=== PATIENT | female | born 1940 | race Caucasian/White ===

== ENCOUNTER 2022-05-22 15:05 | Inpatient (IN) | payer MEDICARE, SELFPAY ==
--- NOTE | ~2022-05-22 | CT_ITS ---
EXAMINATION: CT ABDOMEN AND PELVIS WITHOUT CONTRAST CLINICAL INFORMATION: Sudden onset of nausea and vomiting COMPARISON: None available. TECHNIQUE: Multidetector volumetric imaging was performed from the superior aspect of the liver through the pubic symphysis. Sagittal and coronal reformatted images were obtained on the technologist's workstation. This CT examination was performed using dose optimization techniques as appropriate, variously including the following: *Automated exposure control *Adjustment of mA and/or kV according to patient size (this includes techniques or standardized protocols for targeted exams where dose is matched to indication/reason for exam; i.e. extremities or head) *Use of iterative reconstruction technique DLP: 750 mGy-cm FINDINGS: LUNG BASES: The visualized lung bases are unremarkable. LIVER, GALLBLADDER, AND BILIARY TREE: The liver is normal in size, shape, and attenuation. No focal hepatic lesion or biliary ductal dilatation is present. The gallbladder is unremarkable with no evidence of radiopaque gallstones, gallbladder wall thickening, or obvious pericholecystic inflammatory changes. PANCREAS: Unremarkable. SPLEEN: Unremarkable. ADRENAL GLANDS: A 3.0 x 3.0 x 2.8 cm left adrenal myelolipoma lipoma is present with gross macroscopic fat. The right adrenal gland is normal KIDNEYS AND URETERS: The kidneys are normal in size, shape, and attenuation. No hydronephrosis, hydroureter, or calculi seen. No perinephric stranding. BLADDER: Unremarkable. GASTROINTESTINAL TRACT: There is a huge hiatal hernia with the entirety of the stomach within the chest, with the exception of the fundus which appears to be stuck below the diaphragm. The intrathoracic stomach is markedly distended. Patient status post right hemicolectomy. The small and large bowel are otherwise unremarkable aside from colonic diverticula without diverticulitis. ABDOMINAL WALL: No significant hernia is appreciated. A small periumbilical hernia seen containing only fat LYMPH NODES: No retroperitoneal lymphadenopathy VASCULAR: Unremarkable. PELVIC VISCERA: Uterus is not seen. An abnormal adnexal mass or free intraperitoneal fluid is not present OSSEOUS STRUCTURES: Marked degenerative changes are present throughout the visualized spine with relative sparing at L2-L3. There is grade 1 anterolisthesis of L5 upon S1. No bony destructive lesions are seen. CT/CT abdomen pelvis wo IV con IMPRESSION: 1. Huge hiatal hernia with the entirety of the stomach within the chest with the exception of the fundus which appears to be stuck below the diaphragm. 2. Incidental note made of 3 cm left adrenal myelolipoma. 3. Other incidental findings as described above. Fleischner guidelines were followed. This critical result was discussed with Dr. Meadows at 10:30 PM on the evening of the exam and it was ascertained that the content and urgency of the report was understood at the time of direct communication.
[2022-05-22 15:35] VITALS: BP 129/73; PULSE 72; RESP 20; TEMP 37.1
[2022-05-22 16:33] VITALS: BMI 29.2
--- NOTE | 2022-05-22 17:36 | PC.NURSE ---
Pt. arrived on unit at 15:20 via stretcher accompanied by 2 board certified behavioral analyst. Pt. came from [facility] ED where she was brought by her daughter for increased anxiety and helplessness with statements of wishing god would take her and she wouldn't wake up. Pt. alert and oriented X 4. Denies problems with memory. Signed CV. Endorses feelings of helplessness and anxiety because she is overwhelmed by ADLs and simple tasks, and her daughters don't believe she has self care deficits. She feels she is a burden to her daughters due to her neediness. No evidence of psychosis. She states she is ready for a retirement. Pt. oriented to unit, no smoking policy and visitor policy. Pt. ambulates independently with walker and has good balance and steady gait.
--- NOTE | 2022-05-22 18:21 | HO.PM.IMCN ---
History of Present Illness Data of Consult Service Date: 05/22/22 Requesting physician: Asael Walker Primary Care Provider: Dru RUIZ Reason for consult: medical H&P 82 year old female with history of hypothyroidism, htn, hld, vitamin d deficiency, bipolar disorder, and depression/anxiety admitted to Psychiatry with consult placed to hospital service for medical H and P. The patient has no physical complaints at this time but reports depression and passive SI. She denies any alcohol use, cigarette smoking, or illicit drug use. While in the ED at [facility], EKG showed NSR, rate 81 with RBBB, PAC's, and 1st degree AV block. CBC, CMP, UA, TSH/free t4 reviewed and normal. Review of Systems Review of Systems: General: No fevers, malaise, unintentional weight loss HEENT: No blurred vision, diplopia. No sore throat, nasal congestion, rhinorrhea, sinus pain, ear pain Cardiovascular: No chest pain, palpitations, or leg edema Respiratory: No shortness of breath, wheezing, cough GI: No abdominal pain, nausea, vomiting, diarrhea, constipation, melena, hematochezia : No dysuria, hematuria, increased urinary frequency, decreased urinary output MSK: No myalgia, back pain Neuro: No headaches, weakness, paresthesias Skin: No rashes or lesions [facility] Medical History (Updated 05/22/22 @ 18:39 by ESSENCE Ryder) Bipolar disorder Depression with anxiety HLD (hyperlipidemia) HTN (hypertension) Hypothyroidism Systolic ejection murmur Vitamin D deficiency Social History Household Members: None Housing: House Do you presently have visiting nurse or other home services: No (Daughters help) Patient Tobacco Use Status: Never used Tobacco Use of substances other than those prescribed or required for medical reasons: No Currently Displaying Signs/Symptoms of Drug Intoxication Withdrawal: No Any prior treatment program specific to substance use: No Have you been hit, kicked, punched, or otherwise hurt by someone within the past year? If so, by whom?: No Do you feel safe in your current relationship?: No Is there a partner from a previous relationship who is making you feel unsafe now?: No Are you made to feel afraid or neglected: No Spiritual Healthcare Practices: no Quaker Healthcare Practices: no Cultural Healthcare Practices: no Advance Directives: No Advance Directives Information Provided: Yes Do you have thoughts of harming others: None Do you have a plan to hurt others: No Plan Recently lost weight without trying: No Eating poorly because of decreased appetite: No Nutrition Risks: Difficulty chewing Patient : No : No Poor oral hygiene: No Meds Allergies Allergy/AdvReac Type Severity Reaction Status Date / Time meperidine [From Demerol] AdvReac Unknown Unknown Verified 05/22/22 16:45 Active Medications: Current Medications Acetaminophen (Acetaminophen 325 Mg Tablet) 650 mg PO Q6H PRN PRN Reason: Headache/Pain Mild Scale (1-3) Al Hydroxide/Mg Hydroxide (Magnesium Hydrox/Alum Hydrox 30 Ml Oral.Susp) 30 ml PO Q6H PRN PRN Reason: Heartburn/Nausea Hydroxyzine HCl (Hydroxyzine Hcl 25 Mg Tablet) 25 mg PO Q6H PRN PRN Reason: Anxiety Magnesium Hydroxide (Milk Of Magnesia 30 Ml Oral.Susp) 30 ml PO DAILY PRN PRN Reason: Constipation Trazodone HCl (Trazodone Hcl 50 Mg Tablet) 50 mg PO BEDTIME PRN PRN Reason: Insomnia Physical Exam Vital Signs and Narrative: Vital Signs: Last Vital Signs Temp 98.8 F 05/22/22 15:35 Pulse 72 05/22/22 15:35 Resp 20 05/22/22 15:35 BP 129/73 05/22/22 15:35 O2 Del Method 05/22/22 15:35 BMI result Body Mass Index 29.2 Constitutional - Awake and Alert, No apparent distress Eyes - PERRLA, EOMI Cardiovascular - S1S2, RRR, No edema. IV/ systolic ejection murmur Respiratory - Normal lung expansion, Normal respiratory effort, No respiratory distress, CTA bilaterally Gastrointestinal - NT / ND; +BS; No rebound or guarding - No CVA tenderness Extremities - no calf tenderness bilaterally, no swelling Musculoskeletal - Normal inspection, normal ROM Skin - Warm/Dry Neurological - Alert & oriented x3, CN II-XII in tact, 5/5 strength BUE and BLE Assessment and Plan (1) Routine medical exam: Status: Acute Plan 82 year old female with history of hypothyroidism, htn, hld, vitamin d deficiency, bipolar disorder, and depression/anxiety admitted to Psychiatry with consult placed to hospital service for medical H and P. #Mood disorder -plan per psychiatry #HTN -continue home antihypertensives #Hypothyroidism -TSH 2.00, euthyroid -continue levothyroxine 25 mcg daily # hyperlipidemia -continue statin # vitamin B12 deficiency -continue vitamin B12 and folic acid #Systolic ejection murmur -IV/ on exam. Pt reports not new -Reviewed echo 11/23 from [facility] which did not show any valvular disease -She is asymptomatic. Recommend repeat echo outpt #Abnormal EKG at [place] -No TEZ or depression. NO acute ischemia. Trops flat -1st degree AV block- no intervention needed -PAC's- no intervention needed Thank you for allowing me to participate in this consult. Signing off at this time. Please do not hesitate to call for further questions. Time Spent With Patient Time: Total time managing care of this patient today ____ minutes.
[2022-05-22] MEDS: hydrOXYzine HCL 25 MG TABLET PO (20:59)
[2022-05-22 22:00] VITALS: BP 114/59; PULSE 72; RESP 16; TEMP 36.6; O2SAT 95
[2022-05-22] MEDS: Atorvastatin Calcium 10 MG TABLET PO (22:22)
[2022-05-22] MEDS: Mirtazapine 30 MG TABLET PO (22:22)
[2022-05-23 08:18] LABS: Estimated Average Glucose 111 mg/dL; Hemoglobin A1c % 5.5 %
[2022-05-23] MEDS: Folic Acid 1 MG TABLET PO (08:36)
[2022-05-23] MEDS: Cyanocobalamin (Vitamin B-12) 100 MCG TABLET PO (08:36)
[2022-05-23] MEDS: Levothyroxine Sodium 25 MCG TABLET PO (08:37)
[2022-05-23] MEDS: Valsartan 80 MG TABLET PO (08:37)
[2022-05-23] MEDS: Ferrous Sulfate 324 MG TABLET.DR PO ×2 (08:37→20:34)
[2022-05-23] MEDS: ARIPiprazole 2 MG TABLET PO (08:37)
[2022-05-23 08:39] VITALS: BP 111/59; PULSE 68; RESP 18; TEMP 35.9; O2SAT 96
[2022-05-23 08:47] LABS: Alanine Aminotransferase 13 U/L (0-31); Albumin Level 4.1 g/dL (3.5-5.0); Alkaline Phosphatase 68 U/L (39-117); Anion Gap 14 (12-20); Aspartate Amino Transferase 18 U/L (5-31); Bilirubin Total 1.5 mg/dL (0.0-1.0); Blood Urea Nitrogen 24 mg/dL (9-16); Calcium 9.2 mg/dL (8.4-10.2); Carbon Dioxide 26 mmol/L (22-29); Chloride 106 mmol/L (96-108); Cholesterol 149 mg/dL; Creatinine Clr Calc Pharmacy 40.5; Estimated Glomerular Filt Rate 52; Glucose Fasting 113 mg/dL (60-99); HDL Cholesterol 63 mg/dL; LDL Cholesterol Calculated 63 mg/dl; Potassium 4.1 mmol/L (3.3-5.1); Sodium 142 mmol/L (135-145); Total Protein 6.5 g/dL (6.5-8.0); Triglycerides 115 mg/dL
--- NOTE | 2022-05-23 08:57 | HO.PSYADMNOT ---
HPI Date of Service: 05/23/22 Chief Complaint: F31.9 Sources of Information: patient interviewed, chart reviewed and crisis/core team assessment reviewed HPI Subjective Notes: Cannon Warning (given and shows understanding) and Conditional Voluntary Narrative: Mrs. Romero is a 82 year-old woman with hx of Bipolar Disorder. Pt presented to [facility] reporting increased depression, passive SI, inability to care for herself at home. On the unit, interview limited by fact that pt presented with nausea, vomiting, abdominal pain. Hospitalist consult ordered. Pt reports poor sleep. No VH/AH. No overt delusions. She reports depression for past several months not improving with medications. She denies SI/HI. Medical Evaluation Reviewed: Yes [facility] Medical History Bipolar disorder Depression with anxiety HLD (hyperlipidemia) HTN (hypertension) Hypothyroidism Systolic ejection murmur Vitamin D deficiency Diagnostics Vital Signs (24Hr): Vital Signs - 24 hr 05/22/22 15:35 05/22/22 22:00 05/23/22 08:39 Temperature 98.8 F 97.9 F 96.7 F L Pulse Rate 72 72 68 Respiratory Rate 20 16 18 Blood Pressure 129/73 114/59 L 111/59 L Pulse Oximetry 95 96 Oxygen Delivery Method Room Air Room Air Room Air BMI result Body Mass Index 29.2 Labs 05/23/22 07:49 Labs: Laboratory Results - last 48 hr 05/23/22 05/23/22 07:49 07:49 Sodium 142 Potassium 4.1 Chloride 106 Carbon Dioxide 26 Anion Gap 14 BUN 24 H Creatinine 1.02 Estim Creat Clear Calc 40.5 Estimated GFR 52 Fasting Glucose 113 H Estimat Average Glucose 111 Hemoglobin A1c % 5.5 Calcium 9.2 Total Bilirubin 1.5 H AST 18 ALT 13 Alkaline Phosphatase 68 Total Protein 6.5 Albumin 4.1 Triglycerides 115 Cholesterol 149 LDL Cholesterol, Calc 63 HDL Cholesterol 63 Meds/Allergies Meds Home Medications Medication Instructions Recorded Confirmed Type folic acid 1 mg tablet 1 mg PO DAILY 05/22/22 05/24/22 History levothyroxine 25 mcg tablet 25 mcg PO DAILY@0600 05/22/22 05/24/22 History ferrous sulfate 324 mg (65 mg 324 mg PO BID 05/24/22 05/24/22 History iron) tablet,delayed release valsartan 80 mg tablet 80 mg PO DAILY 05/24/22 05/24/22 History Allergies Allergies Allergy/AdvReac Type Severity Reaction Status Date / Time meperidine [From Demerol] AdvReac Unknown Unknown Verified 05/22/22 16:45 Mental Status Exam Mental Status Exam Narrative: Appearance: wearing hospital gown, fair hygiene, in some physical discomfort due to vomiting and abdominal pain. Behavior: cooperative Psychomotor: no agitation or retardation noted Speech: clear, normal rate/rhythm/volume, spontaneous TP: linear TC: no psychosis, feeling unwell physically with nausea and vomiting Mood: not well Affect: congruent SI: denies HI: denies VH/AH: none Delusions: none Alert, oriented x 3. MOCA . ACL 5.0 Assessment & Plan Assessment & Plan (1) Bipolar 1 disorder, depressed: Status: Acute Code(s): F31.9 - Bipolar disorder, unspecified Plan Mrs. Romero is a 82 year-old woman with hx of Bipolar Disorder. She self presented to [facility] reporting increased depression for several months affecting her ability to care for herself, anhedonia, poor sleep/appetite, low energy and fatigued. She denies SI/HI. No signs of psychosis or delusions. Pt currently vomitng not physically well, interview limited due to this and hospitalist consult ordered. PLAN 1. Admit to S1, CV, 15 minutes checks 2. Continue current medications 3. Hospitalist consult re ordered. 4. aftercare planning. Patient educated on: diagnosis Reason for continued inpatient stay Substantial Risk for: harm to self and inability to function Statement Statement: I have reviewed the history and physical and performed a pertinent examination on my patient. No changes have occurred unless specified. If the History and Physical was not performed prior to admission, the Hospitalist's service will be consulted for completing the admission physical. Time Spent With Patient Time: Total time managing care of this patient today ____ minutes.
[2022-05-23 09:15] LABS: Folate 18.8 ng/mL (> or = 4.0); Thyroid Stimulating Hormone 2.29 uIU/mL (0.32-4.0); Vitamin B12 1189 pg/mL (200-900)
[2022-05-23] MEDS: Ondansetron ODT 4 MG TAB.RAPDIS TRANSLINGU (14:06)
[2022-05-23] MEDS: Famotidine 20 MG TABLET PO (15:23)
[2022-05-23 18:00] VITALS: BP 179/82; PULSE 71; RESP 18; TEMP 37.3; O2SAT 95
--- NOTE | 2022-05-23 20:23 | HO.PM.IMCN ---
History of Present Illness Data of Consult Service Date: 05/23/22 Primary Care Provider: Dru RUIZ Reason for consult: Sudden onset nausea and vomiting Patient is an 82 year old female with history of hypothyroidism, htn, hld, vitamin d deficiency, bipolar disorder, and depression/anxiety admitted to Psychiatry with consult placed to hospital service for evaluation of sudden-onset nausea vomiting. Pt's symptom shortly after eating lunch when she became nauseous and began vomiting. Pt has since had an additional 4-5 episodes of vomiting. Pt also complains of a central, substernal epigastric pain which the patient describes as constant and gnawing. Denies any hematemesis. Patient has a history of a hiatal hernia diagnosed roughly 3 years ago, and is worried that might be contributing to her condition and/or pain. Patient has had episodes of nausea and vomiting in the past, but claims nothing like this before. Patient denies fever, chills, abdominal pain. No shortness of breath. No diarrhea. Patient was given a dose of ondansetron sublingual but states that did not help her nausea. Review of Systems Review of Systems: Nausea, vomiting Substernal gnawing epigastric pain Yes all other systems are reviewed and are negative [facility] Medical History Bipolar disorder Depression with anxiety HLD (hyperlipidemia) HTN (hypertension) Hypothyroidism Systolic ejection murmur Vitamin D deficiency Social History Household Members: None Housing: House Do you presently have visiting nurse or other home services: No ([facility] help) Patient Tobacco Use Status: Never used Tobacco Use of substances other than those prescribed or required for medical reasons: No Currently Displaying Signs/Symptoms of Drug Intoxication Withdrawal: No Any prior treatment program specific to substance use: No Have you been hit, kicked, punched, or otherwise hurt by someone within the past year? If so, by whom?: No Do you feel safe in your current relationship?: No Is there a partner from a previous relationship who is making you feel unsafe now?: No Are you made to feel afraid or neglected: No Spiritual Healthcare Practices: no Yazidism Healthcare Practices: no Cultural Healthcare Practices: no Advance Directives: No Advance Directives Information Provided: Yes Do you have thoughts of harming others: None Do you have a plan to hurt others: No Plan Recently lost weight without trying: No Eating poorly because of decreased appetite: No Nutrition Risks: Difficulty chewing Patient : No : No Poor oral hygiene: No Meds Allergies Allergy/AdvReac Type Severity Reaction Status Date / Time meperidine [From Demerol] AdvReac Unknown Unknown Verified 05/22/22 16:45 Active Medications: Current Medications Acetaminophen (Acetaminophen 325 Mg Tablet) 650 mg PO Q6H PRN PRN Reason: Headache/Pain Mild Scale (1-3) Al Hydroxide/Mg Hydroxide (Magnesium Hydrox/Alum Hydrox 30 Ml Oral.Susp) 30 ml PO Q6H PRN PRN Reason: Heartburn/Nausea Aripiprazole (Aripiprazole 2 Mg Tablet) 2 mg PO DAILY [facility] Last Admin: 05/23/22 08:37 Dose: 2 mg Atorvastatin Calcium (Atorvastatin Calcium 10 Mg Tablet) 10 mg PO BEDTIME [facility] Last Admin: 05/22/22 22:22 Dose: 10 mg Cyanocobalamin (Cyanocobalamin (Vitamin B-12) 100 Mcg Tablet) 100 mcg PO DAILY [facility] Last Admin: 05/23/22 08:36 Dose: 100 mcg Famotidine (Famotidine 20 Mg Tablet) 20 mg PO DAILY [facility] Last Admin: 05/23/22 15:23 Dose: 20 mg Ferrous Sulfate (Ferrous Sulfate 324 Mg Tablet.Dr) 324 mg PO BID [facility] Last Admin: 05/23/22 08:37 Dose: 324 mg Folic Acid (Folic Acid 1 Mg Tablet) 1 mg PO DAILY [facility] Last Admin: 05/23/22 08:36 Dose: 1 mg Hydroxyzine HCl (Hydroxyzine Hcl 25 Mg Tablet) 25 mg PO Q6H PRN PRN Reason: Anxiety Last Admin: 05/22/22 20:59 Dose: 25 mg Levothyroxine Sodium (Levothyroxine Sodium 25 Mcg Tablet) 25 mcg PO DAILY@0600 [facility] Last Admin: 05/23/22 08:37 Dose: 25 mcg Magnesium Hydroxide (Milk Of Magnesia 30 Ml Oral.Susp) 30 ml PO DAILY PRN PRN Reason: Constipation Mirtazapine (Mirtazapine 30 Mg Tablet) 30 mg PO BEDTIME [facility] Last Admin: 05/22/22 22:22 Dose: 30 mg Non-Formulary Medication (Desvenlafaxine Succinate [Pristiq]) 100 mg PO DAILY [facility] Omeprazole (Omeprazole 20 Mg Capsule.Dr) 20 mg PO BID@0630,1630 [facility] Ondansetron HCl (Ondansetron Odt 4 Mg Tab.Rapdis) 4 mg TRANSLINGU Q6H PRN PRN Reason: nausea Last Admin: 05/23/22 14:06 Dose: 4 mg Prochlorperazine Maleate (Prochlorperazine Maleate 5 Mg Tablet) 5 mg PO QID PRN PRN Reason: Nausea and Vomiting Trazodone HCl (Trazodone Hcl 50 Mg Tablet) 50 mg PO BEDTIME PRN PRN Reason: Insomnia Valsartan (Valsartan 80 Mg Tablet) 80 mg PO DAILY [facility] Last Admin: 05/23/22 08:37 Dose: 80 mg Home Medications Medication Instructions Recorded Confirmed Last Taken Type aripiprazole 2 mg tablet 2 mg PO DAILY 05/22/22 05/22/22 Unknown History desvenlafaxine succinate 100 mg 100 mg PO DAILY 05/22/22 05/22/22 Unknown History tablet,extended release 24 hr (Pristiq) ferrous sulfate 325 mg PO BID 05/22/22 05/22/22 Unknown History folic acid 1 mg tablet 1 mg PO DAILY 05/22/22 05/22/22 Unknown History irbesartan 150 mg tablet 150 mg PO DAILY 05/22/22 05/22/22 Unknown History levothyroxine 25 mcg tablet 25 mcg PO DAILY 05/22/22 05/22/22 Unknown History Physical Exam Vital Signs and Narrative: Vital Signs: Last Vital Signs Temp 96.7 F L 05/23/22 08:39 Pulse 68 05/23/22 08:39 Resp 18 05/23/22 08:39 BP 111/59 L 05/23/22 08:39 Pulse Ox 96 05/23/22 08:39 O2 Del Method 05/23/22 08:39 BMI result Body Mass Index 29.2 General: AOx3, no acute distress Resp: CTA bilaterally CVS: S1, S2, 3/6 systolic murmur GI: +BS, NT, no distention Skin: No rash Neuro: Cranial nerves II-XII grossly intact bilaterally. Motor grossly intact bilaterally Extremities: No edema Psych: Appropriate affect Results Labs 05/23/22 07:49 Labs: Laboratory Results - last 24 hr 05/23/22 05/23/22 07:49 07:49 Anion Gap 14 Estim Creat Clear Calc 40.5 Estimated GFR 52 Fasting Glucose 113 H Estimat Average Glucose 111 Hemoglobin A1c % 5.5 Calcium 9.2 Total Bilirubin 1.5 H AST 18 ALT 13 Alkaline Phosphatase 68 Total Protein 6.5 Albumin 4.1 Triglycerides 115 Cholesterol 149 LDL Cholesterol, Calc 63 HDL Cholesterol 63 Vitamin B12 1189 H Folate 18.8 TSH 2.29 Assessment and Plan (1) Nausea & vomiting: Status: Acute Plan Patient is an 82 year old female with history of hypothyroidism, htn, hld, vitamin d deficiency, bipolar disorder, and depression/anxiety admitted to Psychiatry with consult placed to hospital service for evaluation of sudden-onset nausea vomiting. Nausea, vomiting, and epigastric pain Unclear etiology Physical exam benign, patient afebrile CT of abdomen and pelvis without contrast to r/o acute abdomen Compazine po PPI po Consider IM/IV anti-emetics and PPI if pt unable to tolerate po medication Encourage fluid intake as tolerated Thank you for allowing us to participate in the care of this patient. We will continue to follow at this time, pending CT results. Please let us know if there are any acute concerns or questions. Time Spent With Patient Time: Total time managing care of this patient today ____ minutes.
[2022-05-23] MEDS: Omeprazole 20 MG CAPSULE.DR PO (20:33)
[2022-05-23] MEDS: Prochlorperazine Maleate 5 MG TABLET PO (20:33)
[2022-05-23] MEDS: Mirtazapine 30 MG TABLET PO (20:34)
[2022-05-23] MEDS: Atorvastatin Calcium 10 MG TABLET PO (20:34)
--- NOTE | 2022-05-23 23:01 | PC.NURSE ---
Patient had stomach upset and pain with nausea and vomiting. [employer] notified. Hospitalist consult ordered. Hospitalist ordered CT scan without contrast of the abdomen revealing a massive hiatal hernia. Patient is being transferred to med surg to get an IV and NGT placed.
[2022-05-23 23:13] VITALS: BP 163/75; PULSE 86; RESP 16; TEMP 36.4; O2SAT 92
[2022-05-24] MEDS: Enoxaparin Sodium 40 MG/0.4 ML SYRINGE SUBCUT (00:01)
[2022-05-24] MEDS: 0.9 % Sodium Chloride Flush 3 ML SYRINGE IVFLUSH (00:04)
[2022-05-24] MEDS: Morphine Sulfate 4 MG/ML CARTRIDGE IVPUSH (00:11)
[2022-05-24] MEDS: ondansetron HCL 4 MG/2 ML VIAL IVPUSH (00:23)
[2022-05-24] MEDS: Lactated Ringers 1,000 ML 80 ML IVCONT (00:35)
[2022-05-24 08:09] LABS: MANUAL DIFF FLAG NO
[2022-05-24 08:15] LABS: Basophils Percent Auto 0.3 % (0-2); Hematocrit 34.1 % (37.0-47.0); Hemoglobin 11.1 g/dl (12.0-16.0); Imm Gran Abs Auto 0.04 X10*3/uL (0.00-0.03); Imm Gran Pct Auto 0.6 % (0.0-0.4); Lymphocytes Absolute Auto 0.7 X10*3/uL (1.2-4.9); Lymphocytes Percent Auto 9.9 % (20-40); Mean Corpuscular HGB Conc 32.6 g/dl (31.0-35.0); Mean Corpuscular Hemoglobin 33.6 pg (27.0-33.0); Mean Corpuscular Volume 103.3 fL (80.0-98.0); Monocytes Absolute Auto 0.5 X10*3/uL (0.1-1.2); Monocytes Percent Auto 6.8 % (2-11); Neutrophils Absolute Auto 5.7 x10*3/uL (2.0-8.3); Neutrophils Percent Auto 82.4 % (45-73); Platelet Count 181 X10*3/uL (160-400); Red Cell Distribution Width 14.6 % (11.0-16.0); White Blood Count 6.9 X10*3/uL (4.8-10.8)
[2022-05-24 08:41] LABS: Anion Gap 16 (12-20); Blood Urea Nitrogen 30 mg/dL (9-16); Calcium 9.2 mg/dL (8.4-10.2); Carbon Dioxide 26 mmol/L (22-29); Chloride 106 mmol/L (96-108); Creatinine Clr Calc Pharmacy 38.6; Estimated Glomerular Filt Rate 49; Glucose Random 148 mg/dL (60-115); Potassium 4.5 mmol/L (3.3-5.1); Sodium 143 mmol/L (135-145)
--- NOTE | 2022-05-24 19:00 | P.DS_ITS ---
DS: Providers Provider Date of Service: 05/23/22 Date of admission: 05/22/22 15:05 Primary care physician: Dru Walker Consults: 05/22/22 18:03 Consult to Hospitalist Routine Consulting Provider: Hospitalist Reason For Exam: Hospital to hospitalist routine. 05/23/22 18:22 Consult to Hospitalist Routine Consulting Provider: Hospitalist Reason For Exam: Nausea/vomiting 05/24/22 00:16 Consult to General Surgery [place]ine [place]ing [place] [facility] [place] [facility] [place] Reason for consultation: hietal hernia Has provider been notified: Yes DS: Diagnosis Discharge Diagnosis (1) Bipolar 1 disorder, depressed: Status: Acute DS: Medications Discharge Medications Home Medications: Home Medications Medication Instructions Recorded Confirmed folic acid 1 mg tablet 1 mg PO DAILY 05/22/22 05/24/22 levothyroxine 25 mcg tablet 25 mcg PO DAILY@0600 05/22/22 05/24/22 ferrous sulfate 324 mg (65 mg 324 mg PO BID 05/24/22 05/24/22 iron) tablet,delayed release valsartan 80 mg tablet 80 mg PO DAILY 05/24/22 05/24/22 Previous Rx's Medication Instructions Recorded acetaminophen 325 mg tablet 650 mg PO Q6H PRN Headache/Pain 05/23/22 Mild Scale (1-3) 7 days #7 tabs aluminum-magnesium hydroxide 200 30 ml PO Q6H PRN Heartburn/Nausea 05/23/22 mg-200 mg/5 mL oral suspension #3,000 mL (MAG-AL) aripiprazole 2 mg tablet 2 mg PO DAILY 7 days #0 tabs 05/23/22 atorvastatin 10 mg tablet 10 mg PO BEDTIME 7 days #7 tabs 05/23/22 cyanocobalamin (vitamin B-12) 100 100 mcg PO DAILY #7 tabs 05/23/22 mcg tablet (Vitamin B-12) desvenlafaxine succinate 100 mg 100 mg PO DAILY 7 days #0 tabs 05/23/22 tablet,extended release 24 hr (Pristiq) famotidine 20 mg tablet 20 mg PO DAILY #7 tabs 05/23/22 hydroxyzine HCl 25 mg tablet 25 mg PO Q6H PRN Anxiety 7 days #7 05/23/22 tabs magnesium hydroxide 400 mg/5 mL 30 ml PO DAILY PRN Constipation 05/23/22 oral suspension (Milk of Magnesia) #355 mL mirtazapine 30 mg tablet 30 mg PO BEDTIME 7 days #7 tabs 05/23/22 omeprazole 20 mg capsule,delayed 20 mg PO BID@0630,1630 #14 caps 05/23/22 release ondansetron 4 mg disintegrating 4 mg translingual Q6H PRN nausea 05/23/22 tablet #7 tabs prochlorperazine maleate 5 mg 5 mg PO QID PRN Nausea And 05/23/22 tablet Vomiting #7 tabs trazodone 50 mg tablet 50 mg PO BEDTIME PRN Insomnia 7 05/23/22 days #7 tabs Mental Status Exam Mental Status Exam Narrative: Appearance: wearing hospital gown, fair hygiene, in some physical discomfort due to vomiting and abdominal pain. Behavior: cooperative Psychomotor: no agitation or retardation noted Speech: clear, normal rate/rhythm/volume, spontaneous TP: linear TC: no psychosis, feeling unwell physically with nausea and vomiting Mood: not well Affect: congruent SI: denies HI: denies VH/AH: none Delusions: none Alert, oriented x 3. MOCA . ACL 5.0 Data Data Completed and Pending Completed studies during hospitalization [Text1]: 05/23/22 05/23/22 05/24/22 07:49 07:49 07:59 WBC 6.9 RBC 3.30 L Hgb 11.1 L Hct 34.1 L MCV 103.3 H MCH 33.6 H MCHC 32.6 RDW 14.6 Plt Count 181 MPV 13.0 H Immature Gran % (Auto) 0.6 H Neut % (Auto) 82.4 H Lymph % (Auto) 9.9 L [place] % (Auto) 6.8 Eos % (Auto) 0.0 Baso % (Auto) 0.3 Lymph # (Auto) 0.7 L [place] # (Auto) 0.5 Eos # (Auto) 0.0 Baso # (Auto) 0.0 Abs Immat Gran (auto) 0.04 H Absolute Neuts (auto) 5.7 Absolute Nucleated RBC 0.000 Nucleated RBC % (auto) 0.0 Sodium 142 Potassium 4.1 Chloride 106 Carbon Dioxide 26 Anion Gap 14 BUN 24 H Creatinine 1.02 Estim Creat Clear Calc 40.5 Estimated GFR 52 Random Glucose Fasting Glucose 113 H Estimat Average Glucose 111 Hemoglobin A1c % 5.5 Calcium 9.2 Total Bilirubin 1.5 H AST 18 ALT 13 Alkaline Phosphatase 68 Total Protein 6.5 Albumin 4.1 Triglycerides 115 Cholesterol 149 LDL Cholesterol, Calc 63 HDL Cholesterol 63 Vitamin B12 1189 H Folate 18.8 TSH 2.29 05/24/22 07:59 WBC RBC Hgb Hct MCV MCH MCHC RDW Plt Count MPV Immature Gran % (Auto) Neut % (Auto) Lymph % (Auto) [place] % (Auto) Eos % (Auto) Baso % (Auto) Lymph # (Auto) [place] # (Auto) Eos # (Auto) Baso # (Auto) Abs Immat Gran (auto) Absolute Neuts (auto) Absolute Nucleated RBC Nucleated RBC % (auto) Sodium 143 Potassium 4.5 Chloride 106 Carbon Dioxide 26 Anion Gap 16 BUN 30 H Creatinine 1.07 Estim Creat Clear Calc 38.6 Estimated GFR 49 Random Glucose 148 H Fasting Glucose Estimat Average Glucose Hemoglobin A1c % Calcium 9.2 Total Bilirubin AST ALT Alkaline Phosphatase Total Protein Albumin Triglycerides Cholesterol LDL Cholesterol, Calc HDL Cholesterol Vitamin B12 Folate TSH Imaging Diagnostic Imaging Impressions Abdomen/Pelvis CT 05/23/22 21:20 IMPRESSION: 1. Huge hiatal hernia with the entirety of the stomach within the chest with the exception of the fundus which appears to be stuck below the diaphragm. 2. Incidental note made of 3 cm left adrenal myelolipoma. 3. Other incidental findings as described above. Fleischner guidelines were followed. This critical result was discussed with Dr. Meadows at 10:30 PM on the evening of the exam and it was ascertained that the content and urgency of the report was understood at the time of direct communication. DS: Summary Hospital Course Hospital Course: Subjective Notes: Cannon Warning (given and shows understanding) and Conditional Voluntary Narrative: Mrs. Romero is a 82 year-old woman with hx of Bipolar Disorder. Pt presented to [facility] reporting increased depression, passive SI, inability to care for herself at home. On the unit, interview limited by fact that pt presented with nausea, vomiting, abdominal pain. Hospitalist consult ordered. Pt reports poor sleep. No VH/AH. No overt delusions. She reports depression for past several months not improving with medications. She denies SI/HI. Medical Evaluation Reviewed: Yes HOSPITAL COURSE On the unit, pt presented with intractable vomiting, abdominal CT showed fluid pocket and hiatal hernia. Pt was transferred to medical floor for further evaluation. Time Spent with Patient Time attestation: Total time managing care of this patient today ____ minutes. Discharge Plan Discharge Anticipated Discharge Date/Time: 05/23/22 22:51 Patient Disposition: Xfer Acute Care Hospital Discharge Diagnosis: MDD Nausea and vomiting Referrals: Asael Walker [Primary Care Provider] - 1 Week Discharge Medications: New acetaminophen 325 mg Tablet 650 mg PO Q6H PRN (Reason: Headache/Pain Mild Scale (1-3)) 7 Days Qty: 7 0RF atorvastatin 10 mg Tablet 10 mg PO BEDTIME 7 Days Qty: 7 0RF hydroxyzine HCl 25 mg Tablet 25 mg PO Q6H PRN (Reason: Anxiety) 7 Days Qty: 7 0RF cyanocobalamin (vitamin B-12) [Vitamin B-12] 100 mcg Tablet 100 mcg PO DAILY Qty: 7 0RF trazodone 50 mg Tablet 50 mg PO BEDTIME PRN (Reason: Insomnia) 7 Days Qty: 7 0RF prochlorperazine maleate 5 mg Tablet 5 mg PO QID PRN (Reason: Nausea And Vomiting) Qty: 7 0RF famotidine 20 mg Tablet 20 mg PO DAILY Qty: 7 0RF magnesium hydroxide [Milk of Magnesia] 400 mg/5 mL Suspension 30 ml PO DAILY PRN (Reason: Constipation) Qty: 355 0RF mirtazapine 30 mg Tablet 30 mg PO BEDTIME 7 Days Qty: 7 0RF omeprazole 20 mg Capsule,Delayed Release(Dr/Ec) 20 mg PO BID@0630,1630 Qty: 14 0RF ondansetron 4 mg Tablet,Disintegrating 4 mg translingual Q6H PRN (Reason: nausea) Qty: 7 0RF MAG-AL 200-200 mg/5 mL Suspension 30 ml PO Q6H PRN (Reason: Heartburn/Nausea) Qty: 3000 0RF Continued levothyroxine 25 mcg Tablet 25 mcg PO DAILY@0600 Rx Instructions: Last filled 04/03/22 #90 folic acid 1 mg Tablet 1 mg PO DAILY Rx Instructions: Last filled 04/03/22 #90 aripiprazole 2 mg Tablet 2 mg PO DAILY 7 Days Qty: 0 0RF Rx Instructions: for excessive thinking last filled 04/26/22 #30 desvenlafaxine succinate [Pristiq] 100 mg Tablet Extended Release 24 Hr 100 mg PO DAILY 7 Days Qty: 0 0RF Rx Instructions: Last filled 05/17/22 #30 Discontinued irbesartan 150 mg Tablet 150 mg PO DAILY Rx Instructions: Last filled 04/03/22 #90 ferrous sulfate 325 mg PO BID Rx Instructions: Last filled 03/10/22 #180 No Action valsartan 80 mg Tablet 80 mg PO DAILY Rx Instructions: P&T interchange from irbesartan 150mg daily ferrous sulfate 324 mg (65 mg iron) Tablet,Delayed Release (Dr/Ec) 324 mg PO BID Discharge Orders: Discharge Order (Routine); Ordered 05/23/22 Ordered By: Asael Walker Activity on Discharge: As tolerated Stand Alone Forms: Patient Portal Discharge page Care Plan Goals: Transferred to medicine Health Concerns: Transferred to medicine Plan of Treatment: Transferred to medicine Assessment: Elderly patient with MDD transferred to medicine for medical treament Discharge Date/Time: 05/24/22 00:50
== END 2022-05-24 00:50 | disposition short-term general hospital (02) | DRG 885 ==
PROVIDERS: Internal Medicine; Social Worker; Admitting Provider Psychiatry & Neurology Psychiatry; PCP Psychiatry & Neurology Psychiatry; Visit Provider Psychiatry & Neurology Psychiatry
DX: F31.30 Bipolar disorder, current episode depressed, mild or moderate severity, unspecified (principal); E03.9 Hypothyroidism, unspecified; I10 Essential (primary) hypertension; E78.5 Hyperlipidemia, unspecified; E53.8 Deficiency of other specified B group vitamins; Z79.890 Hormone replacement therapy; Z79.899 Other long term (current) drug therapy
CPT/HCPCS: 36415; 74176; 80048; 80053; 80061; 82607; 82746; 83036; 84443; 85025; J1650; J2270; J2405

== ENCOUNTER 2022-05-24 00:56 | Inpatient (IN) | payer MEDICARE, SELFPAY ==
[2022-05-24] VITALS (17 sets, daily range): BP systolic 106–198; BP diastolic 49–98; PULSE 54–97; RESP 14–20; TEMP 36.3–37.4; O2SAT 92–100; BMI 29.2
--- NOTE | ~2022-05-24 | XR_ITS ---
EXAMINATION: XR CHEST CLINICAL INFORMATION: NG tube placement COMPARISON: CT of the abdomen and pelvis 05/23/2022. TECHNIQUE: Frontal view of the chest was obtained. FINDINGS: Enteric tube terminates over the lower aspect of the mid hemithorax. This is likely within the large hiatal hernia. This does not extend below the diaphragm. The lungs are well expanded. Minimal bibasilar atelectasis. No pleural effusion or pneumothorax. The cardiomediastinal silhouette is prominent, though this is likely in part due to the known large hernia.. XR/XR chest 1V IMPRESSION: Enteric tube terminates over the lower aspect of the mid hemithorax, likely within the large hiatal hernia. This does not extend below the diaphragm.
--- NOTE | 2022-05-24 01:04 | P.HPHOSP_ITS ---
History of Present Illness Date of Service: 05/24/22 Chief Complaint: abd pain H&P is brought forward from the earlier consultation note done by Mr. Teresa LOWRY. Patient is an 82 year old female with history of hypothyroidism, htn, hld, vitamin d deficiency, bipolar disorder, and depression/anxiety admitted to Psychiatry with consult placed to hospital service for evaluation of sudden- onset nausea vomiting.? Pt's symptom shortly after eating lunch when she became nauseous and began vomiting. Pt has since had an additional 4-5 episodes of vomiting. Pt also complains of a central, substernal epigastric pain which the patient describes as constant and gnawing. Denies any hematemesis.? Patient has a history of a hiatal hernia diagnosed roughly 3 years ago, and is worried that might be contributing to her condition and/or pain.? Patient has had episodes of nausea and vomiting in the past, but claims nothing like this before.? Patient denies fever, chills, abdominal pain.? No shortness of breath.? No diarrhea.? Patient was given a dose of ondansetron sublingual but states that did not help her nausea Patient is being transferred to the floor for intractable nausea and vomiting, and evidence of hiatal l hernia with a large fluid burden in the chest. Patient continues to have nausea vomiting, abdominal pain. Spoke to surgery, patient will be transferred to the floor, NG tube will be placed, ppi, and antiemetics ordered. Surgery will see patient in a.m. Vitals were reviewed appear to be stable with a blood pressure 160/75, no other abnormal finding Review of Systems Review of Systems: Yes all other systems are reviewed and are negative [facility] Medical History Bipolar disorder Depression with anxiety HLD (hyperlipidemia) HTN (hypertension) Hypothyroidism Systolic ejection murmur Vitamin D deficiency Social History Household Members: None Housing: House Do you presently have visiting nurse or other home services: No (Daughters help) Patient Tobacco Use Status: Never used Tobacco Advance Directives: No Advance Directives Information Provided: No Advance Directives on File: No Meds Allergies Allergy/AdvReac Type Severity Reaction Status Date / Time meperidine [From Demerol] AdvReac Unknown Unknown Verified 05/22/22 16:45 Active Medications: Current Medications Heparin Sodium (Porcine) (Heparin Sodium,Porcine 5,000 Unit/Ml Vial) 5,000 unit SUBCUT Q12H [facility] Hydromorphone HCl (Hydromorphone Hcl 1 Mg/Ml Syringe) 0.5 mg IVPUSH Q4H PRN; Protocol PRN Reason: Pain, Severe (Pain Scale 7-10) Ondansetron HCl (Ondansetron Hcl 4 Mg/2 Ml Vial) 4 mg IVPUSH Q8H PRN PRN Reason: Nausea and Vomiting Sodium Chloride (0.9 % Sodium Chloride Flush 3 Ml Syringe) 3 ml IVFLUSH QSHIFT [facility] Home Medications Medication Instructions Recorded Confirmed Last Taken Type folic acid 1 mg tablet 1 mg PO DAILY 05/22/22 05/22/22 Unknown History levothyroxine 25 mcg tablet 25 mcg PO DAILY 05/22/22 05/22/22 Unknown History Physical Exam Const: General: cooperative and no acute distress Orientation/consciousness: patient oriented x3 Eyes: General: appearance normal, both eyes and all related structures Pupils: Equal, round and reactive pupils present Resp: Effort & Inspection: normal respiratory effort Auscultation: clear to auscultation bilaterally Cardio: Rate: regular rate Rhythm: regular rhythm GI: Other: Abdomen is tender in the epigastric region, no rebound or guarding, no significant distension Palpation (GI): Soft to palpation Auscultation: n ormal bowel sounds Skin: General skin exam: no rashes or lesions noted Neuro: General: patient oriented x3 Cranial nerves: Yes Equal, round and reactive pupils present Cognition (Neuro): normal cognition Extrem: General: Yes normal to inspection and Yes no pedal edema Results Imaging Radiologist's Impressions: CT abd/pelvs 05/23: Huge hiatal hernia with the entirety of the stomach within the chest with the exception of the fundus which appears to be stuck below the diaphragm. Assessment and Plan (1) Nausea & vomiting: Status: Acute (2) Abdominal pain: Status: Acute (3) Hiatal hernia: Status: Acute Plan Patient is an 82 year old female with history of hypothyroidism, htn, hld, vit maynard d deficiency, bipolar disorder, and depression/anxiety admitted to Psychiatry with consult placed to hospital service for evaluation of sudden- onset nausea vomiting found to have large hiatal hernia in the chest # abdominal pain, intractable nausea vomiting - secondary to hiatal hernia - NG tube will be placed - surgery consulted - pain control - PPI # hiatal hernia - it appears that the majority of the high rule hernia is located in this chest with a small fundus below the diaphragm - spoke to surgery, at this time given the intractable nausea vomiting, will place NG tube - surgery to speak to thoracic in a.m. - NPO # mood disorder - will hold off on p.o. medications at this time - patient will likely a returned to [facility] once medically cleared DVT prophylaxis: Heparin subQ Time Spent With Patient Time: Total time managing care of this patient today ____ minutes. Quality Stroke Does the patient have a stroke diagnosis?: No VTE Prior VTE?: No VTE Risk Level:: Medical - moderate - high VTE Device Contraindication: Treatment Not Indicated VTE Drug Contraindication: N/A - Med Ordered
[2022-05-24] MEDS: HYDROmorphone HCl 1 MG/ML SYRINGE 0.5 MG IVPUSH (01:47)
[2022-05-24] MEDS: Heparin Sodium,Porcine 5,000 UNIT/ML VIAL 5000 UNIT SUBCUT ×2 (01:51→20:21)
[2022-05-24] MEDS: Lactated Ringers 1,000 ML 80 ML IVCONT ×2 (01:53→14:30)
[2022-05-24] MEDS: ondansetron HCL 4 MG/2 ML VIAL IVPUSH ×3 (02:42→13:08)
[2022-05-24 02:46] LABS: Basophils Percent Auto 0.1 % (0-2); Imm Gran Abs Auto 0.04 X10*3/uL (0.00-0.03); Imm Gran Pct Auto 0.5 % (0.0-0.4); PLT ABN DIST 1; SCAN SMEAR FLAG 1
[2022-05-24 02:48] LABS: Hematocrit 37.7 % (37.0-47.0); Hemoglobin 12.3 g/dl (12.0-16.0); Lymphocytes Absolute Auto 1.3 X10*3/uL (1.2-4.9); Lymphocytes Percent Auto 16.8 % (20-40); Mean Corpuscular HGB Conc 32.6 g/dl (31.0-35.0); Mean Corpuscular Volume 104.1 fL (80.0-98.0); Mean Platelet Volume 13.7 fL (9.4-12.3); Monocytes Absolute Auto 0.3 X10*3/uL (0.1-1.2); Monocytes Percent Auto 4.1 % (2-11); Neutrophils Absolute Auto 5.9 x10*3/uL (2.0-8.3); Neutrophils Percent Auto 78.5 % (45-73); Platelet Count 204 X10*3/uL (160-400); Red Blood Count 3.62 X10*6/uL (4.20-5.50); Red Cell Distribution Width 14.3 % (11.0-16.0); White Blood Count 7.5 X10*3/uL (4.8-10.8)
[2022-05-24 02:52] LABS: MANUAL DIFF FLAG NO
[2022-05-24 02:58] LABS: Anion Gap 19 (12-20); Blood Urea Nitrogen 26 mg/dL (9-16); Calcium 9.7 mg/dL (8.4-10.2); Carbon Dioxide 25 mmol/L (22-29); Chloride 104 mmol/L (96-108); Creatinine Clr Calc Pharmacy 39.7; Estimated Glomerular Filt Rate 51; Glucose Random 184 mg/dL (60-115); Potassium 4.5 mmol/L (3.3-5.1); Sodium 143 mmol/L (135-145)
[2022-05-24] MEDS: Metoclopramide HCl 10 MG/2 ML VIAL IVPUSH (03:50)
--- NOTE | 2022-05-24 07:32 | PHA.MEDREC ---
Pharmacy Consult ? Medication Reconciliation Pharmacy has completed the medication reconciliation. Patient transferred from [facility] where med rec previously completed by nursing.
--- NOTE | 2022-05-24 07:45 | ECG_ITS ---
Test Reason : qt Blood Pressure : / mmHG Vent. Rate : 081 BPM Atrial Rate : 081 BPM P-R Int : 286 ms QRS Dur : 134 ms QT Int : 410 ms P-R-T Axes : 032 001 006 degrees QTc Int : 476 ms Sinus rhythm with 1st degree A-V block Right bundle branch block Abnormal ECG No previous ECGs available Referred By: Ashlyn Fan Electronically Signed By:JONATHAN HURD MD
--- NOTE | 2022-05-24 08:03 | P.CONGS_ITS ---
History of Present Illness Consult details Consult date: 05/24/22 Reason for consult: other (hiatal hernia) Requesting physician: Canelo Hanson Narrative: 82 year old female with significant PMH of hypothyroidism, HTN, HLD, bipolar disorder initially admitted to where she developed sudden onset of nausea and vomiting shortly after eating lunch. Pt has since had an additional 4-5 episodes of vomiting. This is associated with substernal epigastric pain. Patient has a history of a hiatal hernia diagnosed incidently during her work up for colon CA which she underwent right hemicolectomy ([facility]) ~3 years ago for. Patient denies fever, chills, hematemesis, dyspnea. She was sent back to the ED where CT of abdomen and pelvis was performed which showed a large hiatal hernia with almost the enterity of the stomach in her chest with distended intrathoracic stomach.? NGT insertion was attempted and lies within the hiatal hernia but is draining. She was subsequently transferred to the medical/surgical floor for further treatment. Surgery was consulted. She feels improved this morning and denies nausea with antiemetics on board. When they wear off, the nausea returns. NGT is draining dark bile. Review of Systems Constitutional: Constitutional: Denies chills and Denies fever(s) ENT: Denies dizziness Cardiovascular: Cardiovascular: Denies dyspnea Respiratory: Respiratory: Denies dyspnea Gastrointestinal: Gastrointestinal: Reports as per HPI, Reports abdominal pain, Reports vomiting and Denies hematemesis Integumentary/Breasts: Skin/Breast: Denies rash and Denies jaundice Neurologic: Denies confusion and Denies dizziness Psychiatric: Psychiatric: Denies confusion and Reports depression [facility] Past Medical History Medical History (Updated 05/24/22 @ 08:28 by Janine Loja) Bipolar disorder Depression with anxiety HLD (hyperlipidemia) HTN (hypertension) Hypothyroidism Systolic ejection murmur Vitamin D deficiency Surgical History Surgical History (Updated 05/24/22 @ 08:32 by Leann Boss PA-C) History of right hemicolectomy S/P hysterectomy Social History Social History Household Members: None Housing: House Do you presently have visiting nurse or other home services: No Patient Tobacco Use Status: Never used Tobacco Use of substances other than those prescribed or required for medical reasons: No Have you been hit, kicked, punched, or otherwise hurt by someone within the past year? If so, by whom?: No Do you feel safe in your current relationship?: No Current Relationship Is there a partner from a previous relationship who is making you feel unsafe now?: No Are you made to feel afraid or neglected: No Advance Directives: No Advance Directives Information Provided: No Advance Directives on File: No Do you have thoughts of harming others: None Do you have a plan to hurt others: No Plan Recently lost weight without trying: No Eating poorly because of decreased appetite: No Nutrition Risks: No Nutritional Risk Patient : No : No Poor oral hygiene: No Meds Allergies Allergy/AdvReac Type Severity Reaction Status Date / Time meperidine [From Demerol] AdvReac Unknown Unknown Verified 05/22/22 16:45 Active Medications: Current Medications Acetaminophen (Acetaminophen 325 Mg Tablet) 650 mg PO Q6H PRN PRN Reason: Headache/Pain Mild Scale (1-3) Al Hydroxide/Mg Hydroxide (Magnesium Hydrox/Alum Hydrox 30 Ml Oral.Susp) 30 ml PO Q6H PRN PRN Reason: Heartburn/Nausea Aripiprazole (Aripiprazole 2 Mg Tablet) 2 mg PO DAILY [facility] Atorvastatin Calcium (Atorvastatin Calcium 10 Mg Tablet) 10 mg PO BEDTIME [facility] Cyanocobalamin (Cyanocobalamin (Vitamin B-12) 100 Mcg Tablet) 100 mcg PO DAILY [facility] Famotidine (Famotidine 20 Mg Tablet) 20 mg PO DAILY [facility] Ferrous Sulfate (Ferrous Sulfate 324 Mg Tablet.Dr) 324 mg PO BID [facility] Folic Acid (Folic Acid 1 Mg Tablet) 1 mg PO DAILY [facility] Heparin Sodium (Porcine) (Heparin Sodium,Porcine 5,000 Unit/Ml Vial) 5,000 unit SUBCUT BID [facility] Last Admin: 05/24/22 01:51 Dose: 5,000 unit Hydroxyzine HCl (Hydroxyzine Hcl 25 Mg Tablet) 25 mg PO Q6H PRN PRN Reason: Anxiety Lactated Ringer's (Lr) 1,000 mls @ 80 mls/hr IVCONT .[id number] [facility] Last Admin: 05/24/22 01:53 Dose: 80 mls/hr Levothyroxine Sodium (Levothyroxine Sodium 25 Mcg Tablet) 25 mcg PO DAILY@0600 [facility] Magnesium Hydroxide (Milk Of Magnesia 30 Ml Oral.Susp) 30 ml PO DAILY PRN PRN Reason: Constipation Mirtazapine (Mirtazapine 30 Mg Tablet) 30 mg PO BEDTIME [facility] Morphine Sulfate (Morphine Sulfate 4 Mg/Ml Cartridge) 4 mg IVPUSH Q4H PRN; Protocol PRN Reason: Pain, Severe (Pain Scale 7-10) Non-Formulary Medication (Desvenlafaxine Succinate [Pristiq]) 100 mg PO DAILY [facility] Omeprazole (Omeprazole 20 Mg Capsule.Dr) 20 mg PO BID@0630,1630 [facility] Ondansetron HCl (Ondansetron Hcl 4 Mg/2 Ml Vial) 4 mg IVPUSH Q8H PRN PRN Reason: Nausea and Vomiting Prochlorperazine Maleate (Prochlorperazine Maleate 5 Mg Tablet) 5 mg PO QID PRN PRN Reason: Nausea and Vomiting Sodium Chloride (0.9 % Sodium Chloride Flush 3 Ml Syringe) 3 ml IVFLUSH QSHIFT [facility] Last Admin: 05/24/22 07:22 Dose: Not Given Trazodone HCl (Trazodone Hcl 50 Mg Tablet) 50 mg PO BEDTIME PRN PRN Reason: Insomnia Valsartan (Valsartan 80 Mg Tablet) 80 mg PO DAILY [facility] Home Medications Medication Instructions Recorded Confirmed Last Taken Type folic acid 1 mg tablet 1 mg PO DAILY 05/22/22 05/24/22 05/23/22 History levothyroxine 25 mcg tablet 25 mcg PO DAILY@0600 05/22/22 05/24/22 05/23/22 History ferrous sulfate 324 mg (65 mg 324 mg PO BID 05/24/22 05/24/22 05/23/22 History iron) tablet,delayed release valsartan 80 mg tablet 80 mg PO DAILY 05/24/22 05/24/22 05/23/22 History Physical Exam Vital Signs: Vital Signs: Last Vital Signs Temp 98.5 F 05/24/22 02:19 Pulse 97 05/24/22 02:19 Resp 20 05/24/22 03:59 BP 136/85 05/24/22 02:19 Pulse Ox 94 05/24/22 02:19 O2 Del Method Room Air 05/24/22 02:19 BMI result Body Mass Index 29.2 Const: General: comfortable, no acute distress and alert; No confusion Tyler entation/consciousness: patient oriented x3 and No confusion Resp: Effort & Inspection: normal respiratory effort Cardio: Rate: regular rate Rhythm: regular rhythm Heart sounds: Murmur heart sound present systolic GI: Inspection: No distended and Yes scar (well healed midline scar inferior to umbilicus, small port scars) Skin: General skin exam: no rashes or lesions noted Neuro: General: patient oriented x3, moves all extremities and No confusion Extrem: General: Yes no clubbing, cyanosis or edema Results Labs 05/24/22 02:24 05/24/22 02:24 Labs: Abnormal lab results 05/24/22 05/24/22 Range/Units 02:24 02:24 RBC 3.62 L (4.20-5.50) X10*6/uL MCV 104.1 H (80.0-98.0) fL MCH 34.0 H (27.0-33.0) pg MPV 13.7 H (9.4-12.3) fL Immature Gran % (Auto) 0.5 H (0.0-0.4) % Neut % (Auto) 78.5 H (45-73) % Lymph % (Auto) 16.8 L (20-40) % Abs Immat Gran (auto) 0.04 H (0.00-0.03) X10*3/uL BUN 26 H (9-16) mg/dL Random Glucose 184 H (60-115) mg/dL Short CBC 05/24/22 Range/Units 02:24 WBC 7.5 (4.8-10.8) X10*3/uL Hgb 12.3 (12.0-16.0) g/dl Hct 37.7 (37.0-47.0) % Plt Count 204 (160-400) X10*3/uL BMP 05/24/22 02:24 Sodium 143 Potassium 4.5 Chloride 104 Carbon Dioxide 25 BUN 26 H Creatinine 1.04 Calcium 9.7 All other labs normal. Imaging Chest x-ray: report reviewed and image reviewed Abdomen CT scan report/results: report reviewed and image reviewed Assessment and Plan (1) Hiatal hernia: Status: Acute Plan 82 year old female who developed acute onset nausea/vomiting with CT scan showing large hiatal hernia with almost enterity of stomach in chest with distended intrathoracic stomach with possible volvulus. NGT inserted, lies in hiatal hernia. Given the hiatal hernia with obstructive symptoms with possible volvulus, recommended to proceed with exploratory laparotomy, reduction and repair of hiatal hernia and gastropexy with gastrostomy tube placement. She consents to the procedure. She will remain NPO, on IVF, type and screen ordered. Time Spent With Patient Time: Total time managing care of this patient today ____ minutes. Procedures Date of Service Date of Service: 05/24/22
[2022-05-24 09:07] LABS: MANUAL DIFF FLAG NO
[2022-05-24 09:13] LABS: Basophils Percent Auto 0.1 % (0-2); Hematocrit 33.4 % (37.0-47.0); Hemoglobin 10.9 g/dl (12.0-16.0); Imm Gran Abs Auto 0.03 X10*3/uL (0.00-0.03); Imm Gran Pct Auto 0.4 % (0.0-0.4); Lymphocytes Absolute Auto 0.7 X10*3/uL (1.2-4.9); Lymphocytes Percent Auto 9.6 % (20-40); Mean Corpuscular HGB Conc 32.6 g/dl (31.0-35.0); Mean Corpuscular Hemoglobin 33.9 pg (27.0-33.0); Mean Corpuscular Volume 103.7 fL (80.0-98.0); Monocytes Absolute Auto 0.5 X10*3/uL (0.1-1.2); Monocytes Percent Auto 6.5 % (2-11); Neutrophils Absolute Auto 5.9 x10*3/uL (2.0-8.3); Neutrophils Percent Auto 83.4 % (45-73); Platelet Count 186 X10*3/uL (160-400); Red Blood Count 3.22 X10*6/uL (4.20-5.50); Red Cell Distribution Width 14.6 % (11.0-16.0); White Blood Count 7.1 X10*3/uL (4.8-10.8)
[2022-05-24 09:39] LABS: Anion Gap 14 (12-20); Blood Urea Nitrogen 30 mg/dL (9-16); Carbon Dioxide 27 mmol/L (22-29); Chloride 106 mmol/L (96-108); Creatinine Clr Calc Pharmacy 36.5; Estimated Glomerular Filt Rate 46; Glucose Random 139 mg/dL (60-115); Potassium 4.3 mmol/L (3.3-5.1); Sodium 143 mmol/L (135-145)
--- NOTE | 2022-05-24 12:05 | W.PM.OPN ---
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 Findings: [] Intraoperative findings demonstrated a almost complete gastric paraesophageal hernia with volvulus with essentially the entire stomach in the chest. Upon reduction, Stomach was edematous and hemorrhagic but no evidence of transmural necrosis or compromise. Procedure: [] Patient is brought to the operating room, placed on the operating table in a supine position, after an adequate level of general anesthesia was induced, the patient's abdomen and upper chest were prepped and draped in usual sterile fashion. Using an upper midline incision extended to the right of the xiphoid, this carried down through skin, subcutaneous tissue, down to the linea alba which was opened using electro Bovie and extended along the length of the incision. Posterior fascia and peritoneum were opened and the similarly extended along the length incision using electro Bovie. PACkS were retractors were placed to enhance exposure. Findings were as noted above. Essentially, the entire stomach was in the thoracic cavity. This was reduced without incident. The right and left crura were grasped using long Allis clamps and reapproximated anteriorly using interrupted 0 Prolene sutures with care to avoid the esophagus. Both Tomi were very attenuated and thin. Next a gastrostomy tube placement was undertaken the following manner; through a left upper quadrant separate stab wound incision, a 24 [place] 5 cc Rodriguez catheter was inserted into the abdominal cavity. Next 2 pursestring sutures of 2-0 silk were placed on the anterior mid gastric wall. A gastrotomy was made in the center of this using electro Bovie and the feeding tube advanced distally into the stomach. Each pursestring suture was then secured. Stomach was then pexied to the anterior abdominal wall/perineum using interrupted sero- muscular to peritoneal sutures of interrupted 2-0 silk. These are uneventfully secured. Next, omentum was pexied around the G-tube site using interrupted 2-0 silk sutures to the peritoneal wall.. Abdominal cavity was irrigated and secured hemostasis. Abdominal wound was closed in the following fashion; parasternal fascia was reapproximated using interrupted 0 PDS suture. Midline Fascia was reapproximated in mass closure fashion using running looped 0 PDS. Interrupted inverted subdermal 3-0 Vicryl sutures followed by running subcuticular 4-0 Vicryl sutures were placed. Steri-Strips and sterile dressings were applied. Sponge, needle, and instrument counts were reported to be correct. Patient tolerated the procedure well emerged anesthesia stable condition. EBL minimal. Patient is to have a tap block per anesthesia a completion of the procedure.
[2022-05-24] MEDS: hydrALAZINE HCl 20 MG/ML VIAL 10 MG IVPUSH (13:08)
[2022-05-24] MEDS: Morphine Sulfate 4 MG/ML CARTRIDGE IVPUSH (14:30)
[2022-05-24] MEDS: Acetaminophen 1,000 MG/100 ML PIGGYBACK 400 MG IV ×2 (14:30→20:22)
--- NOTE | 2022-05-24 14:39 | HO.ANESPROP2 ---
HPI - Anesthesia Eval Consult details Narrative: 82 F with incarcerated hiatal hernia with incarceration of stomach into the chest cavity PMFSH Active Problems Active Problems: All Active Problems (Updated 05/24/22 @ 08:28 by Janine Loja) Bipolar 1 disorder, depressed (Acute) Hiatal hernia (Acute) Abdominal pain (Acute) Nausea & vomiting (Acute) Routine medical exam (Acute) Past Medical History Medical History Bipolar disorder Depression with anxiety HLD (hyperlipidemia) HTN (hypertension) Hypothyroidism Systolic ejection murmur Vitamin D deficiency Family History Family history of problems with anesthesia: No Surgical History Surgical History History of right hemicolectomy S/P hysterectomy History of Problems with Anesthesia: No Social History Social History Household Members: None Housing: House Do you presently have visiting nurse or other home services: No Patient Tobacco Use Status: Never used Tobacco Second Hand Smoke Exposure: No Use of substances other than those prescribed or required for medical reasons: No Currently Displaying Signs/Symptoms of Drug Intoxication Withdrawal: No Have you been hit, kicked, punched, or otherwise hurt by someone within the past year? If so, by whom?: No Do you feel safe in your current relationship?: No Current Relationship Is there a partner from a previous relationship who is making you feel unsafe now?: No Are you made to feel afraid or neglected: No Are you DNR?: No Advance Directives: No Advance Directives Information Provided: No Advance Directives on File: No Do you have thoughts of harming others: None Do you have a plan to hurt others: No Plan Recently lost weight without trying: No Eating poorly because of decreased appetite: No Nutrition Risks: No Nutritional Risk Patient : No : No Poor oral hygiene: No Meds Allergies Allergy/AdvReac Type Severity Reaction Status Date / Time meperidine [From Demerol] AdvReac Unknown Unknown Verified 05/22/22 16:45 Active Medications: Current Medications Al Hydroxide/Mg Hydroxide (Magnesium Hydrox/Alum Hydrox 30 Ml Oral.Susp) 30 ml PO Q6H PRN PRN Reason: Heartburn/Nausea Aripiprazole (Aripiprazole 2 Mg Tablet) 2 mg PO DAILY [facility] Last Admin: 05/24/22 08:20 Dose: Not Given Atorvastatin Calcium (Atorvastatin Calcium 10 Mg Tablet) 10 mg PO BEDTIME [facility] Cyanocobalamin (Cyanocobalamin (Vitamin B-12) 100 Mcg Tablet) 100 mcg PO DAILY [facility] Last Admin: 05/24/22 08:20 Dose: Not Given Famotidine (Famotidine 20 Mg Tablet) 20 mg PO DAILY [facility] Last Admin: 05/24/22 08:20 Dose: Not Given Ferrous Sulfate (Ferrous Sulfate 324 Mg Tablet.) 324 mg PO BID [facility] Last Admin: 05/24/22 08:20 Dose: Not Given Folic Acid (Folic Acid 1 Mg Tablet) 1 mg PO DAILY [facility] Last Admin: 05/24/22 08:20 Dose: Not Given Heparin Sodium (Porcine) (Heparin Sodium,Porcine 5,000 Unit/Ml Vial) 5,000 unit SUBCUT BID [facility] Last Admin: 05/24/22 10:06 Dose: Not Given Hydromorphone HCl (Hydromorphone Hcl 0.5 Mg/0.5 Ml Syringe) 0.25 mg IVPUSH Q5M PRN; Protocol PRN Reason: Pain, Severe (Pain Scale 7-10) Hydroxyzine HCl (Hydroxyzine Hcl 25 Mg Tablet) 25 mg PO Q6H PRN PRN Reason: Anxiety Lactated Ringer's (Lr) 1,000 mls @ 80 mls/hr IVCONT .[id number] [facility] Last Admin: 05/24/22 14:30 Dose: 80 mls/hr Acetaminophen (Ofirmev) 1,000 mg in 100 mls @ 400 mls/hr IV Q6H [facility] Last Admin: 05/24/22 14:30 Dose: 400 mls/hr Levothyroxine Sodium (Levothyroxine Sodium 25 Mcg Tablet) 25 mcg PO DAILY@0600 [facility] Magnesium Hydroxide (Milk Of Magnesia 30 Ml Oral.Susp) 30 ml PO DAILY PRN PRN Reason: Constipation Mirtazapine (Mirtazapine 30 Mg Tablet) 30 mg PO BEDTIME [facility] Morphine Sulfate (Morphine Sulfate 4 Mg/Ml Cartridge) 4 mg IVPUSH Q4H PRN; Protocol PRN Reason: Pain, Severe (Pain Scale 7-10) Last Admin: 05/24/22 14:30 Dose: 4 mg Non-Formulary Medication (Desvenlafaxine Succinate [Pristiq]) 100 mg PO DAILY [facility] Omeprazole (Omeprazole 20 Mg Capsule.Dr) 20 mg PO BID@0630,1630 [facility] Ondansetron HCl (Ondansetron Hcl 4 Mg/2 Ml Vial) 4 mg IVPUSH Q8H PRN PRN Reason: Nausea and Vomiting Last Admin: 05/24/22 13:08 Dose: 4 mg Oxycodone HCl (Oxycodone Hcl Immed Release 5 Mg Tablet) 5 mg PO Q4H PRN PRN Reason: Pain, Moderate (Pain Scale 4-6 Oxycodone HCl (Oxycodone Hcl Immed Release 5 Mg Tablet) 10 mg PO Q4H PRN PRN Reason: Pain, Severe (Pain Scale 7-10) Prochlorperazine Maleate (Prochlorperazine Maleate 5 Mg Tablet) 5 mg PO QID PRN PRN Reason: Nausea and Vomiting Sodium Chloride (0.9 % Sodium Chloride Flush 3 Ml Syringe) 3 ml IVFLUSH QSHIFT [facility] Last Admin: 05/24/22 07:22 Dose: Not Given Trazodone HCl (Trazodone Hcl 50 Mg Tablet) 50 mg PO BEDTIME PRN PRN Reason: Insomnia Valsartan (Valsartan 80 Mg Tablet) 80 mg PO DAILY [facility] Last Admin: 05/24/22 08:20 Dose: Not Given Home Medications Medication Instructions Recorded Confirmed Last Taken Type folic acid 1 mg tablet 1 mg PO DAILY 05/22/22 05/24/22 05/23/22 History levothyroxine 25 mcg tablet 25 mcg PO DAILY@0600 05/22/22 05/24/22 05/23/22 History ferrous sulfate 324 mg (65 mg 324 mg PO BID 05/24/22 05/24/22 05/23/22 History iron) tablet,delayed release valsartan 80 mg tablet 80 mg PO DAILY 05/24/22 05/24/22 05/23/22 History Exam Exam Date and Time: May 24, 2022 1439 Height,Weight and Vital Signs: Height 5 ft 3 in Weight 164 lb 14.492 oz Last Vital Signs Temp 98.2 F 05/24/22 13:35 Pulse 85 05/24/22 13:50 Resp 16 05/24/22 13:50 BP 119/53 L 05/24/22 13:50 Pulse Ox 96 05/24/22 13:50 O2 Del Method Nasal Cannula 05/24/22 13:50 O2 Flow Rate 3 05/24/22 13:50 Pertinent Lab Results Pertinent Lab Results: Laboratory Tests 05/24/22 05/24/22 05/24/22 02:24 02:24 08:44 WBC 7.5 7.1 RBC 3.62 L 3.22 L Hgb 12.3 10.9 L Hct 37.7 33.4 L MCV 104.1 H 103.7 H MCH 34.0 H 33.9 H MCHC 32.6 32.6 RDW 14.3 14.6 Plt Count 204 186 MPV 13.7 H 13.0 H Immature Gran % (Auto) 0.5 H 0.4 Neut % (Auto) 78.5 H 83.4 H Lymph % (Auto) 16.8 L 9.6 L [place] % (Auto) 4.1 6.5 Eos % (Auto) 0.0 0.0 Baso % (Auto) 0.1 0.1 Lymph # (Auto) 1.3 0.7 L [place] # (Auto) 0.3 0.5 Eos # (Auto) 0.0 0.0 Baso # (Auto) 0.0 0.0 Abs Immat Gran (auto) 0.04 H 0.03 Absolute Neuts (auto) 5.9 5.9 Absolute Nucleated RBC 0.000 0.000 Nucleated RBC % (auto) 0.0 0.0 Sodium 143 Potassium 4.5 Chloride 104 Carbon Dioxide 25 Anion Gap 19 BUN 26 H Creatinine 1.04 Estim Creat Clear Calc 39.7 Estimated GFR 51 Random Glucose 184 H Calcium 9.7 Blood Type Antibody Screen 05/24/22 05/24/22 08:44 08:44 WBC RBC Hgb Hct MCV MCH MCHC RDW Plt Count MPV Immature Gran % (Auto) Neut % (Auto) Lymph % (Auto) [place] % (Auto) Eos % (Auto) Baso % (Auto) Lymph # (Auto) [place] # (Auto) Eos # (Auto) Baso # (Auto) Abs Immat Gran (auto) Absolute Neuts (auto) Absolute Nucleated RBC Nucleated RBC % (auto) Sodium 143 Potassium 4.3 Chloride 106 Carbon Dioxide 27 Anion Gap 14 BUN 30 H Creatinine 1.13 Estim Creat Clear Calc 36.5 Estimated GFR 46 Random Glucose 139 H Calcium 9.0 Blood Type O Positive Antibody Screen NEGATIVE Airway Mallampati Class: II TM Dist: >3cm Neck ROM: Full Loose/Missing/Broken Teeth: Upper and Lower Assessment and Plan Assessment Anesthesia Assessment: Anesthesia Plan Discussed and Chart Reviewed Final Anesthetic Review Family History of Problems with Anesthesia: No History of Problems with Anesthesia: No NPO: Yes ASA Class: III and Emergency Final Preanesthetic Review: No Changes in Pt Med Stat, Meds/Allgs Chart Reviewed, Consent Obtained/Reviewed and Anes Risks/Benef Reviewed Patient Risk: Intermediate Procedure Risk: High Anesthetic Plan Anesthetic Plan: GA and Regional Block Disposition: Standard PACU
[2022-05-24] MEDS: Ketorolac Tromethamine 15 MG/ML VIAL IVPUSH (15:39)
--- NOTE | 2022-05-24 15:50 | MHC.CM.PN ---
IMM 05/24/22 FEMALE S/P HIATAL HERNIA REPAIR. FROM PSYCH FLOOR DX BIPOLAR, ANXIETY DEPRESSION. TRANSFERRED TO MED SURG R/T AB PAIN S/P HIATAL HERNIA REPAIR LIVES HOME ALONE ASSIST FROM 2 DTRS CRISTINA WORKS FROM MOTHERS HOME 60 HOURS A WEAK JUAN ASSISTS ON SAT MED PREFILL ECT ANXIETY LIMITS FUNCTIONAL MOBILITY USES A WALKER (CARRIES IT) AND A WC (AT TIMES R/T ANXIETY) DP RETURN TO PSYCH FLOOR AFTER CARE TEAM CONSULT TO DETERMINE LOC VS STR VIA BLS REQUESTED COPY OF HCP. VAXXED FOR COVID.
[2022-05-24] MEDS: oxyCODONE HCl Immed Release 5 MG TABLET 10 MG PO (16:42)
[2022-05-24] MEDS: Omeprazole 20 MG CAPSULE.DR PO (16:44)
--- NOTE | 2022-05-24 17:32 | HO.PM.IMPN ---
Subjective Subjective Date of Service: 05/24/22 Interval History: seen and examined this morning follow up for N/V admitted overnight from psych floor for the same CT showing large hiatal hernia with majority of stomach within the chest abdominal pain improving after placement of NGT Review of Systems Review of Systems: Yes all other systems are reviewed and are negative Constitutional Constitutional: Denies chills and Denies fever(s) ENT Ears, Nose, Mouth, and Throat: Denies dizziness Cardiovascular Cardiovascular: Denies chest pain, Denies palpitations and Denies dyspnea Respiratory Respiratory: Denies cough and Denies dyspnea Gastrointestinal Gastrointestinal: Denies abdominal pain and Reports nausea Neurologic Neurologic: Denies dizziness Endocrine Endocrine: Denies palpitations Physical Exam Vital Signs: Vital Signs: Last Vital Signs Temp 98.3 F 05/24/22 15:26 Pulse 88 05/24/22 15:26 Resp 18 05/24/22 15:26 BP 126/58 L 05/24/22 15:26 Pulse Ox 92 05/24/22 15:26 O2 Del Method Nasal Cannula 05/24/22 15:26 O2 Flow Rate 2.5 05/24/22 15:26 BMI result Body Mass Index 29.2 Const: General: comfortable, no acute distress, alert and awake Nutritional Appearance: average body habitus Orientation/consciousness: patient oriented x3 HEENT: Other: NGT in place with large amt of dark output Resp: Effort & Inspection: normal respiratory effort and able to speak in complete sentences Auscultation: clear to auscultation bilaterally Cardio: Rate: regular rate Heart sounds: Murmur heart sound present GI: Palpation (GI): Soft to palpation Neuro: General: patient oriented x3 and CN's II-XI intact bilaterally Extrem: General: Yes no pedal edema Objective Data Active Medications Al Hydroxide/Mg Hydroxide (Magnesium Hydrox/Alum Hydrox 30 Ml Oral.Susp) 30 ml PO Q6H PRN PRN Reason: Heartburn/Nausea Aripiprazole (Aripiprazole 2 Mg Tablet) 2 mg PO DAILY [facility] Last Admin: 05/24/22 08:20 Dose: Not Given Documented By: ALEK Non-Admin Reason: NPO Atorvastatin Calcium (Atorvastatin Calcium 10 Mg Tablet) 10 mg PO BEDTIME [facility] Cyanocobalamin (Cyanocobalamin (Vitamin B-12) 100 Mcg Tablet) 100 mcg PO DAILY [facility] Last Admin: 05/24/22 08:20 Dose: Not Given Documented By: ALEK Non-Admin Reason: NPO Famotidine (Famotidine 20 Mg Tablet) 20 mg PO DAILY [facility] Last Admin: 05/24/22 08:20 Dose: Not Given Documented By: ALEK Non-Admin Reason: NPO Ferrous Sulfate (Ferrous Sulfate 324 Mg Tablet.) 324 mg PO BID [facility] Last Admin: 05/24/22 08:20 Dose: Not Given Documented By: ALEK Non-Admin Reason: NPO Folic Acid (Folic Acid 1 Mg Tablet) 1 mg PO DAILY [facility] Last Admin: 05/24/22 08:20 Dose: Not Given Documented By: ALEK Non-Admin Reason: NPO Heparin Sodium (Porcine) (Heparin Sodium,Porcine 5,000 Unit/Ml Vial) 5,000 unit SUBCUT BID [facility] Last Admin: 05/24/22 10:06 Dose: Not Given Documented By: ALEK Non-Admin Reason: Off Unit: Surgery Hydromorphone HCl (Hydromorphone Hcl 0.5 Mg/0.5 Ml Syringe) 0.25 mg IVPUSH Q5M PRN; Protocol PRN Reason: Pain, Severe (Pain Scale 7-10) Hydroxyzine HCl (Hydroxyzine Hcl 25 Mg Tablet) 25 mg PO Q6H PRN PRN Reason: Anxiety Lactated Ringer's (Lr) 1,000 mls @ 80 mls/hr IVCONT .[id number] [facility] Last Admin: 05/24/22 14:30 Dose: 80 mls/hr Documented By: ALEK Acetaminophen (Ofirmev) 1,000 mg in 100 mls @ 400 mls/hr IV Q6H [facility] Last Infusion: 05/24/22 15:01 Dose: 0 mls/hr Documented By: ALEK Levothyroxine Sodium (Levothyroxine Sodium 25 Mcg Tablet) 25 mcg PO DAILY@0600 [facility] Magnesium Hydroxide (Milk Of Magnesia 30 Ml Oral.Susp) 30 ml PO DAILY PRN PRN Reason: Constipation Mirtazapine (Mirtazapine 30 Mg Tablet) 30 mg PO BEDTIME [facility] Morphine Sulfate (Morphine Sulfate 4 Mg/Ml Cartridge) 4 mg IVPUSH Q4H PRN; Protocol PRN Reason: Pain, Severe (Pain Scale 7-10) Last Admin: 05/24/22 14:30 Dose: 4 mg Documented By: ALEK Non-Formulary Medication (Desvenlafaxine Succinate [Pristiq]) 100 mg PO DAILY [facility] Omeprazole (Omeprazole 20 Mg Capsule.Dr) 20 mg PO BID@0630,1630 [facility] Last Admin: 05/24/22 16:44 Dose: 20 mg Documented By: ALEK Ondansetron HCl (Ondansetron Hcl 4 Mg/2 Ml Vial) 4 mg IVPUSH Q8H PRN PRN Reason: Nausea and Vomiting Last Admin: 05/24/22 13:08 Dose: 4 mg Documented By: TAB Oxycodone HCl (Oxycodone Hcl Immed Release 5 Mg Tablet) 5 mg PO Q4H PRN PRN Reason: Pain, Moderate (Pain Scale 4-6 Oxycodone HCl (Oxycodone Hcl Immed Release 5 Mg Tablet) 10 mg PO Q4H PRN PRN Reason: Pain, Severe (Pain Scale 7-10) Last Admin: 05/24/22 16:42 Dose: 10 mg Documented By: ALEK Prochlorperazine Maleate (Prochlorperazine Maleate 5 Mg Tablet) 5 mg PO QID PRN PRN Reason: Nausea and Vomiting Sodium Chloride (0.9 % Sodium Chloride Flush 3 Ml Syringe) 3 ml IVFLUSH QSHIFT [facility] Last Admin: 05/24/22 15:01 Dose: Not Given Documented By: ALEK Non-Admin Reason: IV Running Trazodone HCl (Trazodone Hcl 50 Mg Tablet) 50 mg PO BEDTIME PRN PRN Reason: Insomnia Valsartan (Valsartan 80 Mg Tablet) 80 mg PO DAILY [facility] Last Admin: 05/24/22 08:20 Dose: Not Given Documented By: ALEK Non-Admin Reason: NPO Labs 05/24/22 08:44 05/24/22 08:44 Labs: Laboratory Results - last 24 hr 05/24/22 05/24/22 05/24/22 02:24 02:24 08:44 MCV 104.1 H 103.7 H MCH 34.0 H 33.9 H MCHC 32.6 32.6 RDW 14.3 14.6 Plt Count 204 186 MPV 13.7 H 13.0 H Immature Gran % (Auto) 0.5 H 0.4 Neut % (Auto) 78.5 H 83.4 H Lymph % (Auto) 16.8 L 9.6 L [place] % (Auto) 4.1 6.5 Eos % (Auto) 0.0 0.0 Baso % (Auto) 0.1 0.1 Lymph # (Auto) 1.3 0.7 L [place] # (Auto) 0.3 0.5 Eos # (Auto) 0.0 0.0 Baso # (Auto) 0.0 0.0 Abs Immat Gran (auto) 0.04 H 0.03 Absolute Neuts (auto) 5.9 5.9 Absolute Nucleated RBC 0.000 0.000 Nucleated RBC % (auto) 0.0 0.0 Anion Gap 19 Estim Creat Clear Calc 39.7 Estimated GFR 51 Random Glucose 184 H Calcium 9.7 Blood Type Antibody Screen 05/24/22 05/24/22 08:44 08:44 MCV MCH MCHC RDW Plt Count MPV Immature Gran % (Auto) Neut % (Auto) Lymph % (Auto) [place] % (Auto) Eos % (Auto) Baso % (Auto) Lymph # (Auto) [place] # (Auto) Eos # (Auto) Baso # (Auto) Abs Immat Gran (auto) Absolute Neuts (auto) Absolute Nucleated RBC Nucleated RBC % (auto) Anion Gap 14 Estim Creat Clear Calc 36.5 Estimated GFR 46 Random Glucose 139 H Calcium 9.0 Blood Type O Positive Antibody Screen NEGATIVE Assessment and Plan (1) Nausea & vomiting: Status: Acute Plan Patient is an 82 year old female with history of hypothyroidism, htn, hld, vitamin d deficiency, bipolar disorder, and depression/anxiety admitted to Psychiatry with consult placed to hospital service for evaluation of sudden-onset nausea vomiting found to have large hiatal hernia in the chest abdominal pain, intractable nausea vomiting secondary to gastric volvulus, paraesophageal hernia s/p NGT seen by surgery - plan for surgery today pain control, IS mood disorder initially admitted to psych will consult psych to follow while on medical floor po meds on hold for volvulus will need BHN eval when medically clear to determine need to return to inpatient psych Hypertension Continue valsartan Hypothyroidism Continue Synthroid DVT prophylaxis: Heparin subQ Attending-Dr. Zayas Patient requires ongoing inpatient hospitalization for management of gastric volvulus Time Spent With Patient Time: Total time managing care of this patient today ____ minutes. Quality Stroke Does the patient have a stroke diagnosis?: No VTE Prior VTE?: No VTE Risk Level:: Medical - moderate - high VTE Device Contraindication: Treatment Not Indicated VTE Drug Contraindication: N/A - Med Ordered
[2022-05-24] MEDS: Mirtazapine 30 MG TABLET PO (20:21)
[2022-05-25] VITALS (7 sets, daily range): BP systolic 97–136; BP diastolic 50–64; PULSE 79–88; RESP 17–18; TEMP 36.6–37.7; O2SAT 91–94
[2022-05-25] MEDS: oxyCODONE HCl Immed Release 5 MG TABLET 10 MG PO ×2 (00:40→07:02)
[2022-05-25] MEDS: Lactated Ringers 1,000 ML 80 ML IVCONT ×2 (02:13→15:44)
[2022-05-25] MEDS: Acetaminophen 1,000 MG/100 ML PIGGYBACK 400 MG IV ×3 (02:38→15:43)
[2022-05-25] MEDS: Omeprazole 20 MG CAPSULE.DR PO ×2 (05:56→15:43)
[2022-05-25] MEDS: Levothyroxine Sodium 25 MCG TABLET PO (05:56)
[2022-05-25 06:05] LABS: PLT ABN DIST 1
[2022-05-25 06:07] LABS: Hematocrit 28.7 % (37.0-47.0); Hemoglobin 9.2 g/dl (12.0-16.0); Mean Corpuscular HGB Conc 32.1 g/dl (31.0-35.0); Mean Corpuscular Hemoglobin 33.8 pg (27.0-33.0); Mean Corpuscular Volume 105.5 fL (80.0-98.0); Mean Platelet Volume 13.8 fL (9.4-12.3); Platelet Count 152 X10*3/uL (160-400); Red Blood Count 2.72 X10*6/uL (4.20-5.50); Red Cell Distribution Width 15.2 % (11.0-16.0); White Blood Count 7.4 X10*3/uL (4.8-10.8)
[2022-05-25 06:29] LABS: Anion Gap 14 (12-20); Blood Urea Nitrogen 39 mg/dL (9-16); Calcium 8.3 mg/dL (8.4-10.2); Carbon Dioxide 26 mmol/L (22-29); Chloride 105 mmol/L (96-108); Creatinine Clr Calc Pharmacy 23.7; Estimated Glomerular Filt Rate 28; Glucose Random 114 mg/dL (60-115); Potassium 4.5 mmol/L (3.3-5.1); Sodium 140 mmol/L (135-145)
[2022-05-25] MEDS: Heparin Sodium,Porcine 5,000 UNIT/ML VIAL 5000 UNIT SUBCUT ×2 (07:01→20:33)
[2022-05-25] MEDS: Folic Acid 1 MG TABLET PO (07:02)
[2022-05-25] MEDS: Valsartan 80 MG TABLET PO (07:02)
[2022-05-25] MEDS: ARIPiprazole 2 MG TABLET PO (07:02)
[2022-05-25] MEDS: Famotidine 20 MG TABLET PO (07:02)
--- NOTE | 2022-05-25 08:16 | PM.PNGS ---
Subjective Subjective Date of Service: 05/25/22 Interval history: Reports pain with standing overnight but otherwise feels well. Denies nausea. Denies flatus. Physical Exam Vital Signs: Vital Signs: Last Vital Signs Temp 98.5 F 05/25/22 07:36 Pulse 79 05/25/22 07:36 Resp 18 05/25/22 07:36 BP 126/59 L 05/25/22 07:36 Pulse Ox 92 05/25/22 07:36 O2 Del Method Nasal Cannula 05/25/22 07:36 O2 Flow Rate 2 05/25/22 07:36 BMI result Body Mass Index 29.2 Const: General: comfortable, no acute distress and alert Orientation/consciousness: patient oriented x3 Resp: Effort & Inspection: normal respiratory effort GI: Other: G tube in place, draining scant bilious output Inspection: No distended and Yes incision (clean) Palpation (GI): Soft to palpation, Tenderness to palpation present (GI) (mild incisional), no guarding and not rigid Percussion: Yes normal to percussion Skin: General skin exam: no rashes or lesions noted Neuro: General: patient oriented x3 and moves all extremities Objective Data Active Medications Aripiprazole (Aripiprazole 2 Mg Tablet) 2 mg PO DAILY REPLACED BY [facility] Last Admin: 05/25/22 07:02 Dose: 2 mg Documented By: ASHLEY Famotidine (Famotidine 20 Mg Tablet) 20 mg PO DAILY REPLACED BY [facility] Last Admin: 05/25/22 07:02 Dose: 20 mg Documented By: ASHLEY Folic Acid (Folic Acid 1 Mg Tablet) 1 mg PO DAILY REPLACED BY [facility] Last Admin: 05/25/22 07:02 Dose: 1 mg Documented By: ASHLEY Heparin Sodium (Porcine) (Heparin Sodium,Porcine 5,000 Unit/Ml Vial) 5,000 unit SUBCUT BID REPLACED BY [facility] Last Admin: 05/25/22 07:01 Dose: 5,000 unit Documented By: ASHLEY Hydroxyzine HCl (Hydroxyzine Hcl 25 Mg Tablet) 25 mg PO Q6H PRN PRN Reason: Anxiety Lactated Ringer's (Lr) 1,000 mls @ 80 mls/hr IVCONT .[id number] REPLACED BY [facility] Last Admin: 05/25/22 02:13 Dose: 80 mls/hr Documented By: LYSPatti Acetaminophen (Ofirmev) 1,000 mg in 100 mls @ 400 mls/hr IV Q6H REPLACED BY [facility] Last Infusion: 05/25/22 02:57 Dose: 0 mls/hr Documented By: TACOS Levothyroxine Sodium (Levothyroxine Sodium 25 Mcg Tablet) 25 mcg PO DAILY@0600 REPLACED BY [facility] Last Admin: 05/25/22 05:56 Dose: 25 mcg Documented By: TACOS Mirtazapine (Mirtazapine 30 Mg Tablet) 30 mg PO BEDTIME REPLACED BY [facility] Last Admin: 05/24/22 20:21 Dose: 30 mg Documented By: TACOS Morphine Sulfate (Morphine Sulfate 4 Mg/Ml Cartridge) 4 mg IVPUSH Q4H PRN; Protocol PRN Reason: Pain, Severe (Pain Scale 7-10) Last Admin: 05/24/22 14:30 Dose: 4 mg Documented By: ALEK Non-Formulary Medication (Desvenlafaxine Succinate [Pristiq]) 100 mg PO DAILY REPLACED BY [facility] Omeprazole (Omeprazole 20 Mg Capsule.Dr) 20 mg PO BID@0630,1630 REPLACED BY [facility] Last Admin: 05/25/22 05:56 Dose: 20 mg Documented By: TACOS Ondansetron HCl (Ondansetron Hcl 4 Mg/2 Ml Vial) 4 mg IVPUSH Q8H PRN PRN Reason: Nausea and Vomiting Last Admin: 05/24/22 13:08 Dose: 4 mg Documented By: TAB Oxycodone HCl (Oxycodone Hcl Immed Release 5 Mg Tablet) 5 mg PO Q4H PRN PRN Reason: Pain, Moderate (Pain Scale 4-6 Oxycodone HCl (Oxycodone Hcl Immed Release 5 Mg Tablet) 10 mg PO Q4H PRN PRN Reason: Pain, Severe (Pain Scale 7-10) Last Admin: 05/25/22 07:02 Dose: 10 mg Documented By: ASHLEY Sodium Chloride (0.9 % Sodium Chloride Flush 3 Ml Syringe) 3 ml IVFLUSH QSHIFT REPLACED BY [facility] Last Admin: 05/25/22 07:01 Dose: Not Given Documented By: ASHLEY Non-Admin Reason: IV Running Trazodone HCl (Trazodone Hcl 50 Mg Tablet) 50 mg PO BEDTIME PRN PRN Reason: Insomnia Valsartan (Valsartan 80 Mg Tablet) 80 mg PO DAILY [facility] Last Admin: 05/25/22 07:02 Dose: 80 mg Documented By: ASHLEY Labs 05/25/22 05:28 05/25/22 05:28 Labs: Laboratory Results - last 24 hr 05/24/22 05/24/22 05/24/22 08:44 08:44 08:44 MCV 103.7 H MCH 33.9 H MCHC 32.6 RDW 14.6 Plt Count 186 MPV 13.0 H Immature Gran % (Auto) 0.4 Neut % (Auto) 83.4 H Lymph % (Auto) 9.6 L [place] % (Auto) 6.5 Eos % (Auto) 0.0 Baso % (Auto) 0.1 Lymph # (Auto) 0.7 L [place] # (Auto) 0.5 Eos # (Auto) 0.0 Baso # (Auto) 0.0 Abs Immat Gran (auto) 0.03 Absolute Neuts (auto) 5.9 Absolute Nucleated RBC 0.000 Nucleated RBC % (auto) 0.0 Anion Gap 14 Estim Creat Clear Calc 36.5 Estimated GFR 46 Random Glucose 139 H Calcium 9.0 Blood Type O Positive Antibody Screen NEGATIVE 05/25/22 05/25/22 05:28 05:28 MCV 105.5 H MCH 33.8 H MCHC 32.1 RDW 15.2 Plt Count 152 L MPV 13.8 H Immature Gran % (Auto) Neut % (Auto) Lymph % (Auto) [place] % (Auto) Eos % (Auto) Baso % (Auto) Lymph # (Auto) [place] # (Auto) Eos # (Auto) Baso # (Auto) Abs Immat Gran (auto) Absolute Neuts (auto) Absolute Nucleated RBC 0.000 Nucleated RBC % (auto) 0.0 Anion Gap 14 Estim Creat Clear Calc 23.7 Estimated GFR 28 Random Glucose 114 Calcium 8.3 L D Blood Type Antibody Screen Procedures Date of Service Date of Service: 05/25/22 Progress Note: A&P Assessment and plan (1) Hiatal hernia: Status: Acute (2) S/P exploratory laparotomy: Status: Acute Plan 82 year old female admitted with nausea/vomiting found to have large hiatal hernia with volvulus. She is now POD #1 s/p ex lap, repair of hiatal hernia, gastropexy with G tube. Doing fairly well post op. Pain has been well controlled, denies nausea. VSS. Abd exam benign with appropriate post op tenderness, G tube in place, scant bilious drainage. Cont pain control. Will advance to sips of clear liquids. Encouraged OOB to recliner/ambulation today, IS use. AM labs reviewed- LINDA, slight drift in H/H. Cont IVF. Cont G tube to gravity. Time Spent With Patient Time: Total time managing care of this patient today ____ minutes. Quality Stroke Does the patient have a stroke diagnosis?: No VTE Prior VTE?: No VTE Risk Level:: Medical - moderate - high VTE Device Contraindication: Treatment Not Indicated VTE Drug Contraindication: N/A - Med Ordered
[2022-05-25] MEDS: Morphine Sulfate 4 MG/ML CARTRIDGE IVPUSH (10:42)
--- NOTE | 2022-05-25 14:09 | HO.POSTANES ---
Post Anesthesia Evaluation Post Anesthesia Evaluation Vital Signs: Vital Signs Temp Pulse Resp BP Pulse Ox O2 Del Method O2 Flow Rate 05/25/22 12:00 97.8 F 88 18 97/50 L 93 Room Air 05/25/22 08:00 98.5 F 79 18 126/59 L 92 Nasal Cannula 2 05/25/22 07:36 98.5 F 79 18 126/59 L 92 Nasal Cannula 2 05/25/22 03:44 97.8 F 80 17 104/53 L 92 Nasal Cannula 2 Anesthesia: General Endotracheal-GETA Mental Status: Awake Pain Control: Satisfactory Nausea/Vomiting: None Hydration: Adequate Anesthesia-Related Issues: No Anes. Related Issues
--- NOTE | 2022-05-25 14:35 | HO.PM.IMPN ---
Subjective Subjective Date of Service: 05/25/22 Interval History: seen and examined this morning follow up for abdominal pain/gastric volvulus s/p ex lap with repair of hiatal hernia and gastropexy with gtube doing fairly well this morning, using IS no chest pain, sob, fever Review of Systems Review of Systems: Yes all other systems are reviewed and are negative Constitutional Constitutional: Denies chills and Denies fever(s) Cardiovascular Cardiovascular: Denies chest pain, Denies palpitations and Denies dyspnea Respiratory Respiratory: Denies cough and Denies dyspnea Endocrine Endocrine: Denies palpitations Physical Exam Vital Signs: Vital Signs: Last Vital Signs Temp 97.8 F 05/25/22 12:00 Pulse 88 05/25/22 12:00 Resp 18 05/25/22 12:00 BP 97/50 L 05/25/22 12:00 Pulse Ox 93 05/25/22 12:00 O2 Del Method Room Air 05/25/22 12:00 O2 Flow Rate 2 05/25/22 08:00 BMI result Body Mass Index 29.2 Const: General: comfortable, alert and awake Nutritional Appearance: average body habitus Orientation/consciousness: patient oriented x3 Resp: Effort & Inspection: normal respiratory effort and able to speak in complete sentences Auscultation: clear to auscultation bilaterally Cardio: Rate: regular rate Heart sounds: Murmur heart sound present GI: Other: midline abdominal incision in place, gtube in place Palpation (GI): Soft to palpation Neuro: General: patient oriented x3 and CN's II-XI intact bilaterally Extrem: General: Yes no pedal edema Objective Data Active Medications Aripiprazole (Aripiprazole 2 Mg Tablet) 2 mg PO DAILY [facility] Last Admin: 05/25/22 07:02 Dose: 2 mg Documented By: ASHLEY Famotidine (Famotidine 20 Mg Tablet) 20 mg PO DAILY [facility] Last Admin: 05/25/22 07:02 Dose: 20 mg Documented By: ASHLEY Folic Acid (Folic Acid 1 Mg Tablet) 1 mg PO DAILY [facility] Last Admin: 05/25/22 07:02 Dose: 1 mg Documented By: ASHLEY Heparin Sodium (Porcine) (Heparin Sodium,Porcine 5,000 Unit/Ml Vial) 5,000 unit SUBCUT BID [facility] Last Admin: 05/25/22 07:01 Dose: 5,000 unit Documented By: ASHLEY Hydroxyzine HCl (Hydroxyzine Hcl 25 Mg Tablet) 25 mg PO Q6H PRN PRN Reason: Anxiety Lactated Ringer's (Lr) 1,000 mls @ 100 mls/hr IVCONT .Q10H [facility] Last Admin: 05/25/22 02:13 Dose: 80 mls/hr Documented By: TACOS Acetaminophen (Ofirmev) 1,000 mg in 100 mls @ 400 mls/hr IV Q6H [facility] Last Infusion: 05/25/22 09:29 Dose: 0 mls/hr Documented By: ALEK Levothyroxine Sodium (Levothyroxine Sodium 25 Mcg Tablet) 25 mcg PO DAILY@0600 [facility] Last Admin: 05/25/22 05:56 Dose: 25 mcg Documented By: TACOS Mirtazapine (Mirtazapine 30 Mg Tablet) 30 mg PO BEDTIME [facility] Last Admin: 05/24/22 20:21 Dose: 30 mg Documented By: TACOS Morphine Sulfate (Morphine Sulfate 4 Mg/Ml Cartridge) 4 mg IVPUSH Q4H PRN; Protocol PRN Reason: Pain, Severe (Pain Scale 7-10) Last Admin: 05/25/22 10:42 Dose: 4 mg Documented By: ALEK Non-Formulary Medication (Desvenlafaxine Succinate [Pristiq]) 100 mg PO DAILY [facility] Omeprazole (Omeprazole 20 Mg Capsule.Dr) 20 mg PO BID@0630,1630 [facility] Last Admin: 05/25/22 05:56 Dose: 20 mg Documented By: TACOS Ondansetron HCl (Ondansetron Hcl 4 Mg/2 Ml Vial) 4 mg IVPUSH Q8H PRN PRN Reason: Nausea and Vomiting Last Admin: 05/24/22 13:08 Dose: 4 mg Documented By: TAB Oxycodone HCl (Oxycodone Hcl Immed Release 5 Mg Tablet) 5 mg PO Q4H PRN PRN Reason: Pain, Moderate (Pain Scale 4-6 Oxycodone HCl (Oxycodone Hcl Immed Release 5 Mg Tablet) 10 mg PO Q4H PRN PRN Reason: Pain, Severe (Pain Scale 7-10) Last Admin: 05/25/22 07:02 Dose: 10 mg Documented By: ASHLEY Sodium Chloride (0.9 % Sodium Chloride Flush 3 Ml Syringe) 3 ml IVFLUSH QSHIFT [facility] Last Admin: 05/25/22 07:01 Dose: Not Given Documented By: ASHLEY Non-Admin Reason: IV Running Trazodone HCl (Trazodone Hcl 50 Mg Tablet) 50 mg PO BEDTIME PRN PRN Reason: Insomnia Valsartan (Valsartan 80 Mg Tablet) 80 mg PO DAILY [facility] Last Admin: 05/25/22 07:02 Dose: 80 mg Documented By: ASHLEY Labs 05/25/22 05:28 05/25/22 05:28 Labs: Laboratory Results - last 24 hr 05/25/22 05/25/22 05:28 05:28 MCV 105.5 H MCH 33.8 H MCHC 32.1 RDW 15.2 Plt Count 152 L MPV 13.8 H Absolute Nucleated RBC 0.000 Nucleated RBC % (auto) 0.0 Anion Gap 14 Estim Creat Clear Calc 23.7 Estimated GFR 28 Random Glucose 114 Calcium 8.3 L D Assessment and Plan (1) S/P exploratory laparotomy: Status: Acute (2) LINDA (acute kidney injury): Status: Acute Plan Patient is an 82 year old female with history of hypothyroidism, htn, hld, vitamin d deficiency, bipolar disorder, and depression/anxiety admitted to Psychiatry with consult placed to hospital service for evaluation of sudden-onset nausea vomiting found to have large hiatal hernia in the chest abdominal pain, intractable nausea vomiting secondary to gastric volvulus, paraesophageal hernia POD #1 s/p ex lap with repair of hernia and gastropexy with gtube placement surgery following pain control, IS mood disorder initially admitted to psych will consult psych to follow while on medical floor po meds on hold for volvulus will need BHN eval when medically clear to determine need to return to inpatient psych LINDA on CKD3 SCr up to 1.74, baseline around 1 continue IVF hold valsartan follow BMP Macrocytic anemia B12, folate wnl H/H drifting down likely some component of blood loss r/t surgery follow CBC Hypertension valsartan on hold for LINDA bp soft follow closely Hypothyroidism Continue Synthroid DVT prophylaxis: Heparin subQ Attending-Dr. Zayas Patient requires ongoing inpatient hospitalization for management of gastric volvulus, LINDA, anemia Time Spent With Patient Time: Total time managing care of this patient today ____ minutes. Quality Stroke Does the patient have a stroke diagnosis?: No VTE Prior VTE?: No VTE Risk Level:: Medical - moderate - high VTE Device Contraindication: Treatment Not Indicated VTE Drug Contraindication: N/A - Med Ordered
[2022-05-25] MEDS: Mirtazapine 30 MG TABLET PO (20:33)
[2022-05-25] MEDS: 0.9 % Sodium Chloride Flush 3 ML SYRINGE IVFLUSH (20:34)
[2022-05-26] VITALS (9 sets, daily range): BP systolic 106–150; BP diastolic 46–69; PULSE 64–91; RESP 15–18; TEMP 36.4–37.4; O2SAT 92–94; BMI 30.9
[2022-05-26] MEDS: Lactated Ringers 1,000 ML 80 ML IVCONT (01:08)
[2022-05-26] MEDS: Acetaminophen 1,000 MG/100 ML PIGGYBACK 400 MG IV ×3 (02:38→14:28)
[2022-05-26] MEDS: Omeprazole 20 MG CAPSULE.DR PO ×2 (05:27→15:53)
[2022-05-26] MEDS: Levothyroxine Sodium 25 MCG TABLET PO (05:27)
[2022-05-26 06:13] LABS: Hematocrit 27.8 % (37.0-47.0); Hemoglobin 8.9 g/dl (12.0-16.0); Mean Corpuscular Hemoglobin 34.8 pg (27.0-33.0); Mean Corpuscular Volume 108.6 fL (80.0-98.0); Mean Platelet Volume 13.6 fL (9.4-12.3); Platelet Count 127 X10*3/uL (160-400); Red Blood Count 2.56 X10*6/uL (4.20-5.50); Red Cell Distribution Width 15.1 % (11.0-16.0); White Blood Count 6.8 X10*3/uL (4.8-10.8)
[2022-05-26 06:21] LABS: Anion Gap 12 (12-20); Blood Urea Nitrogen 28 mg/dL (9-16); Calcium 8.1 mg/dL (8.4-10.2); Carbon Dioxide 26 mmol/L (22-29); Chloride 104 mmol/L (96-108); Creatinine Clr Calc Pharmacy 43.9; Estimated Glomerular Filt Rate 57; Glucose Random 61 mg/dL (60-115); Potassium 4.1 mmol/L (3.3-5.1); Sodium 138 mmol/L (135-145)
[2022-05-26] MEDS: ARIPiprazole 2 MG TABLET PO (07:46)
[2022-05-26] MEDS: Famotidine 20 MG TABLET PO (07:46)
[2022-05-26] MEDS: Heparin Sodium,Porcine 5,000 UNIT/ML VIAL 5000 UNIT SUBCUT ×2 (07:46→20:30)
[2022-05-26] MEDS: Folic Acid 1 MG TABLET PO (07:46)
[2022-05-26] MEDS: Lactated Ringers 1,000 ML 100 ML IVCONT ×2 (10:21→20:33)
--- NOTE | 2022-05-26 11:21 | PM.PNGS ---
Subjective Subjective Date of Service: 05/26/22 Patient reports: no new complaints, feels better and pain is less Physical Exam Vital Signs: Vital Signs: Last Vital Signs Temp 97.7 F 05/26/22 08:00 Pulse 74 05/26/22 08:00 Resp 18 05/26/22 08:00 BP 129/60 05/26/22 08:00 Pulse Ox 93 05/26/22 08:00 O2 Del Method Room Air 05/26/22 08:00 O2 Flow Rate 2 05/25/22 08:00 BMI result Body Mass Index 30.9 GI: Other: Abdomen is soft. Wound clean dry intact. Minimal NG tube output. Objective Data Active Medications Aripiprazole (Aripiprazole 2 Mg Tablet) 2 mg PO DAILY [facility] Last Admin: 05/26/22 07:46 Dose: 2 mg Documented By: LEVON Famotidine (Famotidine 20 Mg Tablet) 20 mg PO DAILY [facility] Last Admin: 05/26/22 07:46 Dose: 20 mg Documented By: LEVON Folic Acid (Folic Acid 1 Mg Tablet) 1 mg PO DAILY [facility] Last Admin: 05/26/22 07:46 Dose: 1 mg Documented By: LEVON Heparin Sodium (Porcine) (Heparin Sodium,Porcine 5,000 Unit/Ml Vial) 5,000 unit SUBCUT BID [facility] Last Admin: 05/26/22 07:46 Dose: 5,000 unit Documented By: LEVON Hydroxyzine HCl (Hydroxyzine Hcl 25 Mg Tablet) 25 mg PO Q6H PRN PRN Reason: Anxiety Lactated Ringer's (Lr) 1,000 mls @ 100 mls/hr IVCONT .Q10H [facility] Last Admin: 05/26/22 10:21 Dose: 100 mls/hr Documented By: LEVON Acetaminophen (Ofirmev) 1,000 mg in 100 mls @ 400 mls/hr IV Q6H [facility] Last Infusion: 05/26/22 08:04 Dose: 0 mls/hr Documented By: LEVON Levothyroxine Sodium (Levothyroxine Sodium 25 Mcg Tablet) 25 mcg PO DAILY@0600 [facility] Last Admin: 05/26/22 05:27 Dose: 25 mcg Documented By: OZORALB Mirtazapine (Mirtazapine 30 Mg Tablet) 30 mg PO BEDTIME [facility] Last Admin: 05/25/22 20:33 Dose: 30 mg Documented By: GILBERTO Morphine Sulfate (Morphine Sulfate 4 Mg/Ml Cartridge) 4 mg IVPUSH Q4H PRN; Protocol PRN Reason: Pain, Severe (Pain Scale 7-10) Last Admin: 05/25/22 10:42 Dose: 4 mg Documented By: ALEK Non-Formulary Medication (Desvenlafaxine Succinate [Pristiq]) 100 mg PO DAILY [facility] Omeprazole (Omeprazole 20 Mg Capsule.Dr) 20 mg PO BID@0630,1630 [facility] Last Admin: 05/26/22 05:27 Dose: 20 mg Documented By: GILBERTO Ondansetron HCl (Ondansetron Hcl 4 Mg/2 Ml Vial) 4 mg IVPUSH Q8H PRN PRN Reason: Nausea and Vomiting Last Admin: 05/24/22 13:08 Dose: 4 mg Documented By: TAB Oxycodone HCl (Oxycodone Hcl Immed Release 5 Mg Tablet) 5 mg PO Q4H PRN PRN Reason: Pain, Moderate (Pain Scale 4-6 Oxycodone HCl (Oxycodone Hcl Immed Release 5 Mg Tablet) 10 mg PO Q4H PRN PRN Reason: Pain, Severe (Pain Scale 7-10) Last Admin: 05/25/22 07:02 Dose: 10 mg Documented By: ASHLEY Sodium Chloride (0.9 % Sodium Chloride Flush 3 Ml Syringe) 3 ml IVFLUSH QSHIFT [facility] Last Admin: 05/26/22 07:36 Dose: Not Given Documented By: LEVON Non-Admin Reason: IV Running Trazodone HCl (Trazodone Hcl 50 Mg Tablet) 50 mg PO BEDTIME PRN PRN Reason: Insomnia Valsartan (Valsartan 80 Mg Tablet) 80 mg PO DAILY [facility] Last Admin: 05/25/22 07:02 Dose: 80 mg Documented By: ASHLEY Labs 05/26/22 05:46 05/26/22 05:46 Labs: Laboratory Results - last 24 hr 05/26/22 05/26/22 05:46 05:46 MCV 108.6 H MCH 34.8 H MCHC 32.0 RDW 15.1 Plt Count 127 L MPV 13.6 H Absolute Nucleated RBC 0.000 Nucleated RBC % (auto) 0.0 Anion Gap 12 Estim Creat Clear Calc 43.9 Estimated GFR 57 Random Glucose 61 Calcium 8.1 L Procedures Date of Service Date of Service: 05/26/22 Progress Note: A&P Assessment and plan (1) S/P exploratory laparotomy: Status: Acute Plan Encourage incentive spirometry, out of bed with assistance, clamp G-tube and liquids as tolerated. Time Spent With Patient Time: Total time managing care of this patient today ____ minutes. Quality Stroke Does the patient have a stroke diagnosis?: No VTE Prior VTE?: No VTE Risk Level:: Medical - moderate - high VTE Device Contraindication: Treatment Not Indicated VTE Drug Contraindication: N/A - Med Ordered
--- NOTE | 2022-05-26 14:23 | P.PNIM_ITS ---
Subjective Subjective Date of Service: 05/26/22 Interval History: seen and examined this morning follow up for N/V found to have gastric volvulus, now s/p ex lap with repair some abdominal pain with movement mostly becoming frustrated and depressed with current situation Review of Systems Review of Systems: Yes all other systems are reviewed and are negative Constitutional Constitutional: Denies chills and Denies fever(s) Cardiovascular Cardiovascular: Denies chest pain, Denies palpitations and Denies dyspnea Respiratory Respiratory: Denies cough and Denies dyspnea Gastrointestinal Gastrointestinal: Reports abdominal pain Endocrine Endocrine: Denies palpitations Physical Exam Vital Signs: Vital Signs: Last Vital Signs Temp 97.5 F 05/26/22 11:54 Pulse 64 05/26/22 11:54 Resp 16 05/26/22 11:54 BP 135/61 05/26/22 11:54 Pulse Ox 94 05/26/22 11:54 O2 Del Method Room Air 05/26/22 11:54 O2 Flow Rate 2 05/25/22 08:00 BMI result Body Mass Index 30.9 Const: General: comfortable, no acute distress, alert and awake Nutritional Appearance: average body habitus Orientation/consciousness: patient oriented x3 Resp: Effort & Inspection: normal respiratory effort and able to speak in complete sentences Auscultation: clear to auscultation bilaterally Cardio: Rate: regular rate Heart sounds: Murmur heart sound present GI: Other: midline abdominal incision in place, gtube in place Palpation (GI): Soft to palpation Neuro: General: patient oriented x3 and CN's II-XI intact bilaterally Extrem: General: Yes no pedal edema Objective Data Active Medications Aripiprazole (Aripiprazole 2 Mg Tablet) 2 mg PO DAILY [facility] Last Admin: 05/26/22 07:46 Dose: 2 mg Documented By: LEVON Famotidine (Famotidine 20 Mg Tablet) 20 mg PO DAILY [facility] Last Admin: 05/26/22 07:46 Dose: 20 mg Documented By: LEVON Folic Acid (Folic Acid 1 Mg Tablet) 1 mg PO DAILY [facility] Last Admin: 05/26/22 07:46 Dose: 1 mg Documented By: LEVON Heparin Sodium (Porcine) (Heparin Sodium,Porcine 5,000 Unit/Ml Vial) 5,000 unit SUBCUT BID [facility] Last Admin: 05/26/22 07:46 Dose: 5,000 unit Documented By: LEVON Hydroxyzine HCl (Hydroxyzine Hcl 25 Mg Tablet) 25 mg PO Q6H PRN PRN Reason: Anxiety Lactated Ringer's (Lr) 1,000 mls @ 100 mls/hr IVCONT .Q10H [facility] Last Admin: 05/26/22 10:21 Dose: 100 mls/hr Documented By: LEVON Acetaminophen (Ofirmev) 1,000 mg in 100 mls @ 400 mls/hr IV Q6H [facility] Last Infusion: 05/26/22 08:04 Dose: 0 mls/hr Documented By: LEVON Levothyroxine Sodium (Levothyroxine Sodium 25 Mcg Tablet) 25 mcg PO DAILY@0600 [facility] Last Admin: 05/26/22 05:27 Dose: 25 mcg Documented By: GILBERTO Mirtazapine (Mirtazapine 30 Mg Tablet) 30 mg PO BEDTIME [facility] Last Admin: 05/25/22 20:33 Dose: 30 mg Documented By: GILBERTO Morphine Sulfate (Morphine Sulfate 4 Mg/Ml Cartridge) 4 mg IVPUSH Q4H PRN; Protocol PRN Reason: Pain, Severe (Pain Scale 7-10) Last Admin: 05/25/22 10:42 Dose: 4 mg Documented By: ALEK Non-Formulary Medication (Desvenlafaxine Succinate [Pristiq]) 100 mg PO DAILY [facility] Omeprazole (Omeprazole 20 Mg Capsule.Dr) 20 mg PO BID@0630,1630 [facility] Last Admin: 05/26/22 05:27 Dose: 20 mg Documented By: GILBERTO Ondansetron HCl (Ondansetron Hcl 4 Mg/2 Ml Vial) 4 mg IVPUSH Q8H PRN PRN Reason: Nausea and Vomiting Last Admin: 05/24/22 13:08 Dose: 4 mg Documented By: TAB Oxycodone HCl (Oxycodone Hcl Immed Release 5 Mg Tablet) 5 mg PO Q4H PRN PRN Reason: Pain, Moderate (Pain Scale 4-6 Oxycodone HCl (Oxycodone Hcl Immed Release 5 Mg Tablet) 10 mg PO Q4H PRN PRN Reason: Pain, Severe (Pain Scale 7-10) Last Admin: 05/25/22 07:02 Dose: 10 mg Documented By: ASHLEY Sodium Chloride (0.9 % Sodium Chloride Flush 3 Ml Syringe) 3 ml IVFLUSH QSHIFT [facility] Last Admin: 05/26/22 07:36 Dose: Not Given Documented By: LEVON Non-Admin Reason: IV Running Trazodone HCl (Trazodone Hcl 50 Mg Tablet) 50 mg PO BEDTIME PRN PRN Reason: Insomnia Valsartan (Valsartan 80 Mg Tablet) 80 mg PO DAILY [facility] Last Admin: 05/25/22 07:02 Dose: 80 mg Documented By: ASHLEY Labs 05/26/22 05:46 05/26/22 05:46 Labs: Laboratory Results - last 24 hr 05/26/22 05/26/22 05:46 05:46 MCV 108.6 H MCH 34.8 H MCHC 32.0 RDW 15.1 Plt Count 127 L MPV 13.6 H Absolute Nucleated RBC 0.000 Nucleated RBC % (auto) 0.0 Anion Gap 12 Estim Creat Clear Calc 43.9 Estimated GFR 57 Random Glucose 61 Calcium 8.1 L Assessment and Plan (1) S/P exploratory laparotomy: Status: Acute Plan Patient is an 82 year old female with history of hypothyroidism, htn, hld, vit maynard d deficiency, bipolar disorder, and depression/anxiety admitted to Psychiatry with consult placed to hospital service for evaluation of sudden- onset nausea vomiting found to have large hiatal hernia in the chest abdominal pain, intractable nausea vomiting secondary to gastric volvulus, paraesophageal hernia POD #2 s/p ex lap with repair of hernia and gastropexy with gtube placement surgery following pain control, IS depression initially admitted to psych for depression and then transferred to medical floor psych consult to follow while on medical floor will need BHN eval when medically clear to determine need to return to inpatient psych LINDA on CKD3 SCr up to 1.74, returned to baseline with IVF continue IVF until tolerating diet hold valsartan follow BMP Macrocytic anemia B12, folate wnl H/H drifting down likely some component of blood loss r/t surgery follow CBC Thrombocytopenia plt trending down follow CBC Hypertension valsartan on hold for LINDA bp soft, follow closely Hypothyroidism Continue Synthroid DVT prophylaxis: Heparin subQ Attending-Dr. Villa Patient requires ongoing inpatient hospitalization for management of gastric volvulus, LINDA, anemia Time Spent With Patient Time: Total time managing care of this patient today ____ minutes. Quality Stroke Does the patient have a stroke diagnosis?: No VTE Prior VTE?: No VTE Risk Level:: Medical - moderate - high VTE Device Contraindication: Treatment Not Indicated VTE Drug Contraindication: N/A - Med Ordered
[2022-05-26] MEDS: Morphine Sulfate 4 MG/ML CARTRIDGE IVPUSH (14:42)
--- NOTE | 2022-05-26 14:52 | PC.NURSE ---
Pt s/p ex lap with g-tube present, per surgery this nurse is to clamp g-tube and pt to start on a clear liquid diet, Pts g-tube clamped with no issues and pt tolerating clear liquid diet, will continue to monitor.
[2022-05-26] MEDS: Mirtazapine 30 MG TABLET PO (20:30)
[2022-05-26] MEDS: 0.9 % Sodium Chloride Flush 3 ML SYRINGE IVFLUSH (20:30)
[2022-05-27] VITALS (7 sets, daily range): BP systolic 115–151; BP diastolic 58–66; PULSE 70–88; RESP 16–24; TEMP 36.3–36.9; O2SAT 92–98; BMI 32.0
[2022-05-27] MEDS: traZODone HCL 50 MG TABLET PO (00:27)
[2022-05-27] MEDS: Levothyroxine Sodium 25 MCG TABLET PO (05:30)
[2022-05-27] MEDS: Omeprazole 20 MG CAPSULE.DR PO ×2 (05:30→16:51)
[2022-05-27] MEDS: Lactated Ringers 1,000 ML 100 ML IVCONT ×2 (06:03→15:00)
[2022-05-27 06:26] LABS: Hematocrit 27.2 % (37.0-47.0); Hemoglobin 8.8 g/dl (12.0-16.0); Mean Corpuscular HGB Conc 32.4 g/dl (31.0-35.0); Mean Corpuscular Hemoglobin 34.2 pg (27.0-33.0); Mean Corpuscular Volume 105.8 fL (80.0-98.0); Mean Platelet Volume 13.1 fL (9.4-12.3); Platelet Count 145 X10*3/uL (160-400); Red Blood Count 2.57 X10*6/uL (4.20-5.50); Red Cell Distribution Width 14.8 % (11.0-16.0); White Blood Count 3.8 X10*3/uL (4.8-10.8)
[2022-05-27] MEDS: Famotidine 20 MG TABLET PO (08:26)
[2022-05-27] MEDS: Folic Acid 1 MG TABLET PO (08:26)
[2022-05-27] MEDS: ARIPiprazole 2 MG TABLET PO (08:26)
[2022-05-27] MEDS: Heparin Sodium,Porcine 5,000 UNIT/ML VIAL 5000 UNIT SUBCUT ×2 (08:26→20:50)
[2022-05-27] MEDS: Morphine Sulfate 4 MG/ML CARTRIDGE IVPUSH ×2 (08:33→15:00)
--- NOTE | 2022-05-27 08:45 | HO.PM.IMPN ---
Subjective Subjective Date of Service: 05/27/22 Interval History: seen and examined this morning follow up for N/V found to have gastric volvulus, now s/p ex lap with repair has minimal pain Physical Exam Vital Signs: Vital Signs: Last Vital Signs Temp 98.4 F 05/27/22 08:00 Pulse 82 05/27/22 08:00 Resp 18 05/27/22 08:00 BP 139/65 05/27/22 08:00 Pulse Ox 92 05/27/22 08:00 O2 Del Method Room Air 05/27/22 08:00 O2 Flow Rate 2 05/25/22 08:00 BMI result Body Mass Index 32.0 Const: General: cooperative, comfortable, no acute distress, alert and awake Nutritional Appearance: average body habitus Orientation/consciousness: patient oriented x3 HEENT: Other: NGT in place with large amt of dark output Eyes: General: appearance normal, both eyes and all related structures Pupils: Equal, round and reactive pupils present Resp: Effort & Inspection: normal respiratory effort and able to speak in complete sentences Auscultation: clear to auscultation bilaterally Cardio: Rate: regular rate Rhythm: regular rhythm Heart sounds: Murmur heart sound present GI: Other: midline abdominal incision in place, gtube in place Palpation (GI): Soft to palpation Auscultation: normal bowel sounds Skin: General skin exam: no rashes or lesions noted Neuro: General: patient oriented x3 and CN's II-XI intact bilaterally Cranial nerves: Yes Equal, round and reactive pupils present Cognition (Neuro): normal cognition Extrem: General: Yes normal to inspection and Yes no pedal edema Objective Data Active Medications Aripiprazole (Aripiprazole 2 Mg Tablet) 2 mg PO DAILY [facility] Last Admin: 05/27/22 08:26 Dose: 2 mg Documented By: LEVON Famotidine (Famotidine 20 Mg Tablet) 20 mg PO DAILY [facility] Last Admin: 05/27/22 08:26 Dose: 20 mg Documented By: LEVON Folic Acid (Folic Acid 1 Mg Tablet) 1 mg PO DAILY [facility] Last Admin: 05/27/22 08:26 Dose: 1 mg Documented By: LEVON Heparin Sodium (Porcine) (Heparin Sodium,Porcine 5,000 Unit/Ml Vial) 5,000 unit SUBCUT BID [facility] Last Admin: 05/27/22 08:26 Dose: 5,000 unit Documented By: LEVON Hydroxyzine HCl (Hydroxyzine Hcl 25 Mg Tablet) 25 mg PO Q6H PRN PRN Reason: Anxiety Lactated Ringer's (Lr) 1,000 mls @ 100 mls/hr IVCONT .Q10H [facility] Last Admin: 05/27/22 06:03 Dose: 100 mls/hr Documented By: GILBERTO Levothyroxine Sodium (Levothyroxine Sodium 25 Mcg Tablet) 25 mcg PO DAILY@0600 [facility] Last Admin: 05/27/22 05:30 Dose: 25 mcg Documented By: GILBERTO Mirtazapine (Mirtazapine 30 Mg Tablet) 30 mg PO BEDTIME [facility] Last Admin: 05/26/22 20:30 Dose: 30 mg Documented By: GILBERTO Morphine Sulfate (Morphine Sulfate 4 Mg/Ml Cartridge) 4 mg IVPUSH Q4H PRN; Protocol PRN Reason: Pain, Severe (Pain Scale 7-10) Last Admin: 05/27/22 08:33 Dose: 4 mg Documented By: LEVON Non-Formulary Medication (Desvenlafaxine Succinate [Pristiq]) 100 mg PO DAILY [facility] Omeprazole (Omeprazole 20 Mg Capsule.Dr) 20 mg PO BID@0630,1630 [facility] Last Admin: 05/27/22 05:30 Dose: 20 mg Documented By: GILBERTO Ondansetron HCl (Ondansetron Hcl 4 Mg/2 Ml Vial) 4 mg IVPUSH Q8H PRN PRN Reason: Nausea and Vomiting Last Admin: 05/24/22 13:08 Dose: 4 mg Documented By: TAB Oxycodone HCl (Oxycodone Hcl Immed Release 5 Mg Tablet) 5 mg PO Q4H PRN PRN Reason: Pain, Moderate (Pain Scale 4-6 Oxycodone HCl (Oxycodone Hcl Immed Release 5 Mg Tablet) 10 mg PO Q4H PRN PRN Reason: Pain, Severe (Pain Scale 7-10) Last Admin: 05/25/22 07:02 Dose: 10 mg Documented By: ASHLEY Sodium Chloride (0.9 % Sodium Chloride Flush 3 Ml Syringe) 3 ml IVFLUSH QSHIFT [facility] Last Admin: 03/26/23 07:14 Dose: Not Given Documented By: LEVON Non-Admin Reason: IV Running Trazodone HCl (Trazodone Hcl 50 Mg Tablet) 50 mg PO BEDTIME PRN PRN Reason: Insomnia Last Admin: 05/27/22 00:27 Dose: 50 mg Documented By: GILBERTO Valsartan (Valsartan 80 Mg Tablet) 80 mg PO DAILY [facility] Last Admin: 05/25/22 07:02 Dose: 80 mg Documented By: ASHLEY Labs 05/27/22 06:02 05/26/22 05:46 Labs: Laboratory Results - last 24 hr 05/27/22 06:02 MCV 105.8 H MCH 34.2 H MCHC 32.4 RDW 14.8 Plt Count 145 L MPV 13.1 H Absolute Nucleated RBC 0.000 Nucleated RBC % (auto) 0.0 Assessment and Plan (1) S/P exploratory laparotomy: Status: Acute Plan Patient is an 82 year old female with history of hypothyroidism, htn, hld, vitamin d deficiency, bipolar disorder, and depression/anxiety admitted to Psychiatry with consult placed to hospital service for evaluation of sudden-onset nausea vomiting found to have large hiatal hernia in the chest abdominal pain, intractable nausea vomiting secondary to gastric volvulus, paraesophageal hernia POD #3 s/p ex lap with repair of hernia and gastropexy with gtube placement surgery following pain control, IS depression initially admitted to psych for depression and then transferred to medical floor psych consult to follow while on medical floor will need BHN eval when medically clear to determine need to return to inpatient psych LINDA on CKD3 SCr up to 1.74, returned to baseline with IVF continue IVF until tolerating diet hold valsartan follow BMP Macrocytic anemia B12, folate wnl H/H drifting down likely some component of blood loss r/t surgery follow CBC Thrombocytopenia plt trended but going up again follow CBC Hypertension valsartan on hold for LINDA ok to resume Hypothyroidism Continue Synthroid DVT prophylaxis: Heparin subQ Patient requires ongoing inpatient hospitalization for management of gastric volvulus, LINDA, anemia Time Spent With Patient Time: Total time managing care of this patient today ____ minutes. Quality Stroke Does the patient have a stroke diagnosis?: No VTE Prior VTE?: No VTE Risk Level:: Medical - moderate - high VTE Device Contraindication: Treatment Not Indicated VTE Drug Contraindication: N/A - Med Ordered
[2022-05-27] MEDS: oxyCODONE HCl Immed Release 5 MG TABLET 10 MG PO (11:38)
--- NOTE | 2022-05-27 16:07 | PM.PNGS ---
Subjective Subjective Date of Service: 05/27/22 Patient reports: no new complaints, pain is less and tolerating liquids well Physical Exam Vital Signs: Vital Signs: Last Vital Signs Temp 97.6 F 05/27/22 15:16 Pulse 79 05/27/22 15:16 Resp 18 05/27/22 15:16 BP 115/59 L 05/27/22 15:16 Pulse Ox 92 05/27/22 15:16 O2 Del Method Room Air 05/27/22 15:16 O2 Flow Rate 2 05/25/22 08:00 BMI result Body Mass Index 32.0 GI: Other: G-tube clamped. Abdomen soft. Wound clean dry and intact. Objective Data Active Medications Aripiprazole (Aripiprazole 2 Mg Tablet) 2 mg PO DAILY [facility] Last Admin: 05/27/22 08:26 Dose: 2 mg Documented By: LEVON Famotidine (Famotidine 20 Mg Tablet) 20 mg PO DAILY [facility] Last Admin: 05/27/22 08:26 Dose: 20 mg Documented By: LEVON Folic Acid (Folic Acid 1 Mg Tablet) 1 mg PO DAILY [facility] Last Admin: 05/27/22 08:26 Dose: 1 mg Documented By: LEVON Heparin Sodium (Porcine) (Heparin Sodium,Porcine 5,000 Unit/Ml Vial) 5,000 unit SUBCUT BID [facility] Last Admin: 05/27/22 08:26 Dose: 5,000 unit Documented By: LEVON Hydroxyzine HCl (Hydroxyzine Hcl 25 Mg Tablet) 25 mg PO Q6H PRN PRN Reason: Anxiety Levothyroxine Sodium (Levothyroxine Sodium 25 Mcg Tablet) 25 mcg PO DAILY@0600 [facility] Last Admin: 05/27/22 05:30 Dose: 25 mcg Documented By: GILBERTO Mirtazapine (Mirtazapine 30 Mg Tablet) 30 mg PO BEDTIME [facility] Last Admin: 05/26/22 20:30 Dose: 30 mg Documented By: GILBERTO Morphine Sulfate (Morphine Sulfate 4 Mg/Ml Cartridge) 4 mg IVPUSH Q4H PRN; Protocol PRN Reason: Pain, Severe (Pain Scale 7-10) Last Admin: 05/27/22 15:00 Dose: 4 mg Documented By: LEVON Non-Formulary Medication (Desvenlafaxine Succinate [Pristiq]) 100 mg PO DAILY [facility] Omeprazole (Omeprazole 20 Mg Capsule.Dr) 20 mg PO BID@0630,1630 [facility] Last Admin: 05/27/22 05:30 Dose: 20 mg Documented By: GILBERTO Ondansetron HCl (Ondansetron Hcl 4 Mg/2 Ml Vial) 4 mg IVPUSH Q8H PRN PRN Reason: Nausea and Vomiting Last Admin: 05/24/22 13:08 Dose: 4 mg Documented By: TAB Oxycodone HCl (Oxycodone Hcl Immed Release 5 Mg Tablet) 5 mg PO Q4H PRN PRN Reason: Pain, Moderate (Pain Scale 4-6 Oxycodone HCl (Oxycodone Hcl Immed Release 5 Mg Tablet) 10 mg PO Q4H PRN PRN Reason: Pain, Severe (Pain Scale 7-10) Last Admin: 05/27/22 11:38 Dose: 10 mg Documented By: ASHLEY Sodium Chloride (0.9 % Sodium Chloride Flush 3 Ml Syringe) 3 ml IVFLUSH QSHIFT [facility] Last Admin: 05/27/22 07:14 Dose: Not Given Documented By: LEVON Non-Admin Reason: IV Running Trazodone HCl (Trazodone Hcl 50 Mg Tablet) 50 mg PO BEDTIME PRN PRN Reason: Insomnia Last Admin: 05/27/22 00:27 Dose: 50 mg Documented By: GILBERTO Valsartan (Valsartan 80 Mg Tablet) 80 mg PO DAILY [facility] Last Admin: 05/25/22 07:02 Dose: 80 mg Documented By: ASHLEY Labs 05/27/22 06:02 05/26/22 05:46 Labs: Laboratory Results - last 24 hr 05/27/22 06:02 MCV 105.8 H MCH 34.2 H MCHC 32.4 RDW 14.8 Plt Count 145 L MPV 13.1 H Absolute Nucleated RBC 0.000 Nucleated RBC % (auto) 0.0 Procedures Date of Service Date of Service: 05/27/22 Progress Note: A&P Assessment and plan (1) S/P exploratory laparotomy: Status: Acute Plan Advanced diet to full liquids as tolerated. Out of bed. Incentive spirometry. Physical therapy. DC planning. Time Spent With Patient Time: Total time managing care of this patient today ____ minutes. Quality Stroke Does the patient have a stroke diagnosis?: No VTE Prior VTE?: No VTE Risk Level:: Medical - moderate - high VTE Device Contraindication: Treatment Not Indicated VTE Drug Contraindication: N/A - Med Ordered
[2022-05-27] MEDS: Mirtazapine 30 MG TABLET PO (20:50)
[2022-05-28 03:38] VITALS: BP 156/67; PULSE 70; RESP 16; TEMP 36.2; O2SAT 93
[2022-05-28 06:00] VITALS: BMI 32.1
[2022-05-28] MEDS: Levothyroxine Sodium 25 MCG TABLET PO (06:08)
[2022-05-28] MEDS: Omeprazole 20 MG CAPSULE.DR PO ×2 (06:08→17:25)
[2022-05-28 07:41] VITALS: BP 134/62; PULSE 75; RESP 18; TEMP 36.7; O2SAT 94
[2022-05-28] MEDS: ARIPiprazole 2 MG TABLET PO (08:30)
[2022-05-28] MEDS: Famotidine 20 MG TABLET PO (08:30)
[2022-05-28] MEDS: Folic Acid 1 MG TABLET PO (08:30)
[2022-05-28] MEDS: 0.9 % Sodium Chloride Flush 3 ML SYRINGE IVFLUSH ×3 (08:30→20:20)
[2022-05-28] MEDS: Heparin Sodium,Porcine 5,000 UNIT/ML VIAL 5000 UNIT SUBCUT ×2 (08:30→20:17)
--- NOTE | 2022-05-28 09:29 | P.PNIM_ITS ---
Subjective Subjective Date of Service: 05/28/22 Interval History: f/u on post volbulus repair tolerating present diet, no new issues Physical Exam Vital Signs: Vital Signs: Last Vital Signs Temp 98.1 F 05/28/22 07:41 Pulse 75 05/28/22 07:41 Resp 18 05/28/22 07:41 BP 134/62 05/28/22 07:41 Pulse Ox 94 05/28/22 07:41 O2 Del Method Room Air 05/28/22 07:41 O2 Flow Rate 2 05/25/22 08:00 BMI result Body Mass Index 32.1 Const: Other: General: AO X 3, no acute distress Resp: CTA bilateral CVS: S1,S2,RRR GI: +BS, NT, no distention Skin: No rash Neuro: motor grossly intact Psych: appropriate affect Objective Data Active Medications Aripiprazole (Aripiprazole 2 Mg Tablet) 2 mg PO DAILY [facility] Last Admin: 05/28/22 08:30 Dose: 2 mg Documented By: ESVIN Famotidine (Famotidine 20 Mg Tablet) 20 mg PO DAILY [facility] Last Admin: 05/28/22 08:30 Dose: 20 mg Documented By: ESVIN Folic Acid (Folic Acid 1 Mg Tablet) 1 mg PO DAILY [facility] Last Admin: 05/28/22 08:30 Dose: 1 mg Documented By: ESVIN Heparin Sodium (Porcine) (Heparin Sodium,Porcine 5,000 Unit/Ml Vial) 5,000 unit SUBCUT BID [facility] Last Admin: 05/28/22 08:30 Dose: 5,000 unit Documented By: ESVIN Hydroxyzine HCl (Hydroxyzine Hcl 25 Mg Tablet) 25 mg PO Q6H PRN PRN Reason: Anxiety Levothyroxine Sodium (Levothyroxine Sodium 25 Mcg Tablet) 25 mcg PO DAILY@0600 [facility] Last Admin: 05/28/22 06:08 Dose: 25 mcg Documented By: PHUC Mirtazapine (Mirtazapine 30 Mg Tablet) 30 mg PO BEDTIME [facility] Last Admin: 05/27/22 20:50 Dose: 30 mg Documented By: PHUC Morphine Sulfate (Morphine Sulfate 4 Mg/Ml Cartridge) 4 mg IVPUSH Q4H PRN; Protocol PRN Reason: Pain, Severe (Pain Scale 7-10) Last Admin: 05/27/22 15:00 Dose: 4 mg Documented By: LEVON Non-Formulary Medication (Desvenlafaxine Succinate [Pristiq]) 100 mg PO DAILY [facility] Omeprazole (Omeprazole 20 Mg Capsule.Dr) 20 mg PO BID@0630,1630 [facility] Last Admin: 05/28/22 06:08 Dose: 20 mg Documented By: PHUC Ondansetron HCl (Ondansetron Hcl 4 Mg/2 Ml Vial) 4 mg IVPUSH Q8H PRN PRN Reason: Nausea and Vomiting Last Admin: 05/24/22 13:08 Dose: 4 mg Documented By: TAB Oxycodone HCl (Oxycodone Hcl Immed Release 5 Mg Tablet) 5 mg PO Q4H PRN PRN Reason: Pain, Moderate (Pain Scale 4-6 Oxycodone HCl (Oxycodone Hcl Immed Release 5 Mg Tablet) 10 mg PO Q4H PRN PRN Reason: Pain, Severe (Pain Scale 7-10) Last Admin: 05/27/22 11:38 Dose: 10 mg Documented By: ASHLEY Sodium Chloride (0.9 % Sodium Chloride Flush 3 Ml Syringe) 3 ml IVFLUSH QSHIFT [facility] Last Admin: 05/28/22 08:30 Dose: 3 ml Documented By: ESVIN Trazodone HCl (Trazodone Hcl 50 Mg Tablet) 50 mg PO BEDTIME PRN PRN Reason: Insomnia Last Admin: 05/27/22 00:27 Dose: 50 mg Documented By: OZORALVeronica Valsartan (Valsartan 80 Mg Tablet) 80 mg PO DAILY [facility] Last Admin: 05/25/22 07:02 Dose: 80 mg Documented By: ASHLEY Labs 05/27/22 06:02 05/26/22 05:46 Assessment and Plan (1) S/P exploratory laparotomy: Status: Acute Plan Patient is an 82 year old female with history of hypothyroidism, htn, hld, vitamin d deficiency, bipolar disorder, and depression/anxiety admitted to Psychiatry with consult placed to hospital service for evaluation of sudden- onset nausea vomiting found to have large hiatal hernia in the chest abdominal pain, intractable nausea vomiting secondary to gastric volvulus, pa raesophageal hernia s/p ex lap with repair of hernia and gastropexy w surgery following pain control, IS, diet advance by surgery depression initially admitted to psych for depression and then transferred to medical floor psych consult to follow while on medical floor will need BHN eval when medically clear to determine need to return to inpatient psych LINDA on CKD3 SCr up to 1.74, returned to baseline with IVF continue IVF until tolerating diet hold valsartan follow BMP Macrocytic anemia B12, folate wnl H/H drifting down likely some component of blood loss r/t surgery follow CBC Thrombocytopenia plt trended but going up again follow CBC Hypertension valsartan on hold for LINDA ok to resume Hypothyroidism Continue Synthroid DVT prophylaxis: Heparin subQ Patient requires ongoing inpatient hospitalization for management of gastric volvulus, LINDA, anemia PT eval for placement Time Spent With Patient Time: Total time managing care of this patient today ____ minutes. Quality Stroke Does the patient have a stroke diagnosis?: No VTE Prior VTE?: No VTE Risk Level:: Medical - moderate - high VTE Device Contraindication: Treatment Not Indicated VTE Drug Contraindication: N/A - Med Ordered
--- NOTE | 2022-05-28 09:57 | PM.PNGS ---
Subjective Subjective Date of Service: 05/28/22 Interval history: Continues with depressive symptoms and low desire. Denies pain or nausea. Tolerated full liquids. Passing flatus but no BM since admission. Physical Exam Vital Signs: Vital Signs: Last Vital Signs Temp 98.1 F 05/28/22 07:41 Pulse 75 05/28/22 07:41 Resp 18 05/28/22 07:41 BP 134/62 05/28/22 07:41 Pulse Ox 94 05/28/22 07:41 O2 Del Method Room Air 05/28/22 07:41 O2 Flow Rate 2 05/25/22 08:00 BMI result Body Mass Index 32.1 Const: General: comfortable, no acute distress and alert Orientation/consciousness: patient oriented x3 Resp: Effort & Inspection: normal respiratory effort GI: Other: G tube in place, now capped Inspection: No distended and Yes incision (clean, surrounding ecchymosis) Skin: General skin exam: no rashes or lesions noted Neuro: General: patient oriented x3 and moves all extremities Objective Data Active Medications Aripiprazole (Aripiprazole 2 Mg Tablet) 2 mg PO DAILY [facility] Last Admin: 05/28/22 08:30 Dose: 2 mg Documented By: ESVIN Famotidine (Famotidine 20 Mg Tablet) 20 mg PO DAILY [facility] Last Admin: 05/28/22 08:30 Dose: 20 mg Documented By: ESVIN Folic Acid (Folic Acid 1 Mg Tablet) 1 mg PO DAILY [facility] Last Admin: 05/28/22 08:30 Dose: 1 mg Documented By: ESVIN Heparin Sodium (Porcine) (Heparin Sodium,Porcine 5,000 Unit/Ml Vial) 5,000 unit SUBCUT BID [facility] Last Admin: 05/28/22 08:30 Dose: 5,000 unit Documented By: ESVIN Hydroxyzine HCl (Hydroxyzine Hcl 25 Mg Tablet) 25 mg PO Q6H PRN PRN Reason: Anxiety Levothyroxine Sodium (Levothyroxine Sodium 25 Mcg Tablet) 25 mcg PO DAILY@0600 [facility] Last Admin: 05/28/22 06:08 Dose: 25 mcg Documented By: PHUC Mirtazapine (Mirtazapine 30 Mg Tablet) 30 mg PO BEDTIME [facility] Last Admin: 05/27/22 20:50 Dose: 30 mg Documented By: PHUC Morphine Sulfate (Morphine Sulfate 4 Mg/Ml Cartridge) 4 mg IVPUSH Q4H PRN; Protocol PRN Reason: Pain, Severe (Pain Scale 7-10) Last Admin: 05/27/22 15:00 Dose: 4 mg Documented By: LEVON Non-Formulary Medication (Desvenlafaxine Succinate [Pristiq]) 100 mg PO DAILY [facility] Omeprazole (Omeprazole 20 Mg Capsule.Dr) 20 mg PO BID@0630,1630 [facility] Last Admin: 05/28/22 06:08 Dose: 20 mg Documented By: PHUC Ondansetron HCl (Ondansetron Hcl 4 Mg/2 Ml Vial) 4 mg IVPUSH Q8H PRN PRN Reason: Nausea and Vomiting Last Admin: 05/24/22 13:08 Dose: 4 mg Documented By: TAB Oxycodone HCl (Oxycodone Hcl Immed Release 5 Mg Tablet) 5 mg PO Q4H PRN PRN Reason: Pain, Moderate (Pain Scale 4-6 Oxycodone HCl (Oxycodone Hcl Immed Release 5 Mg Tablet) 10 mg PO Q4H PRN PRN Reason: Pain, Severe (Pain Scale 7-10) Last Admin: 05/27/22 11:38 Dose: 10 mg Documented By: ASHLEY Sodium Chloride (0.9 % Sodium Chloride Flush 3 Ml Syringe) 3 ml IVFLUSH QSHIFT [facility] Last Admin: 05/28/22 08:30 Dose: 3 ml Documented By: ESVIN Trazodone HCl (Trazodone Hcl 50 Mg Tablet) 50 mg PO BEDTIME PRN PRN Reason: Insomnia Last Admin: 05/27/22 00:27 Dose: 50 mg Documented By: GILBERTO Valsartan (Valsartan 80 Mg Tablet) 80 mg PO DAILY [facility] Last Admin: 05/25/22 07:02 Dose: 80 mg Documented By: ASHLEY Labs 05/27/22 06:02 05/26/22 05:46 Procedures Date of Service Date of Service: 05/28/22 Progress Note: A&P Assessment and plan (1) S/P exploratory laparotomy: Status: Acute (2) Hiatal hernia: Status: Acute Plan 82 year old female admitted with nausea/vomiting found to have large hiatal hernia with volvulus. She is now POD #2 s/p ex lap, repair of hiatal hernia, gastropexy with G tube. Continues to do well post op. VSS. Abd exam remains benign, incision clean, G tube in place. G tube capped. Advance to solid diet. She does not have much of an appetite which appears more to do with her depression. If she is tolerating solid diet, she is surgically stable for ?transfer to psych floor. Continue ambulation. Will add colace, miralax for bowel regimen. Time Spent With Patient Time: Total time managing care of this patient today ____ minutes. Quality Stroke Does the patient have a stroke diagnosis?: No VTE Prior VTE?: No VTE Risk Level:: Medical - moderate - high VTE Device Contraindication: Treatment Not Indicated VTE Drug Contraindication: N/A - Med Ordered
--- NOTE | 2022-05-28 11:03 | P.CDIM_ITS ---
PROVIDER RESPONSE TEXT: To clarify, the appropriate diagnosis supported by the clinical indicators: Acute blood loss anemia QUERY TEXT: PHYSICIAN'S DOCUMENTATION REQUEST Date of Query: 05/28/2022 09:44 AM EDT Patient Name: Yessenia Romero Admit Date: 05/24/2022 Dear Eddie Pressley, A review of the medical record indicates additional documentation may be needed. Please review below and update the documentation accordingly. Clinical Indicators: H&H 05/24/22: 10.9/33.4 H&H 05/27/22: 8.8/27.2 per MD progress note 05/27/22: Macrocytic anemia B12, folate wnl H/H drifting down likely some component of blood loss r/t surgery follow CBC Based on the above, could you clarify which of the following is the most likely type of anemia you ar e evaluating, treating, and/or monitoring? Acute blood loss anemia Acute blood loss anemia with baseline chronic anemia (specify type) Anemia of chronic disease indicate if neoplastic disease, CKD, or other Chronic iron deficiency anemia due to blood loss Other Unable to dtermine Other (explain) Clinically unable to determine (explain) Thank you, Marlene Causey RN Use of terms such as suspected, likely, concern for, or probable (associated with a specific diagnosi s that is being evaluated, monitored, or treated as if it exists) are acceptable and can be coded in the inpatient se tting, when documented at the time of discharge. Please use your independent medical judgment in providing your response. THIS QUERY IS PART OF THE PERMANENT MEDICAL RECORD
[2022-05-28] MEDS: Docusate Sodium 100 MG CAPSULE PO ×2 (11:04→20:17)
[2022-05-28] MEDS: polyethylene glycoL 3350 17 GM POWD.PACK PO (11:04)
[2022-05-28 12:00] VITALS: BP 141/63; PULSE 70; RESP 16; TEMP 36.8; O2SAT 94
[2022-05-28 15:19] VITALS: BP 121/65; PULSE 88; RESP 20; TEMP 37; O2SAT 93
[2022-05-28] MEDS: hydrOXYzine HCL 25 MG TABLET PO ×2 (17:25→23:22)
[2022-05-28 19:56] VITALS: BP 118/78; PULSE 66; RESP 18; TEMP 36.3; O2SAT 95
[2022-05-28] MEDS: Mirtazapine 30 MG TABLET PO (20:17)
[2022-05-28] MEDS: traZODone HCL 50 MG TABLET PO (23:22)
[2022-05-28 23:31] VITALS: BP 154/67; PULSE 71; RESP 16; TEMP 36.6; O2SAT 93
[2022-05-29 03:47] VITALS: BP 151/64; PULSE 77; RESP 16; TEMP 36.3; O2SAT 93
[2022-05-29] MEDS: oxyCODONE HCl Immed Release 5 MG TABLET PO ×2 (03:52→08:29)
[2022-05-29 04:00] VITALS: RESP 18
[2022-05-29] MEDS: Omeprazole 20 MG CAPSULE.DR PO ×2 (05:30→17:18)
[2022-05-29] MEDS: Levothyroxine Sodium 25 MCG TABLET PO (05:30)
[2022-05-29 06:00] VITALS: BMI 31.1
[2022-05-29 08:00] VITALS: BP 150/65; PULSE 83; RESP 24; TEMP 36.7; O2SAT 91
--- NOTE | 2022-05-29 08:24 | P.PNGS_ITS ---
Subjective Subjective Date of Service: 05/29/22 Interval history: Feels ok this morning. Tolerating solid diet but denies significant appetite. Denies nausea and distention but does report some sensation of difficulty of the solid food moving down. Passing flatus and had BM yesterday. Physical Exam Vital Signs: Vital Signs: Last Vital Signs Temp 97.4 F 05/29/22 03:47 Pulse 77 05/29/22 03:47 Resp 18 05/29/22 04:00 BP 151/64 H 05/29/22 03:47 Pulse Ox 93 05/29/22 03:47 O2 Del Method Room Air 05/29/22 03:47 O2 Flow Rate 2 05/25/22 08:00 BMI result Body Mass Index 31.1 Const: General: comfortable, no acute distress and alert Orientation/consciousness: patient oriented x3 Resp: Effort & Inspection: normal respiratory effort GI: Other: G tube in place, capped Inspection: No distended and Yes incision (clean, mild ecchymosis ) Palpation (GI): Soft to palpation Skin: General skin exam: no rashes or lesions noted Neuro: General: patient oriented x3 Objective Data Active Medications Aripiprazole (Aripiprazole 2 Mg Tablet) 2 mg PO DAILY [facility] Last Admin: 05/28/22 08:30 Dose: 2 mg Documented By: ESVIN Docusate Sodium (Docusate Sodium 100 Mg Capsule) 100 mg PO BID [facility] Last Admin: 05/28/22 20:17 Dose: 100 mg Documented By: PHUC Famotidine (Famotidine 20 Mg Tablet) 20 mg PO DAILY [facility] Last Admin: 05/28/22 08:30 Dose: 20 mg Documented By: ESVIN Folic Acid (Folic Acid 1 Mg Tablet) 1 mg PO DAILY [facility] Last Admin: 05/28/22 08:30 Dose: 1 mg Documented By: ESVIN Heparin Sodium (Porcine) (Heparin Sodium,Porcine 5,000 Unit/Ml Vial) 5,000 unit SUBCUT BID [facility] Last Admin: 05/28/22 20:17 Dose: 5,000 unit Documented By: PHUC Hydroxyzine HCl (Hydroxyzine Hcl 25 Mg Tablet) 25 mg PO Q6H PRN PRN Reason: Anxiety Last Admin: 05/28/22 23:22 Dose: 25 mg Documented By: PHUC Levothyroxine Sodium (Levothyroxine Sodium 25 Mcg Tablet) 25 mcg PO DAILY@0600 [facility] Last Admin: 05/29/22 05:30 Dose: 25 mcg Documented By: PHUC Mirtazapine (Mirtazapine 30 Mg Tablet) 30 mg PO BEDTIME [facility] Last Admin: 05/28/22 20:17 Dose: 30 mg Documented By: PHUC Non-Formulary Medication (Desvenlafaxine Succinate [Pristiq]) 100 mg PO DAILY [facility] Omeprazole (Omeprazole 20 Mg Capsule.Dr) 20 mg PO BID@0630,1630 [facility] Last Admin: 05/29/22 05:30 Dose: 20 mg Documented By: PHUC Ondansetron HCl (Ondansetron Hcl 4 Mg/2 Ml Vial) 4 mg IVPUSH Q8H PRN PRN Reason: Nausea and Vomiting Last Admin: 05/24/22 13:08 Dose: 4 mg Documented By: TAB Oxycodone HCl (Oxycodone Hcl Immed Release 5 Mg Tablet) 5 mg PO Q4H PRN PRN Reason: Pain, Moderate (Pain Scale 4-6 Last Admin: 05/29/22 03:52 Dose: 5 mg Documented By: PHUC Oxycodone HCl (Oxycodone Hcl Immed Release 5 Mg Tablet) 10 mg PO Q4H PRN PRN Reason: Pain, Severe (Pain Scale 7-10) Last Admin: 05/27/22 11:38 Dose: 10 mg Documented By: ASHLEY Polyethylene Glycol (Polyethylene Glycol 3350 17 Gm Powd.Pack) 17 gm PO DAILY [facility] Last Admin: 05/28/22 11:04 Dose: 17 gm Documented By: ESVIN Sodium Chloride (0.9 % Sodium Chloride Flush 3 Ml Syringe) 3 ml IVFLUSH QSHIFT [facility] Last Admin: 05/28/22 20:20 Dose: 3 ml Documented By: PHUC Trazodone HCl (Trazodone Hcl 50 Mg Tablet) 50 mg PO BEDTIME PRN PRN Reason: Insomnia Last Admin: 05/28/22 23:22 Dose: 50 mg Documented By: PHUC Valsartan (Valsartan 80 Mg Tablet) 80 mg PO DAILY [facility] Last Admin: 05/25/22 07:02 Dose: 80 mg Documented By: ASHLEY Labs 05/27/22 06:02 05/26/22 05:46 Procedures Date of Service Date of Service: 05/29/22 Progress Note: A&P Assessment and plan (1) S/P exploratory laparotomy: Status: Acute (2) Hiatal hernia: Status: Acute Plan 82 year old female admitted with nausea/vomiting found to have large hiatal hernia with volvulus. She is now POD #5 s/p ex lap, repair of hiatal hernia, gastropexy with G tube. Overall doing well from surgical standpoint and tolerating solid diet. VSS. Abd exam remains benign, incision clean, G tube in place and capped. Can add dietary supplements. Continue ambulation, bowel regimen. PT recommend STR upon discharge. Surgically cleared for dispo/eval by BHN. Can f/u for wound check, eventual G tube removal down the line. Time Spent With Patient Time: Total time managing care of this patient today ____ minutes. Quality Stroke Does the patient have a stroke diagnosis?: No VTE Prior VTE?: No VTE Risk Level:: Medical - moderate - high VTE Device Contraindication: Treatment Not Indicated VTE Drug Contraindication: N/A - Med Ordered
[2022-05-29] MEDS: Docusate Sodium 100 MG CAPSULE PO ×2 (08:28→20:08)
[2022-05-29] MEDS: Famotidine 20 MG TABLET PO (08:28)
[2022-05-29] MEDS: ARIPiprazole 2 MG TABLET PO (08:28)
[2022-05-29] MEDS: Folic Acid 1 MG TABLET PO (08:28)
[2022-05-29] MEDS: polyethylene glycoL 3350 17 GM POWD.PACK PO (08:28)
[2022-05-29] MEDS: Heparin Sodium,Porcine 5,000 UNIT/ML VIAL 5000 UNIT SUBCUT ×2 (08:31→20:08)
[2022-05-29] MEDS: 0.9 % Sodium Chloride Flush 3 ML SYRINGE IVFLUSH ×3 (08:41→20:17)
--- NOTE | 2022-05-29 09:02 | HO.PM.IMPN ---
Subjective Subjective Date of Service: 05/29/22 Interval History: f/u on post volbulus repair tolerating present diet, no new issues, minimal pain and anxiety seems better Physical Exam Vital Signs: Vital Signs: Last Vital Signs Temp 98.0 F 05/29/22 08:00 Pulse 83 05/29/22 08:00 Resp 24 H 05/29/22 08:00 BP 150/65 H 05/29/22 08:00 Pulse Ox 91 L 05/29/22 08:00 O2 Del Method Room Air 05/29/22 08:00 O2 Flow Rate 2 05/25/22 08:00 BMI result Body Mass Index 31.1 Const: Other: General: AO X 3, no acute distress Resp: CTA bilateral CVS: S1,S2,RRR GI: +BS, NT, no distention, g tube in place Skin: No rash Neuro: motor grossly intact Psych: appropriate affect Objective Data Active Medications Aripiprazole (Aripiprazole 2 Mg Tablet) 2 mg PO DAILY [facility] Last Admin: 05/29/22 08:28 Dose: 2 mg Documented By: OTTONIEL Docusate Sodium (Docusate Sodium 100 Mg Capsule) 100 mg PO BID [facility] Last Admin: 05/29/22 08:28 Dose: 100 mg Documented By: OTTONIEL Famotidine (Famotidine 20 Mg Tablet) 20 mg PO DAILY [facility] Last Admin: 05/29/22 08:28 Dose: 20 mg Documented By: OTTONIEL Folic Acid (Folic Acid 1 Mg Tablet) 1 mg PO DAILY [facility] Last Admin: 05/29/22 08:28 Dose: 1 mg Documented By: OTTONIEL Heparin Sodium (Porcine) (Heparin Sodium,Porcine 5,000 Unit/Ml Vial) 5,000 unit SUBCUT BID [facility] Last Admin: 05/29/22 08:31 Dose: 5,000 unit Documented By: OTTONIEL Hydroxyzine HCl (Hydroxyzine Hcl 25 Mg Tablet) 25 mg PO Q6H PRN PRN Reason: Anxiety Last Admin: 05/28/22 23:22 Dose: 25 mg Documented By: PHUC Levothyroxine Sodium (Levothyroxine Sodium 25 Mcg Tablet) 25 mcg PO DAILY@0600 [facility] Last Admin: 05/29/22 05:30 Dose: 25 mcg Documented By: PHUC Mirtazapine (Mirtazapine 30 Mg Tablet) 30 mg PO BEDTIME [facility] Last Admin: 05/28/22 20:17 Dose: 30 mg Documented By: PHUC Non-Formulary Medication (Desvenlafaxine Succinate [Pristiq]) 100 mg PO DAILY [facility] Omeprazole (Omeprazole 20 Mg Capsule.Dr) 20 mg PO BID@0630,1630 [facility] Last Admin: 05/29/22 05:30 Dose: 20 mg Documented By: PHUC Ondansetron HCl (Ondansetron Hcl 4 Mg/2 Ml Vial) 4 mg IVPUSH Q8H PRN PRN Reason: Nausea and Vomiting Last Admin: 05/24/22 13:08 Dose: 4 mg Documented By: TAB Oxycodone HCl (Oxycodone Hcl Immed Release 5 Mg Tablet) 5 mg PO Q4H PRN PRN Reason: Pain, Moderate (Pain Scale 4-6 Last Admin: 05/29/22 08:29 Dose: 5 mg Documented By: OTTONIEL Oxycodone HCl (Oxycodone Hcl Immed Release 5 Mg Tablet) 10 mg PO Q4H PRN PRN Reason: Pain, Severe (Pain Scale 7-10) Last Admin: 05/27/22 11:38 Dose: 10 mg Documented By: ASHLEY Polyethylene Glycol (Polyethylene Glycol 3350 17 Gm Powd.Pack) 17 gm PO DAILY [facility] Last Admin: 05/29/22 08:28 Dose: 17 gm Documented By: OTTONIEL Sodium Chloride (0.9 % Sodium Chloride Flush 3 Ml Syringe) [address] [facility] Last Admin: 05/29/22 08:41 Dose: 3 ml Documented By: OTTONIEL Trazodone HCl (Trazodone Hcl 50 Mg Tablet) 50 mg PO BEDTIME PRN PRN Reason: Insomnia Last Admin: 05/28/22 23:22 Dose: 50 mg Documented By: PHUC Valsartan (Valsartan 80 Mg Tablet) 80 mg PO DAILY [facility] Last Admin: 05/25/22 07:02 Dose: 80 mg Documented By: ASHLEY Labs 05/27/22 06:02 05/26/22 05:46 Assessment and Plan (1) S/P exploratory laparotomy: Status: Acute Plan Patient is an 82 year old female with history of hypothyroidism, htn, hld, vitamin d deficiency, bipolar disorder, and depression/anxiety admitted to Psychiatry with consult placed to hospital service for evaluation of sudden-onset nausea vomiting found to have large hiatal hernia in the chest gastric volvulus, paraesophageal hernia s/p ex lap with repair of hernia and gastropexy and g tube placement on 05/24 diet advanced regular pain control, IS surgically ready for dc Depression--was initially admitted to psych and transfer due to above BHN eval for readmission to psych LINDA on CKD3 SCr up to 1.74, returned to baseline with IVF Valsartan on hold but will restart Macrocytic anemia B12, folate wnl H/H drifting down likely some component of blood loss r/t surgery follow CBC Thrombocytopenia plt trended but going up again follow CBC Hypertension valsartan on hold for LINDA ok to resume if bmp ok Hypothyroidism Continue Synthroid DVT prophylaxis: Heparin subQ Patient requires ongoing inpatient hospitalization for management of gastric volvulus, LINDA, anemia PT eval for placement Time Spent With Patient Time: Total time managing care of this patient today ____ minutes. Quality Stroke Does the patient have a stroke diagnosis?: No VTE Prior VTE?: No VTE Risk Level:: Medical - moderate - high VTE Device Contraindication: Treatment Not Indicated VTE Drug Contraindication: N/A - Med Ordered
[2022-05-29 09:39] LABS: Hematocrit 24.8 % (37.0-47.0); Mean Corpuscular HGB Conc 32.3 g/dl (31.0-35.0); Mean Corpuscular Hemoglobin 34.5 pg (27.0-33.0); Mean Corpuscular Volume 106.9 fL (80.0-98.0); Mean Platelet Volume 11.8 fL (9.4-12.3); Platelet Count 172 X10*3/uL (160-400); Red Blood Count 2.32 X10*6/uL (4.20-5.50); Red Cell Distribution Width 14.9 % (11.0-16.0); White Blood Count 3.8 X10*3/uL (4.8-10.8)
[2022-05-29 09:54] LABS: Anion Gap 10 (12-20); Blood Urea Nitrogen 10 mg/dL (9-16); Calcium 8.2 mg/dL (8.4-10.2); Carbon Dioxide 29 mmol/L (22-29); Chloride 107 mmol/L (96-108); Estimated Glomerular Filt Rate > 60; Glucose Random 138 mg/dL (60-115); Potassium 3.8 mmol/L (3.3-5.1); Sodium 142 mmol/L (135-145)
[2022-05-29 16:06] VITALS: BP 122/58; PULSE 66; RESP 18; TEMP 36.8; O2SAT 94
[2022-05-29] MEDS: hydrOXYzine HCL 25 MG TABLET PO ×2 (17:18→22:14)
[2022-05-29 19:40] VITALS: BP 138/62; PULSE 80; RESP 20; TEMP 36.6; O2SAT 94
[2022-05-29] MEDS: Mirtazapine 30 MG TABLET PO (20:08)
--- NOTE | 2022-05-29 20:41 | MHC.CARE ---
Pt was evaluated by the CARE Team and pt is an inpatient jet bedsearch at this time. Pt will transition back to S1 when there is an bed availability.
[2022-05-29] MEDS: traZODone HCL 50 MG TABLET PO (22:13)
[2022-05-30 03:35] VITALS: BP 145/58; PULSE 77; RESP 18; TEMP 36.2; O2SAT 93
[2022-05-30] MEDS: LORazepam 2 MG/ML VIAL 0.5 MG IVPUSH ×2 (04:21→21:17)
[2022-05-30] MEDS: Levothyroxine Sodium 25 MCG TABLET PO (04:28)
[2022-05-30 08:00] VITALS: BP 155/67; PULSE 78; RESP 20; TEMP 36.6; O2SAT 92
[2022-05-30] MEDS: Famotidine 20 MG TABLET PO (09:44)
[2022-05-30] MEDS: Folic Acid 1 MG TABLET PO (09:44)
[2022-05-30] MEDS: polyethylene glycoL 3350 17 GM POWD.PACK PO (09:44)
[2022-05-30] MEDS: Docusate Sodium 100 MG CAPSULE PO (09:44)
[2022-05-30] MEDS: Heparin Sodium,Porcine 5,000 UNIT/ML VIAL 5000 UNIT SUBCUT ×2 (09:44→20:36)
[2022-05-30] MEDS: Omeprazole 20 MG CAPSULE.DR PO (09:44)
[2022-05-30] MEDS: ARIPiprazole 2 MG TABLET PO (09:44)
--- NOTE | 2022-05-30 10:35 | P.PNIM_ITS ---
Subjective Subjective Date of Service: 05/30/22 Interval History: f/u on post volbulus repair tolerating present diet, no new issues, minimal pain and anxiety seems better Physical Exam Vital Signs: Vital Signs: Last Vital Signs Temp 97.9 F 05/30/22 08:00 Pulse 78 05/30/22 08:00 Resp 20 05/30/22 08:00 BP 155/67 H 05/30/22 08:00 Pulse Ox 92 05/30/22 08:00 O2 Del Method Room Air 05/30/22 08:00 O2 Flow Rate 2 05/25/22 08:00 BMI result Body Mass Index 31.1 Const: Other: General: AO X 3, no acute distress Resp: CTA bilateral CVS: S1,S2,RRR GI: +BS, NT, no distention, g tube in place Skin: No rash Neuro: motor grossly intact Psych: appropriate affect Objective Data Active Medications Aripiprazole (Aripiprazole 2 Mg Tablet) 2 mg PO DAILY [facility] Last Admin: 05/30/22 09:44 Dose: 2 mg Documented By: LINK-PAMFA Docusate Sodium (Docusate Sodium 100 Mg Capsule) 100 mg PO BID [facility] Last Admin: 05/30/22 09:44 Dose: 100 mg Documented By: LINK-MILEY Famotidine (Famotidine 20 Mg Tablet) 20 mg PO DAILY [facility] Last Admin: 05/30/22 09:44 Dose: 20 mg Documented By: LINK-PAMFA Folic Acid (Folic Acid 1 Mg Tablet) 1 mg PO DAILY [facility] Last Admin: 05/30/22 09:44 Dose: 1 mg Documented By: LINK-MILEY Heparin Sodium (Porcine) (Heparin Sodium,Porcine 5,000 Unit/Ml Vial) 5,000 unit SUBCUT BID [facility] Last Admin: 05/30/22 09:44 Dose: 5,000 unit Documented By: LINK-MILEY Hydroxyzine HCl (Hydroxyzine Hcl 25 Mg Tablet) 25 mg PO Q6H PRN PRN Reason: Anxiety Last Admin: 05/29/22 22:14 Dose: 25 mg Documented By: TASHA Levothyroxine Sodium (Levothyroxine Sodium 25 Mcg Tablet) 25 mcg PO DAILY@0600 [facility] Last Admin: 05/30/22 04:28 Dose: 25 mcg Documented By: TASHA Mirtazapine (Mirtazapine 30 Mg Tablet) 30 mg PO BEDTIME [facility] Last Admin: 05/29/22 20:08 Dose: 30 mg Documented By: TASHA Non-Formulary Medication (Desvenlafaxine Succinate [Pristiq]) 100 mg PO DAILY [facility] Omeprazole (Omeprazole 20 Mg Capsule.Dr) 20 mg PO BID@0630,1630 [facility] Last Admin: 05/30/22 09:44 Dose: 20 mg Documented By: LINK-SOFEDMUNDO Ondansetron HCl (Ondansetron Hcl 4 Mg/2 Ml Vial) 4 mg IVPUSH Q8H PRN PRN Reason: Nausea and Vomiting Last Admin: 05/24/22 13:08 Dose: 4 mg Documented By: TAB Polyethylene Glycol (Polyethylene Glycol 3350 17 Gm Powd.Pack) 17 gm PO DAILY [facility] Last Admin: 05/30/22 09:44 Dose: 17 gm Documented By: LINK-SOFEDMUNDO Sodium Chloride (0.9 % Sodium Chloride Flush 3 Ml Syringe) 3 ml IVFLUSH QSHIFT [facility] Last Admin: 05/30/22 09:44 Dose: Not Given Documented By: LINK-SOFFA Non-Admin Reason: See Note Trazodone HCl (Trazodone Hcl 50 Mg Tablet) 50 mg PO BEDTIME PRN PRN Reason: Insomnia Last Admin: 05/29/22 22:13 Dose: 50 mg Documented By: TASHA Valsartan (Valsartan 80 Mg Tablet) 80 mg PO DAILY [facility] Last Admin: 05/25/22 07:02 Dose: 80 mg Documented By: ASHLEY Labs 05/29/22 09:15 05/29/22 09:15 Assessment and Plan (1) S/P exploratory laparotomy: Status: Acute Plan Patient is an 82 year old female with history of hypothyroidism, htn, hld, vitamin d deficiency, bipolar disorder, and depression/anxiety admitted to Psychiatry with consult placed to hospital service for evaluation of sudden-onset nausea vomiting found to have large hiatal hernia in the chest gastric volvulus, paraesophageal hernia s/p ex lap with repair of hernia and gastropexy and g tube placement on 05/24 diet advanced and tolerating regular pain control, IS surgically ready for dc, follow up on outpatient basis for Gtube removal presently capped Depression--was initially admitted to psych and transfer due to above CARE team recommending discharge back to [facility] LINDA on CKD3 SCr up to 1.74, returned to baseline with IVF presently 0.76 Macrocytic anemia B12, folate wnl H/H drifting down likely some component of blood loss r/t surgery follow CBC Thrombocytopenia plt trended but going up again follow CBC Hypertension valsartan on hold for LINDA ok to resume if bmp ok Hypothyroidism Continue Synthroid DVT prophylaxis: Heparin subQ Patient requires ongoing inpatient hospitalization for management of gastric volvulus, LINDA, anemia PT eval for placement, and awaiting [facility] bed Time Spent With Patient Time: Total time managing care of this patient today ____ minutes. Quality Stroke Does the patient have a stroke diagnosis?: No VTE Prior VTE?: No VTE Risk Level:: Medical - moderate - high VTE Device Contraindication: Treatment Not Indicated VTE Drug Contraindication: N/A - Med Ordered
--- NOTE | 2022-05-30 10:41 | P.DS_ITS ---
DS: Providers Provider Date of Service: 05/31/22 Date of admission: 05/24/22 00:56 Primary care physician: Dru Walker Consults: 05/24/22 00:56 Consult to General Surgery Routine Consulting Provider: [facility] Reason for consultation: Hiatel hernia Has provider been notified: Yes 05/24/22 07:24 Consult to Psychiatry Routine Consulting Provider: Psych Covering Reason for consultation: transfer from psych floor, ongoing management Has provider been notified: No 05/29/22 13:34 Consult to Care Team Routine Comment: Reason for consultation: Reassess to return back to inpatient Psych vs other DS: Diagnosis Discharge Diagnosis (1) S/P exploratory laparotomy: Status: Acute DS: Summary Hospital Course Hospital Course: Chief Complaint: abd pain H&P is brought forward from the earlier consultation note done by Mr. Teresa LOWRY. Patient is an 82 year old female with history of hypothyroidism, htn, hld, vitamin d deficiency, bipolar disorder, and depression/anxiety admitted to Psychiatry with consult placed to hospital service for evaluation of sudden- onset nausea vomiting.? Pt's symptom shortly after eating lunch when she became nauseous and began vomiting. Pt has since had an additional 4-5 episodes of vomiting. Pt also complains of a central, substernal epigastric pain which the patient describes as constant and gnawing. Denies any hematemesis.? Patient has a history of a hiatal hernia diagnosed roughly 3 years ago, and is worried that might be contributing to her condition and/or pain.? Patient has had episodes of nausea and vomiting in the past, but claims nothing like this before.? Patient denies fever, chills, abdominal pain.? No shortness of breath.? No diarrhea.? Patient was given a dose of ondansetron sublingual but states that did not help her nausea Patient is being transferred to the floor for intractable nausea and vomiting, and evidence of hiatal l hernia with a large fluid burden in the chest.? Patient continues to have nausea vomiting, abdominal pain.? Spoke to surgery, patient will be transferred to the floor, NG tube will be placed, ppi, and antiemetics ordered. Surgery will see patient in a.m. Vitals were reviewed appear to be stable with a blood pressure 160/75, no other abnormal finding Hospital course: Patient was in [facility] for inpatient treatment of depression, passive SI, inability to care for herself at home when she developped sudden onset of abdominal pain,nausea and vomitting shortly after a meal, she was worried that her hiatal hernia diagnosed 3 years ealier could be the problem and indeed a CT showed Huge hiatal hernia with the entirety of the stomach within the chest with the exception of the fundus which appears to be stuck below the diaphragm. NGT was inserted was admitted from Psych to inpatient Med and surgical consultation requested. She would undergo exploratory laparotomy, repair of hiatal hernia, gastropexy with G tube placement. She has done well post operatively and her diet has been advanced to regular diet which is tolerating. Her GTube is to remain in place capped for seveal weeks before removal in follow up by surgery. KI on CKD3 SCr up to 1.74, returned to baseline with IVF? presently 0.76 Macrocytic anemia B12, folate wnl H/H drifted down after surgery but has stabilized with sings of active bleed Monitor Thrombocytopenia--trended down but now normal 183 HTN--resume Valsartan Hypothyroidism Continue Synthroid Depression with SI, to inpatient Psych Diet: here is speech and swallow assessment: Patient very anxious, asking for purees to start, recommend diet of Puree(NDD1) with thin liquids, pills whole in puree. Will likely be able to advance as she feels more confident, but will need soft diet due to limited dentition. Time Spent with Patient Time attestation: Total time managing care of this patient today ____ minutes. Discharge coordination time: Greater than 30 minutes Quality: Safe Use of Opioids Does Pt have an Active Cancer Diagnosis on the Problem List?: No Quality: Stroke Does the patient have a stroke diagnosis?: No Physical Exam Vital Signs: Vital Signs: Selected Entries 05/31/22 08:00 Temperature 97.4 F Pulse Rate 68 Respiratory Rate 18 Blood Pressure 145/67 H Pulse Oximetry 93 Oxygen Delivery Me thod Room Air Const: Other: General: AO X 3, no acute distress Resp: CTA bilateral CVS: S1,S2,RRR GI: +BS, NT, no distention Skin: No rash Neuro: motor grossly intact Psych: appropriate affect Discharge Plan Discharge Anticipated Discharge Date/Time: 05/31/22 11:43 Patient Disposition: Xfer Psychiatric Hosp Discharge Diagnosis: Paraesophageal hernia, Depression with SI Referrals: Physician,Unknown J [Physician] - 1 Week Discharge Medications: Continued levothyroxine 25 mcg Tablet 25 mcg PO DAILY@0600 Rx Instructions: Last filled 04/03/22 #90 folic acid 1 mg Tablet 1 mg PO DAILY Rx Instructions: Last filled 04/03/22 #90 acetaminophen 325 mg Tablet 650 mg PO Q6H PRN (Reason: Headache/Pain Mild Scale (1-3)) 7 Days Qty: 7 0RF atorvastatin 10 mg Tablet 10 mg PO BEDTIME 7 Days Qty: 7 0RF hydroxyzine HCl 25 mg Tablet 25 mg PO Q6H PRN (Reason: Anxiety) 7 Days Qty: 7 0RF cyanocobalamin (vitamin B-12) [Vitamin B-12] 100 mcg Tablet 100 mcg PO DAILY Qty: 7 0RF trazodone 50 mg Tablet 50 mg PO BEDTIME PRN (Reason: Insomnia) 7 Days Qty: 7 0RF prochlorperazine maleate 5 mg Tablet 5 mg PO QID PRN (Reason: Nausea And Vomiting) Qty: 7 0RF famotidine 20 mg Tablet 20 mg PO DAILY Qty: 7 0RF magnesium hydroxide [Milk of Magnesia] 400 mg/5 mL Suspension 30 ml PO DAILY PRN (Reason: Constipation) Qty: 355 0RF mirtazapine 30 mg Tablet 30 mg PO BEDTIME 7 Days Qty: 7 0RF omeprazole 20 mg Capsule,Delayed Release(Dr/Ec) 20 mg PO BID@0630,1630 Qty: 14 0RF ondansetron 4 mg Tablet,Disintegrating 4 mg translingual Q6H PRN (Reason: nausea) Qty: 7 0RF MAG-AL 200-200 mg/5 mL Suspension 30 ml PO Q6H PRN (Reason: Heartburn/Nausea) Qty: 3000 0RF aripiprazole 2 mg Tablet 2 mg PO DAILY 7 Days Qty: 0 0RF Rx Instructions: for excessive thinking last filled 04/26/22 #30 desvenlafaxine succinate [Pristiq] 100 mg Tablet Extended Release 24 Hr 100 mg PO DAILY 7 Days Qty: 0 0RF Rx Instructions: Last filled 05/17/22 #30 valsartan 80 mg Tablet 80 mg PO DAILY Rx Instructions: P&T interchange from irbesartan 150mg daily ferrous sulfate 324 mg (65 mg iron) Tablet,Delayed Release (Dr/Ec) 324 mg PO BID Discharge Orders: Discharge Order (Routine); Ordered 05/31/22 Ordered By: Eddie Mlapaherman Diet: puree with thin liq Activity on Discharge: As tolerated Stand Alone Forms: Patient Portal Discharge page Activity Restrictions/Additional Instructions: Ok to shower. You have steri strips (small white cloth strips) covering your incision- these will fall off. Keep G tube capped. Follow up in office with Dr. Block in 1 week. ([phone]) No heavy lifting (>10lbs) or strenuous activity! Call Your Doctor If: -Your temperature exceeds 101.5? F -You experience excessive pain or swelling -You have an unexpected reaction to medication -You have excessive bleeding -You experience continued vomiting/nausea -Your incision begins to separate -Your incision shows signs of infection such as increased redness, swelling, excessive pain, drainage (light blood or clear fluid is normal) or heat Care Plan Goals: full recovery from surgery Health Concerns: Depression, anxiety Paraesophageal hernia Plan of Treatment: Gtube to remain capped, Follow up with Dr. Block Assessment: as above
--- NOTE | 2022-05-30 15:59 | MHC.CM.PN ---
per rounds pt is being followed by [facility] FOR DC PLANNING
[2022-05-30 16:00] VITALS: BP 101/51; PULSE 89; RESP 20; TEMP 37.2; O2SAT 94
[2022-05-30 16:41] LABS: Hematocrit 24.6 % (37.0-47.0); Hemoglobin 7.8 g/dl (12.0-16.0); Mean Corpuscular HGB Conc 31.7 g/dl (31.0-35.0); Mean Corpuscular Hemoglobin 33.8 pg (27.0-33.0); Mean Corpuscular Volume 106.5 fL (80.0-98.0); Mean Platelet Volume 11.6 fL (9.4-12.3); Platelet Count 183 X10*3/uL (160-400); Red Blood Count 2.31 X10*6/uL (4.20-5.50); Red Cell Distribution Width 15.3 % (11.0-16.0); White Blood Count 4.7 X10*3/uL (4.8-10.8)
--- NOTE | 2022-05-30 17:26 | PC.NURSE ---
Addendum entered by Ronaldo Lowery RN 05/30/22 18:19: per Md verbal order pt placed NPO until speech therapy evaluated d/t constant coughing and having episode of emesis from excessive coughing ? aspiration, after receiving PO meds Original Note: pt having audible wheezing, c/o persistent dry cough and chest discomfort from coughing. MD informed multiple times regarding pt symptoms and complaints. ?'ed PRN neb tx, guaifensine, and tylenol. report given to [facility] psych unit. pt informed of plan. pt refused to get OOB today despite encouragement
[2022-05-30] MEDS: hydrOXYzine HCL 25 MG TABLET PO (17:32)
[2022-05-30] MEDS: guaiFENesin 100 MG/5 ML LIQUID PO (17:32)
[2022-05-30 17:46] VITALS: PULSE 94; RESP 20; O2SAT 94
[2022-05-30 19:55] VITALS: BP 135/65; PULSE 79; RESP 20; TEMP 36.5; O2SAT 92
[2022-05-30] MEDS: 0.9 % Sodium Chloride Flush 3 ML SYRINGE IVFLUSH (20:37)
[2022-05-31] MEDS: Omeprazole 20 MG CAPSULE.DR PO (05:53)
[2022-05-31] MEDS: Levothyroxine Sodium 25 MCG TABLET PO (05:53)
[2022-05-31 06:00] VITALS: BMI 44.0
[2022-05-31 08:00] VITALS: BP 145/67; PULSE 68; RESP 18; TEMP 36.3; O2SAT 93
[2022-05-31] MEDS: 0.9 % Sodium Chloride Flush 3 ML SYRINGE IVFLUSH (10:25)
[2022-05-31] MEDS: Famotidine 20 MG TABLET PO (10:26)
[2022-05-31] MEDS: polyethylene glycoL 3350 17 GM POWD.PACK PO (10:26)
[2022-05-31] MEDS: Docusate Sodium 100 MG CAPSULE PO (10:26)
[2022-05-31] MEDS: Folic Acid 1 MG TABLET PO (10:26)
[2022-05-31] MEDS: hydrOXYzine HCL 25 MG TABLET PO (10:26)
[2022-05-31] MEDS: ARIPiprazole 2 MG TABLET PO (10:26)
[2022-05-31] MEDS: Heparin Sodium,Porcine 5,000 UNIT/ML VIAL 5000 UNIT SUBCUT (10:26)
--- NOTE | 2022-05-31 12:20 | MHC.CM.PN ---
Patient is discharged to psych floor. She has refused to transfer voluntarily. The MD signed the section 12. Patient will transfer to psych floor @ [facility] [place] today.
== END 2022-05-31 13:40 | DRG 327 ==
PROVIDERS: Physician Assistant Medical; Surgery; Admitting Provider Internal Medicine; PCP Psychiatry & Neurology Psychiatry; Visit Provider Internal Medicine
PROC: 0BQT0ZZ Repair Diaphragm, Open Approach (ICD-10-PCS; CPT 49000; principal; 2022-05-24 10:20)
DX: K44.0 Diaphragmatic hernia with obstruction, without gangrene (principal); D62 Acute posthemorrhagic anemia; N17.9 Acute kidney failure, unspecified; I12.9 Hypertensive chronic kidney disease with stage 1 through stage 4 chronic kidney disease, or unspecified chronic kidney disease; F32.A Depression, unspecified; N18.30 Chronic kidney disease, stage 3 unspecified; D69.6 Thrombocytopenia, unspecified; K31.89 Other diseases of stomach and duodenum; D63.1 Anemia in chronic kidney disease; E03.9 Hypothyroidism, unspecified; Z85.038 Personal history of other malignant neoplasm of large intestine; Z88.8 Allergy status to other drugs, medicaments and biological substances; Z79.890 Hormone replacement therapy; Z79.899 Other long term (current) drug therapy
CPT/HCPCS: 36415; 71045; 80048; 85025; 85027; 86850; 86900; 86901; 93005; 97116; 97162; 97530; C1758; J0131; J0330; J0690; J1170; J1643; J1885; J2060; J2270; J2370; J2405; J2550; J2765; J2795

== ENCOUNTER 2022-05-31 13:44 | Inpatient (IN) | payer MEDICARE, SELFPAY ==
--- NOTE | ~2022-05-31 | XR_ITS ---
EXAMINATION: XR CHEST CLINICAL INFORMATION: Desaturation. Evaluate for aspiration. COMPARISON: 06/01/2022 TECHNIQUE: Frontal view of the chest was obtained. FINDINGS: Current radiographic findings are similar to those observed on 06/01/2022. There is persistent opacity of the left lung base with lack of definition of the diaphragm and obscured lateral costophrenic sulcus. The patient reportedly underwent surgical reduction of gastric hernia/volvulus. There is linear opacity of minimal atelectasis in the right infrahilar region. Cardiac silhouette is in the normal size range for an anteroposterior chest radiograph. There is atherosclerotic calcification of the aorta. Pulmonary vascular pattern is normal. No acute skeletal abnormality. XR/XR chest 1V IMPRESSION: The persistent opacity at the left lung base is nonspecific but probably represents a combination of small pleural effusion and basilar atelectasis. This radiographic examination would not be able to exclude any left lower lobe pneumonia. However, there are no new pulmonary infiltrates compared to 06/01/2022.
--- NOTE | ~2022-05-31 | CT_ITS ---
EXAMINATION: CT ANGIOGRAM OF THE CHEST WITH AND WITHOUT CONTRAST (CT PULMONARY ANGIOGRAM FOR PE) CLINICAL INFORMATION: Reason for Exam hypoxia, hypotension, elevated DDimer COMPARISON: No prior CT. Radiograph from today TECHNIQUE: Prior to contrast administration, noncontrast localization images were obtained. Subsequently, multidetector volumetric imaging was performed from the thoracic inlet to below the diaphragms following the administration of 65 mL Omnipaque 350 intravenous contrast. No contrast reaction reported Sagittal, coronal, and MIP oblique sagittal reformatted images were obtained on the CT workstation, uploaded to PACS, and reviewed. This CT examination was performed using dose optimization techniques as appropriate, variously including the following: *Automated exposure control *Adjustment of mA and/or kV according to patient size (this includes techniques or standardized protocols for targeted exams where dose is matched to indication/reason for exam; i.e. extremities or head) *Use of iterative reconstruction technique Total exam dose-length product 274 mGy-cm FINDINGS: QUALITY OF STUDY/CONTRAST BOLUS: Satisfactory. PULMONARY ARTERIES: No pulmonary emboli. THORACIC AORTA: No aneurysm. LUNG: The central airways are patent. Moderate left pleural effusion. Dependent opacity along the left major fissure. Segmental left lower lobe atelectasis. Tiny right pleural effusion with basilar atelectasis. No pneumothorax. MEDIASTINUM: Prominent heart size. No pericardial effusion. No hilar or mediastinal lymphadenopathy. No evidence of septal bowing or right heart strain. CORONARY ARTERY CALCIFICATION: None visualized on this study. CHEST WALL/AXILLA: No axillary or internal mammary lymphadenopathy. OSSEOUS STRUCTURES: No acute or suspicious osseous abnormality. Degenerative change throughout the spine. Compression deformity of the T12 vertebral body. UPPER ABDOMEN: Gastrostomy tube noted. This is only partially visualized. Cortical thinning of the kidneys. Simple cyst at the upper pole of the left kidney for which no specific follow-up is recommended. No reflux of contrast into the hepatic veins to suggest elevated right heart pressures. CT/CT angio chest PE protocol IMPRESSION: 1. No pulmonary embolism. 2. Moderate left and tiny right pleural effusions. Segmental left lower lobe atelectasis. Additional dependent opacity along the left major fissure favors atelectasis, though aspiration not excluded. VTE: negative
--- NOTE | ~2022-05-31 | XR_ITS ---
EXAMINATION: XR CHEST CLINICAL INFORMATION: Status post reduction of gastric volvulus. COMPARISON: Chest radiograph dated 05/24/2022. TECHNIQUE: Frontal view of the chest was obtained. FINDINGS: Support devices: Interval removal of enteric tube. There is a small left pleural effusion with mild superjacent hazy opacities. The left upper lung field and right lung are clear. The heart and mediastinal structures are unremarkable. XR/XR chest 1V IMPRESSION: Small left pleural effusion with superjacent hazy opacities suggesting atelectasis and/or infiltrates.
--- NOTE | ~2022-05-31 | XR_ITS ---
EXAMINATION: XR ABDOMEN KUB CLINICAL INDICATION: Post surgery. COMPARISON: None available. TECHNIQUE: AP view of the abdomen. FINDINGS: There is a G-tube seen in the left upper quadrant with a small air bubble in the fundus. The bowel gas pattern is nonspecific. There are degenerative disc changes with spondylosis lumbar spine. No visible acute fracture or dislocation seen. XR/XR KUB IMPRESSION: G-tube in the left upper quadrant with a small air bubble in the fundus. The bowel gas pattern is nonspecific.
[2022-05-31 14:05] VITALS: BP 139/63; PULSE 80; RESP 18; TEMP 37.4; O2SAT 95
[2022-05-31] MEDS: hydrOXYzine HCL 25 MG TABLET PO (15:21)
[2022-05-31] MEDS: Acetaminophen 325 MG TABLET 650 MG PO (15:24)
--- NOTE | 2022-05-31 15:52 | HO.PSYADMNOT ---
HPI Date of Service: 05/31/22 Chief Complaint: mood disorder Sources of Information: patient interviewed, chart reviewed and crisis/core team assessment reviewed HPI Subjective Notes: Section 12B Narrative: The patient is an 82-year-old female, referred from Medicine after she was transferred from this facility to Medicine for nausea and vomiting. She had a surgical procedure due to hair he had a Karl knee and she was transferred back for continuation of care. The patient was initially admitted into this facility for exacerbation of depression with depressed mood, anhedonia, lack of energy feelings of hopelessness and suicidal ideation. The patient has been medically treated and she is stable as per the medical team. On interview, the patient reports feeling very tired, with passive suicidal ideation, and atonia and lack of energy. She is able to contract for safety in the facility. She adamantly denies active paranoia or psychotic symptoms. Medical Evaluation Reviewed: Yes [facility] Medical History Bipolar disorder Depression with anxiety HLD (hyperlipidemia) HTN (hypertension) Hypothyroidism Systolic ejection murmur Vitamin D deficiency Surgical History History of right hemicolectomy S/P hysterectomy Diagnostics Vital Signs (24Hr): Vital Signs - 24 hr 05/31/22 14:05 Temperature 99.3 F Pulse Rate 80 Respiratory Rate 18 Blood Pressure 139/63 Pulse Oximetry 95 Oxygen Delivery Method Room Air Labs 06/01/22 08:01 Meds/Allergies Meds Home Medications Medication Instructions Recorded Confirmed Type folic acid 1 mg tablet 1 mg PO DAILY 05/22/22 05/24/22 History levothyroxine 25 mcg tablet 25 mcg PO DAILY@0600 05/22/22 05/24/22 History ferrous sulfate 324 mg (65 mg 324 mg PO BID 05/24/22 05/24/22 History iron) tablet,delayed release valsartan 80 mg tablet 80 mg PO DAILY 05/24/22 05/24/22 History Allergies Allergies Allergy/AdvReac Type Severity Reaction Status Date / Time meperidine [From Demerol] AdvReac Unknown Unknown Verified 05/22/22 16:45 Assessment & Plan Assessment & Plan (1) Bipolar 1 disorder, depressed: Status: Acute Code(s): F31.9 - Bipolar disorder, unspecified (2) Nausea & vomiting: Status: Acute Code(s): R11.2 - Nausea with vomiting, unspecified Plan Elderly female with a prior history of bipolar disorder admitted for exacerbation of depression with suicidal ideation who was later transferred to Medicine for yet a learning in with nausea and vomiting. She was admitted over [facility] treated surgically with no complications. She was transferred back for continuation of treatment. Plan 1. Gather collateral information. 2. Continue with same treatment. 3. Continue with medical treatment as per suggestion of hospitalist. 4. Reassessment with results. Patient educated on: diagnosis and therapeutic strategies Guardian/Caregiver educated on: therapeutic strategies Informed Consent: further education needed Reason for continued inpatient stay Substantial Risk for: inability to function, rapid decompensation and med/psych decompensation Statement Statement: I have reviewed the history and physical and performed a pertinent examination on my patient. No changes have occurred unless specified. If the History and Physical was not performed prior to admission, the Hospitalist's service will be consulted for completing the admission physical. Time Spent With Patient Time: Total time managing care of this patient today ____ minutes.
[2022-05-31 18:00] VITALS: BP 155/62; PULSE 79; RESP 18; TEMP 37.3; O2SAT 93
[2022-05-31 18:03] VITALS: BMI 29.2
--- NOTE | 2022-05-31 19:31 | PC.ADMIT ---
Pt. brought to unit from S1 via WC accompanied by this public relations writer and another RN. Pt. is s/p hernia repair and has an approx. 14 cm vertical incision lower sternal/upper abdominal area. Pt. also has a PEG tube sutured. LUQ that is capped and not in use. She has become incontinent of B&B and less mobile during stay on medical floor. Pt. had been too overwhelmed to sign CV and is on a 12B. Pt. originally came from [facility] ED where she was brought by her daughter for increased anxiety and helplessness with statements of wishing god would take her and she wouldn't wake up. Pt. alert and oriented X 4. Denies problems with memory. Endorses feelings of helplessness and anxiety because she is overwhelmed by ADLs and simple tasks, and her daughters don't believe she has self care deficits. She feels she is a burden to her daughters due to her neediness. She states that she needs to go to a penitentiary. No evidence of psychosis. Pt. oriented to unit, no smoking policy and visitor policy. Pt. ambulating to destinations with walker and strong encouragement. Pt. Medicated with APAP for pain and hydroxyzine for anxiety with little effect.
[2022-05-31] MEDS: Atorvastatin Calcium 10 MG TABLET PO (20:58)
[2022-05-31] MEDS: Omeprazole 20 MG CAPSULE.DR PO (20:58)
[2022-05-31] MEDS: Mirtazapine 30 MG TABLET PO (20:58)
[2022-05-31] MEDS: Docusate Sodium 100 MG CAPSULE PO (20:58)
[2022-05-31] MEDS: Ferrous Sulfate 324 MG TABLET.DR PO (20:59)
--- NOTE | 2022-06-01 06:34 | PC.RT ---
Pt refused tx; RN aware
[2022-06-01 08:00] VITALS: BP 154/74; PULSE 85; RESP 18; TEMP 36.8; O2SAT 94
[2022-06-01] MEDS: Levothyroxine Sodium 25 MCG TABLET PO (08:17)
[2022-06-01] MEDS: Omeprazole 20 MG CAPSULE.DR PO ×2 (08:17→16:36)
[2022-06-01 08:28] LABS: Alanine Aminotransferase 16 U/L (0-31); Albumin Level 2.9 g/dL (3.5-5.0); Alkaline Phosphatase 152 U/L (39-117); Anion Gap 12 (12-20); Aspartate Amino Transferase 26 U/L (5-31); Blood Urea Nitrogen 6 mg/dL (9-16); Calcium 8.1 mg/dL (8.4-10.2); Carbon Dioxide 26 mmol/L (22-29); Chloride 108 mmol/L (96-108); Cholesterol 136 mg/dL; Estimated Glomerular Filt Rate > 60; Glucose Fasting 95 mg/dL (60-99); HDL Cholesterol 36 mg/dL; LDL Cholesterol Calculated 81 mg/dl; Potassium 3.8 mmol/L (3.3-5.1); Sodium 142 mmol/L (135-145); Total Protein 4.8 g/dL (6.5-8.0); Triglycerides 95 mg/dL
[2022-06-01] MEDS: Folic Acid 1 MG TABLET PO (08:52)
[2022-06-01] MEDS: Ferrous Sulfate 324 MG TABLET.DR PO ×2 (08:52→20:43)
[2022-06-01] MEDS: Cyanocobalamin (Vitamin B-12) 100 MCG TABLET PO (08:53)
[2022-06-01] MEDS: Docusate Sodium 100 MG CAPSULE PO ×2 (08:53→20:42)
[2022-06-01] MEDS: ARIPiprazole 2 MG TABLET PO (08:53)
[2022-06-01] MEDS: Valsartan 80 MG TABLET PO (08:53)
[2022-06-01] MEDS: polyethylene glycoL 3350 17 GM POWD.PACK PO (08:56)
[2022-06-01] MEDS: Albuterol/Iprat 2.5/0.5MG 3 ML AMPUL.NEB INHALE ×3 (09:30→19:42)
[2022-06-01 09:31] VITALS: PULSE 85; RESP 18; O2SAT 95
--- NOTE | 2022-06-01 09:45 | MHC.CLN ---
NUTRITION DIET=REGULAR, PUREE CONSISTENCY. REVIEW OF INTAKE PRIOR TO [facility] ADM SHOWS INTAKE MOST MEALS 50-100% X 5 DAYS. NO ADDITIONAL NUTRITION INTERVENTIONS AT THIS TIME.
[2022-06-01 13:20] VITALS: BP 136/70; PULSE 89; RESP 20; TEMP 37.3; O2SAT 94
[2022-06-01] MEDS: Ondansetron ODT 4 MG TAB.RAPDIS TRANSLINGU (13:45)
--- NOTE | 2022-06-01 14:13 | PM.CNGS ---
History of Present Illness Consult details Consult date: 06/01/22 Narrative: 82-year-old female with bipolar disorder, depression, with an episode of vomiting in the [facility] this afternoon. She had undergone laparotomy, option of a gastric volvulus, repair of a paraesophageal hernia, with pexy of the stomach to the abdominal wall with a G-tube done by Dr. Block last 05/24/2022. She apparently had been doing well postop. She had been tolerating diet. She does have poor appetite. She was transferred to geropsych unit yesterday. She had been tolerating her diet here at your psych unit. However, after lunch today, she was reported to have an episode of vomiting of bilious material. I was therefore consulted. She denies abdominal pain. She has had bowel movements. Review of Systems Constitutional: Constitutional: Denies chills and Denies fever(s) Cardiovascular: Cardiovascular: Denies chest pain Respiratory: Respiratory: Denies cough Gastrointestinal: Gastrointestinal: Denies abdominal pain Genitourinary: Genitourinary: Denies hematuria and Denies difficulty voiding Psychiatric: Psychiatric: Reports depression PMFSH Past Medical History Medical History Bipolar disorder Depression with anxiety HLD (hyperlipidemia) HTN (hypertension) Hypothyroidism Systolic ejection murmur Vitamin D deficiency Surgical History Surgical History History of right hemicolectomy S/P hysterectomy Social History Social History Household Members: None Housing: House Do you presently have visiting nurse or other home services: No (Daughters help) Patient Tobacco Use Status: Never used Tobacco Second Hand Smoke Exposure: No Advance Directives: No Advance Directives Information Provided: No service: No Current occupational status: retired and disabled Sexual orientation: Straight/Heterosexual Meds Allergies Allergy/AdvReac Type Severity Reaction Status Date / Time meperidine [From Demerol] AdvReac Unknown Unknown Verified 05/22/22 16:45 Active Medications: Current Medications Acetaminophen (Acetaminophen 325 Mg Tablet) 650 mg PO Q6H PRN PRN Reason: Headache/Pain Mild Scale (1-3) Last Admin: 05/31/22 15:24 Dose: 650 mg Al Hydroxide/Mg Hydroxide (Magnesium Hydrox/Alum Hydrox 30 Ml Oral.Susp) 30 ml PO Q6H PRN PRN Reason: Heartburn/Nausea Albuterol/Ipratropium (Albuterol/Iprat 2.5/0.5mg 3 Ml Ampul.Neb) 3 ml INHALE RQ4H WHILE AWAKE [facility] Last Admin: 06/01/22 13:00 Dose: 3 ml Aripiprazole (Aripiprazole 2 Mg Tablet) 2 mg PO DAILY [facility] Last Admin: 06/01/22 08:53 Dose: 2 mg Atorvastatin Calcium (Atorvastatin Calcium 10 Mg Tablet) 10 mg PO BEDTIME [facility] Last Admin: 05/31/22 20:58 Dose: 10 mg Cyanocobalamin (Cyanocobalamin (Vitamin B-12) 100 Mcg Tablet) 100 mcg PO DAILY [facility] Last Admin: 06/01/22 08:53 Dose: 100 mcg Docusate Sodium (Docusate Sodium 100 Mg Capsule) 100 mg PO BID [facility] Last Admin: 06/01/22 08:53 Dose: 100 mg Ferrous Sulfate (Ferrous Sulfate 324 Mg Tablet.) 324 mg PO BID [facility] Last Admin: 06/01/22 08:52 Dose: 324 mg Folic Acid (Folic Acid 1 Mg Tablet) 1 mg PO DAILY [facility] Last Admin: 06/01/22 08:52 Dose: 1 mg Guaifenesin (Guaifenesin 100 Mg/5 Ml Liquid) 5 ml PO Q6H PRN PRN Reason: Cough Hydroxyzine HCl (Hydroxyzine Hcl 25 Mg Tablet) 25 mg PO Q6H PRN PRN Reason: Anxiety Last Admin: 05/31/22 15:21 Dose: 25 mg Levothyroxine Sodium (Levothyroxine Sodium 25 Mcg Tablet) 25 mcg PO DAILY@0600 [facility] Last Admin: 06/01/22 08:17 Dose: 25 mcg Lorazepam (Lorazepam 1 Mg Tablet) 1 mg PO ONCE ONE Stop: 06/01/22 14:07 Magnesium Hydroxide (Milk Of Magnesia 30 Ml Oral.Susp) 30 ml PO DAILY PRN PRN Reason: Constipation Mirtazapine (Mirtazapine 30 Mg Tablet) 30 mg PO BEDTIME [facility] Last Admin: 05/31/22 20:58 Dose: 30 mg Non-Formulary Medication (Desvenlafaxine Succinate [Pristiq]) 100 mg PO DAILY [facility] Omeprazole (Omeprazole 20 Mg Capsule.Dr) 20 mg PO BID@0630,1630 [facility] Last Admin: 06/01/22 08:17 Dose: 20 mg Ondansetron HCl (Ondansetron Odt 4 Mg Tab.Rapdis) 4 mg TRANSLINGU Q6H PRN PRN Reason: nausea Last Admin: 06/01/22 13:45 Dose: 4 mg Polyethylene Glycol (Polyethylene Glycol 3350 17 Gm Powd.Pack) 17 gm PO DAILY [facility] Last Admin: 06/01/22 08:56 Dose: 17 gm Prochlorperazine Maleate (Prochlorperazine Maleate 5 Mg Tablet) 5 mg PO QID PRN PRN Reason: Nausea And Vomiting Trazodone HCl (Trazodone Hcl 50 Mg Tablet) 50 mg PO BEDTIME MRX1 PRN PRN Reason: Insomnia Valsartan (Valsartan 80 Mg Tablet) 80 mg PO DAILY [facility]; Protocol Last Admin: 06/01/22 08:53 Dose: 80 mg Home Medications Medication Instructions Recorded Confirmed Last Taken Type folic acid 1 mg tablet 1 mg PO DAILY 05/22/22 05/24/22 05/23/22 History levothyroxine 25 mcg tablet 25 mcg PO DAILY@0600 05/22/22 05/24/22 05/23/22 History ferrous sulfate 324 mg (65 mg 324 mg PO BID 05/24/22 05/24/22 05/23/22 History iron) tablet,delayed release valsartan 80 mg tablet 80 mg PO DAILY 05/24/22 05/24/22 05/23/22 History Physical Exam Vital Signs: Vital Signs: Last Vital Signs Temp 98.3 F 06/01/22 08:00 Pulse 85 06/01/22 09:31 Resp 18 06/01/22 09:31 BP 154/74 H 06/01/22 08:00 Pulse Ox 94 06/01/22 08:00 O2 Del Method Room Air 06/01/22 08:00 BMI result Body Mass Index 29.2 Const: Other: Depressed affect General: comfortable and no acute distress Resp: Effort & Inspection: normal respiratory effort Cardio: Rate: regular rate GI: Other: Soft, G-tube in place on the left upper quadrant, midline incision healing well, channing intact, no guarding rebound, no significant tenderness Results Labs 06/01/22 08:01 Labs: Abnormal lab results 06/01/22 Range/Units 08:01 BUN 6 L (9-16) mg/dL Calcium 8.1 L (8.4-10.2) mg/dL Alkaline Phosphatase 152 H (39-117) U/L Total Protein 4.8 L (6.5-8.0) g/dL Albumin 2.9 L (3.5-5.0) g/dL BMP 06/01/22 08:01 Sodium 142 Potassium 3.8 Chloride 108 Carbon Dioxide 26 BUN 6 L Creatinine 0.70 Calcium 8.1 L Liver Function 06/01/22 Range/Units 08:01 Total Bilirubin 1.0 (0.0-1.0) mg/dL AST 26 (5-31) U/L ALT 16 (0-31) U/L Alkaline Phosphatase 152 H (39-117) U/L Albumin 2.9 L (3.5-5.0) g/dL All other labs normal. Assessment and Plan (1) Nausea & vomiting: Status: Acute She had undergone reduction of gastric volvulus, repair of paraesophageal hernia, G-tube placement last 05/24/2022. She had been doing well had been transferred to the geropsych unit. She had been tolerating diet but had 1 episode of vomiting after lunch today. Her abdominal exam is benign. She looks well and comfortable. I released her cap from the G-tube and there was not much output. I am going to check a chest x-ray as well as a KUB. She may have clear liquids for now and I will follow along. She otherwise appears to have a nonsurgical abdomen. Time Spent With Patient Time: Total time managing care of this patient today ____ minutes. Procedures Date of Service Date of Service: 06/01/22
--- NOTE | 2022-06-01 14:48 | HO.PSYCHPN ---
Subjective Subjective Date of Service: 06/01/22 Reason For Visit: mood disorder Subjective Notes: Section 12B Interim History: The nursing staff reported the patient had loose stools and she had been very anxious. At times she has been even paralyzed by fear. She needed encouragement for her ADL less and she wants to go to a care home facility. Today in the afternoon the patient was vomiting and needed Zofran sublingual. I called the hospitalist and surgical consult for follow-up. Mental Status Exam Mental Status Exam Patient Appearance: Appropriate Patient Orientation: Person and Situation Level of Consciousness: Awake and Appropriate Patient Behavior: Guarded and Passive Mood Description: Withdrawn Affect Description: Constricted Patient Cognition Impaired: Yes Ability to Follow Directions: Good Speech Pattern: Appropriate Hallucinations: None Delusions: Not Present Thought Process: Distracted and Linear Thought Content: positive for Baggs and positive for Circumstantial Judgement: Fair Diagnostics Vital Signs (24Hr): Vital Signs - 24 hr 05/31/22 18:00 06/01/22 08:00 06/01/22 09:31 Temperature 99.1 F 98.3 F Pulse Rate 79 85 85 Respiratory Rate 18 18 18 Blood Pressure 155/62 H 154/74 H Pulse Oximetry 93 94 Oxygen Delivery Method Room Air Room Air BMI result Body Mass Index 29.2 Labs 06/01/22 08:01 Labs: Laboratory Results - last 48 hr 06/01/22 08:01 Sodium 142 Potassium 3.8 Chloride 108 Carbon Dioxide 26 Anion Gap 12 BUN 6 L Creatinine 0.70 Estim Creat Clear Calc 59.0 Estimated GFR > 60 Fasting Glucose 95 Calcium 8.1 L Total Bilirubin 1.0 AST 26 ALT 16 Alkaline Phosphatase 152 H Total Protein 4.8 L Albumin 2.9 L Triglycerides 95 Cholesterol 136 LDL Cholesterol, Calc 81 HDL Cholesterol 36 Medications Medications Current Medications Acetaminophen (Acetaminophen 325 Mg Tablet) 650 mg PO Q6H PRN PRN Reason: Headache/Pain Mild Scale (1-3) Last Admin: 05/31/22 15:24 Dose: 650 mg Al Hydroxide/Mg Hydroxide (Magnesium Hydrox/Alum Hydrox 30 Ml Oral.Susp) 30 ml PO Q6H PRN PRN Reason: Heartburn/Nausea Albuterol/Ipratropium (Albuterol/Iprat 2.5/0.5mg 3 Ml Ampul.Neb) 3 ml INHALE RQ4H WHILE AWAKE [facility] Last Admin: 06/01/22 13:00 Dose: 3 ml Aripiprazole (Aripiprazole 2 Mg Tablet) 2 mg PO DAILY [facility] Last Admin: 06/01/22 08:53 Dose: 2 mg Atorvastatin Calcium (Atorvastatin Calcium 10 Mg Tablet) 10 mg PO BEDTIME [facility] Last Admin: 05/31/22 20:58 Dose: 10 mg Cyanocobalamin (Cyanocobalamin (Vitamin B-12) 100 Mcg Tablet) 100 mcg PO DAILY [facility] Last Admin: 06/01/22 08:53 Dose: 100 mcg Docusate Sodium (Docusate Sodium 100 Mg Capsule) 100 mg PO BID [facility] Last Admin: 06/01/22 08:53 Dose: 100 mg Ferrous Sulfate (Ferrous Sulfate 324 Mg Tablet.Dr) 324 mg PO BID [facility] Last Admin: 06/01/22 08:52 Dose: 324 mg Folic Acid (Folic Acid 1 Mg Tablet) 1 mg PO DAILY [facility] Last Admin: 06/01/22 08:52 Dose: 1 mg Guaifenesin (Guaifenesin 100 Mg/5 Ml Liquid) 5 ml PO Q6H PRN PRN Reason: Cough Hydroxyzine HCl (Hydroxyzine Hcl 25 Mg Tablet) 25 mg PO Q6H PRN PRN Reason: Anxiety Last Admin: 05/31/22 15:21 Dose: 25 mg Levothyroxine Sodium (Levothyroxine Sodium 25 Mcg Tablet) 25 mcg PO DAILY@0600 [facility] Last Admin: 06/01/22 08:17 Dose: 25 mcg Magnesium Hydroxide (Milk Of Magnesia 30 Ml Oral.Susp) 30 ml PO DAILY PRN PRN Reason: Constipation Mirtazapine (Mirtazapine 30 Mg Tablet) 30 mg PO BEDTIME [facility] Last Admin: 05/31/22 20:58 Dose: 30 mg Non-Formulary Medication (Desvenlafaxine Succinate [Pristiq]) 100 mg PO DAILY [facility] Omeprazole (Omeprazole 20 Mg Capsule.Dr) 20 mg PO BID@0630,1630 [facility] Last Admin: 06/01/22 08:17 Dose: 20 mg Ondansetron HCl (Ondansetron Odt 4 Mg Tab.Rapdis) 4 mg TRANSLINGU Q6H PRN PRN Reason: nausea Last Admin: 06/01/22 13:45 Dose: 4 mg Polyethylene Glycol (Polyethylene Glycol 3350 17 Gm Powd.Pack) 17 gm PO DAILY [facility] Last Admin: 06/01/22 08:56 Dose: 17 gm Prochlorperazine Maleate (Prochlorperazine Maleate 5 Mg Tablet) 5 mg PO QID PRN PRN Reason: Nausea And Vomiting Trazodone HCl (Trazodone Hcl 50 Mg Tablet) 50 mg PO BEDTIME MRX1 PRN PRN Reason: Insomnia Valsartan (Valsartan 80 Mg Tablet) 80 mg PO DAILY [facility]; Protocol Last Admin: 06/01/22 08:53 Dose: 80 mg Allergies Allergies Allergy/AdvReac Type Severity Reaction Status Date / Time meperidine [From Demerol] AdvReac Unknown Unknown Verified 05/22/22 16:45 Assessment & Plan Assessment & Plan (1) Nausea & vomiting: Status: Acute Code(s): R11.2 - Nausea with vomiting, unspecified Assessment and Plan: She had undergone reduction of gastric volvulus, repair of paraesophageal hernia, G-tube placement last 05/24/2022. She had been doing well had been transferred to the geropsych unit. She had been tolerating diet but had 1 episode of vomiting after lunch today. Her abdominal exam is benign. She looks well and comfortable. I released her cap from the G-tube and there was not much output. I am going to check a chest x-ray as well as a KUB. She may have clear liquids for now and I will follow along. She otherwise appears to have a nonsurgical abdomen. Plan Elderly female with a past history of bipolar who was transferred back from [facility] after a surgical procedure due to gastric violence. At this moment, very depressed and anxious. Plan 1. Continue medical treatment. 2. Continue with antidepressants and continue Aricept 2 mg at this moment. 3. Start Ativan 1 mg p.o. t.i.d. p.r.n. anxiety. Reason for contiued inpatient stay Substantial Risk for: inability to function, rapid decompensation and med/psych decompensation Time Spent With Patient Time: Total time managing care of this patient today __20__ minutes.
--- NOTE | 2022-06-01 15:54 | PC.NURSE ---
Addendum entered and electronically signed by Kelsi Aldana RN 06/01/22 16:08: Dr Gaytan notified of 2nd vomiting episode. Original Note: Visible in milieu this am with staff encouragement after initially refusing to get up for breakfast this am. Ate eggs, 1/2 yogurt and juice for breakfast. Ate mashed potato and pureed meat and juice for lunch. Showered after breakfast, dressing changed to g-tube site. In bed to rest after shower to rest. Attended am group with encouragement. Ambulating well with walker, gait steady. Pt reports anxiety re: all activities. Received UDN Duoneb as ordered, no wheezing noted, pt reports feeling as though she is breathing without difficulty. VS this am 98.3-85-18 154/74 O2 sat 94% rm air. Pt received UDN rx at 1300. Observed vomiting at 1318, initially allen fluid changing to yellow-approximately 200 ml. VS 99.1-89 136/70 O2 sat 94% rm air.Dr Walker notified at 1323; hospitalist/surgical consult ordered. Dr Gaytan up to evaluate 1400. Orders placed for chest xray, KUB xray. Zofran 4mg SL given at 1345. Pt vomited again at [address] fluid[address] Walker notified. Radiology initially sent away due to active vomiting. Radiology up at 1430, xray order completed. Dr Gaytan up at 1530 and stated xrays are good. Clear liquid diet ordered, advance as tolerated. Pt resting at present time in bed with eyes closed.
--- NOTE | 2022-06-01 16:00 | PM.EVENT ---
Event Note Date of Service: 06/01/22 Event Note: CXR, and KUB reviewed with radiologist - no obvious recurrence of paraesophageal hernia; stomach in abdomen no signs of obstruction abd soft would keep on clear liquids only for now exam otherwise benign dw nursing staff will continue to follow Time Spent With Patient Time: Total time managing care of this patient today ____ minutes.
--- NOTE | 2022-06-01 16:26 | PC.NURSE ---
1420-Dr Gaytan up to evaluate g-tube. Emptied tubing, stating staff could empty tubing if pt is vomiting. Pt denies nausea at present time. Prilosec to be given as ordered.
--- NOTE | 2022-06-01 16:32 | PC.NURSE ---
1620-Dr Gaytan up to evaluate g-tube, Emptied approximately 10ml yellow fluid from g-tube. Dr Gaytan states staff can empty g-tube if pt is vomiting. Pt tolerated well.
[2022-06-01] MEDS: LORazepam 1 MG TABLET PO (16:40)
[2022-06-01 19:42] VITALS: PULSE 90; RESP 18; O2SAT 96
[2022-06-01 20:05] VITALS: BP 119/56; PULSE 77; RESP 18; TEMP 36.6; O2SAT 95
[2022-06-01] MEDS: Mirtazapine 30 MG TABLET PO (20:42)
[2022-06-01] MEDS: Atorvastatin Calcium 10 MG TABLET PO (20:42)
[2022-06-02] MEDS: Levothyroxine Sodium 25 MCG TABLET PO (05:40)
[2022-06-02] MEDS: Omeprazole 20 MG CAPSULE.DR PO ×2 (05:40→16:00)
[2022-06-02] MEDS: Albuterol/Iprat 2.5/0.5MG 3 ML AMPUL.NEB INHALE ×2 (09:07→21:14)
[2022-06-02 09:16] VITALS: PULSE 77; RESP 18; O2SAT 95
[2022-06-02] MEDS: Docusate Sodium 100 MG CAPSULE PO (09:24)
[2022-06-02] MEDS: ARIPiprazole 2 MG TABLET PO (09:24)
[2022-06-02] MEDS: Cyanocobalamin (Vitamin B-12) 100 MCG TABLET PO (09:24)
[2022-06-02] MEDS: Ferrous Sulfate 324 MG TABLET.DR PO ×2 (09:25→20:31)
[2022-06-02] MEDS: Folic Acid 1 MG TABLET PO (09:25)
[2022-06-02] MEDS: Valsartan 80 MG TABLET PO (09:25)
[2022-06-02 09:28] VITALS: BP 141/66; PULSE 69; RESP 16; TEMP 36.7; O2SAT 94
--- NOTE | 2022-06-02 10:02 | PM.PNGS ---
Subjective Subjective Date of Service: 06/02/22 Interval history: no further episodes of vomitting denies nausea wants regular food has BMs Physical Exam Vital Signs: Vital Signs: Last Vital Signs Temp 98.1 F 06/02/22 09:28 Pulse 69 06/02/22 09:28 Resp 16 06/02/22 09:28 BP 141/66 H 06/02/22 09:28 Pulse Ox 94 06/02/22 09:28 O2 Del Method Room Air 06/02/22 09:28 BMI result Body Mass Index 29.2 Const: General: comfortable and no acute distress Resp: Effort & Inspection: normal respiratory effort Cardio: Rate: regular rate GI: Other: Gtube in place Palpation (GI): Soft to palpation, not firm, nontender and no guarding Objective Data Active Medications Acetaminophen (Acetaminophen 325 Mg Tablet) 650 mg PO Q6H PRN PRN Reason: Headache/Pain Mild Scale (1-3) Last Admin: 05/31/22 15:24 Dose: 650 mg Documented By: ANA Al Hydroxide/Mg Hydroxide (Magnesium Hydrox/Alum Hydrox 30 Ml Oral.Susp) 30 ml PO Q6H PRN PRN Reason: Heartburn/Nausea Albuterol/Ipratropium (Albuterol/Iprat 2.5/0.5mg 3 Ml Ampul.Neb) 3 ml INHALE RQ4H WHILE AWAKE [facility] Last Admin: 06/02/22 09:07 Dose: 3 ml Documented By: ESTEBAN Aripiprazole (Aripiprazole 2 Mg Tablet) 2 mg PO DAILY [facility] Last Admin: 06/02/22 09:24 Dose: 2 mg Documented By: BASSAM Atorvastatin Calcium (Atorvastatin Calcium 10 Mg Tablet) 10 mg PO BEDTIME [facility] Last Admin: 06/01/22 20:42 Dose: 10 mg Documented By: MORRINKyree Cyanocobalamin (Cyanocobalamin (Vitamin B-12) 100 Mcg Tablet) 100 mcg PO DAILY [facility] Last Admin: 06/02/22 09:24 Dose: 100 mcg Documented By: BASSAM Docusate Sodium (Docusate Sodium 100 Mg Capsule) 100 mg PO BID [facility] Last Admin: 06/02/22 09:24 Dose: 100 mg Documented By: BASSAM Ferrous Sulfate (Ferrous Sulfate 324 Mg Tablet.) 324 mg PO BID [facility] Last Admin: 06/02/22 09:25 Dose: 324 mg Documented By: BASSAM Folic Acid (Folic Acid 1 Mg Tablet) 1 mg PO DAILY [facility] Last Admin: 06/02/22 09:25 Dose: 1 mg Documented By: BASSAM Guaifenesin (Guaifenesin 100 Mg/5 Ml Liquid) 5 ml PO Q6H PRN PRN Reason: Cough Hydroxyzine HCl (Hydroxyzine Hcl 25 Mg Tablet) 25 mg PO Q6H PRN PRN Reason: Anxiety Last Admin: 05/31/22 15:21 Dose: 25 mg Documented By: ANA Levothyroxine Sodium (Levothyroxine Sodium 25 Mcg Tablet) 25 mcg PO DAILY@0600 [facility] Last Admin: 06/02/22 05:40 Dose: 25 mcg Documented By: BRIELLE Lorazepam (Lorazepam 1 Mg Tablet) 1 mg PO Q8H PRN PRN Reason: Anxiety Magnesium Hydroxide (Milk Of Magnesia 30 Ml Oral.Susp) 30 ml PO DAILY PRN PRN Reason: Constipation Mirtazapine (Mirtazapine 30 Mg Tablet) 30 mg PO BEDTIME [facility] Last Admin: 06/01/22 20:42 Dose: 30 mg Documented By: MORRINL Non-Formulary Medication (Desvenlafaxine Succinate [Pristiq]) 100 mg PO DAILY [facility] Omeprazole (Omeprazole 20 Mg Capsule.Dr) 20 mg PO BID@0630,1630 [facility] Last Admin: 06/02/22 05:40 Dose: 20 mg Documented By: BRIELLE Ondansetron HCl (Ondansetron Odt 4 Mg Tab.Rapdis) 4 mg TRANSLINGU Q6H PRN PRN Reason: nausea Last Admin: 06/01/22 13:45 Dose: 4 mg Documented By: JESSA Polyethylene Glycol (Polyethylene Glycol 3350 17 Gm Powd.Pack) 17 gm PO DAILY [facility] Last Admin: 06/02/22 09:25 Dose: Not Given Documented By: BASSAM Non-Admin Reason: Patient Refused Prochlorperazine Maleate (Prochlorperazine Maleate 5 Mg Tablet) 5 mg PO QID PRN PRN Reason: Nausea And Vomiting Trazodone HCl (Trazodone Hcl 50 Mg Tablet) 50 mg PO BEDTIME MRX1 PRN PRN Reason: Insomnia Valsartan (Valsartan 80 Mg Tablet) 80 mg PO DAILY [facility]; Protocol Last Admin: 06/02/22 09:25 Dose: 80 mg Documented By: BASSAM Campoverde 06/01/22 08:01 Procedures Date of Service Date of Service: 06/02/22 Progress Note: A&P Assessment and plan (1) Nausea & vomiting: Status: Acute Assessment and Plan: no further episodes of vomitting ok to resume regular diet looks comfortable abdomen benign Time Spent With Patient Time: Total time managing care of this patient today ____ minutes. Quality Stroke Does the patient have a stroke diagnosis?: No VTE Prior VTE?: No VTE Risk Level:: Medical - moderate - high VTE Device Contraindication: Treatment Not Indicated VTE Drug Contraindication: Treatment Not Indicated
--- NOTE | 2022-06-02 13:01 | P.PNPSI_ITS ---
Subjective Subjective Date of Service: 06/02/22 Reason For Visit: mood disorder Subjective Notes: Conditional Voluntary Interim History: Pt reports less pain today. No episodes of vomiting or diarrhea. Pt reports she feels tired, that she wishes she could go to nursing facility as she does not think she can live on her own. She reports passive SI but denies any plan or intent to harm herself. She explains that she is struggling adjusting to multiple medical conditions. No signs of psychosis. Medication Compliance: Yes Review of Systems Review of Systems Yes all other systems are reviewed and are negative Constitutional: Denies chills and Denies fever(s) Cardiovascular: Denies chest pain Respiratory: Denies cough Gastrointestinal: Denies abdominal pain Psychiatric: Reports depression Mental Status Exam Mental Status Exam Patient Appearance: Appropriate Patient Orientation: Person and Situation Level of Consciousness: Awake and Appropriate Patient Behavior: Guarded and Passive Mood Description: Withdrawn Affect Description: Constricted Patient Cognition Impaired: Yes Ability to Follow Directions: Good Speech Pattern: Appropriate Diagnostics Vital Signs (24Hr): Vital Signs - 24 hr 06/01/22 13:20 06/01/22 19:42 06/01/22 20:05 Temperature 99.1 F 98 F Pulse Rate 89 90 77 Respiratory Rate 20 18 18 Blood Pressure 136/70 119/56 L Pulse Oximetry 94 95 Oxygen Delivery Method Room Air Room Air 06/02/22 09:16 06/02/22 09:28 Temperature 98.1 F Pulse Rate 77 69 Respiratory Rate 18 16 Blood Pressure 141/66 H Pulse Oximetry 94 Oxygen Delivery Method Room Air BMI result Body Mass Index 29.2 Labs 06/01/22 08:01 Labs: Laboratory Results - last 48 hr 06/01/22 08:01 Sodium 142 Potassium 3.8 Chloride 108 Carbon Dioxide 26 Anion Gap 12 BUN 6 L Creatinine 0.70 Estim Creat Clear Calc 59.0 Estimated GFR > 60 Fasting Glucose 95 Calcium 8.1 L Total Bilirubin 1.0 AST 26 ALT 16 Alkaline Phosphatase 152 H Total Protein 4.8 L Albumin 2.9 L Triglycerides 95 Cholesterol 136 LDL Cholesterol, Calc 81 HDL Cholesterol 36 Imaging Radiology Impressions: ITS Impressions Chest X-Ray 06/01/22 14:47 IMPRESSION: Small left pleural effusion with superjacent hazy opacities suggesting atelectasis and/or infiltrates. Medications Medications Current Medications Acetaminophen (Acetaminophen 325 Mg Tablet) 650 mg PO Q6H PRN PRN Reason: Headache/Pain Mild Scale (1-3) Last Admin: 05/31/22 15:24 Dose: 650 mg Al Hydroxide/Mg Hydroxide (Magnesium Hydrox/Alum Hydrox 30 Ml Oral.Susp) 30 ml PO Q6H PRN PRN Reason: Heartburn/Nausea Albuterol/Ipratropium (Albuterol/Iprat 2.5/0.5mg 3 Ml Ampul.Neb) 3 ml INHALE RQ4H WHILE AWAKE [facility] Last Admin: 06/02/22 09:07 Dose: 3 ml Aripiprazole (Aripiprazole 2 Mg Tablet) 2 mg PO DAILY [facility] Last Admin: 06/02/22 09:24 Dose: 2 mg Atorvastatin Calcium (Atorvastatin Calcium 10 Mg Tablet) 10 mg PO BEDTIME [facility] Last Admin: 06/01/22 20:42 Dose: 10 mg Cyanocobalamin (Cyanocobalamin (Vitamin B-12) 100 Mcg Tablet) 100 mcg PO DAILY [facility] Last Admin: 06/02/22 09:24 Dose: 100 mcg Docusate Sodium (Docusate Sodium 100 Mg Capsule) 100 mg PO BID [facility] Last Admin: 06/02/22 09:24 Dose: 100 mg Ferrous Sulfate (Ferrous Sulfate 324 Mg Tablet.Dr) 324 mg PO BID [facility] Last Admin: 06/02/22 09:25 Dose: 324 mg Folic Acid (Folic Acid 1 Mg Tablet) 1 mg PO DAILY [facility] Last Admin: 06/02/22 09:25 Dose: 1 mg Guaifenesin (Guaifenesin 100 Mg/5 Ml Liquid) 5 ml PO Q6H PRN PRN Reason: Cough Hydroxyzine HCl (Hydroxyzine Hcl 25 Mg Tablet) 25 mg PO Q6H PRN PRN Reason: Anxiety Last Admin: 05/31/22 15:21 Dose: 25 mg Levothyroxine Sodium (Levothyroxine Sodium 25 Mcg Tablet) 25 mcg PO DAILY@0600 [facility] Last Admin: 06/02/22 05:40 Dose: 25 mcg Lorazepam (Lorazepam 1 Mg Tablet) 1 mg PO Q8H PRN PRN Reason: Anxiety Magnesium Hydroxide (Milk Of Magnesia 30 Ml Oral.Susp) 30 ml PO DAILY PRN PRN Reason: Constipation Mirtazapine (Mirtazapine 30 Mg Tablet) 30 mg PO BEDTIME [facility] Last Admin: 06/01/22 20:42 Dose: 30 mg Non-Formulary Medication (Desvenlafaxine Succinate [Pristiq]) 100 mg PO DAILY [facility] Omeprazole (Omeprazole 20 Mg Capsule.Dr) 20 mg PO BID@0630,1630 [facility] Last Admin: 06/02/22 05:40 Dose: 20 mg Ondansetron HCl (Ondansetron Odt 4 Mg Tab.Rapdis) 4 mg TRANSLINGU Q6H PRN PRN Reason: nausea Last Admin: 06/01/22 13:45 Dose: 4 mg Polyethylene Glycol (Polyethylene Glycol 3350 17 Gm Powd.Pack) 17 gm PO DAILY [facility] Last Admin: 06/02/22 09:25 Dose: Not Given Prochlorperazine Maleate (Prochlorperazine Maleate 5 Mg Tablet) 5 mg PO QID PRN PRN Reason: Nausea And Vomiting Trazodone HCl (Trazodone Hcl 50 Mg Tablet) 50 mg PO BEDTIME MRX1 PRN PRN Reason: Insomnia Valsartan (Valsartan 80 Mg Tablet) 80 mg PO DAILY [facility]; Protocol Last Admin: 06/02/22 09:25 Dose: 80 mg Allergies Allergies Allergy/AdvReac Type Severity Reaction Status Date / Time meperidine [From Demerol] AdvReac Unknown Unknown Verified 05/22/22 16:45 Assessment & Plan Assessment & Plan (1) Bipolar 1 disorder, depressed: Status: Acute Code(s): F31.9 - Bipolar disorder, unspecified Plan 06/02 continue tx. Reason for contiued inpatient stay Substantial Risk for: inability to function Time Spent With Patient Time: Total time managing care of this patient today ____ minutes.
[2022-06-02] MEDS: hydrOXYzine HCL 25 MG TABLET PO (17:00)
[2022-06-02 18:00] VITALS: BP 113/52; PULSE 69; RESP 18; TEMP 36.9; O2SAT 92
[2022-06-02 20:30] VITALS: BP 129/71; PULSE 78; RESP 18; TEMP 36.6; O2SAT 90
[2022-06-02] MEDS: Mirtazapine 30 MG TABLET PO (20:30)
[2022-06-02] MEDS: Atorvastatin Calcium 10 MG TABLET PO (20:31)
[2022-06-02] MEDS: LORazepam 1 MG TABLET PO (20:31)
[2022-06-02 21:04] VITALS: PULSE 85; RESP 18; O2SAT 98
[2022-06-02] MEDS: Ondansetron ODT 4 MG TAB.RAPDIS TRANSLINGU (21:14)
[2022-06-02] MEDS: traZODone HCL 50 MG TABLET PO (21:24)
[2022-06-03 06:00] VITALS: BP 130/78; PULSE 80; RESP 18; TEMP 36.7; O2SAT 98
[2022-06-03] MEDS: Levothyroxine Sodium 25 MCG TABLET PO (06:04)
[2022-06-03] MEDS: hydrOXYzine HCL 25 MG TABLET PO ×2 (06:04→15:43)
[2022-06-03] MEDS: Omeprazole 20 MG CAPSULE.DR PO ×2 (06:04→15:43)
[2022-06-03] MEDS: Cyanocobalamin (Vitamin B-12) 100 MCG TABLET PO (09:17)
[2022-06-03] MEDS: ARIPiprazole 2 MG TABLET PO (09:17)
[2022-06-03] MEDS: Valsartan 80 MG TABLET PO (09:17)
[2022-06-03] MEDS: Ferrous Sulfate 324 MG TABLET.DR PO ×2 (09:17→21:10)
[2022-06-03] MEDS: Folic Acid 1 MG TABLET PO (09:17)
--- NOTE | 2022-06-03 09:28 | P.PNGS_ITS ---
Subjective Subjective Date of Service: 06/03/22 Interval history: no further vomiting seems to have tolerated regular diet states she is okay Physical Exam Vital Signs: Vital Signs: Last Vital Signs Temp 97.9 F 06/02/22 20:30 Pulse 85 06/02/22 21:04 Resp 18 06/02/22 21:04 BP 129/71 06/02/22 20:30 Pulse Ox 98 06/02/22 21:04 O2 Del Method Room Air 06/02/22 21:04 BMI result Body Mass Index 29.2 Const: Other: walking with assistance and with walker General: comfortable and no acute distress Resp: Effort & Inspection: normal respiratory effort Cardio: Rate: regular rate GI: Other: G-tube in place Palpation (GI): Soft to palpation, not firm and no guarding Objective Data Active Medications Acetaminophen (Acetaminophen 325 Mg Tablet) 650 mg PO Q6H PRN PRN Reason: Headache/Pain Mild Scale (1-3) Last Admin: 05/31/22 15:24 Dose: 650 mg Documented By: ANA Al Hydroxide/Mg Hydroxide (Magnesium Hydrox/Alum Hydrox 30 Ml Oral.Susp) 30 ml PO Q6H PRN PRN Reason: Heartburn/Nausea Albuterol/Ipratropium (Albuterol/Iprat 2.5/0.5mg 3 Ml Ampul.Neb) 3 ml INHALE RQ4H WHILE AWAKE [facility] Last Admin: 06/02/22 21:14 Dose: 3 ml Documented By: ANSHU Aripiprazole (Aripiprazole 2 Mg Tablet) 2 mg PO DAILY [facility] Last Admin: 06/03/22 09:17 Dose: 2 mg Documented By: ALY Atorvastatin Calcium (Atorvastatin Calcium 10 Mg Tablet) 10 mg PO BEDTIME [facility] Last Admin: 06/02/22 20:31 Dose: 10 mg Documented By: ANSHU Cyanocobalamin (Cyanocobalamin (Vitamin B-12) 100 Mcg Tablet) 100 mcg PO DAILY [facility] Last Admin: 06/03/22 09:17 Dose: 100 mcg Documented By: ALY Docusate Sodium (Docusate Sodium 100 Mg Capsule) 100 mg PO BID [facility] Last Admin: 06/03/22 09:19 Dose: Not Given Documented By: ALY Non-Admin Reason: pt with loose stools Ferrous Sulfate (Ferrous Sulfate 324 Mg Tablet.) 324 mg PO BID [facility] Last Admin: 06/03/22 09:17 Dose: 324 mg Documented By: ALY Folic Acid (Folic Acid 1 Mg Tablet) 1 mg PO DAILY [facility] Last Admin: 06/03/22 09:17 Dose: 1 mg Documented By: ALY Guaifenesin (Guaifenesin 100 Mg/5 Ml Liquid) 5 ml PO Q6H PRN PRN Reason: Cough Hydroxyzine HCl (Hydroxyzine Hcl 25 Mg Tablet) 25 mg PO Q6H PRN PRN Reason: Anxiety Last Admin: 06/03/22 06:04 Dose: 25 mg Documented By: ANSHU Levothyroxine Sodium (Levothyroxine Sodium 25 Mcg Tablet) 25 mcg PO DAILY@0600 [facility] Last Admin: 06/03/22 06:04 Dose: 25 mcg Documented By: ANSHU Lorazepam (Lorazepam 1 Mg Tablet) 1 mg PO Q8H PRN PRN Reason: Anxiety Last Admin: 06/02/22 20:31 Dose: 1 mg Documented By: ANSHU Magnesium Hydroxide (Milk Of Magnesia 30 Ml Oral.Susp) 30 ml PO DAILY PRN PRN Reason: Constipation Mirtazapine (Mirtazapine 30 Mg Tablet) 30 mg PO BEDTIME [facility] Last Admin: 06/02/22 20:30 Dose: 30 mg Documented By: ANSHU Non-Formulary Medication (Desvenlafaxine Succinate [Pristiq]) 100 mg PO DAILY [facility] Omeprazole (Omeprazole 20 Mg Capsule.) 20 mg PO BID@0630,1630 [facility] Last Admin: 06/03/22 06:04 Dose: 20 mg Documented By: ANSHU Ondansetron HCl (Ondansetron Odt 4 Mg Tab.Rapdis) 4 mg TRANSLINGU Q6H PRN PRN Reason: nausea Last Admin: 06/02/22 21:14 Dose: 4 mg Documented By: ANSHU Polyethylene Glycol (Polyethylene Glycol 3350 17 Gm Powd.Pack) 17 gm PO DAILY [facility] Last Admin: 06/03/22 09:19 Dose: Not Given Documented By: ALY Non-Admin Reason: Patient Refused Prochlorperazine Maleate (Prochlorperazine Maleate 5 Mg Tablet) 5 mg PO QID PRN PRN Reason: Nausea And Vomiting Trazodone HCl (Trazodone Hcl 50 Mg Tablet) 50 mg PO BEDTIME MRX1 PRN PRN Reason: Insomnia Last Admin: 06/02/22 21:24 Dose: 50 mg Documented By: NASHU Valsartan (Valsartan 80 Mg Tablet) 80 mg PO DAILY [facility]; Protocol Last Admin: 06/03/22 09:17 Dose: 80 mg Documented By: ALY Labs 06/01/22 08:01 Procedures Date of Service Date of Service: 06/03/22 Progress Note: A&P Assessment and plan (1) Nausea & vomiting: Status: Acute Assessment and Plan: no further vomiting tolerating diet appears to be back to baseline care as per the Psych Service Time Spent With Patient Time: Total time managing care of this patient today ____ minutes. Quality Stroke Does the patient have a stroke diagnosis?: No VTE Prior VTE?: No VTE Risk Level:: Medical - moderate - high VTE Device Contraindication: Treatment Not Indicated VTE Drug Contraindication: Treatment Not Indicated
[2022-06-03] MEDS: Acetaminophen 325 MG TABLET 650 MG PO (15:43)
--- NOTE | 2022-06-03 16:47 | HO.PM.IMCN ---
History of Present Illness Data of Consult Service Date: 06/03/22 Requesting physician: Janine Loja Primary Care Provider: Unknown Physician HPI Reason for consult: abdominal pain 82-year-old female with history of bipolar disorder, depression with anxiety, hyperlipidemia, hypertension, hypothyroidism, history of colon cancer s/p right hemicolectomy, and vitamin-D deficiency admitted to Psychiatry with consult placed to hospitalist Medicine for evaluation of severe abdominal pain. The patient was recently admitted to medical service with discharge on 05/30 due to intractable nausea and vomiting found to have a very large hiatal hernia. During admission, she underwent exploratory laparotomy with reduction and repair of hiatal hernia and gastropexy with gastrostomy tube placed on 05/24. Since then has not had recurrence of nausea/vomiting and is tolerating regular diet. However, she tells me that while she is comfortable at rest, any movement results in 10/10 pain around the gastrostomy site. She is unable to tell me when this pain started. Has intermittent diarrhea. No fevers, chills, nausea, vomiting. Review of Systems Review of Systems: Yes all other systems are reviewed and are negative [facility] Medical History (Updated 06/03/22 @ 16:53 by ESSENCE Ryder) Bipolar disorder Depression with anxiety HLD (hyperlipidemia) HTN (hypertension) Hypothyroidism Systolic ejection murmur Vitamin D deficiency Surgical History History of right hemicolectomy S/P hysterectomy Social History Household Members: None Housing: House Do you presently have visiting nurse or other home services: No (Daughters help) Patient Tobacco Use Status: Never used Tobacco Second Hand Smoke Exposure: No Advance Directives: No Advance Directives Information Provided: No service: No Current occupational status: retired and disabled Sexual orientation: Straight/Heterosexual Meds Allergies Allergy/AdvReac Type Severity Reaction Status Date / Time meperidine [From Demerol] AdvReac Unknown Unknown Verified 05/22/22 16:45 Active Medications: Current Medications Acetaminophen (Acetaminophen 325 Mg Tablet) 650 mg PO Q6H PRN PRN Reason: Headache/Pain Mild Scale (1-3) Last Admin: 06/03/22 15:43 Dose: 650 mg Al Hydroxide/Mg Hydroxide (Magnesium Hydrox/Alum Hydrox 30 Ml Oral.Susp) 30 ml PO Q6H PRN PRN Reason: Heartburn/Nausea Albuterol/Ipratropium (Albuterol/Iprat 2.5/0.5mg 3 Ml Ampul.Neb) 3 ml INHALE RQ4H WHILE AWAKE [facility] Last Admin: 06/03/22 13:52 Dose: Not Given Aripiprazole (Aripiprazole 2 Mg Tablet) 2 mg PO DAILY [facility] Last Admin: 06/03/22 09:17 Dose: 2 mg Atorvastatin Calcium (Atorvastatin Calcium 10 Mg Tablet) 10 mg PO BEDTIME [facility] Last Admin: 06/02/22 20:31 Dose: 10 mg Cyanocobalamin (Cyanocobalamin (Vitamin B-12) 100 Mcg Tablet) 100 mcg PO DAILY [facility] Last Admin: 06/03/22 09:17 Dose: 100 mcg Docusate Sodium (Docusate Sodium 100 Mg Capsule) 100 mg PO BID [facility] Last Admin: 06/03/22 09:19 Dose: Not Given Ferrous Sulfate (Ferrous Sulfate 324 Mg Tablet.) 324 mg PO BID [facility] Last Admin: 06/03/22 09:17 Dose: 324 mg Folic Acid (Folic Acid 1 Mg Tablet) 1 mg PO DAILY [facility] Last Admin: 06/03/22 09:17 Dose: 1 mg Guaifenesin (Guaifenesin 100 Mg/5 Ml Liquid) 5 ml PO Q6H PRN PRN Reason: Cough Hydroxyzine HCl (Hydroxyzine Hcl 25 Mg Tablet) 25 mg PO Q6H PRN PRN Reason: Anxiety Last Admin: 06/03/22 15:43 Dose: 25 mg Levothyroxine Sodium (Levothyroxine Sodium 25 Mcg Tablet) 25 mcg PO DAILY@0600 [facility] Last Admin: 06/03/22 06:04 Dose: 25 mcg Lorazepam (Lorazepam 1 Mg Tablet) 1 mg PO Q8H PRN PRN Reason: Anxiety Last Admin: 06/02/22 20:31 Dose: 1 mg Magnesium Hydroxide (Milk Of Magnesia 30 Ml Oral.Susp) 30 ml PO DAILY PRN PRN Reason: Constipation Mirtazapine (Mirtazapine 30 Mg Tablet) 30 mg PO BEDTIME [facility] Last Admin: 06/02/22 20:30 Dose: 30 mg Non-Formulary Medication (Desvenlafaxine Succinate [Pristiq]) 100 mg PO DAILY [facility] Omeprazole (Omeprazole 20 Mg Capsule.Dr) 20 mg PO BID@0630,1630 [facility] Last Admin: 06/03/22 15:43 Dose: 20 mg Ondansetron HCl (Ondansetron Odt 4 Mg Tab.Rapdis) 4 mg TRANSLINGU Q6H PRN PRN Reason: nausea Last Admin: 06/02/22 21:14 Dose: 4 mg Polyethylene Glycol (Polyethylene Glycol 3350 17 Gm Powd.Pack) 17 gm PO DAILY [facility] Last Admin: 06/03/22 09:19 Dose: Not Given Prochlorperazine Maleate (Prochlorperazine Maleate 5 Mg Tablet) 5 mg PO QID PRN PRN Reason: Nausea And Vomiting Trazodone HCl (Trazodone Hcl 50 Mg Tablet) 50 mg PO BEDTIME MRX1 PRN PRN Reason: Insomnia Last Admin: 06/02/22 21:24 Dose: 50 mg Valsartan (Valsartan 80 Mg Tablet) 80 mg PO DAILY [facility]; Protocol Last Admin: 06/03/22 09:17 Dose: 80 mg Home Medications Medication Instructions Recorded Confirmed Last Taken Type folic acid 1 mg tablet 1 mg PO DAILY 05/22/22 05/24/22 05/23/22 History levothyroxine 25 mcg tablet 25 mcg PO DAILY@0600 05/22/22 05/24/22 05/23/22 History ferrous sulfate 324 mg (65 mg 324 mg PO BID 05/24/22 05/24/22 05/23/22 History iron) tablet,delayed release valsartan 80 mg tablet 80 mg PO DAILY 05/24/22 05/24/22 05/23/22 History Physical Exam Vital Signs and Narrative: Vital Signs: Last Vital Signs Temp 98.0 F 06/03/22 06:00 Pulse 80 06/03/22 06:00 Resp 18 06/03/22 06:00 BP 130/78 06/03/22 06:00 Pulse Ox 98 06/03/22 06:00 O2 Del Method Room Air 06/02/22 21:04 BMI result Body Mass Index 29.2 Constitutional - Awake and Alert, No apparent distress Eyes - PERRLA, EOMI Cardiovascular - S1S2, RRR, No edema Respiratory - Normal lung expansion, Normal respiratory effort, No respiratory distress, CTA bilaterally Gastrointestinal - NT / ND; +BS; No rebound or guarding. Midline surgical incision without dehiscence or drainage. Gastrostomy tube in place without any notable fluctuance, erythema, warmth. Extremities - no calf tenderness bilaterally, no swelling Skin - Warm/Dry Neurological - Alert & oriented x3, CN II-XII in tact, 5/5 strength BUE and BLE Psychological - Appropriate affect Results Labs 06/01/22 08:01 Assessment and Plan (1) Pain around percutaneous endoscopic gastrostomy (PEG) tube site: Status: Acute Plan 82-year-old female with history of bipolar disorder, depression with anxiety, hyperlipidemia, hypertension, hypothyroidism, history of colon cancer s/p right hemicolectomy, and vitamin-D deficiency admitted to Psychiatry with consult placed to hospitalist Medicine for evaluation of severe abdominal pain. #Abd pain s/p ex lap, repair of hiatal hernia, gastropexy with G tube (05/24) -Pain only with movement. Abd exam benign. No evidence of infection. No further n/v -Will adjust pain meds. Add tramadol for moderate pain, oxycodone for severe pain -Limit pain exacerbating activities -General surgery to follow Thank you for allowing me to participate in this consult. Signing off at this time. Please do not hesitate to call for further questions. Time Spent With Patient Time: Total time managing care of this patient today ____ minutes.
[2022-06-03] MEDS: LORazepam 1 MG TABLET PO (17:31)
[2022-06-03] MEDS: Ondansetron ODT 4 MG TAB.RAPDIS TRANSLINGU (17:32)
[2022-06-03 18:00] VITALS: BP 117/55; PULSE 66; RESP 18; TEMP 37.1; O2SAT 93
--- NOTE | 2022-06-03 20:08 | P.PNPSI_ITS ---
Subjective Subjective Date of Service: 06/03/22 Reason For Visit: mood disorder Subjective Notes: Conditional Voluntary Interim History: Pt mostly in bed. She is trying to eat a bit more. She reports poor appetite. No episodes of vomiting or diarrhea. GI surgeon has been following pt, Dr. Gaytan. Pt reports she feels tired, that she wishes she could go to nursing facility as she does not think she can live on her own. She reports passive SI but denies any plan or intent to harm herself. She explains that she is struggling adjusting to multiple medical conditions. No signs of psychosis. Review of Systems Review of Systems Yes all other systems are reviewed and are negative Constitutional: Denies chills and Denies fever(s) Cardiovascular: Denies chest pain Respiratory: Denies cough Gastrointestinal: Denies abdominal pain Psychiatric: Reports depression Mental Status Exam Mental Status Exam Patient Appearance: Appropriate Patient Orientation: Person and Situation Level of Consciousness: Awake and Appropriate Patient Behavior: Guarded and Passive Mood Description: Withdrawn Affect Description: Constricted Patient Cognition Impaired: Yes Ability to Follow Directions: Good Speech Pattern: Appropriate Diagnostics Vital Signs (24Hr): Vital Signs - 24 hr 06/02/22 20:30 06/02/22 21:04 06/03/22 06:00 Temperature 97.9 F 98.0 F Pulse Rate 78 85 80 Respiratory Rate 18 18 18 Blood Pressure 129/71 130/78 Pulse Oximetry 90 L 98 98 Oxygen Delivery Method Room Air Room Air BMI result Body Mass Index 29.2 Labs 06/01/22 08:01 Imaging Radiology Impressions: ITS Impressions Chest X-Ray 06/01/22 14:47 IMPRESSION: Small left pleural effusion with superjacent hazy opacities suggesting atelectasis and/or infiltrates. Medications Medications Current Medications Acetaminophen (Acetaminophen 325 Mg Tablet) 650 mg PO Q6H PRN PRN Reason: Headache/Pain Mild Scale (1-3) Last Admin: 06/03/22 15:43 Dose: 650 mg Al Hydroxide/Mg Hydroxide (Magnesium Hydrox/Alum Hydrox 30 Ml Oral.Susp) 30 ml PO Q6H PRN PRN Reason: Heartburn/Nausea Albuterol/Ipratropium (Albuterol/Iprat 2.5/0.5mg 3 Ml Ampul.Neb) 3 ml INHALE RQ4H WHILE AWAKE [facility] Last Admin: 06/03/22 13:52 Dose: Not Given Aripiprazole (Aripiprazole 2 Mg Tablet) 2 mg PO DAILY [facility] Last Admin: 06/03/22 09:17 Dose: 2 mg Atorvastatin Calcium (Atorvastatin Calcium 10 Mg Tablet) 10 mg PO BEDTIME [facility] Last Admin: 06/02/22 20:31 Dose: 10 mg Cyanocobalamin (Cyanocobalamin (Vitamin B-12) 100 Mcg Tablet) 100 mcg PO DAILY [facility] Last Admin: 06/03/22 09:17 Dose: 100 mcg Docusate Sodium (Docusate Sodium 100 Mg Capsule) 100 mg PO BID [facility] Last Admin: 06/03/22 09:19 Dose: Not Given Ferrous Sulfate (Ferrous Sulfate 324 Mg Tablet.) 324 mg PO BID [facility] Last Admin: 06/03/22 09:17 Dose: 324 mg Folic Acid (Folic Acid 1 Mg Tablet) 1 mg PO DAILY [facility] Last Admin: 06/03/22 09:17 Dose: 1 mg Guaifenesin (Guaifenesin 100 Mg/5 Ml Liquid) 5 ml PO Q6H PRN PRN Reason: Cough Hydroxyzine HCl (Hydroxyzine Hcl 25 Mg Tablet) 25 mg PO Q6H PRN PRN Reason: Anxiety Last Admin: 06/03/22 15:43 Dose: 25 mg Levothyroxine Sodium (Levothyroxine Sodium 25 Mcg Tablet) 25 mcg PO DAILY@0600 [facility] Last Admin: 06/03/22 06:04 Dose: 25 mcg Lorazepam (Lorazepam 1 Mg Tablet) 1 mg PO Q8H PRN PRN Reason: Anxiety Last Admin: 06/03/22 17:31 Dose: 1 mg Magnesium Hydroxide (Milk Of Magnesia 30 Ml Oral.Susp) 30 ml PO DAILY PRN PRN Reason: Constipation Mirtazapine (Mirtazapine 30 Mg Tablet) 30 mg PO BEDTIME [facility] Last Admin: 06/02/22 20:30 Dose: 30 mg Non-Formulary Medication (Desvenlafaxine Succinate [Pristiq]) 100 mg PO DAILY [facility] Omeprazole (Omeprazole 20 Mg Capsule.) 20 mg PO BID@0630,1630 [facility] Last Admin: 06/03/22 15:43 Dose: 20 mg Ondansetron HCl (Ondansetron Odt 4 Mg Tab.Rapdis) 4 mg TRANSLINGU Q6H PRN PRN Reason: nausea Last Admin: 06/03/22 17:32 Dose: 4 mg Oxycodone HCl (Oxycodone Hcl Immed Release 5 Mg Tablet) 5 mg PO Q4H PRN PRN Reason: Pain, Severe (Pain Scale 7-10) Polyethylene Glycol (Polyethylene Glycol 3350 17 Gm Powd.Pack) 17 gm PO DAILY [facility] Last Admin: 06/03/22 09:19 Dose: Not Given Prochlorperazine Maleate (Prochlorperazine Maleate 5 Mg Tablet) 5 mg PO QID PRN PRN Reason: Nausea And Vomiting Tramadol HCl (Tramadol Hcl 50 Mg Tablet) 50 mg PO Q6H PRN PRN Reason: Pain, Moderate (Pain Scale 4-6 Trazodone HCl (Trazodone Hcl 50 Mg Tablet) 50 mg PO BEDTIME MRX1 PRN PRN Reason: Insomnia Last Admin: 06/02/22 21:24 Dose: 50 mg Valsartan (Valsartan 80 Mg Tablet) 80 mg PO DAILY [facility]; Protocol Last Admin: 06/03/22 09:17 Dose: 80 mg Allergies Allergies Allergy/AdvReac Type Severity Reaction Status Date / Time meperidine [From Demerol] AdvReac Unknown Unknown Verified 05/22/22 16:45 Assessment & Plan Assessment & Plan (1) Bipolar 1 disorder, depressed: Status: Acute Code(s): F31.9 - Bipolar disorder, unspecified Plan 06/03 continue tx. Pt did report pain around PEG- hospitalist and Dr. Gaytan contacted, hospitalist saw pt. Dr. gaytan states PEG is in place- no need for him to see pt at this time. Reason for contiued inpatient stay Substantial Risk for: inability to function Time Spent With Patient Time: Total time managing care of this patient today ____ minutes.
[2022-06-03] MEDS: traZODone HCL 50 MG TABLET PO (21:10)
[2022-06-03] MEDS: Atorvastatin Calcium 10 MG TABLET PO (21:10)
[2022-06-03] MEDS: Mirtazapine 30 MG TABLET PO (21:11)
--- NOTE | 2022-06-04 00:28 | PC.NURSE ---
PT [id number] pain in left upper abdominal quadrant about PEG tube insertion site. Incision and site with no staining on dressing and incision looks intact. She ate breakfast and denies nausea. She said the pain is preventing her from activity, and is in bed hugging herself. Given folded blanked and taught to splint with it, as well as gave tylenol which is ordered for 1-3 out of 10 pain. [employer] notified, and hospitalist and Dr. Gaytan notified, and hospitalist to bedside to asses. New orders for pRN tramadol and oxycodone that patiuent then soon able to walk to dining area with walker and denying pain after tylenol. Patient complained of recent diarrhea but having soft brown stool. Abdomen soft, tender at PEG insertion site.
[2022-06-04] MEDS: Acetaminophen 325 MG TABLET 650 MG PO ×2 (03:45→10:05)
[2022-06-04] MEDS: Omeprazole 20 MG CAPSULE.DR PO ×2 (05:38→16:52)
[2022-06-04] MEDS: Levothyroxine Sodium 25 MCG TABLET PO (05:38)
[2022-06-04 08:30] VITALS: BP 108/58; PULSE 77; RESP 18; TEMP 36.7; O2SAT 94
[2022-06-04] MEDS: Valsartan 80 MG TABLET PO (08:36)
[2022-06-04] MEDS: ARIPiprazole 2 MG TABLET PO (08:36)
[2022-06-04] MEDS: Ferrous Sulfate 324 MG TABLET.DR PO ×2 (08:37→20:03)
[2022-06-04] MEDS: Cyanocobalamin (Vitamin B-12) 100 MCG TABLET PO (08:38)
[2022-06-04] MEDS: polyethylene glycoL 3350 17 GM POWD.PACK PO (08:38)
[2022-06-04] MEDS: Folic Acid 1 MG TABLET PO (08:38)
[2022-06-04] MEDS: Albuterol/Iprat 2.5/0.5MG 3 ML AMPUL.NEB INHALE ×4 (08:54→19:50)
[2022-06-04 08:56] VITALS: PULSE 82; RESP 16; O2SAT 95
[2022-06-04] MEDS: hydrOXYzine HCL 25 MG TABLET PO (10:07)
[2022-06-04] MEDS: Loperamide HCl 2 MG CAPSULE 4 MG PO (11:32)
[2022-06-04] MEDS: traMADoL HCL 50 MG TABLET PO (12:35)
[2022-06-04 12:41] VITALS: PULSE 82; RESP 18; O2SAT 93
--- NOTE | 2022-06-04 15:42 | P.PNPSI_ITS ---
Subjective Subjective Date of Service: 06/04/22 Reason For Visit: mood disorder Subjective Notes: Conditional Voluntary Interim History: The nursing staff reported the patient had been on her bed and yesterday she complained of pain 12/11. She has been followed by surgery closely. The staff has reported the patient self rated her depression 10/11. The daughter visited her and wanted to be placing halfway facility. The manager social work reported that she talked with her daughter and will have a family meeting this week. The occupational therapist reported that patient went to a group only once on Saturday. She has court on the [place] and she is 5.0 on the [employer] test. On interview the patient reported some gastric discomfort and she feels tired, very anxious. Historically, she reported that she did well with Klonopin. We will start this medication for anxiety and increase Abilify. Mental Status Exam Mental Status Exam Patient Appearance: Appropriate Patient Orientation: Person and Situation Level of Consciousness: Awake and Appropriate Patient Behavior: Guarded and Passive Mood Description: Withdrawn Affect Description: Constricted Patient Cognition Impaired: Yes Ability to Follow Directions: Fair Speech Pattern: Clear Hallucinations: None Delusions: Not Present Thought Process: Distracted and Evasive Thought Content: positive for [place] and positive for Circumstantial Judgement: Fair Diagnostics Vital Signs (24Hr): Vital Signs - 24 hr 06/03/22 18:00 06/04/22 08:56 06/04/22 08:30 Temperature 98.7 F 98.1 F Pulse Rate 66 82 77 Respiratory Rate 18 16 18 Blood Pressure 117/55 L 108/58 L Pulse Oximetry 93 94 Oxygen Delivery Method Room Air Room Air 06/04/22 12:41 Temperature Pulse Rate 82 Respiratory Rate 18 Blood Pressure Pulse Oximetry Oxygen Delivery Method BMI result Body Mass Index 29.2 Labs 06/01/22 08:01 Imaging Radiology Impressions: ITS Impressions Chest X-Ray 06/01/22 14:47 IMPRESSION: Small left pleural effusion with superjacent hazy opacities suggesting atelectasis and/or infiltrates. KUB X-Ray 06/01/22 14:47 IMPRESSION: G-tube in the left upper quadrant with a small air bubble in the fundus. The bowel gas pattern is nonspecific. Medications Medications Current Medications Acetaminophen (Acetaminophen 325 Mg Tablet) 650 mg PO Q6H PRN PRN Reason: Headache/Pain Mild Scale (1-3) Last Admin: 06/04/22 10:05 Dose: 650 mg Al Hydroxide/Mg Hydroxide (Magnesium Hydrox/Alum Hydrox 30 Ml Oral.Susp) 30 ml PO Q6H PRN PRN Reason: Heartburn/Nausea Albuterol/Ipratropium (Albuterol/Iprat 2.5/0.5mg 3 Ml Ampul.Neb) 3 ml INHALE RQ4H WHILE AWAKE [facility] Last Admin: 06/04/22 12:40 Dose: 3 ml Aripiprazole (Aripiprazole 2 Mg Tablet) 2 mg PO DAILY [facility] Last Admin: 06/04/22 08:36 Dose: 2 mg Atorvastatin Calcium (Atorvastatin Calcium 10 Mg Tablet) 10 mg PO BEDTIME [facility] Last Admin: 06/03/22 21:10 Dose: 10 mg Cyanocobalamin (Cyanocobalamin (Vitamin B-12) 100 Mcg Tablet) 100 mcg PO DAILY [facility] Last Admin: 06/04/22 08:38 Dose: 100 mcg Docusate Sodium (Docusate Sodium 100 Mg Capsule) 100 mg PO BID [facility] Last Admin: 06/04/22 08:41 Dose: Not Given Ferrous Sulfate (Ferrous Sulfate 324 Mg Tablet.Dr) 324 mg PO BID [facility] Last Admin: 06/04/22 08:37 Dose: 324 mg Folic Acid (Folic Acid 1 Mg Tablet) 1 mg PO DAILY [facility] Last Admin: 06/04/22 08:38 Dose: 1 mg Guaifenesin (Guaifenesin 100 Mg/5 Ml Liquid) 5 ml PO Q6H PRN PRN Reason: Cough Hydroxyzine HCl (Hydroxyzine Hcl 25 Mg Tablet) 25 mg PO Q6H PRN PRN Reason: Anxiety Last Admin: 06/04/22 10:07 Dose: 25 mg Levothyroxine Sodium (Levothyroxine Sodium 25 Mcg Tablet) 25 mcg PO DAILY@0600 [facility] Last Admin: 06/04/22 05:38 Dose: 25 mcg Loperamide HCl (Loperamide Hcl 2 Mg Capsule) 2 mg PO Q6H PRN PRN Reason: Diarrhea Lorazepam (Lorazepam 1 Mg Tablet) 1 mg PO Q8H PRN PRN Reason: Anxiety Last Admin: 06/03/22 17:31 Dose: 1 mg Magnesium Hydroxide (Milk Of Magnesia 30 Ml Oral.Susp) 30 ml PO DAILY PRN PRN Reason: Constipation Mirtazapine (Mirtazapine 30 Mg Tablet) 30 mg PO BEDTIME [facility] Last Admin: 06/03/22 21:11 Dose: 30 mg Non-Formulary Medication (Desvenlafaxine Succinate [Pristiq]) 100 mg PO DAILY [facility] Omeprazole (Omeprazole 20 Mg Capsule.) 20 mg PO BID@0630,1630 [facility] Last Admin: 06/04/22 05:38 Dose: 20 mg Ondansetron HCl (Ondansetron Odt 4 Mg Tab.Rapdis) 4 mg TRANSLINGU Q6H PRN PRN Reason: nausea Last Admin: 06/03/22 17:32 Dose: 4 mg Oxycodone HCl (Oxycodone Hcl Immed Release 5 Mg Tablet) 5 mg PO Q4H PRN PRN Reason: Pain, Severe (Pain Scale 7-10) Polyethylene Glycol (Polyethylene Glycol 3350 17 Gm Powd.Pack) 17 gm PO DAILY [facility] Last Admin: 06/04/22 08:38 Dose: 17 gm Prochlorperazine Maleate (Prochlorperazine Maleate 5 Mg Tablet) 5 mg PO QID PRN PRN Reason: Nausea And Vomiting Tramadol HCl (Tramadol Hcl 50 Mg Tablet) 50 mg PO Q6H PRN PRN Reason: Pain, Moderate (Pain Scale 4-6 Last Admin: 06/04/22 12:35 Dose: 50 mg Trazodone HCl (Trazodone Hcl 50 Mg Tablet) 50 mg PO BEDTIME MRX1 PRN PRN Reason: Insomnia Last Admin: 06/03/22 21:10 Dose: 50 mg Valsartan (Valsartan 80 Mg Tablet) 80 mg PO DAILY [facility]; Protocol Last Admin: 06/04/22 08:36 Dose: 80 mg Allergies Allergies Allergy/AdvReac Type Severity Reaction Status Date / Time meperidine [From Demerol] AdvReac Unknown Unknown Verified 05/22/22 16:45 Assessment & Plan Assessment & Plan (1) Bipolar 1 disorder, depressed: Status: Acute Code(s): F31.9 - Bipolar disorder, unspecified Plan / continue tx. Pt did report pain around PEG- hospitalist and Dr. Gaytan contacted, hospitalist saw pt. Dr. gaytan states PEG is in place- no need for him to see pt at this time. Plan 1. Continue with medical and surgical suggestions. 2. Increase Abilify up to 5 mg p.o. in the morning on June 05. 3. Start Klonopin 0.25 p.o. t.i.d. to target anxiety. 4. We will increased antidepressants later Reason for contiued inpatient stay Substantial Risk for: inability to function, rapid decompensation and med/psych decompensation Time Spent With Patient Time: Total time managing care of this patient today _20___ minutes.
[2022-06-04 16:45] VITALS: PULSE 76; RESP 16; O2SAT 94
[2022-06-04 18:00] VITALS: BP 115/55; PULSE 57; RESP 18; TEMP 36.6; O2SAT 92
[2022-06-04 19:51] VITALS: PULSE 57; RESP 20; O2SAT 95
[2022-06-04] MEDS: Mirtazapine 30 MG TABLET PO (20:03)
[2022-06-04] MEDS: Atorvastatin Calcium 10 MG TABLET PO (20:03)
[2022-06-05] MEDS: Levothyroxine Sodium 25 MCG TABLET PO (05:34)
[2022-06-05] MEDS: Omeprazole 20 MG CAPSULE.DR PO ×2 (05:34→16:12)
[2022-06-05 06:00] VITALS: BP 113/57; PULSE 86; RESP 24; TEMP 37.1; O2SAT 97
[2022-06-05] MEDS: ARIPiprazole 5 MG TABLET PO (08:16)
[2022-06-05] MEDS: Valsartan 80 MG TABLET PO (08:16)
[2022-06-05] MEDS: Folic Acid 1 MG TABLET PO (08:17)
[2022-06-05] MEDS: Ferrous Sulfate 324 MG TABLET.DR PO ×2 (08:17→21:07)
[2022-06-05] MEDS: Cyanocobalamin (Vitamin B-12) 100 MCG TABLET PO (08:17)
[2022-06-05] MEDS: Ondansetron ODT 4 MG TAB.RAPDIS TRANSLINGU (08:25)
[2022-06-05 08:34] VITALS: PULSE 57; RESP 18; O2SAT 92
[2022-06-05] MEDS: Albuterol/Iprat 2.5/0.5MG 3 ML AMPUL.NEB INHALE ×4 (08:34→21:09)
[2022-06-05 12:07] VITALS: PULSE 88; RESP 18; O2SAT 96
[2022-06-05] MEDS: clonazePAM 0.5 MG TABLET 0.25 MG PO ×2 (14:25→21:06)
[2022-06-05 16:23] VITALS: PULSE 82; RESP 18; O2SAT 94
--- NOTE | 2022-06-05 17:12 | P.PNPSI_ITS ---
Subjective Subjective Date of Service: 06/05/22 Reason For Visit: mood disorder Subjective Notes: Conditional Voluntary Interim History: The nursing staff reported that she had been doing much better, with mild nausea that was relieved with Zofran. She had loose stools and we have been starting on Imodium. She reports some pain with her movement. Yesterday we started Klonopin and she reported mild improve his anxiety. The clinical social work aide reported today that she is trying to schedule a family meeting. On interview the patient denies new symptoms still mildly anxious. Mental Status Exam Mental Status Exam Patient Appearance: Well Grooomed and Appropriate Patient Orientation: Person and Situation Level of Consciousness: Awake and Appropriate Patient Behavior: Guarded and Passive Mood Description: Withdrawn Affect Description: Constricted Patient Cognition Impaired: Yes Ability to Follow Directions: Good Speech Pattern: Clear Hallucinations: None Delusions: Not Present Thought Process: Linear and Evasive Thought Content: positive for [place] and positive for Circumstantial Judgement: Fair Diagnostics Vital Signs (24Hr): Vital Signs - 24 hr 06/04/22 19:51 06/04/22 18:00 06/05/22 08:34 Temperature 97.9 F Pulse Rate 57 57 57 Respiratory Rate 20 18 18 Blood Pressure 115/55 L Pulse Oximetry 92 Oxygen Delivery Method Room Air 06/05/22 06:00 06/05/22 12:07 06/05/22 16:23 Temperature 98.8 F Pulse Rate 86 88 82 Respiratory Rate 24 H 18 18 Blood Pressure 113/57 L Pulse Oximetry 97 Oxygen Delivery Method Room Air BMI result Body Mass Index 29.2 Labs 06/01/22 08:01 Imaging Radiology Impressions: ITS Impressions Chest X-Ray 06/01/22 14:47 IMPRESSION: Small left pleural effusion with superjacent hazy opacities suggesting atelectasis and/or infiltrates. KUB X-Ray 06/01/22 14:47 IMPRESSION: G-tube in the left upper quadrant with a small air bubble in the fundus. The bowel gas pattern is nonspecific. Medications Medications Current Medications Acetaminophen (Acetaminophen 325 Mg Tablet) 650 mg PO Q6H PRN PRN Reason: Headache/Pain Mild Scale (1-3) Last Admin: 06/04/22 10:05 Dose: 650 mg Al Hydroxide/Mg Hydroxide (Magnesium Hydrox/Alum Hydrox 30 Ml Oral.Susp) 30 ml PO Q6H PRN PRN Reason: Heartburn/Nausea Albuterol/Ipratropium (Albuterol/Iprat 2.5/0.5mg 3 Ml Ampul.Neb) 3 ml INHALE RQ4H WHILE AWAKE [facility] Last Admin: 06/05/22 16:22 Dose: 3 ml Aripiprazole (Aripiprazole 5 Mg Tablet) 5 mg PO DAILY [facility] Last Admin: 06/05/22 08:16 Dose: 5 mg Atorvastatin Calcium (Atorvastatin Calcium 10 Mg Tablet) 10 mg PO BEDTIME [facility] Last Admin: 06/04/22 20:03 Dose: 10 mg Clonazepam (Clonazepam 0.5 Mg Tablet) 0.25 mg PO TID [facility] Last Admin: 06/05/22 14:25 Dose: 0.25 mg Cyanocobalamin (Cyanocobalamin (Vitamin B-12) 100 Mcg Tablet) 100 mcg PO DAILY [facility] Last Admin: 06/05/22 08:17 Dose: 100 mcg Docusate Sodium (Docusate Sodium 100 Mg Capsule) 100 mg PO BID PRN PRN Reason: Constipation Ferrous Sulfate (Ferrous Sulfate 324 Mg Tablet.Dr) 324 mg PO BID [facility] Last Admin: 06/05/22 08:17 Dose: 324 mg Folic Acid (Folic Acid 1 Mg Tablet) 1 mg PO DAILY [facility] Last Admin: 06/05/22 08:17 Dose: 1 mg Guaifenesin (Guaifenesin 100 Mg/5 Ml Liquid) 5 ml PO Q6H PRN PRN Reason: Cough Hydroxyzine HCl (Hydroxyzine Hcl 25 Mg Tablet) 25 mg PO Q6H PRN PRN Reason: Anxiety Last Admin: 06/04/22 10:07 Dose: 25 mg Levothyroxine Sodium (Levothyroxine Sodium 25 Mcg Tablet) 25 mcg PO DAILY@0600 [facility] Last Admin: 06/05/22 05:34 Dose: 25 mcg Loperamide HCl (Loperamide Hcl 2 Mg Capsule) 2 mg PO Q6H PRN PRN Reason: Diarrhea Lorazepam (Lorazepam 1 Mg Tablet) 1 mg PO Q8H PRN PRN Reason: Anxiety Last Admin: 06/03/22 17:31 Dose: 1 mg Magnesium Hydroxide (Milk Of Magnesia 30 Ml Oral.Susp) 30 ml PO DAILY PRN PRN Reason: Constipation Mirtazapine (Mirtazapine 30 Mg Tablet) 30 mg PO BEDTIME [facility] Last Admin: 06/04/22 20:03 Dose: 30 mg Non-Formulary Medication (Desvenlafaxine Succinate [Pristiq]) 100 mg PO DAILY [facility] Omeprazole (Omeprazole 20 Mg Capsule.) 20 mg PO BID@0630,1630 [facility] Last Admin: 06/05/22 16:12 Dose: 20 mg Ondansetron HCl (Ondansetron Odt 4 Mg Tab.Rapdis) 4 mg TRANSLINGU Q6H PRN PRN Reason: nausea Last Admin: 06/05/22 08:25 Dose: 4 mg Oxycodone HCl (Oxycodone Hcl Immed Release 5 Mg Tablet) 5 mg PO Q4H PRN PRN Reason: Pain, Severe (Pain Scale 7-10) Polyethylene Glycol (Polyethylene Glycol 3350 17 Gm Powd.Pack) 17 gm PO DAILY [facility] Prochlorperazine Maleate (Prochlorperazine Maleate 5 Mg Tablet) 5 mg PO QID PRN PRN Reason: Nausea And Vomiting Tramadol HCl (Tramadol Hcl 50 Mg Tablet) 50 mg PO Q6H PRN PRN Reason: Pain, Moderate (Pain Scale 4-6 Last Admin: 06/04/22 12:35 Dose: 50 mg Trazodone HCl (Trazodone Hcl 50 Mg Tablet) 50 mg PO BEDTIME MRX1 PRN PRN Reason: Insomnia Last Admin: 06/03/22 21:10 Dose: 50 mg Valsartan (Valsartan 80 Mg Tablet) 80 mg PO DAILY [facility]; Protocol Last Admin: 06/05/22 08:16 Dose: 80 mg Allergies Allergies Allergy/AdvReac Type Severity Reaction Status Date / Time meperidine [From Demerol] AdvReac Unknown Unknown Verified 05/22/22 16:45 Assessment & Plan Assessment & Plan (1) Bipolar 1 disorder, depressed: Status: Acute Code(s): F31.9 - Bipolar disorder, unspecified Plan / continue tx. Pt did report pain around PEG- hospitalist and Dr. Gaytan contacted, hospitalist saw pt. Dr. gaytan states PEG is in place- no need for him to see pt at this time. Plan 1. Continue with medical and surgical suggestions. 2. Increase Abilify up to 5 mg p.o. in the morning on June 05. 3. Start Klonopin 0.25 p.o. t.i.d. to target anxiety. 4. We will increased antidepressants later Reason for contiued inpatient stay Substantial Risk for: inability to function, rapid decompensation and med/psych decompensation Time Spent With Patient Time: Total time managing care of this patient today _20___ minutes.
[2022-06-05 18:00] VITALS: BP 117/53; PULSE 64; RESP 16; TEMP 36.5; O2SAT 98
[2022-06-05] MEDS: traMADoL HCL 50 MG TABLET PO (18:19)
[2022-06-05] MEDS: Acetaminophen 325 MG TABLET 650 MG PO (21:06)
[2022-06-05] MEDS: traZODone HCL 50 MG TABLET PO (21:07)
[2022-06-05 21:10] VITALS: PULSE 82; RESP 18; O2SAT 94
[2022-06-05] MEDS: Atorvastatin Calcium 10 MG TABLET PO (22:13)
[2022-06-05] MEDS: Mirtazapine 30 MG TABLET PO (22:14)
[2022-06-06 06:00] VITALS: BP 108/53; PULSE 73; RESP 15; TEMP 36.6; O2SAT 92
[2022-06-06] MEDS: Omeprazole 20 MG CAPSULE.DR PO ×2 (06:18→16:44)
[2022-06-06] MEDS: Levothyroxine Sodium 25 MCG TABLET PO (06:18)
[2022-06-06] MEDS: Folic Acid 1 MG TABLET PO (09:11)
[2022-06-06] MEDS: Ferrous Sulfate 324 MG TABLET.DR PO ×2 (09:11→20:34)
[2022-06-06] MEDS: ARIPiprazole 5 MG TABLET PO (09:11)
[2022-06-06] MEDS: polyethylene glycoL 3350 17 GM POWD.PACK PO (09:11)
[2022-06-06] MEDS: clonazePAM 0.5 MG TABLET 0.25 MG PO ×3 (09:11→20:34)
[2022-06-06] MEDS: Cyanocobalamin (Vitamin B-12) 100 MCG TABLET PO (09:11)
[2022-06-06] MEDS: Valsartan 80 MG TABLET PO (09:11)
[2022-06-06] MEDS: Albuterol/Iprat 2.5/0.5MG 3 ML AMPUL.NEB INHALE ×2 (10:57→16:36)
[2022-06-06 10:59] VITALS: PULSE 89; RESP 16; O2SAT 91
--- NOTE | 2022-06-06 13:08 | P.PNPSI_ITS ---
Subjective Subjective Date of Service: 06/06/22 Reason For Visit: mood disorder Subjective Notes: Conditional Voluntary Interim History: The nursing staff reported that her appetite has improved she is eating her meals but she had loose stools. She spends most of the time in her room but she was visible in the unit yesterday. She is anxious at times and apparently there is no drainage from the tube. The psychiatric social worker has scheduled a meeting with her 2 sisters at 02:00 o'clock in the afternoon today. We discussed with the patient treatment options and she agreed to increase Remeron up to 45 mg p.o. q.h.s. to target depression. She was on desvenlafaxine but since it has an adrenergic effect could worsen her anxiety so we have decided to increase REmeron Mental Status Exam Mental Status Exam Patient Appearance: Well Grooomed Patient Orientation: Person and Situation Level of Consciousness: Awake and Appropriate Patient Behavior: Guarded and Passive Mood Description: Withdrawn Affect Description: Constricted Patient Cognition Impaired: Yes Ability to Follow Directions: Good Speech Pattern: Clear Hallucinations: None Delusions: Not Present Thought Process: Distracted and Linear Thought Content: positive for [place] and positive for [place] Judgement: Fair Diagnostics Vital Signs (24Hr): Vital Signs - 24 hr 06/05/22 16:23 06/05/22 21:10 06/05/22 18:00 Temperature 97.7 F Pulse Rate 82 82 64 Respiratory Rate 18 18 16 Blood Pressure 117/53 L Pulse Oximetry 98 Oxygen Delivery Method Room Air 06/06/22 06:00 06/06/22 10:59 Temperature 97.8 F Pulse Rate 73 89 Respiratory Rate 15 16 Blood Pressure 108/53 L Pulse Oximetry 92 Oxygen Delivery Method Room Air BMI result Body Mass Index 29.2 Labs 06/01/22 08:01 Imaging Radiology Impressions: ITS Impressions Chest X-Ray 06/01/22 14:47 IMPRESSION: Small left pleural effusion with superjacent hazy opacities suggesting atelectasis and/or infiltrates. KUB X-Ray 06/01/22 14:47 IMPRESSION: G-tube in the left upper quadrant with a small air bubble in the fundus. The bowel gas pattern is nonspecific. Medications Medications Current Medications Acetaminophen (Acetaminophen 325 Mg Tablet) 650 mg PO Q6H PRN PRN Reason: Headache/Pain Mild Scale (1-3) Last Admin: 06/05/22 21:06 Dose: 650 mg Al Hydroxide/Mg Hydroxide (Magnesium Hydrox/Alum Hydrox 30 Ml Oral.Susp) 30 ml PO Q6H PRN PRN Reason: Heartburn/Nausea Albuterol/Ipratropium (Albuterol/Iprat 2.5/0.5mg 3 Ml Ampul.Neb) 3 ml INHALE RQ4H WHILE AWAKE [facility] Last Admin: 06/06/22 11:01 Dose: Not Given Aripiprazole (Aripiprazole 5 Mg Tablet) 5 mg PO DAILY [facility] Last Admin: 06/06/22 09:11 Dose: 5 mg Atorvastatin Calcium (Atorvastatin Calcium 10 Mg Tablet) 10 mg PO BEDTIME [facility] Last Admin: 06/05/22 22:13 Dose: 10 mg Clonazepam (Clonazepam 0.5 Mg Tablet) 0.25 mg PO TID [facility] Last Admin: 06/06/22 09:11 Dose: 0.25 mg Cyanocobalamin (Cyanocobalamin (Vitamin B-12) 100 Mcg Tablet) 100 mcg PO DAILY [facility] Last Admin: 06/06/22 09:11 Dose: 100 mcg Docusate Sodium (Docusate Sodium 100 Mg Capsule) 100 mg PO BID PRN PRN Reason: Constipation Ferrous Sulfate (Ferrous Sulfate 324 Mg Tablet.Dr) 324 mg PO BID [facility] Last Admin: 06/06/22 09:11 Dose: 324 mg Folic Acid (Folic Acid 1 Mg Tablet) 1 mg PO DAILY [facility] Last Admin: 06/06/22 09:11 Dose: 1 mg Guaifenesin (Guaifenesin 100 Mg/5 Ml Liquid) 5 ml PO Q6H PRN PRN Reason: Cough Hydroxyzine HCl (Hydroxyzine Hcl 25 Mg Tablet) 25 mg PO Q6H PRN PRN Reason: Anxiety Last Admin: 06/04/22 10:07 Dose: 25 mg Levothyroxine Sodium (Levothyroxine Sodium 25 Mcg Tablet) 25 mcg PO DAILY@0600 [facility] Last Admin: 06/06/22 06:18 Dose: 25 mcg Loperamide HCl (Loperamide Hcl 2 Mg Capsule) 2 mg PO Q6H PRN PRN Reason: Diarrhea Lorazepam (Lorazepam 1 Mg Tablet) 1 mg PO Q8H PRN PRN Reason: Anxiety Last Admin: 06/03/22 17:31 Dose: 1 mg Magnesium Hydroxide (Milk Of Magnesia 30 Ml Oral.Susp) 30 ml PO DAILY PRN PRN Reason: Constipation Mirtazapine (Mirtazapine 15 Mg Tablet) 45 mg PO BEDTIME [facility] Non-Formulary Medication (Desvenlafaxine Succinate [Pristiq]) 100 mg PO DAILY [facility] Omeprazole (Omeprazole 20 Mg Capsule.) 20 mg PO BID@0630,1630 [facility] Last Admin: 06/06/22 06:18 Dose: 20 mg Ondansetron HCl (Ondansetron Odt 4 Mg Tab.Rapdis) 4 mg TRANSLINGU Q6H PRN PRN Reason: nausea Last Admin: 06/05/22 08:25 Dose: 4 mg Oxycodone HCl (Oxycodone Hcl Immed Release 5 Mg Tablet) 5 mg PO Q4H PRN PRN Reason: Pain, Severe (Pain Scale 7-10) Polyethylene Glycol (Polyethylene Glycol 3350 17 Gm Powd.Pack) 17 gm PO DAILY [facility] Last Admin: 06/06/22 09:11 Dose: 17 gm Prochlorperazine Maleate (Prochlorperazine Maleate 5 Mg Tablet) 5 mg PO QID PRN PRN Reason: Nausea And Vomiting Tramadol HCl (Tramadol Hcl 50 Mg Tablet) 50 mg PO Q6H PRN PRN Reason: Pain, Moderate (Pain Scale 4-6 Last Admin: 06/05/22 18:19 Dose: 50 mg Trazodone HCl (Trazodone Hcl 50 Mg Tablet) 50 mg PO BEDTIME MRX1 PRN PRN Reason: Insomnia Last Admin: 06/05/22 21:07 Dose: 50 mg Valsartan (Valsartan 80 Mg Tablet) 80 mg PO DAILY [facility]; Protocol Last Admin: 06/06/22 09:11 Dose: 80 mg Allergies Allergies Allergy/AdvReac Type Severity Reaction Status Date / Time meperidine [From Demerol] AdvReac Unknown Unknown Verified 05/22/22 16:45 Assessment & Plan Assessment & Plan (1) Bipolar 1 disorder, depressed: Status: Acute Code(s): F31.9 - Bipolar disorder, unspecified Plan / continue tx. Pt did report pain around PEG- hospitalist and Dr. Gaytan contacted, hospitalist saw pt. Dr. gaytan states PEG is in place- no need for him to see pt at this time. Plan 1. Continue with medical and surgical suggestions. 2. Increase Abilify up to 5 mg p.o. in the morning on June 05. 3. Start Klonopin 0.25 p.o. t.i.d. to target anxiety. 4. Increase Remeron up to 45 mg today on June 06. Reason for contiued inpatient stay Substantial Risk for: inability to function, rapid decompensation and med/psych decompensation Time Spent With Patient Time: Total time managing care of this patient today __20__ minutes.
[2022-06-06] MEDS: traMADoL HCL 50 MG TABLET PO (13:39)
[2022-06-06 16:36] VITALS: PULSE 81; RESP 18; O2SAT 94
[2022-06-06 18:00] VITALS: BP 119/56; PULSE 63; RESP 18; TEMP 36.6; O2SAT 93
[2022-06-06] MEDS: oxyCODONE HCl Immed Release 5 MG TABLET PO (20:33)
[2022-06-06] MEDS: Mirtazapine 15 MG TABLET 45 MG PO (20:33)
[2022-06-06] MEDS: Atorvastatin Calcium 10 MG TABLET PO (20:33)
[2022-06-07] MEDS: Levothyroxine Sodium 25 MCG TABLET PO (05:56)
[2022-06-07] MEDS: Omeprazole 20 MG CAPSULE.DR PO ×2 (05:56→16:45)
[2022-06-07 06:00] VITALS: BP 121/80; PULSE 59; RESP 18; TEMP 36.9; O2SAT 90
[2022-06-07 07:00] VITALS: BMI 30.1
[2022-06-07] MEDS: Cyanocobalamin (Vitamin B-12) 100 MCG TABLET PO (08:50)
[2022-06-07] MEDS: Ferrous Sulfate 324 MG TABLET.DR PO ×2 (08:50→20:22)
[2022-06-07] MEDS: Valsartan 80 MG TABLET PO (08:50)
[2022-06-07] MEDS: clonazePAM 0.5 MG TABLET 0.25 MG PO (08:51)
[2022-06-07] MEDS: Folic Acid 1 MG TABLET PO (08:51)
[2022-06-07] MEDS: ARIPiprazole 5 MG TABLET PO (08:51)
[2022-06-07] MEDS: polyethylene glycoL 3350 17 GM POWD.PACK PO (08:51)
--- NOTE | 2022-06-07 10:29 | P.PNPSI_ITS ---
Subjective Subjective Date of Service: 06/07/22 Reason For Visit: mood disorder Subjective Notes: Conditional Voluntary Interim History: The nursing staff reported the patient had been compliant with his treatment but she remains depressed, anxious and isolative at times. The occupational therapist reported that she is extremely anxious in groups and she is scared of loud patients. The public health social worker had a family meeting yesterday and we will start thinking on disposition when she is more stable psychiatrically and medically. On interview the patient reports that she is anxious, she agreed increase Klonopin up 0.5 p.o. t.i.d. to target anxiety. Mental Status Exam Mental Status Exam Patient Appearance: Appropriate Patient Orientation: Person and Situation Level of Consciousness: Awake and Appropriate Patient Behavior: Guarded and Passive Mood Description: Depressed Affect Description: Constricted Patient Cognition Impaired: Yes Ability to Follow Directions: Good Speech Pattern: Clear Hallucinations: None Delusions: Not Present Thought Process: Linear Thought Content: positive for [place], positive for [place] and positive for [place] of Content Judgement: Fair Diagnostics Vital Signs (24Hr): Vital Signs - 24 hr 06/06/22 10:59 06/06/22 16:36 06/06/22 18:00 Temperature 97.9 F Pulse Rate 89 81 63 Respiratory Rate 16 18 18 Blood Pressure 119/56 L Pulse Oximetry 93 Oxygen Delivery Method Room Air 06/07/22 06:00 Temperature 98.5 F Pulse Rate 59 Respiratory Rate 18 Blood Pressure 121/80 Pulse Oximetry 90 L Oxygen Delivery Method Room Air BMI result Body Mass Index 29.2 Labs 06/01/22 08:01 Imaging Radiology Impressions: ITS Impressions Chest X-Ray 06/01/22 14:47 IMPRESSION: Small left pleural effusion with superjacent hazy opacities suggesting atelectasis and/or infiltrates. KUB X-Ray 06/01/22 14:47 IMPRESSION: G-tube in the left upper quadrant with a small air bubble in the fundus. The bowel gas pattern is nonspecific. Medications Medications Current Medications Acetaminophen (Acetaminophen 325 Mg Tablet) 650 mg PO Q6H PRN PRN Reason: Headache/Pain Mild Scale (1-3) Last Admin: 06/05/22 21:06 Dose: 650 mg Al Hydroxide/Mg Hydroxide (Magnesium Hydrox/Alum Hydrox 30 Ml Oral.Susp) 30 ml PO Q6H PRN PRN Reason: Heartburn/Nausea Albuterol/Ipratropium (Albuterol/Iprat 2.5/0.5mg 3 Ml Ampul.Neb) 3 ml INHALE RQ4H WHILE AWAKE [facility] Last Admin: 06/06/22 20:23 Dose: Not Given Aripiprazole (Aripiprazole 5 Mg Tablet) 5 mg PO DAILY [facility] Last Admin: 06/07/22 08:51 Dose: 5 mg Atorvastatin Calcium (Atorvastatin Calcium 10 Mg Tablet) 10 mg PO BEDTIME [facility] Last Admin: 06/06/22 20:33 Dose: 10 mg Clonazepam (Clonazepam 0.5 Mg Tablet) 0.5 mg PO TID [facility] Cyanocobalamin (Cyanocobalamin (Vitamin B-12) 100 Mcg Tablet) 100 mcg PO DAILY [facility] Last Admin: 06/07/22 08:50 Dose: 100 mcg Docusate Sodium (Docusate Sodium 100 Mg Capsule) 100 mg PO BID PRN PRN Reason: Constipation Ferrous Sulfate (Ferrous Sulfate 324 Mg Tablet.) 324 mg PO BID [facility] Last Admin: 06/07/22 08:50 Dose: 324 mg Folic Acid (Folic Acid 1 Mg Tablet) 1 mg PO DAILY [facility] Last Admin: 06/07/22 08:51 Dose: 1 mg Guaifenesin (Guaifenesin 100 Mg/5 Ml Liquid) 5 ml PO Q6H PRN PRN Reason: Cough Hydroxyzine HCl (Hydroxyzine Hcl 25 Mg Tablet) 25 mg PO Q6H PRN PRN Reason: Anxiety Last Admin: 06/04/22 10:07 Dose: 25 mg Levothyroxine Sodium (Levothyroxine Sodium 25 Mcg Tablet) 25 mcg PO DAILY@0600 [facility] Last Admin: 06/07/22 05:56 Dose: 25 mcg Loperamide HCl (Loperamide Hcl 2 Mg Capsule) 2 mg PO Q6H PRN PRN Reason: Diarrhea Magnesium Hydroxide (Milk Of Magnesia 30 Ml Oral.Susp) 30 ml PO DAILY PRN PRN Reason: Constipation Mirtazapine (Mirtazapine 15 Mg Tablet) 45 mg PO BEDTIME [facility] Last Admin: 06/06/22 20:33 Dose: 45 mg Non-Formulary Medication (Desvenlafaxine Succinate [Pristiq]) 100 mg PO DAILY [facility] Omeprazole (Omeprazole 20 Mg Capsule.) 20 mg PO BID@0630,1630 [facility] Last Admin: 06/07/22 05:56 Dose: 20 mg Ondansetron HCl (Ondansetron Odt 4 Mg Tab.Rapdis) 4 mg TRANSLINGU Q6H PRN PRN Reason: nausea Last Admin: 06/05/22 08:25 Dose: 4 mg Oxycodone HCl (Oxycodone Hcl Immed Release 5 Mg Tablet) 5 mg PO Q4H PRN PRN Reason: Pain, Severe (Pain Scale 7-10) Last Admin: 06/06/22 20:33 Dose: 5 mg Polyethylene Glycol (Polyethylene Glycol 3350 17 Gm Powd.Pack) 17 gm PO DAILY [facility] Last Admin: 06/07/22 08:51 Dose: 17 gm Prochlorperazine Maleate (Prochlorperazine Maleate 5 Mg Tablet) 5 mg PO QID PRN PRN Reason: Nausea And Vomiting Tramadol HCl (Tramadol Hcl 50 Mg Tablet) 50 mg PO Q6H PRN PRN Reason: Pain, Moderate (Pain Scale 4-6 Last Admin: 06/06/22 13:39 Dose: 50 mg Trazodone HCl (Trazodone Hcl 50 Mg Tablet) 50 mg PO BEDTIME MRX1 PRN PRN Reason: Insomnia Last Admin: 06/05/22 21:07 Dose: 50 mg Valsartan (Valsartan 80 Mg Tablet) 80 mg PO DAILY [facility]; Protocol Last Admin: 06/07/22 08:50 Dose: 80 mg Allergies Allergies Allergy/AdvReac Type Severity Reaction Status Date / Time meperidine [From Demerol] AdvReac Unknown Unknown Verified 05/22/22 16:45 Assessment & Plan Assessment & Plan (1) Bipolar 1 disorder, depressed: Status: Acute Code(s): F31.9 - Bipolar disorder, unspecified Plan / continue tx. Pt did report pain around PEG- hospitalist and Dr. Gaytan contacted, hospitalist saw pt. Dr. gaytan states PEG is in place- no need for him to see pt at this time. Plan 1. Continue with medical and surgical suggestions. 2. Increase Abilify up to 5 mg p.o. in the morning on June 05. 3. Start Klonopin 0.25 p.o. t.i.d. to target anxiety. Klonopin was increased up 0.5 p.o. t.i.d. on June 07 4. Increase Remeron up to 45 mg today on June 06. Reason for contiued inpatient stay Substantial Risk for: inability to function, rapid decompensation and med/psych decompensation Time Spent With Patient Time: Total time managing care of this patient today _20___ minutes.
[2022-06-07] MEDS: Ondansetron ODT 4 MG TAB.RAPDIS TRANSLINGU (11:36)
[2022-06-07] MEDS: traMADoL HCL 50 MG TABLET PO (11:44)
[2022-06-07 12:31] VITALS: PULSE 61; RESP 16; O2SAT 95
[2022-06-07] MEDS: clonazePAM 0.5 MG TABLET PO ×2 (14:36→20:22)
[2022-06-07 18:00] VITALS: BP 117/58; PULSE 72; RESP 17; TEMP 36.5; O2SAT 94
[2022-06-07 19:37] VITALS: PULSE 59; RESP 16; O2SAT 93
[2022-06-07] MEDS: Albuterol/Iprat 2.5/0.5MG 3 ML AMPUL.NEB INHALE (19:37)
[2022-06-07] MEDS: Atorvastatin Calcium 10 MG TABLET PO (20:22)
[2022-06-07] MEDS: Mirtazapine 15 MG TABLET 45 MG PO (20:22)
[2022-06-08 06:00] VITALS: BP 123/60; PULSE 63; RESP 15; TEMP 36.7; O2SAT 93
--- NOTE | 2022-06-08 14:13 | P.PNPSI_ITS ---
Subjective Subjective Date of Service: 06/08/22 Reason For Visit: mood disorder Subjective Notes: Conditional Voluntary Interim History: The nursing staff reported the patient a 75% of her meals she had no sotelo pain but it improved with p.r.n. medications. She denies suicidal ideation or hallucinations but she looks very tired and dysphoric. The manager social responsibility reported that her daughters are working on assisted living facility for aftercare. On interview the patient denies new symptoms she reports that she is feeling very tired and she wants to on snf facility but the possibility of a bed it is very unlikely at this moment since there are no openings. We discussed options and she agreed to keep on the same medications and keep Klonopin on 0.5 p.o. t.i.d., no over-sedation or side effects. Mental Status Exam Mental Status Exam Patient Appearance: Well Grooomed and Appropriate Patient Orientation: Person and Situation Level of Consciousness: Awake and Appropriate Patient Behavior: Guarded and Passive Mood Description: Withdrawn and Constricted Affect Description: Calm Patient Cognition Impaired: Yes Ability to Follow Directions: Good Speech Pattern: Clear Hallucinations: None Delusions: Not Present Thought Process: Distracted and Slowed Thinking Thought Content: positive for [place] and positive for Circumstantial Judgement: Fair Diagnostics Vital Signs (24Hr): Vital Signs - 24 hr 06/07/22 19:37 06/07/22 18:00 Temperature 97.7 F Pulse Rate 59 72 Respiratory Rate 16 17 Blood Pressure 117/58 L Pulse Oximetry 94 Oxygen Delivery Method Room Air BMI result Body Mass Index 30.1 Labs 06/01/22 08:01 Imaging Radiology Impressions: ITS Impressions Chest X-Ray 06/01/22 14:47 IMPRESSION: Small left pleural effusion with superjacent hazy opacities suggesting atelectasis and/or infiltrates. KUB X-Ray 06/01/22 14:47 IMPRESSION: G-tube in the left upper quadrant with a small air bubble in the fundus. The bowel gas pattern is nonspecific. Medications Medications Current Medications Acetaminophen (Acetaminophen 325 Mg Tablet) 650 mg PO Q6H PRN PRN Reason: Headache/Pain Mild Scale (1-3) Last Admin: 06/05/22 21:06 Dose: 650 mg Al Hydroxide/Mg Hydroxide (Magnesium Hydrox/Alum Hydrox 30 Ml Oral.Susp) 30 ml PO Q6H PRN PRN Reason: Heartburn/Nausea Albuterol/Ipratropium (Albuterol/Iprat 2.5/0.5mg 3 Ml Ampul.Neb) 3 ml INHALE RQ4H WHILE AWAKE [facility] Last Admin: 06/07/22 19:37 Dose: 3 ml Aripiprazole (Aripiprazole 5 Mg Tablet) 5 mg PO DAILY [facility] Last Admin: 06/08/22 12:33 Dose: Not Given Atorvastatin Calcium (Atorvastatin Calcium 10 Mg Tablet) 10 mg PO BEDTIME [facility] Last Admin: 06/07/22 20:22 Dose: 10 mg Clonazepam (Clonazepam 0.5 Mg Tablet) 0.5 mg PO TID [facility] Last Admin: 06/08/22 12:33 Dose: Not Given Cyanocobalamin (Cyanocobalamin (Vitamin B-12) 100 Mcg Tablet) 100 mcg PO DAILY [facility] Last Admin: 06/08/22 12:33 Dose: Not Given Docusate Sodium (Docusate Sodium 100 Mg Capsule) 100 mg PO BID PRN PRN Reason: Constipation Ferrous Sulfate (Ferrous Sulfate 324 Mg Tablet.) 324 mg PO BID [facility] Last Admin: 06/08/22 12:33 Dose: Not Given Folic Acid (Folic Acid 1 Mg Tablet) 1 mg PO DAILY [facility] Last Admin: 06/08/22 12:33 Dose: Not Given Guaifenesin (Guaifenesin 100 Mg/5 Ml Liquid) 5 ml PO Q6H PRN PRN Reason: Cough Hydroxyzine HCl (Hydroxyzine Hcl 25 Mg Tablet) 25 mg PO Q6H PRN PRN Reason: Anxiety Last Admin: 06/04/22 10:07 Dose: 25 mg Levothyroxine Sodium (Levothyroxine Sodium 25 Mcg Tablet) 25 mcg PO DAILY@0600 [facility] Last Admin: 06/08/22 11:48 Dose: Not Given Loperamide HCl (Loperamide Hcl 2 Mg Capsule) 2 mg PO Q6H PRN PRN Reason: Diarrhea Magnesium Hydroxide (Milk Of Magnesia 30 Ml Oral.Susp) 30 ml PO DAILY PRN PRN Reason: Constipation Mirtazapine (Mirtazapine 15 Mg Tablet) 45 mg PO BEDTIME [facility] Last Admin: 06/07/22 20:22 Dose: 45 mg Non-Formulary Medication (Desvenlafaxine Succinate [Pristiq]) 100 mg PO DAILY [facility] Omeprazole (Omeprazole 20 Mg Capsule.) 20 mg PO BID@0630,1630 [facility] Last Admin: 06/08/22 11:48 Dose: Not Given Ondansetron HCl (Ondansetron Odt 4 Mg Tab.Rapdis) 4 mg TRANSLINGU Q6H PRN PRN Reason: nausea Last Admin: 06/07/22 11:36 Dose: 4 mg Oxycodone HCl (Oxycodone Hcl Immed Release 5 Mg Tablet) 5 mg PO Q4H PRN PRN Reason: Pain, Severe (Pain Scale 7-10) Last Admin: 06/06/22 20:33 Dose: 5 mg Polyethylene Glycol (Polyethylene Glycol 3350 17 Gm Powd.Pack) 17 gm PO DAILY [facility] Last Admin: 06/08/22 12:34 Dose: Not Given Prochlorperazine Maleate (Prochlorperazine Maleate 5 Mg Tablet) 5 mg PO QID PRN PRN Reason: Nausea And Vomiting Tramadol HCl (Tramadol Hcl 50 Mg Tablet) 50 mg PO Q6H PRN PRN Reason: Pain, Moderate (Pain Scale 4-6 Last Admin: 06/07/22 11:44 Dose: 50 mg Trazodone HCl (Trazodone Hcl 50 Mg Tablet) 50 mg PO BEDTIME MRX1 PRN PRN Reason: Insomnia Last Admin: 06/05/22 21:07 Dose: 50 mg Valsartan (Valsartan 80 Mg Tablet) 80 mg PO DAILY [facility]; Protocol Last Admin: 06/08/22 12:34 Dose: Not Given Allergies Allergies Allergy/AdvReac Type Severity Reaction Status Date / Time meperidine [From Demerol] AdvReac Unknown Unknown Verified 05/22/22 16:45 Assessment & Plan Assessment & Plan (1) Bipolar 1 disorder, depressed: Status: Acute Code(s): F31.9 - Bipolar disorder, unspecified Plan / continue tx. Pt did report pain around PEG- hospitalist and Dr. Gaytan contacted, hospitalist saw pt. Dr. gaytan states PEG is in place- no need for him to see pt at this time. Plan 1. Continue with medical and surgical suggestions. 2. Increase Abilify up to 5 mg p.o. in the morning on June 05. 3. Start Klonopin 0.25 p.o. t.i.d. to target anxiety. Klonopin was increased up 0.5 p.o. t.i.d. on June 07. Increase Remeron up to 45 mg today on June 06. Reason for contiued inpatient stay Substantial Risk for: inability to function, rapid decompensation and med/psych decompensation Time Spent With Patient Time: Total time managing care of this patient today __20__ minutes.
[2022-06-08] MEDS: Omeprazole 20 MG CAPSULE.DR PO (15:59)
[2022-06-08] MEDS: clonazePAM 0.5 MG TABLET PO ×2 (15:59→20:25)
[2022-06-08 18:00] VITALS: BP 114/54; PULSE 67; RESP 16; TEMP 36.3; O2SAT 93
[2022-06-08 20:15] VITALS: PULSE 63; RESP 15; O2SAT 94
[2022-06-08] MEDS: Albuterol/Iprat 2.5/0.5MG 3 ML AMPUL.NEB INHALE (20:15)
[2022-06-08] MEDS: Mirtazapine 15 MG TABLET 45 MG PO (20:25)
[2022-06-08] MEDS: Atorvastatin Calcium 10 MG TABLET PO (20:25)
[2022-06-08] MEDS: Ferrous Sulfate 324 MG TABLET.DR PO (20:25)
[2022-06-09] MEDS: Levothyroxine Sodium 25 MCG TABLET PO (05:49)
[2022-06-09] MEDS: Omeprazole 20 MG CAPSULE.DR PO ×2 (05:49→15:36)
[2022-06-09] MEDS: Ferrous Sulfate 324 MG TABLET.DR PO ×2 (08:12→20:13)
[2022-06-09] MEDS: ARIPiprazole 5 MG TABLET PO (08:12)
[2022-06-09] MEDS: Valsartan 80 MG TABLET PO (08:12)
[2022-06-09] MEDS: Cyanocobalamin (Vitamin B-12) 100 MCG TABLET PO (08:13)
[2022-06-09] MEDS: clonazePAM 0.5 MG TABLET PO ×3 (08:13→20:13)
[2022-06-09] MEDS: Folic Acid 1 MG TABLET PO (08:13)
[2022-06-09 08:15] VITALS: BP 137/65; PULSE 75; RESP 18; TEMP 37.1; O2SAT 97
[2022-06-09] MEDS: Albuterol/Iprat 2.5/0.5MG 3 ML AMPUL.NEB INHALE ×3 (09:25→19:55)
[2022-06-09 09:26] VITALS: PULSE 65; RESP 16; O2SAT 95
[2022-06-09] MEDS: Ondansetron ODT 4 MG TAB.RAPDIS TRANSLINGU (11:59)
[2022-06-09] MEDS: hydrOXYzine HCL 25 MG TABLET PO (11:59)
[2022-06-09] MEDS: traMADoL HCL 50 MG TABLET PO (12:41)
--- NOTE | 2022-06-09 15:34 | P.PNPSI_ITS ---
Subjective Subjective Date of Service: 06/09/22 Reason For Visit: mood disorder Interim History: Met with patient; reviewed chart; discussed with team Patient remains very anxious. On approach she says she is doing okay but on further inquiry endorses extreme anxiety; she says it comes and goes and explains that she has tried different things but nothing seems to make much difference. Patient says her incision is healing well. She is open to medication management Mental Status Exam Mental Status Exam Patient Appearance: Well Grooomed and Appropriate Patient Orientation: Person and Situation Level of Consciousness: Awake and Appropriate Patient Behavior: Appropriate and Anxious Mood Description: Constricted and Anxious Affect Description: Anxious Patient Cognition Impaired: Yes Ability to Follow Directions: Good Speech Pattern: Clear Hallucinations: None Delusions: Not Present Thought Process: Goal Oriented and Slowed Thinking Thought Content: positive for [place] and positive for [place] Oriented Judgement: Fair Diagnostics Vital Signs (24Hr): Vital Signs - 24 hr 06/08/22 18:00 06/08/22 20:15 06/09/22 08:15 Temperature 97.4 F 98.7 F Pulse Rate 67 63 75 Respiratory Rate 16 15 18 Blood Pressure 114/54 L 137/65 Pulse Oximetry 93 97 Oxygen Delivery Method Room Air 06/09/22 09:26 Temperature Pulse Rate 65 Respiratory Rate 16 Blood Pressure Pulse Oximetry Oxygen Delivery Method BMI result Body Mass Index 30.1 Labs 06/01/22 08:01 Imaging Radiology Impressions: ITS Impressions Chest X-Ray 06/01/22 14:47 IMPRESSION: Small left pleural effusion with superjacent hazy opacities suggesting atelectasis and/or infiltrates. KUB X-Ray 06/01/22 14:47 IMPRESSION: G-tube in the left upper quadrant with a small air bubble in the fundus. The bowel gas pattern is nonspecific. Medications Medications Current Medications Acetaminophen (Acetaminophen 325 Mg Tablet) 650 mg PO Q6H PRN PRN Reason: Headache/Pain Mild Scale (1-3) Last Admin: 06/05/22 21:06 Dose: 650 mg Al Hydroxide/Mg Hydroxide (Magnesium Hydrox/Alum Hydrox 30 Ml Oral.Susp) 30 ml PO Q6H PRN PRN Reason: Heartburn/Nausea Albuterol/Ipratropium (Albuterol/Iprat 2.5/0.5mg 3 Ml Ampul.Neb) 3 ml INHALE RQ4H WHILE AWAKE [facility] Last Admin: 06/09/22 13:10 Dose: 3 ml Aripiprazole (Aripiprazole 5 Mg Tablet) 5 mg PO DAILY [facility] Last Admin: 06/09/22 08:12 Dose: 5 mg Atorvastatin Calcium (Atorvastatin Calcium 10 Mg Tablet) 10 mg PO BEDTIME [facility] Last Admin: 06/08/22 20:25 Dose: 10 mg Clonazepam (Clonazepam 0.5 Mg Tablet) 0.5 mg PO TID [facility] Last Admin: 06/09/22 14:37 Dose: 0.5 mg Cyanocobalamin (Cyanocobalamin (Vitamin B-12) 100 Mcg Tablet) 100 mcg PO DAILY [facility] Last Admin: 06/09/22 08:13 Dose: 100 mcg Docusate Sodium (Docusate Sodium 100 Mg Capsule) 100 mg PO BID PRN PRN Reason: Constipation Ferrous Sulfate (Ferrous Sulfate 324 Mg Tablet.) 324 mg PO BID [facility] Last Admin: 06/09/22 08:12 Dose: 324 mg Folic Acid (Folic Acid 1 Mg Tablet) 1 mg PO DAILY [facility] Last Admin: 06/09/22 08:13 Dose: 1 mg Guaifenesin (Guaifenesin 100 Mg/5 Ml Liquid) 5 ml PO Q6H PRN PRN Reason: Cough Hydroxyzine HCl (Hydroxyzine Hcl 25 Mg Tablet) 25 mg PO Q6H PRN PRN Reason: Anxiety Last Admin: 06/09/22 11:59 Dose: 25 mg Levothyroxine Sodium (Levothyroxine Sodium 25 Mcg Tablet) 25 mcg PO DAILY@0600 [facility] Last Admin: 06/09/22 05:49 Dose: 25 mcg Loperamide HCl (Loperamide Hcl 2 Mg Capsule) 2 mg PO Q6H PRN PRN Reason: Diarrhea Magnesium Hydroxide (Milk Of Magnesia 30 Ml Oral.Susp) 30 ml PO DAILY PRN PRN Reason: Constipation Mirtazapine (Mirtazapine 15 Mg Tablet) 45 mg PO BEDTIME [facility] Last Admin: 06/08/22 20:25 Dose: 45 mg Non-Formulary Medication (Desvenlafaxine Succinate [Pristiq]) 100 mg PO DAILY [facility] Omeprazole (Omeprazole 20 Mg Capsule.) 20 mg PO BID@0630,1630 [facility] Last Admin: 06/09/22 05:49 Dose: 20 mg Ondansetron HCl (Ondansetron Odt 4 Mg Tab.Rapdis) 4 mg TRANSLINGU Q6H PRN PRN Reason: nausea Last Admin: 06/09/22 11:59 Dose: 4 mg Oxycodone HCl (Oxycodone Hcl Immed Release 5 Mg Tablet) 5 mg PO Q4H PRN PRN Reason: Pain, Severe (Pain Scale 7-10) Last Admin: 06/06/22 20:33 Dose: 5 mg Polyethylene Glycol (Polyethylene Glycol 3350 17 Gm Powd.Pack) 17 gm PO DAILY [facility] Last Admin: 06/09/22 10:49 Dose: Not Given Prochlorperazine Maleate (Prochlorperazine Maleate 5 Mg Tablet) 5 mg PO QID PRN PRN Reason: Nausea And Vomiting Tramadol HCl (Tramadol Hcl 50 Mg Tablet) 50 mg PO Q6H PRN PRN Reason: Pain, Moderate (Pain Scale 4-6 Last Admin: 06/09/22 12:41 Dose: 50 mg Trazodone HCl (Trazodone Hcl 50 Mg Tablet) 50 mg PO BEDTIME MRX1 PRN PRN Reason: Insomnia Last Admin: 06/05/22 21:07 Dose: 50 mg Valsartan (Valsartan 80 Mg Tablet) 80 mg PO DAILY [facility]; Protocol Last Admin: 06/09/22 08:12 Dose: 80 mg Allergies Allergies Allergy/AdvReac Type Severity Reaction Status Date / Time meperidine [From Demerol] AdvReac Unknown Unknown Verified 05/22/22 16:45 Assessment & Plan Assessment & Plan (1) Bipolar 1 disorder, depressed: Status: Acute Code(s): F31.9 - Bipolar disorder, unspecified Plan 06/03 continue tx. Pt did report pain around PEG- hospitalist and Dr. Gaytan contacted, hospitalist saw pt. Dr. gaytan states PEG is in place- no need for him to see pt at this time. 06/09 remains very anxious; open to medication management, will review chart f urther Plan 1. Continue with medical and surgical suggestions. 2. Increase Abilify up to 5 mg p.o. in the morning on June 05. 3. Start Klonopin 0.25 p.o. t.i.d. to target anxiety. Klonopin was increased up 0.5 p.o. t.i.d. on June 07 4. Increase Remeron up to 45 mg today on June 06. Patient educated on: diagnosis and medication risk/benefits Informed Consent: understands and further education needed Reason for contiued inpatient stay Substantial Risk for: rapid decompensation Time Spent With Patient Time: Total time managing care of this patient today ____ minutes.
[2022-06-09 18:00] VITALS: BP 99/54; PULSE 52; RESP 17; TEMP 37.1; O2SAT 93
[2022-06-09 19:56] VITALS: PULSE 62; O2SAT 92
[2022-06-09] MEDS: Mirtazapine 15 MG TABLET 45 MG PO (20:13)
[2022-06-09] MEDS: Atorvastatin Calcium 10 MG TABLET PO (20:13)
[2022-06-10] MEDS: Levothyroxine Sodium 25 MCG TABLET PO (06:06)
[2022-06-10] MEDS: Omeprazole 20 MG CAPSULE.DR PO ×2 (06:06→15:42)
[2022-06-10 07:10] VITALS: BP 127/60; PULSE 77; RESP 18; TEMP 36.6; O2SAT 95
[2022-06-10] MEDS: Ondansetron ODT 4 MG TAB.RAPDIS TRANSLINGU ×2 (07:55→16:41)
[2022-06-10] MEDS: Valsartan 80 MG TABLET PO (07:55)
[2022-06-10] MEDS: Cyanocobalamin (Vitamin B-12) 100 MCG TABLET PO (07:56)
[2022-06-10] MEDS: clonazePAM 0.5 MG TABLET PO ×3 (07:57→20:37)
[2022-06-10] MEDS: ARIPiprazole 5 MG TABLET PO (07:57)
[2022-06-10] MEDS: Ferrous Sulfate 324 MG TABLET.DR PO ×2 (07:57→20:40)
[2022-06-10] MEDS: Folic Acid 1 MG TABLET PO (07:57)
--- NOTE | 2022-06-10 10:31 | P.PNPSI_ITS ---
Subjective Subjective Date of Service: 06/10/22 Reason For Visit: mood disorder Interim History: Met with patient; discussed in team; pt remains anxious; she said she was a little nauseus today as well. Instructional Support Assistant discussed med change to zyprexa and pt amenable Mental Status Exam Mental Status Exam Patient Appearance: Well Grooomed and Appropriate Patient Orientation: Person and Situation Level of Consciousness: Awake and Appropriate Patient Behavior: Appropriate and Anxious Mood Description: Constricted and Anxious Affect Description: Anxious Patient Cognition Impaired: Yes Ability to Follow Directions: Good Speech Pattern: Clear Hallucinations: None Delusions: Not Present Thought Process: Goal Oriented and Slowed Thinking Thought Content: positive for [place] and positive for Goal Oriented Judgement: Fair Diagnostics Vital Signs (24Hr): Vital Signs - 24 hr 06/09/22 19:56 06/09/22 18:00 06/10/22 07:10 Temperature 98.8 F 97.8 F Pulse Rate 62 52 77 Respiratory Rate 17 18 Blood Pressure 99/54 L 127/60 Pulse Oximetry 93 95 Oxygen Delivery Method Room Air Room Air BMI result Body Mass Index 30.1 Labs 06/01/22 08:01 Imaging Radiology Impressions: ITS Impressions Chest X-Ray 06/01/22 14:47 IMPRESSION: Small left pleural effusion with superjacent hazy opacities suggesting atelectasis and/or infiltrates. KUB X-Ray 06/01/22 14:47 IMPRESSION: G-tube in the left upper quadrant with a small air bubble in the fundus. The bowel gas pattern is nonspecific. Medications Medications Current Medications Acetaminophen (Acetaminophen 325 Mg Tablet) 650 mg PO Q6H PRN PRN Reason: Headache/Pain Mild Scale (1-3) Last Admin: 06/05/22 21:06 Dose: 650 mg Al Hydroxide/Mg Hydroxide (Magnesium Hydrox/Alum Hydrox 30 Ml Oral.Susp) 30 ml PO Q6H PRN PRN Reason: Heartburn/Nausea Albuterol/Ipratropium (Albuterol/Iprat 2.5/0.5mg 3 Ml Ampul.Neb) 3 ml INHALE RQ4H WHILE AWAKE [facility] Last Admin: 06/10/22 08:01 Dose: Not Given Atorvastatin Calcium (Atorvastatin Calcium 10 Mg Tablet) 10 mg PO BEDTIME [facility] Last Admin: 06/09/22 20:13 Dose: 10 mg Clonazepam (Clonazepam 0.5 Mg Tablet) 0.5 mg PO TID [facility] Last Admin: 06/10/22 07:57 Dose: 0.5 mg Cyanocobalamin (Cyanocobalamin (Vitamin B-12) 100 Mcg Tablet) 100 mcg PO DAILY [facility] Last Admin: 06/10/22 07:56 Dose: 100 mcg Docusate Sodium (Docusate Sodium 100 Mg Capsule) 100 mg PO BID PRN PRN Reason: Constipation Ferrous Sulfate (Ferrous Sulfate 324 Mg Tablet.) 324 mg PO BID [facility] Last Admin: 06/10/22 07:57 Dose: 324 mg Folic Acid (Folic Acid 1 Mg Tablet) 1 mg PO DAILY [facility] Last Admin: 06/10/22 07:57 Dose: 1 mg Guaifenesin (Guaifenesin 100 Mg/5 Ml Liquid) 5 ml PO Q6H PRN PRN Reason: Cough Hydroxyzine HCl (Hydroxyzine Hcl 25 Mg Tablet) 25 mg PO Q6H PRN PRN Reason: Anxiety Last Admin: 06/09/22 11:59 Dose: 25 mg Levothyroxine Sodium (Levothyroxine Sodium 25 Mcg Tablet) 25 mcg PO DAILY@0600 [facility] Last Admin: 06/10/22 06:06 Dose: 25 mcg Loperamide HCl (Loperamide Hcl 2 Mg Capsule) 2 mg PO Q6H PRN PRN Reason: Diarrhea Magnesium Hydroxide (Milk Of Magnesia 30 Ml Oral.Susp) 30 ml PO DAILY PRN PRN Reason: Constipation Mirtazapine (Mirtazapine 15 Mg Tablet) 45 mg PO BEDTIME [facility] Last Admin: 06/09/22 20:13 Dose: 45 mg Non-Formulary Medication (Desvenlafaxine Succinate [Pristiq]) 100 mg PO DAILY [facility] Olanzapine (Olanzapine 2.5 Mg Tablet) 2.5 mg PO BID [facility] Omeprazole (Omeprazole 20 Mg Capsule.) 20 mg PO BID@0630,1630 [facility] Last Admin: 06/10/22 06:06 Dose: 20 mg Ondansetron HCl (Ondansetron Odt 4 Mg Tab.Rapdis) 4 mg TRANSLINGU Q6H PRN PRN Reason: nausea Last Admin: 06/10/22 07:55 Dose: 4 mg Oxycodone HCl (Oxycodone Hcl Immed Release 5 Mg Tablet) 5 mg PO Q4H PRN PRN Reason: Pain, Severe (Pain Scale 7-10) Last Admin: 06/06/22 20:33 Dose: 5 mg Polyethylene Glycol (Polyethylene Glycol 3350 17 Gm Powd.Pack) 17 gm PO DAILY [facility] Last Admin: 06/10/22 08:30 Dose: Not Given Prochlorperazine Maleate (Prochlorperazine Maleate 5 Mg Tablet) 5 mg PO QID PRN PRN Reason: Nausea And Vomiting Tramadol HCl (Tramadol Hcl 50 Mg Tablet) 50 mg PO Q6H PRN PRN Reason: Pain, Moderate (Pain Scale 4-6 Last Admin: 06/09/22 12:41 Dose: 50 mg Trazodone HCl (Trazodone Hcl 50 Mg Tablet) 50 mg PO BEDTIME MRX1 PRN PRN Reason: Insomnia Last Admin: 06/05/22 21:07 Dose: 50 mg Valsartan (Valsartan 80 Mg Tablet) 80 mg PO DAILY [facility]; Protocol Last Admin: 06/10/22 07:55 Dose: 80 mg Allergies Allergies Allergy/AdvReac Type Severity Reaction Status Date / Time meperidine [From Demerol] AdvReac Unknown Unknown Verified 05/22/22 16:45 Assessment & Plan Assessment & Plan (1) Bipolar 1 disorder, depressed: Status: Acute Code(s): F31.9 - Bipolar disorder, unspecified Plan 06/03 continue tx. Pt did report pain around PEG- hospitalist and Dr. Gaytan contacted, hospitalist saw pt. Dr. gaytan states PEG is in place- no need for him to see pt at this time. 06/09 remains very anxious; open to medication management, will review chart further 06/10 Abilify recently increased; however will discontinue Abilify dose for a few days and see if Zyprexa 2.5 mg b.i.d. can help instead; reviewed chart and property underwriter could not find history of medication trials listed Plan 1. Continue with medical and surgical suggestions. 2. Temporarily dc Abilify and Try Zyprexa 2.5mg BID 3. Start Klonopin 0.25 p.o. t.i.d. to target anxiety. Klonopin was increased up 0.5 p.o. t.i.d. on June 07 4. Increase Remeron up to 45 mg today on June 06. Patient educated on: diagnosis and medication risk/benefits Informed Consent: understands Reason for contiued inpatient stay Substantial Risk for: inability to function Time Spent With Patient Time: Total time managing care of this patient today ____ minutes.
[2022-06-10] MEDS: OLANZapine 2.5 MG TABLET PO ×2 (11:14→20:38)
[2022-06-10 18:00] VITALS: BP 124/61; PULSE 72; RESP 16; TEMP 36.3; O2SAT 97
[2022-06-10] MEDS: Mirtazapine 15 MG TABLET 45 MG PO (20:37)
[2022-06-10] MEDS: traMADoL HCL 50 MG TABLET PO (20:38)
[2022-06-10] MEDS: Atorvastatin Calcium 10 MG TABLET PO (20:39)
[2022-06-11] MEDS: Levothyroxine Sodium 25 MCG TABLET PO (05:55)
[2022-06-11] MEDS: Omeprazole 20 MG CAPSULE.DR PO ×2 (05:55→15:32)
[2022-06-11] MEDS: Ferrous Sulfate 324 MG TABLET.DR PO ×2 (10:58→20:16)
[2022-06-11] MEDS: OLANZapine 2.5 MG TABLET PO ×2 (10:59→20:16)
[2022-06-11] MEDS: Valsartan 80 MG TABLET PO (10:59)
[2022-06-11] MEDS: clonazePAM 0.5 MG TABLET PO ×3 (10:59→20:16)
[2022-06-11] MEDS: Cyanocobalamin (Vitamin B-12) 100 MCG TABLET PO (10:59)
[2022-06-11] MEDS: polyethylene glycoL 3350 17 GM POWD.PACK PO (10:59)
[2022-06-11] MEDS: Folic Acid 1 MG TABLET PO (10:59)
[2022-06-11 12:58] VITALS: PULSE 78; RESP 17; O2SAT 98
[2022-06-11] MEDS: Albuterol/Iprat 2.5/0.5MG 3 ML AMPUL.NEB INHALE (12:58)
[2022-06-11] MEDS: Acetaminophen 325 MG TABLET 650 MG PO (13:11)
--- NOTE | 2022-06-11 13:25 | P.PNPSI_ITS ---
Subjective Subjective Date of Service: 06/11/22 Reason For Visit: mood disorder Subjective Notes: Conditional Voluntary Interim History: The nursing staff reported the patient has been pleasant and cooperative, she had been fully compliant with treatment. The staff has noticed that his surgical wound looked slightly erythematous. On interview the patient denies new symptoms she reports feeling tired and anxious, I encouraged to engage on more activities in the unit. Mental Status Exam Mental Status Exam Patient Appearance: Appropriate Patient Orientation: Person and Situation Level of Consciousness: Awake and Appropriate Patient Behavior: Guarded and Passive Mood Description: Withdrawn Affect Description: Constricted Patient Cognition Impaired: Yes Ability to Follow Directions: Good Speech Pattern: Clear Hallucinations: None Delusions: Not Present Thought Process: Distracted and Linear Thought Content: positive for [place], positive for Circum[place] and positive for Poverty of Content Judgement: Fair Diagnostics Vital Signs (24Hr): Vital Signs - 24 hr 06/10/22 18:00 06/11/22 12:58 Temperature 97.3 F Pulse Rate 72 78 Respiratory Rate 16 17 Blood Pressure 124/61 Pulse Oximetry 97 Oxygen Delivery Method Room Air BMI result Body Mass Index 30.1 Labs 06/01/22 08:01 Imaging Radiology Impressions: ITS Impressions Chest X-Ray 06/01/22 14:47 IMPRESSION: Small left pleural effusion with superjacent hazy opacities suggesting atelectasis and/or infiltrates. KUB X-Ray 06/01/22 14:47 IMPRESSION: G-tube in the left upper quadrant with a small air bubble in the fundus. The bowel gas pattern is nonspecific. Medications Medications Current Medications Acetaminophen (Acetaminophen 325 Mg Tablet) 650 mg PO Q6H PRN PRN Reason: Headache/Pain Mild Scale (1-3) Last Admin: 06/11/22 13:11 Dose: 650 mg Al Hydroxide/Mg Hydroxide (Magnesium Hydrox/Alum Hydrox 30 Ml Oral.Susp) 30 ml PO Q6H PRN PRN Reason: Heartburn/Nausea Albuterol/Ipratropium (Albuterol/Iprat 2.5/0.5mg 3 Ml Ampul.Neb) 3 ml INHALE RQ4H WHILE AWAKE [facility] Last Admin: 06/11/22 12:58 Dose: 3 ml Atorvastatin Calcium (Atorvastatin Calcium 10 Mg Tablet) 10 mg PO BEDTIME [facility] Last Admin: 06/10/22 20:39 Dose: 10 mg Clonazepam (Clonazepam 0.5 Mg Tablet) 0.5 mg PO TID [facility] Last Admin: 06/11/22 10:59 Dose: 0.5 mg Cyanocobalamin (Cyanocobalamin (Vitamin B-12) 100 Mcg Tablet) 100 mcg PO DAILY [facility] Last Admin: 06/11/22 10:59 Dose: 100 mcg Docusate Sodium (Docusate Sodium 100 Mg Capsule) 100 mg PO BID PRN PRN Reason: Constipation Ferrous Sulfate (Ferrous Sulfate 324 Mg Tablet.) 324 mg PO BID [facility] Last Admin: 06/11/22 10:58 Dose: 324 mg Folic Acid (Folic Acid 1 Mg Tablet) 1 mg PO DAILY [facility] Last Admin: 06/11/22 10:59 Dose: 1 mg Guaifenesin (Guaifenesin 100 Mg/5 Ml Liquid) 5 ml PO Q6H PRN PRN Reason: Cough Hydroxyzine HCl (Hydroxyzine Hcl 25 Mg Tablet) 25 mg PO Q6H PRN PRN Reason: Anxiety Last Admin: 06/09/22 11:59 Dose: 25 mg Levothyroxine Sodium (Levothyroxine Sodium 25 Mcg Tablet) 25 mcg PO DAILY@0600 [facility] Last Admin: 06/11/22 05:55 Dose: 25 mcg Loperamide HCl (Loperamide Hcl 2 Mg Capsule) 2 mg PO Q6H PRN PRN Reason: Diarrhea Magnesium Hydroxide (Milk Of Magnesia 30 Ml Oral.Susp) 30 ml PO DAILY PRN PRN Reason: Constipation Mirtazapine (Mirtazapine 15 Mg Tablet) 45 mg PO BEDTIME [facility] Last Admin: 06/10/22 20:37 Dose: 45 mg Non-Formulary Medication (Desvenlafaxine Succinate [Pristiq]) 100 mg PO DAILY [facility] Olanzapine (Olanzapine 2.5 Mg Tablet) 2.5 mg PO BID [facility] Last Admin: 06/11/22 10:59 Dose: 2.5 mg Omeprazole (Omeprazole 20 Mg Capsule.) 20 mg PO BID@0630,1630 [facility] Last Admin: 06/11/22 05:55 Dose: 20 mg Ondansetron HCl (Ondansetron Odt 4 Mg Tab.Rapdis) 4 mg TRANSLINGU Q6H PRN PRN Reason: nausea Last Admin: 06/10/22 16:41 Dose: 4 mg Oxycodone HCl (Oxycodone Hcl Immed Release 5 Mg Tablet) 5 mg PO Q4H PRN PRN Reason: Pain, Severe (Pain Scale 7-10) Last Admin: 06/06/22 20:33 Dose: 5 mg Polyethylene Glycol (Polyethylene Glycol 3350 17 Gm Powd.Pack) 17 gm PO DAILY [facility] Last Admin: 06/11/22 10:59 Dose: 17 gm Prochlorperazine Maleate (Prochlorperazine Maleate 5 Mg Tablet) 5 mg PO QID PRN PRN Reason: Nausea And Vomiting Tramadol HCl (Tramadol Hcl 50 Mg Tablet) 50 mg PO Q6H PRN PRN Reason: Pain, Moderate (Pain Scale 4-6 Last Admin: 06/10/22 20:38 Dose: 50 mg Trazodone HCl (Trazodone Hcl 50 Mg Tablet) 50 mg PO BEDTIME MRX1 PRN PRN Reason: Insomnia Last Admin: 06/05/22 21:07 Dose: 50 mg Valsartan (Valsartan 80 Mg Tablet) 80 mg PO DAILY [facility]; Protocol Last Admin: 06/11/22 10:59 Dose: 80 mg Allergies Allergies Allergy/AdvReac Type Severity Reaction Status Date / Time meperidine [From Demerol] AdvReac Unknown Unknown Verified 05/22/22 16:45 Assessment & Plan Assessment & Plan (1) Bipolar 1 disorder, depressed: Status: Acute Code(s): F31.9 - Bipolar disorder, unspecified Plan 06/03 continue tx. Pt did report pain around PEG- hospitalist and Dr. Gaytan contacted, hospitalist saw pt. Dr. gaytan states PEG is in place- no need for him to see pt at this time. 06/09 remains very anxious; open to medication management, will review chart further 06/10 Abilify recently increased; however will discontinue Abilify dose for a few days and see if Zyprexa 2.5 mg b.i.d. can help instead; reviewed chart and scientific writer could not find history of medication trials listed Plan 1. Continue with medical and surgical suggestions. 2. Restart Abilify 5 mg p.o. daily 3. Start Klonopin 0.25 p.o. t.i.d. to target anxiety. Klonopin was increased up 0.5 p.o. t.i.d. on Zenia 6 4. Increase Remeron up to 45 mg today on June 06. Reason for contiued inpatient stay Substantial Risk for: inability to function, rapid decompensation and med/psych decompensation Time Spent With Patient Time: Total time managing care of this patient today __20__ minutes.
[2022-06-11] MEDS: traMADoL HCL 50 MG TABLET PO (15:32)
[2022-06-11] MEDS: Mirtazapine 15 MG TABLET 45 MG PO (20:16)
[2022-06-11] MEDS: Atorvastatin Calcium 10 MG TABLET PO (20:16)
[2022-06-12] MEDS: Omeprazole 20 MG CAPSULE.DR PO ×2 (06:00→15:58)
[2022-06-12] MEDS: traMADoL HCL 50 MG TABLET PO (06:00)
[2022-06-12] MEDS: Levothyroxine Sodium 25 MCG TABLET PO (06:00)
[2022-06-12 09:19] VITALS: BP 147/67; PULSE 68; RESP 18; TEMP 37.3; O2SAT 95
[2022-06-12] MEDS: Ferrous Sulfate 324 MG TABLET.DR PO ×2 (09:21→21:18)
[2022-06-12] MEDS: clonazePAM 0.5 MG TABLET PO ×3 (09:21→21:18)
[2022-06-12] MEDS: Valsartan 80 MG TABLET PO (09:21)
[2022-06-12] MEDS: Cyanocobalamin (Vitamin B-12) 100 MCG TABLET PO (09:22)
[2022-06-12] MEDS: Folic Acid 1 MG TABLET PO (09:22)
[2022-06-12] MEDS: OLANZapine 2.5 MG TABLET PO ×2 (09:22→21:18)
[2022-06-12] MEDS: oxyCODONE HCl Immed Release 5 MG TABLET PO (11:38)
[2022-06-12] MEDS: hydrOXYzine HCL 25 MG TABLET PO (16:03)
--- NOTE | 2022-06-12 17:02 | P.PNPSI_ITS ---
Subjective Subjective Date of Service: 06/12/22 Reason For Visit: mood disorder Subjective Notes: Conditional Voluntary Interim History: The nursing staff reported the patient has been and since and depressed. She spent most of the time in her room and she was out only for meals. She had been fully compliant with treatment. The health and social care teacher reported that they talk with the family and the patient most likely the best placement would be on assisted living facility. On interview the patient reports that she had been depressed but no active suicidal ideation. Mental Status Exam Mental Status Exam Patient Appearance: Well Grooomed and Appropriate Patient Orientation: Person and Situation Level of Consciousness: Awake and Appropriate Patient Behavior: Guarded and Passive Mood Description: Withdrawn and Constricted Affect Description: Constricted Patient Cognition Impaired: Yes Ability to Follow Directions: Good Speech Pattern: Clear Hallucinations: None Delusions: Not Present Thought Process: Linear Thought Content: positive for Goal Oriented Judgement: Fair Diagnostics Vital Signs (24Hr): Vital Signs - 24 hr 06/12/22 09:19 Temperature 99.2 F Pulse Rate 68 Respiratory Rate 18 Blood Pressure 147/67 H Pulse Oximetry 95 Oxygen Delivery Method Room Air BMI result Body Mass Index 30.1 Labs 06/01/22 08:01 Imaging Radiology Impressions: ITS Impressions Chest X-Ray 06/01/22 14:47 IMPRESSION: Small left pleural effusion with superjacent hazy opacities suggesting atelectasis and/or infiltrates. KUB X-Ray 06/01/22 14:47 IMPRESSION: G-tube in the left upper quadrant with a small air bubble in the fundus. The bowel gas pattern is nonspecific. Medications Medications Current Medications Acetaminophen (Acetaminophen 325 Mg Tablet) 650 mg PO Q6H PRN PRN Reason: Headache/Pain Mild Scale (1-3) Last Admin: 06/11/22 13:11 Dose: 650 mg Al Hydroxide/Mg Hydroxide (Magnesium Hydrox/Alum Hydrox 30 Ml Oral.Susp) 30 ml PO Q6H PRN PRN Reason: Heartburn/Nausea Albuterol/Ipratropium (Albuterol/Iprat 2.5/0.5mg 3 Ml Ampul.Neb) 3 ml INHALE RQ4H WHILE AWAKE [facility] Last Admin: 06/12/22 15:42 Dose: Not Given Atorvastatin Calcium (Atorvastatin Calcium 10 Mg Tablet) 10 mg PO BEDTIME [facility] Last Admin: 06/11/22 20:16 Dose: 10 mg Clonazepam (Clonazepam 0.5 Mg Tablet) 0.5 mg PO TID [facility] Last Admin: 06/12/22 14:07 Dose: 0.5 mg Cyanocobalamin (Cyanocobalamin (Vitamin B-12) 100 Mcg Tablet) 100 mcg PO DAILY [facility] Last Admin: 06/12/22 09:22 Dose: 100 mcg Docusate Sodium (Docusate Sodium 100 Mg Capsule) 100 mg PO BID PRN PRN Reason: Constipation Ferrous Sulfate (Ferrous Sulfate 324 Mg Tablet.) 324 mg PO BID [facility] Last Admin: 06/12/22 09:21 Dose: 324 mg Folic Acid (Folic Acid 1 Mg Tablet) 1 mg PO DAILY [facility] Last Admin: 06/12/22 09:22 Dose: 1 mg Guaifenesin (Guaifenesin 100 Mg/5 Ml Liquid) 5 ml PO Q6H PRN PRN Reason: Cough Hydroxyzine HCl (Hydroxyzine Hcl 25 Mg Tablet) 25 mg PO Q6H PRN PRN Reason: Anxiety Last Admin: 06/12/22 16:03 Dose: 25 mg Levothyroxine Sodium (Levothyroxine Sodium 25 Mcg Tablet) 25 mcg PO DAILY@0600 [facility] Last Admin: 06/12/22 06:00 Dose: 25 mcg Loperamide HCl (Loperamide Hcl 2 Mg Capsule) 2 mg PO Q6H PRN PRN Reason: Diarrhea Magnesium Hydroxide (Milk Of Magnesia 30 Ml Oral.Susp) 30 ml PO DAILY PRN PRN Reason: Constipation Mirtazapine (Mirtazapine 15 Mg Tablet) 45 mg PO BEDTIME [facility] Last Admin: 06/11/22 20:16 Dose: 45 mg Non-Formulary Medication (Desvenlafaxine Succinate [Pristiq]) 100 mg PO DAILY [facility] Olanzapine (Olanzapine 2.5 Mg Tablet) 2.5 mg PO BID [facility] Last Admin: 06/12/22 09:22 Dose: 2.5 mg Omeprazole (Omeprazole 20 Mg Capsule.Dr) 20 mg PO BID@0630,1630 [facility] Last Admin: 06/12/22 15:58 Dose: 20 mg Ondansetron HCl (Ondansetron Odt 4 Mg Tab.Rapdis) 4 mg TRANSLINGU Q6H PRN PRN Reason: nausea Last Admin: 06/10/22 16:41 Dose: 4 mg Oxycodone HCl (Oxycodone Hcl Immed Release 5 Mg Tablet) 5 mg PO Q4H PRN PRN Reason: Pain, Severe (Pain Scale 7-10) Last Admin: 06/12/22 11:38 Dose: 5 mg Polyethylene Glycol (Polyethylene Glycol 3350 17 Gm Powd.Pack) 17 gm PO DAILY [facility] Last Admin: 06/12/22 09:22 Dose: Not Given Prochlorperazine Maleate (Prochlorperazine Maleate 5 Mg Tablet) 5 mg PO QID PRN PRN Reason: Nausea And Vomiting Tramadol HCl (Tramadol Hcl 50 Mg Tablet) 50 mg PO Q6H PRN PRN Reason: Pain, Moderate (Pain Scale 4-6 Last Admin: 06/12/22 06:00 Dose: 50 mg Trazodone HCl (Trazodone Hcl 50 Mg Tablet) 50 mg PO BEDTIME MRX1 PRN PRN Reason: Insomnia Last Admin: 06/05/22 21:07 Dose: 50 mg Valsartan (Valsartan 80 Mg Tablet) 80 mg PO DAILY [facility]; Protocol Last Admin: 06/12/22 09:21 Dose: 80 mg Allergies Allergies Allergy/AdvReac Type Severity Reaction Status Date / Time meperidine [From Demerol] AdvReac Unknown Unknown Verified 05/22/22 16:45 Assessment & Plan Assessment & Plan (1) Nausea & vomiting: Status: Acute Code(s): R11.2 - Nausea with vomiting, unspecified Assessment and Plan: She had undergone reduction of gastric volvulus, repair of paraesophageal hernia, G-tube placement last 05/24/2022. She had been doing well had been transferred to the geropsych unit. She had been tolerating diet but had 1 episode of vomiting after lunch today. Her abdominal exam is benign. She looks well and comfortable. I released her cap from the G-tube and there was not much output. I am going to check a chest x-ray as well as a KUB. She may have clear liquids for now and I will follow along. She otherwise appears to have a nonsurgical abdomen. (2) Bipolar 1 disorder, depressed: Status: Acute Code(s): F31.9 - Bipolar disorder, unspecified Plan The patient is an elderly female with a long history of bipolar disorder who was admitted for exacerbation of depression with suicidal ideation. Later on she was transferred to surgery due to nausea and vomiting and she had the surgical procedure to resolve her yet alert any a. Plan 1. Continue with same medications. 2. Surgery consult for management of the surgical wound. 3. Reassessment with results Reason for contiued inpatient stay Substantial Risk for: inability to function, rapid decompensation and med/psych decompensation Time Spent With Patient Time: Total time managing care of this patient today __20__ minutes.
[2022-06-12 18:00] VITALS: BP 118/58; PULSE 67; RESP 15; TEMP 37.2; O2SAT 93
[2022-06-12] MEDS: Albuterol/Iprat 2.5/0.5MG 3 ML AMPUL.NEB INHALE (20:32)
[2022-06-12 20:33] VITALS: PULSE 68; RESP 18; O2SAT 95
[2022-06-12] MEDS: Atorvastatin Calcium 10 MG TABLET PO (21:18)
[2022-06-12] MEDS: Mirtazapine 15 MG TABLET 45 MG PO (21:18)
[2022-06-13] MEDS: Omeprazole 20 MG CAPSULE.DR PO ×2 (06:51→15:40)
[2022-06-13] MEDS: Levothyroxine Sodium 25 MCG TABLET PO (06:51)
[2022-06-13 07:55] VITALS: BP 127/60; PULSE 90; RESP 20; TEMP 36.7; O2SAT 94
[2022-06-13] MEDS: Ferrous Sulfate 324 MG TABLET.DR PO ×2 (08:13→20:43)
[2022-06-13] MEDS: OLANZapine 2.5 MG TABLET PO ×2 (08:13→20:44)
[2022-06-13] MEDS: Cyanocobalamin (Vitamin B-12) 100 MCG TABLET PO (08:13)
[2022-06-13] MEDS: Folic Acid 1 MG TABLET PO (08:13)
[2022-06-13] MEDS: Valsartan 80 MG TABLET PO (08:13)
[2022-06-13] MEDS: clonazePAM 0.5 MG TABLET PO ×3 (08:45→20:44)
[2022-06-13] MEDS: Ondansetron ODT 4 MG TAB.RAPDIS TRANSLINGU (08:46)
--- NOTE | 2022-06-13 13:11 | HO.PSYCHPN ---
Subjective Subjective Date of Service: 06/13/22 Reason For Visit: mood disorder Subjective Notes: Conditional Voluntary Interim History: The nursing staff reported the patient had been compliant with her treatment, she reports that she does not have energy she states most of the time in her room. She slept well last night. The social media designer reported that she contact her daughter and apparently she did well on a combination of Lamictal and Effexor. Unfortunately Effexor to increase her anxiety so we have continue with Remeron that the was been titrated up to 45 mg. On interview the patient denies new symptoms she reports depression and anxiety and she agreed to start Lamictal 25 mg p.o. b.i.d. to target depression. I put a consult to surgery regarding her aftercare for her surgery Mental Status Exam Mental Status Exam Patient Appearance: Appropriate Patient Orientation: Person and Situation Level of Consciousness: Awake and Appropriate Patient Behavior: Guarded and Passive Mood Description: Withdrawn Affect Description: Constricted Patient Cognition Impaired: Yes Ability to Follow Directions: Good Speech Pattern: Clear Hallucinations: None Delusions: Not Present Thought Process: Distracted and Evasive Thought Content: positive for [place] and positive for Circumstantial Judgement: Fair Diagnostics Vital Signs (24Hr): Vital Signs - 24 hr 06/12/22 20:33 06/12/22 18:00 06/13/22 07:55 Temperature 98.9 F 98.0 F Pulse Rate 68 67 90 Respiratory Rate 18 15 20 Blood Pressure 118/58 L 127/60 Pulse Oximetry 93 94 Oxygen Delivery Method Room Air Room Air BMI result Body Mass Index 30.1 Labs 06/01/22 08:01 Imaging Radiology Impressions: ITS Impressions Chest X-Ray 06/01/22 14:47 IMPRESSION: Small left pleural effusion with superjacent hazy opacities suggesting atelectasis and/or infiltrates. KUB X-Ray 06/01/22 14:47 IMPRESSION: G-tube in the left upper quadrant with a small air bubble in the fundus. The bowel gas pattern is nonspecific. Medications Medications Current Medications Acetaminophen (Acetaminophen 325 Mg Tablet) 650 mg PO Q6H PRN PRN Reason: Headache/Pain Mild Scale (1-3) Last Admin: 06/11/22 13:11 Dose: 650 mg Al Hydroxide/Mg Hydroxide (Magnesium Hydrox/Alum Hydrox 30 Ml Oral.Susp) 30 ml PO Q6H PRN PRN Reason: Heartburn/Nausea Albuterol/Ipratropium (Albuterol/Iprat 2.5/0.5mg 3 Ml Ampul.Neb) 3 ml INHALE RQ4H WHILE AWAKE [facility] Last Admin: 06/13/22 09:59 Dose: Not Given Atorvastatin Calcium (Atorvastatin Calcium 10 Mg Tablet) 10 mg PO BEDTIME [facility] Last Admin: 06/12/22 21:18 Dose: 10 mg Clonazepam (Clonazepam 0.5 Mg Tablet) 0.5 mg PO TID [facility] Last Admin: 06/13/22 08:45 Dose: 0.5 mg Cyanocobalamin (Cyanocobalamin (Vitamin B-12) 100 Mcg Tablet) 100 mcg PO DAILY [facility] Last Admin: 06/13/22 08:13 Dose: 100 mcg Docusate Sodium (Docusate Sodium 100 Mg Capsule) 100 mg PO BID PRN PRN Reason: Constipation Ferrous Sulfate (Ferrous Sulfate 324 Mg Tablet.Dr) 324 mg PO BID [facility] Last Admin: 06/13/22 08:13 Dose: 324 mg Folic Acid (Folic Acid 1 Mg Tablet) 1 mg PO DAILY [facility] Last Admin: 06/13/22 08:13 Dose: 1 mg Guaifenesin (Guaifenesin 100 Mg/5 Ml Liquid) 5 ml PO Q6H PRN PRN Reason: Cough Hydroxyzine HCl (Hydroxyzine Hcl 25 Mg Tablet) 25 mg PO Q6H PRN PRN Reason: Anxiety Last Admin: 06/12/22 16:03 Dose: 25 mg Lamotrigine (Lamotrigine 25 Mg Tablet) 25 mg PO BID [facility] Levothyroxine Sodium (Levothyroxine Sodium 25 Mcg Tablet) 25 mcg PO DAILY@0600 [facility] Last Admin: 06/13/22 06:51 Dose: 25 mcg Loperamide HCl (Loperamide Hcl 2 Mg Capsule) 2 mg PO Q6H PRN PRN Reason: Diarrhea Magnesium Hydroxide (Milk Of Magnesia 30 Ml Oral.Susp) 30 ml PO DAILY PRN PRN Reason: Constipation Mirtazapine (Mirtazapine 15 Mg Tablet) 45 mg PO BEDTIME [facility] Last Admin: 06/12/22 21:18 Dose: 45 mg Non-Formulary Medication (Desvenlafaxine Succinate [Pristiq]) 100 mg PO DAILY [facility] Olanzapine (Olanzapine 2.5 Mg Tablet) 2.5 mg PO BID [facility] Last Admin: 06/13/22 08:13 Dose: 2.5 mg Omeprazole (Omeprazole 20 Mg Capsule.Dr) 20 mg PO BID@0630,1630 [facility] Last Admin: 06/13/22 06:51 Dose: 20 mg Ondansetron HCl (Ondansetron Odt 4 Mg Tab.Rapdis) 4 mg TRANSLINGU Q6H PRN PRN Reason: nausea Last Admin: 06/13/22 08:46 Dose: 4 mg Oxycodone HCl (Oxycodone Hcl Immed Release 5 Mg Tablet) 5 mg PO Q4H PRN PRN Reason: Pain, Severe (Pain Scale 7-10) Last Admin: 06/12/22 11:38 Dose: 5 mg Polyethylene Glycol (Polyethylene Glycol 3350 17 Gm Powd.Pack) 17 gm PO DAILY [facility] Last Admin: 06/13/22 08:16 Dose: Not Given Prochlorperazine Maleate (Prochlorperazine Maleate 5 Mg Tablet) 5 mg PO QID PRN PRN Reason: Nausea And Vomiting Tramadol HCl (Tramadol Hcl 50 Mg Tablet) 50 mg PO Q6H PRN PRN Reason: Pain, Moderate (Pain Scale 4-6 Last Admin: 06/12/22 06:00 Dose: 50 mg Trazodone HCl (Trazodone Hcl 50 Mg Tablet) 50 mg PO BEDTIME MRX1 PRN PRN Reason: Insomnia Last Admin: 06/05/22 21:07 Dose: 50 mg Valsartan (Valsartan 80 Mg Tablet) 80 mg PO DAILY [facility]; Protocol Last Admin: 06/13/22 08:13 Dose: 80 mg Allergies Allergies Allergy/AdvReac Type Severity Reaction Status Date / Time meperidine [From Demerol] AdvReac Unknown Unknown Verified 05/22/22 16:45 Assessment & Plan Assessment & Plan (1) Nausea & vomiting: Status: Acute Code(s): R11.2 - Nausea with vomiting, unspecified Assessment and Plan: She had undergone reduction of gastric volvulus, repair of paraesophageal hernia, G-tube placement last 05/24/2022. She had been doing well had been transferred to the geropsych unit. She had been tolerating diet but had 1 episode of vomiting after lunch today. Her abdominal exam is benign. She looks well and comfortable. I released her cap from the G-tube and there was not much output. I am going to check a chest x-ray as well as a KUB. She may have clear liquids for now and I will follow along. She otherwise appears to have a nonsurgical abdomen. (2) Bipolar 1 disorder, depressed: Status: Acute Code(s): F31.9 - Bipolar disorder, unspecified Plan The patient is an elderly female with a long history of bipolar disorder who was admitted for exacerbation of depression with suicidal ideation. Later on she was transferred to surgery due to nausea and vomiting and she had the surgical procedure to resolve her yet alert any a. Plan 1. Continue with same medications. 2. Surgery consult for management of the surgical wound. 3. Reassessment with results 4. Continue Remeron 45 mg p.o. q.h.s. to target depression. 5. Start Lamictal 25 mg p.o. b.i.d. on June 13. Reason for contiued inpatient stay Substantial Risk for: inability to function, rapid decompensation and med/psych decompensation Time Spent With Patient Time: Total time managing care of this patient today _20___ minutes.
[2022-06-13 18:00] VITALS: BP 113/56; PULSE 58; RESP 20; TEMP 36.7; O2SAT 93
[2022-06-13] MEDS: Mirtazapine 15 MG TABLET 45 MG PO (20:43)
[2022-06-13] MEDS: Atorvastatin Calcium 10 MG TABLET PO (20:44)
[2022-06-13] MEDS: lamoTRIgine 25 MG TABLET PO (20:44)
[2022-06-13] MEDS: oxyCODONE HCl Immed Release 5 MG TABLET PO (20:47)
[2022-06-14] MEDS: Omeprazole 20 MG CAPSULE.DR PO ×2 (05:24→16:27)
[2022-06-14] MEDS: Levothyroxine Sodium 25 MCG TABLET PO (05:24)
[2022-06-14 07:00] VITALS: BMI 30.2
[2022-06-14 07:30] VITALS: BP 176/72; PULSE 75; RESP 18; TEMP 36.3; O2SAT 95
[2022-06-14] MEDS: polyethylene glycoL 3350 17 GM POWD.PACK PO (08:31)
[2022-06-14] MEDS: Valsartan 80 MG TABLET PO (08:31)
[2022-06-14] MEDS: Folic Acid 1 MG TABLET PO (08:31)
[2022-06-14] MEDS: clonazePAM 0.5 MG TABLET PO ×3 (08:32→20:25)
[2022-06-14] MEDS: OLANZapine 2.5 MG TABLET PO ×2 (08:32→20:25)
[2022-06-14] MEDS: lamoTRIgine 25 MG TABLET PO ×2 (08:32→20:25)
[2022-06-14] MEDS: oxyCODONE HCl Immed Release 5 MG TABLET PO (08:32)
[2022-06-14] MEDS: Cyanocobalamin (Vitamin B-12) 100 MCG TABLET PO (08:32)
[2022-06-14] MEDS: Ferrous Sulfate 324 MG TABLET.DR PO ×2 (08:33→20:25)
[2022-06-14 10:04] LABS: MANUAL DIFF FLAG NO
[2022-06-14 10:09] LABS: Basophils Percent Auto 0.5 % (0-2); Eosinophils Absolute Auto 0.5 X10*3/uL (0.0-0.4); Eosinophils Percent Auto 12.3 % (0-4); Hematocrit 26.7 % (37.0-47.0); Hemoglobin 8.3 g/dl (12.0-16.0); Imm Gran Abs Auto 0.01 X10*3/uL (0.00-0.03); Imm Gran Pct Auto 0.3 % (0.0-0.4); Lymphocytes Absolute Auto 0.9 X10*3/uL (1.2-4.9); Lymphocytes Percent Auto 21.9 % (20-40); Mean Corpuscular HGB Conc 31.1 g/dl (31.0-35.0); Mean Corpuscular Hemoglobin 33.9 pg (27.0-33.0); Mean Platelet Volume 12.2 fL (9.4-12.3); Monocytes Absolute Auto 0.4 X10*3/uL (0.1-1.2); Monocytes Percent Auto 10.6 % (2-11); Neutrophils Absolute Auto 2.2 x10*3/uL (2.0-8.3); Neutrophils Percent Auto 54.4 % (45-73); Platelet Count 223 X10*3/uL (160-400); Red Blood Count 2.45 X10*6/uL (4.20-5.50); Red Cell Distribution Width 15.9 % (11.0-16.0)
--- NOTE | 2022-06-14 14:46 | HO.PSYCHPN ---
Subjective Subjective Date of Service: 06/14/22 Reason For Visit: mood disorder Subjective Notes: Conditional Voluntary Interim History: The nursing staff reported the patient has been quiet, isolative not attending to groups. She reported feeling scared in the facility Due to very loud peers. Also the staff noticed that the patient her depression 5/10. today I contact the Surgical Team and she does not need an acute follow-up. She will need to have her tube removed as an outpatient 6 Weeks after the surgery. On interview the patient denies new symptoms, she agreed to increase the Lamictal Mental Status Exam Mental Status Exam Patient Appearance: Well Grooomed and Appropriate Patient Orientation: Person and Situation Level of Consciousness: Awake and Appropriate Patient Behavior: Guarded and Passive Mood Description: Calm Affect Description: Constricted Patient Cognition Impaired: Yes Ability to Follow Directions: Good Speech Pattern: Clear Hallucinations: None Delusions: Not Present Thought Process: Distracted and Evasive Thought Content: positive for Circumstantial Judgement: Fair Diagnostics Vital Signs (24Hr): Vital Signs - 24 hr 06/13/22 18:00 06/14/22 07:30 Temperature 98.1 F 97.3 F Pulse Rate 58 75 Respiratory Rate 20 18 Blood Pressure 113/56 L 176/72 H Pulse Oximetry 93 95 Oxygen Delivery Method Room Air Room Air BMI result Body Mass Index 30.1 Labs 06/14/22 09:57 06/01/22 08:01 Labs: Laboratory Results - last 48 hr 06/14/22 09:57 WBC 4.0 L RBC 2.45 L Hgb 8.3 L Hct 26.7 L MCV 109.0 H MCH 33.9 H MCHC 31.1 RDW 15.9 Plt Count 223 MPV 12.2 Immature Gran % (Auto) 0.3 Neut % (Auto) 54.4 Lymph % (Auto) 21.9 Garza % (Auto) 10.6 Eos % (Auto) 12.3 H Baso % (Auto) 0.5 Lymph # (Auto) 0.9 L Garza # (Auto) 0.4 Eos # (Auto) 0.5 H Baso # (Auto) 0.0 Abs Immat Gran (auto) 0.01 Absolute Neuts (auto) 2.2 Absolute Nucleated RBC 0.000 Nucleated RBC % (auto) 0.0 Imaging Radiology Impressions: ITS Impressions Chest X-Ray 06/01/22 14:47 IMPRESSION: Small left pleural effusion with superjacent hazy opacities suggesting atelectasis and/or infiltrates. KUB X-Ray 06/01/22 14:47 IMPRESSION: G-tube in the left upper quadrant with a small air bubble in the fundus. The bowel gas pattern is nonspecific. Medications Medications Current Medications Acetaminophen (Acetaminophen 325 Mg Tablet) 650 mg PO Q6H PRN PRN Reason: Headache/Pain Mild Scale (1-3) Last Admin: 06/11/22 13:11 Dose: 650 mg Al Hydroxide/Mg Hydroxide (Magnesium Hydrox/Alum Hydrox 30 Ml Oral.Susp) 30 ml PO Q6H PRN PRN Reason: Heartburn/Nausea Albuterol/Ipratropium (Albuterol/Iprat 2.5/0.5mg 3 Ml Ampul.Neb) 3 ml INHALE RQ4H WHILE AWAKE [facility] Last Admin: 06/14/22 12:50 Dose: Not Given Atorvastatin Calcium (Atorvastatin Calcium 10 Mg Tablet) 10 mg PO BEDTIME [facility] Last Admin: 06/13/22 20:44 Dose: 10 mg Clonazepam (Clonazepam 0.5 Mg Tablet) 0.5 mg PO TID [facility] Last Admin: 06/14/22 08:32 Dose: 0.5 mg Cyanocobalamin (Cyanocobalamin (Vitamin B-12) 100 Mcg Tablet) 100 mcg PO DAILY [facility] Last Admin: 06/14/22 08:32 Dose: 100 mcg Docusate Sodium (Docusate Sodium 100 Mg Capsule) 100 mg PO BID PRN PRN Reason: Constipation Ferrous Sulfate (Ferrous Sulfate 324 Mg Tablet.) 324 mg PO BID [facility] Last Admin: 06/14/22 08:33 Dose: 324 mg Folic Acid (Folic Acid 1 Mg Tablet) 1 mg PO DAILY [facility] Last Admin: 06/14/22 08:31 Dose: 1 mg Guaifenesin (Guaifenesin 100 Mg/5 Ml Liquid) 5 ml PO Q6H PRN PRN Reason: Cough Hydroxyzine HCl (Hydroxyzine Hcl 25 Mg Tablet) 25 mg PO Q6H PRN PRN Reason: Anxiety Last Admin: 06/12/22 16:03 Dose: 25 mg Lamotrigine (Lamotrigine 25 Mg Tablet) 25 mg PO BID [facility] Last Admin: 06/14/22 08:32 Dose: 25 mg Levothyroxine Sodium (Levothyroxine Sodium 25 Mcg Tablet) 25 mcg PO DAILY@0600 [facility] Last Admin: 06/14/22 05:24 Dose: 25 mcg Loperamide HCl (Loperamide Hcl 2 Mg Capsule) 2 mg PO Q6H PRN PRN Reason: Diarrhea Magnesium Hydroxide (Milk Of Magnesia 30 Ml Oral.Susp) 30 ml PO DAILY PRN PRN Reason: Constipation Mirtazapine (Mirtazapine 15 Mg Tablet) 45 mg PO BEDTIME [facility] Last Admin: 06/13/22 20:43 Dose: 45 mg Non-Formulary Medication (Desvenlafaxine Succinate [Pristiq]) 100 mg PO DAILY [facility] Olanzapine (Olanzapine 2.5 Mg Tablet) 2.5 mg PO BID [facility] Last Admin: 06/14/22 08:32 Dose: 2.5 mg Omeprazole (Omeprazole 20 Mg Capsule.Dr) 20 mg PO BID@0630,1630 [facility] Last Admin: 06/14/22 05:24 Dose: 20 mg Ondansetron HCl (Ondansetron Odt 4 Mg Tab.Rapdis) 4 mg TRANSLINGU Q6H PRN PRN Reason: nausea Last Admin: 06/13/22 08:46 Dose: 4 mg Oxycodone HCl (Oxycodone Hcl Immed Release 5 Mg Tablet) 5 mg PO Q4H PRN PRN Reason: Pain, Severe (Pain Scale 7-10) Last Admin: 06/14/22 08:32 Dose: 5 mg Polyethylene Glycol (Polyethylene Glycol 3350 17 Gm Powd.Pack) 17 gm PO DAILY [facility] Last Admin: 06/14/22 08:31 Dose: 17 gm Prochlorperazine Maleate (Prochlorperazine Maleate 5 Mg Tablet) 5 mg PO QID PRN PRN Reason: Nausea And Vomiting Tramadol HCl (Tramadol Hcl 50 Mg Tablet) 50 mg PO Q6H PRN PRN Reason: Pain, Moderate (Pain Scale 4-6 Last Admin: 06/12/22 06:00 Dose: 50 mg Trazodone HCl (Trazodone Hcl 50 Mg Tablet) 50 mg PO BEDTIME MRX1 PRN PRN Reason: Insomnia Last Admin: 06/05/22 21:07 Dose: 50 mg Valsartan (Valsartan 80 Mg Tablet) 80 mg PO DAILY [facility]; Protocol Last Admin: 06/14/22 08:31 Dose: 80 mg Allergies Allergies Allergy/AdvReac Type Severity Reaction Status Date / Time meperidine [From Demerol] AdvReac Unknown Unknown Verified 05/22/22 16:45 Assessment & Plan Assessment & Plan (1) Nausea & vomiting: Status: Acute Code(s): R11.2 - Nausea with vomiting, unspecified Assessment and Plan: She had undergone reduction of gastric volvulus, repair of paraesophageal hernia, G-tube placement last 05/24/2022. She had been doing well had been transferred to the geropsych unit. She had been tolerating diet but had 1 episode of vomiting after lunch today. Her abdominal exam is benign. She looks well and comfortable. I released her cap from the G-tube and there was not much output. I am going to check a chest x-ray as well as a KUB. She may have clear liquids for now and I will follow along. She otherwise appears to have a nonsurgical abdomen. (2) Bipolar 1 disorder, depressed: Status: Acute Code(s): F31.9 - Bipolar disorder, unspecified Plan The patient is an elderly female with a long history of bipolar disorder who was admitted for exacerbation of depression with suicidal ideation. Later on she was transferred to surgery due to nausea and vomiting and she had the surgical procedure to resolve her yet alert any a. Plan 1. Continue with same medications. 2. Surgery consult for management of the surgical wound. 3. Reassessment with results 4. Continue Remeron 45 mg p.o. q.h.s. to target depression. 5. Start Lamictal 25 mg p.o. b.i.d. on June 13. we will increase up to 50 mg p.o. b.i.d. in 3 days Reason for contiued inpatient stay Substantial Risk for: inability to function, rapid decompensation and med/psych decompensation Time Spent With Patient Time: Total time managing care of this patient today __20__ minutes.
[2022-06-14] MEDS: Mirtazapine 15 MG TABLET 45 MG PO (20:24)
[2022-06-14] MEDS: Atorvastatin Calcium 10 MG TABLET PO (20:25)
[2022-06-14 20:26] VITALS: BP 112/56; PULSE 68; RESP 16; TEMP 36.7; O2SAT 92
[2022-06-15] MEDS: Levothyroxine Sodium 25 MCG TABLET PO (06:00)
[2022-06-15] MEDS: Omeprazole 20 MG CAPSULE.DR PO ×2 (06:00→15:31)
[2022-06-15 07:55] VITALS: BP 172/74; PULSE 80; RESP 18; TEMP 37.6; O2SAT 94
[2022-06-15] MEDS: polyethylene glycoL 3350 17 GM POWD.PACK PO (08:13)
[2022-06-15] MEDS: Folic Acid 1 MG TABLET PO (08:14)
[2022-06-15] MEDS: Valsartan 80 MG TABLET PO (08:14)
[2022-06-15] MEDS: lamoTRIgine 25 MG TABLET PO (08:14)
[2022-06-15] MEDS: Cyanocobalamin (Vitamin B-12) 100 MCG TABLET PO (08:14)
[2022-06-15] MEDS: Ferrous Sulfate 324 MG TABLET.DR PO ×2 (08:14→20:49)
[2022-06-15] MEDS: clonazePAM 0.5 MG TABLET PO ×3 (08:14→20:49)
[2022-06-15] MEDS: OLANZapine 2.5 MG TABLET PO (08:14)
[2022-06-15 08:18] LABS: Estimated Average Glucose 105 mg/dL; Hemoglobin A1c % 5.3 %
[2022-06-15 08:57] LABS: Alanine Aminotransferase 6 U/L (0-31); Albumin Level 3.6 g/dL (3.5-5.0); Alkaline Phosphatase 81 U/L (39-117); Anion Gap 13 (12-20); Aspartate Amino Transferase 12 U/L (5-31); Bilirubin Direct 0.2 mg/dL (0.0-0.5); Bilirubin Total 0.6 mg/dL (0.0-1.0); Blood Urea Nitrogen 19 mg/dL (9-16); Carbon Dioxide 28 mmol/L (22-29); Chloride 107 mmol/L (96-108); Creatinine Clr Calc Pharmacy 38.8; Estimated Glomerular Filt Rate 48; Glucose Random 107 mg/dL (60-115); Potassium 4.6 mmol/L (3.3-5.1); Sodium 143 mmol/L (135-145)
[2022-06-15 09:12] LABS: Thyroid Stimulating Hormone 2.19 uIU/mL (0.32-4.0)
--- NOTE | 2022-06-15 14:33 | HO.PSYCHPN ---
Subjective Subjective Date of Service: 06/15/22 Reason For Visit: mood disorder Subjective Notes: Conditional Voluntary Interim History: the nursing staff reported the patient had been compliant with treatment, most of the time isolative. She results reported depression 5/10 and spends most of the time in her bed. The social work manager reported we will have a family meeting next week and start thinking of discharge planning. We review her medications and we change Zyprexa only at night 5 mg p.o. q.h.s. instead 2.5 p.o. b.i.d. since she looks over-sedated during the day. Mental Status Exam Mental Status Exam Patient Appearance: Well Grooomed and Appropriate Patient Orientation: Person and Situation Level of Consciousness: Awake and Appropriate Patient Behavior: Guarded and Passive Mood Description: Calm Affect Description: Constricted Patient Cognition Impaired: Yes Ability to Follow Directions: Good Speech Pattern: Clear and Appropriate Hallucinations: None Delusions: Not Present Thought Process: Distracted and Evasive Thought Content: positive for [place] and positive for Circumstantial Judgement: Fair Diagnostics Vital Signs (24Hr): Vital Signs - 24 hr 06/14/22 20:26 06/15/22 07:55 Temperature 98.1 F 99.6 F Pulse Rate 68 80 Respiratory Rate 16 18 Blood Pressure 112/56 L 172/74 H Pulse Oximetry 92 94 Oxygen Delivery Method Room Air Room Air BMI result Body Mass Index 30.2 Labs 06/14/22 09:57 06/15/22 07:58 Labs: Laboratory Results - last 48 hr 06/14/22 06/15/22 06/15/22 09:57 07:58 07:58 WBC 4.0 L RBC 2.45 L Hgb 8.3 L Hct 26.7 L MCV 109.0 H MCH 33.9 H MCHC 31.1 RDW 15.9 Plt Count 223 MPV 12.2 Immature Gran % (Auto) 0.3 Neut % (Auto) 54.4 Lymph % (Auto) 21.9 [place] % (Auto) 10.6 Eos % (Auto) 12.3 H Baso % (Auto) 0.5 Lymph # (Auto) 0.9 L [place] # (Auto) 0.4 Eos # (Auto) 0.5 H Baso # (Auto) 0.0 Abs Immat Gran (auto) 0.01 Absolute Neuts (auto) 2.2 Absolute Nucleated RBC 0.000 Nucleated RBC % (auto) 0.0 Sodium 143 Potassium 4.6 D Chloride 107 Carbon Dioxide 28 Anion Gap 13 BUN 19 H Creatinine 1.08 Estim Creat Clear Calc 38.8 Estimated GFR 48 Random Glucose 107 Estimat Average Glucose 105 Hemoglobin A1c % 5.3 Calcium 9.0 D Total Bilirubin 0.6 Direct Bilirubin 0.2 AST 12 ALT 6 Alkaline Phosphatase 81 Total Protein 6.0 L Albumin 3.6 TSH 2.19 Imaging Radiology Impressions: ITS Impressions Chest X-Ray 06/01/22 14:47 IMPRESSION: Small left pleural effusion with superjacent hazy opacities suggesting atelectasis and/or infiltrates. KUB X-Ray 06/01/22 14:47 IMPRESSION: G-tube in the left upper quadrant with a small air bubble in the fundus. The bowel gas pattern is nonspecific. Medications Medications Current Medications Acetaminophen (Acetaminophen 325 Mg Tablet) 650 mg PO Q6H PRN PRN Reason: Headache/Pain Mild Scale (1-3) Last Admin: 06/11/22 13:11 Dose: 650 mg Al Hydroxide/Mg Hydroxide (Magnesium Hydrox/Alum Hydrox 30 Ml Oral.Susp) 30 ml PO Q6H PRN PRN Reason: Heartburn/Nausea Atorvastatin Calcium (Atorvastatin Calcium 10 Mg Tablet) 10 mg PO BEDTIME [facility] Last Admin: 06/14/22 20:25 Dose: 10 mg Clonazepam (Clonazepam 0.5 Mg Tablet) 0.5 mg PO TID [facility] Last Admin: 06/15/22 08:14 Dose: 0.5 mg Cyanocobalamin (Cyanocobalamin (Vitamin B-12) 100 Mcg Tablet) 100 mcg PO DAILY [facility] Last Admin: 06/15/22 08:14 Dose: 100 mcg Docusate Sodium (Docusate Sodium 100 Mg Capsule) 100 mg PO BID PRN PRN Reason: Constipation Ferrous Sulfate (Ferrous Sulfate 324 Mg Tablet.Dr) 324 mg PO BID [facility] Last Admin: 06/15/22 08:14 Dose: 324 mg Folic Acid (Folic Acid 1 Mg Tablet) 1 mg PO DAILY [facility] Last Admin: 06/15/22 08:14 Dose: 1 mg Guaifenesin (Guaifenesin 100 Mg/5 Ml Liquid) 5 ml PO Q6H PRN PRN Reason: Cough Hydroxyzine HCl (Hydroxyzine Hcl 25 Mg Tablet) 25 mg PO Q6H PRN PRN Reason: Anxiety Last Admin: 06/12/22 16:03 Dose: 25 mg Lamotrigine (Lamotrigine 25 Mg Tablet) 50 mg PO BID [facility] Levothyroxine Sodium (Levothyroxine Sodium 25 Mcg Tablet) 25 mcg PO DAILY@0600 [facility] Last Admin: 06/15/22 06:00 Dose: 25 mcg Loperamide HCl (Loperamide Hcl 2 Mg Capsule) 2 mg PO Q6H PRN PRN Reason: Diarrhea Magnesium Hydroxide (Milk Of Magnesia 30 Ml Oral.Susp) 30 ml PO DAILY PRN PRN Reason: Constipation Mirtazapine (Mirtazapine 15 Mg Tablet) 45 mg PO BEDTIME [facility] Last Admin: 06/14/22 20:24 Dose: 45 mg Non-Formulary Medication (Desvenlafaxine Succinate [Pristiq]) 100 mg PO DAILY [facility] Olanzapine (Olanzapine 5 Mg Tablet) 5 mg PO BEDTIME [facility] Omeprazole (Omeprazole 20 Mg Capsule.Dr) 20 mg PO BID@0630,1630 [facility] Last Admin: 06/15/22 06:00 Dose: 20 mg Ondansetron HCl (Ondansetron Odt 4 Mg Tab.Rapdis) 4 mg TRANSLINGU Q6H PRN PRN Reason: nausea Last Admin: 06/13/22 08:46 Dose: 4 mg Polyethylene Glycol (Polyethylene Glycol 3350 17 Gm Powd.Pack) 17 gm PO DAILY [facility] Last Admin: 06/15/22 08:13 Dose: 17 gm Prochlorperazine Maleate (Prochlorperazine Maleate 5 Mg Tablet) 5 mg PO QID PRN PRN Reason: Nausea And Vomiting Tramadol HCl (Tramadol Hcl 50 Mg Tablet) 50 mg PO Q6H PRN PRN Reason: Pain, Moderate (Pain Scale 4-6 Last Admin: 06/12/22 06:00 Dose: 50 mg Trazodone HCl (Trazodone Hcl 50 Mg Tablet) 50 mg PO BEDTIME MRX1 PRN PRN Reason: Insomnia Last Admin: 06/05/22 21:07 Dose: 50 mg Valsartan (Valsartan 80 Mg Tablet) 80 mg PO DAILY [facility]; Protocol Last Admin: 06/15/22 08:14 Dose: 80 mg Allergies Allergies Allergy/AdvReac Type Severity Reaction Status Date / Time meperidine [From Demerol] AdvReac Unknown Unknown Verified 05/22/22 16:45 Assessment & Plan Assessment & Plan (1) Nausea & vomiting: Status: Acute Code(s): R11.2 - Nausea with vomiting, unspecified Assessment and Plan: She had undergone reduction of gastric volvulus, repair of paraesophageal hernia, G-tube placement last 05/24/2022. She had been doing well had been transferred to the geropsych unit. She had been tolerating diet but had 1 episode of vomiting after lunch today. Her abdominal exam is benign. She looks well and comfortable. I released her cap from the G-tube and there was not much output. I am going to check a chest x-ray as well as a KUB. She may have clear liquids for now and I will follow along. She otherwise appears to have a nonsurgical abdomen. (2) Bipolar 1 disorder, depressed: Status: Acute Code(s): F31.9 - Bipolar disorder, unspecified Plan The patient is an elderly female with a long history of bipolar disorder who was admitted for exacerbation of depression with suicidal ideation. Later on she was transferred to surgery due to nausea and vomiting and she had the surgical procedure to resolve her yet alert any a. Plan 1. Continue with same medications. 2. Surgery consult for management of the surgical wound. 3. Reassessment with results 4. Continue Remeron 45 mg p.o. q.h.s. to target depression. 5. Start Lamictal 25 mg p.o. b.i.d. on June 13. we will increase up to 50 mg p.o. b.i.d. in 3 days Reason for continued inpatient stay Substantial Risk for: inability to function, rapid decompensation and med/psych decompensation Time Spent With Patient Time: Total time managing care of this patient today __20__ minutes.
[2022-06-15 18:00] VITALS: BP 94/42; PULSE 52; RESP 16; TEMP 37.1; O2SAT 90
[2022-06-15] MEDS: Mirtazapine 15 MG TABLET 45 MG PO (20:49)
[2022-06-15] MEDS: Atorvastatin Calcium 10 MG TABLET PO (20:50)
[2022-06-15] MEDS: lamoTRIgine 25 MG TABLET 50 MG PO (20:50)
[2022-06-15] MEDS: OLANZapine 5 MG TABLET PO (20:50)
[2022-06-16] MEDS: Acetaminophen 325 MG TABLET 650 MG PO ×2 (02:21→19:28)
[2022-06-16 03:15] VITALS: BP 120/60; PULSE 71; O2SAT 91
[2022-06-16 06:00] VITALS: BP 165/73; PULSE 86; RESP 16; O2SAT 93
[2022-06-16] MEDS: Omeprazole 20 MG CAPSULE.DR PO ×2 (06:16→17:00)
[2022-06-16] MEDS: Levothyroxine Sodium 25 MCG TABLET PO (06:16)
[2022-06-16] MEDS: Folic Acid 1 MG TABLET PO (08:50)
[2022-06-16] MEDS: lamoTRIgine 25 MG TABLET 50 MG PO ×2 (08:50→19:28)
[2022-06-16] MEDS: Valsartan 80 MG TABLET PO (08:50)
[2022-06-16] MEDS: Ferrous Sulfate 324 MG TABLET.DR PO ×2 (08:50→19:29)
[2022-06-16] MEDS: Cyanocobalamin (Vitamin B-12) 100 MCG TABLET PO (08:50)
[2022-06-16] MEDS: clonazePAM 0.5 MG TABLET PO ×3 (08:50→19:27)
--- NOTE | 2022-06-16 11:44 | HO.PSYCHPN ---
Subjective Subjective Date of Service: 06/16/22 Reason For Visit: mood disorder Subjective Notes: Conditional Voluntary Interim History: The patient is pleasant cooperative using walker somewhat distressed feeling constantly anxious unclear if she can take care of herself Mental Status Exam Mental Status Exam Patient Appearance: Well Grooomed and Appropriate Patient Orientation: Person and Situation Level of Consciousness: Awake and Appropriate Patient Behavior: Guarded and Passive Mood Description: Calm Affect Description: Constricted Patient Cognition Impaired: Yes Ability to Follow Directions: Good Speech Pattern: Clear and Appropriate Hallucinations: None Delusions: Not Present Thought Process: Distracted and Evasive Thought Content: positive for [place] and positive for Circumstantial Judgement: Fair Diagnostics Vital Signs (24Hr): Vital Signs - 24 hr 06/15/22 18:00 06/16/22 03:15 06/16/22 06:00 Temperature 98.7 F Pulse Rate 52 71 86 Respiratory Rate 16 16 Blood Pressure 94/42 L 120/60 165/73 H Pulse Oximetry 90 L 91 L 93 Oxygen Delivery Method Room Air Room Air Room Air BMI result Body Mass Index 30.2 Labs 06/14/22 09:57 06/15/22 07:58 Labs: Laboratory Results - last 48 hr 06/15/22 06/15/22 07:58 07:58 Sodium 143 Potassium 4.6 D Chloride 107 Carbon Dioxide 28 Anion Gap 13 BUN 19 H Creatinine 1.08 Estim Creat Clear Calc 38.8 Estimated GFR 48 Random Glucose 107 Estimat Average Glucose 105 Hemoglobin A1c % 5.3 Calcium 9.0 D Total Bilirubin 0.6 Direct Bilirubin 0.2 AST 12 ALT 6 Alkaline Phosphatase 81 Total Protein 6.0 L Albumin 3.6 TSH 2.19 Imaging Radiology Impressions: ITS Impressions Chest X-Ray 06/01/22 14:47 IMPRESSION: Small left pleural effusion with superjacent hazy opacities suggesting atelectasis and/or infiltrates. KUB X-Ray 06/01/22 14:47 IMPRESSION: G-tube in the left upper quadrant with a small air bubble in the fundus. The bowel gas pattern is nonspecific. Medications Medications Current Medications Acetaminophen (Acetaminophen 325 Mg Tablet) 650 mg PO Q6H PRN PRN Reason: Headache/Pain Mild Scale (1-3) Last Admin: 06/16/22 02:21 Dose: 650 mg Al Hydroxide/Mg Hydroxide (Magnesium Hydrox/Alum Hydrox 30 Ml Oral.Susp) 30 ml PO Q6H PRN PRN Reason: Heartburn/Nausea Atorvastatin Calcium (Atorvastatin Calcium 10 Mg Tablet) 10 mg PO BEDTIME [facility] Last Admin: 06/15/22 20:50 Dose: 10 mg Clonazepam (Clonazepam 0.5 Mg Tablet) 0.5 mg PO TID [facility] Last Admin: 06/16/22 08:50 Dose: 0.5 mg Cyanocobalamin (Cyanocobalamin (Vitamin B-12) 100 Mcg Tablet) 100 mcg PO DAILY [facility] Last Admin: 06/16/22 08:50 Dose: 100 mcg Docusate Sodium (Docusate Sodium 100 Mg Capsule) 100 mg PO BID PRN PRN Reason: Constipation Ferrous Sulfate (Ferrous Sulfate 324 Mg Tablet.) 324 mg PO BID [facility] Last Admin: 06/16/22 08:50 Dose: 324 mg Folic Acid (Folic Acid 1 Mg Tablet) 1 mg PO DAILY [facility] Last Admin: 06/16/22 08:50 Dose: 1 mg Guaifenesin (Guaifenesin 100 Mg/5 Ml Liquid) 5 ml PO Q6H PRN PRN Reason: Cough Hydroxyzine HCl (Hydroxyzine Hcl 25 Mg Tablet) 25 mg PO Q6H PRN PRN Reason: Anxiety Last Admin: 06/12/22 16:03 Dose: 25 mg Lamotrigine (Lamotrigine 25 Mg Tablet) 50 mg PO BID [facility] Last Admin: 06/16/22 08:50 Dose: 50 mg Levothyroxine Sodium (Levothyroxine Sodium 25 Mcg Tablet) 25 mcg PO DAILY@0600 [facility] Last Admin: 06/16/22 06:16 Dose: 25 mcg Loperamide HCl (Loperamide Hcl 2 Mg Capsule) 2 mg PO Q6H PRN PRN Reason: Diarrhea Magnesium Hydroxide (Milk Of Magnesia 30 Ml Oral.Susp) 30 ml PO DAILY PRN PRN Reason: Constipation Mirtazapine (Mirtazapine 15 Mg Tablet) 45 mg PO BEDTIME [facility] Last Admin: 06/15/22 20:49 Dose: 45 mg Non-Formulary Medication (Desvenlafaxine Succinate [Pristiq]) 100 mg PO DAILY [facility] Olanzapine (Olanzapine 5 Mg Tablet) 5 mg PO BEDTIME [facility] Last Admin: 06/15/22 20:50 Dose: 5 mg Omeprazole (Omeprazole 20 Mg Capsule.) 20 mg PO BID@0630,1630 [facility] Last Admin: 06/16/22 06:16 Dose: 20 mg Ondansetron HCl (Ondansetron Odt 4 Mg Tab.Rapdis) 4 mg TRANSLINGU Q6H PRN PRN Reason: nausea Last Admin: 06/13/22 08:46 Dose: 4 mg Polyethylene Glycol (Polyethylene Glycol 3350 17 Gm Powd.Pack) 17 gm PO DAILY [facility] Last Admin: 06/16/22 08:51 Dose: Not Given Prochlorperazine Maleate (Prochlorperazine Maleate 5 Mg Tablet) 5 mg PO QID PRN PRN Reason: Nausea And Vomiting Tramadol HCl (Tramadol Hcl 50 Mg Tablet) 50 mg PO Q6H PRN PRN Reason: Pain, Moderate (Pain Scale 4-6 Last Admin: 06/12/22 06:00 Dose: 50 mg Trazodone HCl (Trazodone Hcl 50 Mg Tablet) 50 mg PO BEDTIME MRX1 PRN PRN Reason: Insomnia Last Admin: 06/05/22 21:07 Dose: 50 mg Valsartan (Valsartan 80 Mg Tablet) 80 mg PO DAILY [facility]; Protocol Last Admin: 06/16/22 08:50 Dose: 80 mg Allergies Allergies Allergy/AdvReac Type Severity Reaction Status Date / Time meperidine [From Demerol] AdvReac Unknown Unknown Verified 05/22/22 16:45 Assessment & Plan Assessment & Plan (1) Nausea & vomiting: Status: Acute Code(s): R11.2 - Nausea with vomiting, unspecified Assessment and Plan: She had undergone reduction of gastric volvulus, repair of paraesophageal hernia, G-tube placement last 05/24/2022. She had been doing well had been transferred to the geropsych unit. She had been tolerating diet but had 1 episode of vomiting after lunch today. Her abdominal exam is benign. She looks well and comfortable. I released her cap from the G-tube and there was not much output. I am going to check a chest x-ray as well as a KUB. She may have clear liquids for now and I will follow along. She otherwise appears to have a nonsurgical abdomen. (2) Bipolar 1 disorder, depressed: Status: Acute Code(s): F31.9 - Bipolar disorder, unspecified Plan The patient is an elderly female with a long history of bipolar disorder who was admitted for exacerbation of depression with suicidal ideation. Later on she was transferred to surgery due to nausea and vomiting and she had the surgical procedure to resolve her yet alert any a. Plan 1. Continue with same medications. 2. Surgery consult for management of the surgical wound. 3. Reassessment with results 4. Continue Remeron 45 mg p.o. q.h.s. to target depression. 5. Start Lamictal 25 mg p.o. b.i.d. on June 13. we will increase up to 50 mg p.o. b.i.d. in 3 days 06/16/2022 Patient status post surgery require gastric fundoplication has significant anxiety Patient educated on: diagnosis and medication risk/benefits Informed Consent: further education needed Reason for continued inpatient stay Substantial Risk for: inability to function and med/psych decompensation Time Spent With Patient Time: Total time managing care of this patient today ____ minutes.
[2022-06-16 18:25] VITALS: BP 144/66; PULSE 66; TEMP 36.8; O2SAT 98
[2022-06-16] MEDS: Mirtazapine 15 MG TABLET 45 MG PO (19:26)
[2022-06-16] MEDS: Atorvastatin Calcium 10 MG TABLET PO (19:30)
[2022-06-16] MEDS: OLANZapine 5 MG TABLET PO (19:31)
[2022-06-17] MEDS: Omeprazole 20 MG CAPSULE.DR PO ×2 (06:23→16:23)
[2022-06-17] MEDS: Levothyroxine Sodium 25 MCG TABLET PO (06:23)
[2022-06-17 08:40] VITALS: BP 147/65; PULSE 69; RESP 18; TEMP 36.8; O2SAT 94
[2022-06-17] MEDS: Folic Acid 1 MG TABLET PO (08:49)
[2022-06-17] MEDS: Valsartan 80 MG TABLET PO (08:50)
[2022-06-17] MEDS: Ferrous Sulfate 324 MG TABLET.DR PO ×2 (08:50→20:28)
[2022-06-17] MEDS: clonazePAM 0.5 MG TABLET PO ×3 (08:51→20:28)
[2022-06-17] MEDS: Cyanocobalamin (Vitamin B-12) 100 MCG TABLET PO (08:51)
[2022-06-17] MEDS: lamoTRIgine 25 MG TABLET 50 MG PO ×2 (08:51→20:28)
[2022-06-17] MEDS: polyethylene glycoL 3350 17 GM POWD.PACK PO (08:51)
--- NOTE | 2022-06-17 14:20 | HO.PSYCHPN ---
Subjective Subjective Date of Service: 06/17/22 Reason For Visit: mood disorder Subjective Notes: Conditional Voluntary Interim History: The patient has ongoing severe depressive symptoms passive SI thoughts she would better off long history of depression Mental Status Exam Mental Status Exam Patient Appearance: Well Grooomed and Appropriate Patient Orientation: Person and Situation Level of Consciousness: Awake and Appropriate Patient Behavior: Guarded and Passive Mood Description: Withdrawn and Constricted Affect Description: Blunted Patient Cognition Impaired: Yes Ability to Follow Directions: Good Speech Pattern: Clear Hallucinations: None Delusions: Not Present Thought Process: Distracted and Slowed Thinking Thought Content: positive for [place] and positive for Poverty of Content Judgement: Fair Diagnostics Vital Signs (24Hr): Vital Signs - 24 hr 06/16/22 18:25 06/17/22 08:40 Temperature 98.3 F 98.2 F Pulse Rate 66 69 Respiratory Rate 18 Blood Pressure 144/66 H 147/65 H Pulse Oximetry 98 94 Oxygen Delivery Method Room Air Room Air BMI result Body Mass Index 30.2 Labs 06/14/22 09:57 06/15/22 07:58 Imaging Radiology Impressions: ITS Impressions Chest X-Ray 06/01/22 14:47 IMPRESSION: Small left pleural effusion with superjacent hazy opacities suggesting atelectasis and/or infiltrates. KUB X-Ray 06/01/22 14:47 IMPRESSION: G-tube in the left upper quadrant with a small air bubble in the fundus. The bowel gas pattern is nonspecific. Medications Medications Current Medications Acetaminophen (Acetaminophen 325 Mg Tablet) 650 mg PO Q6H PRN PRN Reason: Headache/Pain Mild Scale (1-3) Last Admin: 06/16/22 19:28 Dose: 650 mg Al Hydroxide/Mg Hydroxide (Magnesium Hydrox/Alum Hydrox 30 Ml Oral.Susp) 30 ml PO Q6H PRN PRN Reason: Heartburn/Nausea Atorvastatin Calcium (Atorvastatin Calcium 10 Mg Tablet) 10 mg PO BEDTIME [facility] Last Admin: 06/16/22 19:30 Dose: 10 mg Clonazepam (Clonazepam 0.5 Mg Tablet) 0.5 mg PO TID [facility] Last Admin: 06/17/22 08:51 Dose: 0.5 mg Cyanocobalamin (Cyanocobalamin (Vitamin B-12) 100 Mcg Tablet) 100 mcg PO DAILY [facility] Last Admin: 06/17/22 08:51 Dose: 100 mcg Docusate Sodium (Docusate Sodium 100 Mg Capsule) 100 mg PO BID PRN PRN Reason: Constipation Ferrous Sulfate (Ferrous Sulfate 324 Mg Tablet.) 324 mg PO BID [facility] Last Admin: 06/17/22 08:50 Dose: 324 mg Folic Acid (Folic Acid 1 Mg Tablet) 1 mg PO DAILY [facility] Last Admin: 06/17/22 08:49 Dose: 1 mg Guaifenesin (Guaifenesin 100 Mg/5 Ml Liquid) 5 ml PO Q6H PRN PRN Reason: Cough Hydroxyzine HCl (Hydroxyzine Hcl 25 Mg Tablet) 25 mg PO Q6H PRN PRN Reason: Anxiety Last Admin: 06/12/22 16:03 Dose: 25 mg Lamotrigine (Lamotrigine 25 Mg Tablet) 50 mg PO BID [facility] Last Admin: 06/17/22 08:51 Dose: 50 mg Levothyroxine Sodium (Levothyroxine Sodium 25 Mcg Tablet) 25 mcg PO DAILY@0600 [facility] Last Admin: 06/17/22 06:23 Dose: 25 mcg Loperamide HCl (Loperamide Hcl 2 Mg Capsule) 2 mg PO Q6H PRN PRN Reason: Diarrhea Magnesium Hydroxide (Milk Of Magnesia 30 Ml Oral.Susp) 30 ml PO DAILY PRN PRN Reason: Constipation Mirtazapine (Mirtazapine 15 Mg Tablet) 45 mg PO BEDTIME [facility] Last Admin: 06/16/22 19:26 Dose: 45 mg Non-Formulary Medication (Desvenlafaxine Succinate [Pristiq]) 100 mg PO DAILY [facility] Olanzapine (Olanzapine 5 Mg Tablet) 5 mg PO BEDTIME [facility] Last Admin: 06/16/22 19:31 Dose: 5 mg Omeprazole (Omeprazole 20 Mg Capsule.) 20 mg PO BID@0630,1630 [facility] Last Admin: 06/17/22 06:23 Dose: 20 mg Ondansetron HCl (Ondansetron Odt 4 Mg Tab.Rapdis) 4 mg TRANSLINGU Q6H PRN PRN Reason: nausea Last Admin: 06/13/22 08:46 Dose: 4 mg Polyethylene Glycol (Polyethylene Glycol 3350 17 Gm Powd.Pack) 17 gm PO DAILY [facility] Last Admin: 06/17/22 08:51 Dose: 17 gm Prochlorperazine Maleate (Prochlorperazine Maleate 5 Mg Tablet) 5 mg PO QID PRN PRN Reason: Nausea And Vomiting Tramadol HCl (Tramadol Hcl 50 Mg Tablet) 50 mg PO Q6H PRN PRN Reason: Pain, Moderate (Pain Scale 4-6 Last Admin: 06/12/22 06:00 Dose: 50 mg Trazodone HCl (Trazodone Hcl 50 Mg Tablet) 50 mg PO BEDTIME MRX1 PRN PRN Reason: Insomnia Last Admin: 06/05/22 21:07 Dose: 50 mg Valsartan (Valsartan 80 Mg Tablet) 80 mg PO DAILY [facility]; Protocol Last Admin: 06/17/22 08:50 Dose: 80 mg Allergies Allergies Allergy/AdvReac Type Severity Reaction Status Date / Time meperidine [From Demerol] AdvReac Unknown Unknown Verified 05/22/22 16:45 Assessment & Plan Assessment & Plan (1) Nausea & vomiting: Status: Acute Code(s): R11.2 - Nausea with vomiting, unspecified Assessment and Plan: She had undergone reduction of gastric volvulus, repair of paraesophageal hernia, G-tube placement last 05/24/2022. She had been doing well had been transferred to the geropsych unit. She had been tolerating diet but had 1 episode of vomiting after lunch today. Her abdominal exam is benign. She looks well and comfortable. I released her cap from the G-tube and there was not much output. I am going to check a chest x-ray as well as a KUB. She may have clear liquids for now and I will follow along. She otherwise appears to have a nonsurgical abdomen. (2) Bipolar 1 disorder, depressed: Status: Acute Code(s): F31.9 - Bipolar disorder, unspecified Plan The patient is an elderly female with a long history of bipolar disorder who was admitted for exacerbation of depression with suicidal ideation. Later on she was transferred to surgery due to nausea and vomiting and she had the surgical procedure to resolve her yet alert any a. Plan 1. Continue with same medications. 2. Surgery consult for management of the surgical wound. 3. Reassessment with results 4. Continue Remeron 45 mg p.o. q.h.s. to target depression. 5. Start Lamictal 25 mg p.o. b.i.d. on June 13. we will increase up to 50 mg p.o. b.i.d. in 3 days 06/16/2022 Patient status post surgery require gastric fundoplication has significant anxiety 06/17/2022 . Start Rexulti for augmentation monitor for side effects consider ECT Reason for continued inpatient stay Substantial Risk for: harm to self, inability to function and rapid decompensation Time Spent With Patient Time: Total time managing care of this patient today ____ minutes.
[2022-06-17 15:38] VITALS: BP 138/63; PULSE 59; RESP 20; O2SAT 94
[2022-06-17 15:39] VITALS: BP 137/68; PULSE 57; RESP 20; O2SAT 95
[2022-06-17 15:40] VITALS: BP 157/69; PULSE 70; RESP 20; O2SAT 95
[2022-06-17 18:00] VITALS: BP 139/65; PULSE 82; RESP 16; TEMP 36.6; O2SAT 95
[2022-06-17] MEDS: Mirtazapine 15 MG TABLET 45 MG PO (20:27)
[2022-06-17] MEDS: Atorvastatin Calcium 10 MG TABLET PO (20:29)
[2022-06-17] MEDS: traZODone HCL 50 MG TABLET PO (20:29)
[2022-06-17] MEDS: OLANZapine 5 MG TABLET PO (20:29)
[2022-06-18] MEDS: Acetaminophen 325 MG TABLET 650 MG PO (00:49)
[2022-06-18] MEDS: hydrOXYzine HCL 25 MG TABLET PO (02:00)
[2022-06-18] MEDS: Omeprazole 20 MG CAPSULE.DR PO ×2 (05:49→17:00)
[2022-06-18] MEDS: Levothyroxine Sodium 25 MCG TABLET PO (05:49)
[2022-06-18 08:40] VITALS: BP 148/65; PULSE 69; RESP 16; TEMP 37; O2SAT 91
[2022-06-18] MEDS: Cyanocobalamin (Vitamin B-12) 100 MCG TABLET PO (08:56)
[2022-06-18] MEDS: clonazePAM 0.5 MG TABLET PO ×3 (08:56→22:40)
[2022-06-18] MEDS: Folic Acid 1 MG TABLET PO (08:56)
[2022-06-18] MEDS: Valsartan 80 MG TABLET PO (08:56)
[2022-06-18] MEDS: Ferrous Sulfate 324 MG TABLET.DR PO ×2 (08:56→22:40)
[2022-06-18] MEDS: lamoTRIgine 25 MG TABLET 50 MG PO ×2 (08:56→22:40)
[2022-06-18] MEDS: Brexpiprazole 1 MG TABLET 0.5 MG PO (08:56)
--- NOTE | 2022-06-18 11:00 | P.PNPSI_ITS ---
Subjective Subjective Date of Service: 06/18/22 Reason For Visit: mood disorder Subjective Notes: Conditional Voluntary Interim History: the nursing staff reported patient has been isolative, very depressed. Last night she was up at midnight and she took Tylenol p.r.n. for pain. She looks very pale and isolative. The staff also notice incontinence of stool last night as it is not her baseline. on interview she reports depression, she agreed to increase Lamictal to target it. Later, the nursing staff reported black tarry stools so I ordered OB test now and bloodwork tomorrow AM. Mental Status Exam Mental Status Exam Patient Appearance: Well Grooomed and Appropriate Patient Orientation: Person and Situation Level of Consciousness: Awake and Appropriate Patient Behavior: Guarded and Passive Mood Description: Withdrawn and Constricted Affect Description: Blunted Patient Cognition Impaired: Yes Ability to Follow Directions: Good Speech Pattern: Clear Hallucinations: None Delusions: Not Present Thought Process: Distracted and Slowed Thinking Thought Content: positive for [place] and positive for Poverty of Content Judgement: Fair Diagnostics Vital Signs (24Hr): Vital Signs - 24 hr 06/17/22 15:38 06/17/22 15:39 06/17/22 15:40 Temperature Pulse Rate 59 57 70 Respiratory Rate 20 20 20 Blood Pressure 138/63 137/68 157/69 H Pulse Oximetry 94 95 95 Oxygen Delivery Method Room Air Room Air Room Air 06/17/22 18:00 06/18/22 08:40 Temperature 97.9 F 98.6 F Pulse Rate 82 69 Respiratory Rate 16 16 Blood Pressure 139/65 148/65 H Pulse Oximetry 95 91 L Oxygen Delivery Method Room Air Room Air BMI result Body Mass Index 30.2 Labs 06/14/22 09:57 06/15/22 07:58 Imaging Radiology Impressions: ITS Impressions Chest X-Ray 06/01/22 14:47 IMPRESSION: Small left pleural effusion with superjacent hazy opacities suggesting atelectasis and/or infiltrates. KUB X-Ray 06/01/22 14:47 IMPRESSION: G-tube in the left upper quadrant with a small air bubble in the fundus. The bowel gas pattern is nonspecific. Medications Medications Current Medications Acetaminophen (Acetaminophen 325 Mg Tablet) 650 mg PO Q6H PRN PRN Reason: Headache/Pain Mild Scale (1-3) Last Admin: 06/18/22 00:49 Dose: 650 mg Al Hydroxide/Mg Hydroxide (Magnesium Hydrox/Alum Hydrox 30 Ml Oral.Susp) 30 ml PO Q6H PRN PRN Reason: Heartburn/Nausea Atorvastatin Calcium (Atorvastatin Calcium 10 Mg Tablet) 10 mg PO BEDTIME [facility] Last Admin: 06/17/22 20:29 Dose: 10 mg Brexpiprazole (Brexpiprazole 1 Mg Tablet) 0.5 mg PO DAILY [facility] Last Admin: 06/18/22 08:56 Dose: 0.5 mg Clonazepam (Clonazepam 0.5 Mg Tablet) 0.5 mg PO TID [facility] Last Admin: 06/18/22 08:56 Dose: 0.5 mg Cyanocobalamin (Cyanocobalamin (Vitamin B-12) 100 Mcg Tablet) 100 mcg PO DAILY [facility] Last Admin: 06/18/22 08:56 Dose: 100 mcg Docusate Sodium (Docusate Sodium 100 Mg Capsule) 100 mg PO BID PRN PRN Reason: Constipation Ferrous Sulfate (Ferrous Sulfate 324 Mg Tablet.Dr) 324 mg PO BID [facility] Last Admin: 06/18/22 08:56 Dose: 324 mg Folic Acid (Folic Acid 1 Mg Tablet) 1 mg PO DAILY [facility] Last Admin: 06/18/22 08:56 Dose: 1 mg Guaifenesin (Guaifenesin 100 Mg/5 Ml Liquid) 5 ml PO Q6H PRN PRN Reason: Cough Hydroxyzine HCl (Hydroxyzine Hcl 25 Mg Tablet) 25 mg PO Q6H PRN PRN Reason: Anxiety Last Admin: 06/18/22 02:00 Dose: 25 mg Lamotrigine (Lamotrigine 25 Mg Tablet) 50 mg PO BID [facility] Last Admin: 06/18/22 08:56 Dose: 50 mg Levothyroxine Sodium (Levothyroxine Sodium 25 Mcg Tablet) 25 mcg PO DAILY@0600 [facility] Last Admin: 06/18/22 05:49 Dose: 25 mcg Loperamide HCl (Loperamide Hcl 2 Mg Capsule) 2 mg PO Q6H PRN PRN Reason: Diarrhea Magnesium Hydroxide (Milk Of Magnesia 30 Ml Oral.Susp) 30 ml PO DAILY PRN PRN Reason: Constipation Mirtazapine (Mirtazapine 15 Mg Tablet) 45 mg PO BEDTIME [facility] Last Admin: 06/17/22 20:27 Dose: 45 mg Non-Formulary Medication (Desvenlafaxine Succinate [Pristiq]) 100 mg PO DAILY [facility] Olanzapine (Olanzapine 5 Mg Tablet) 5 mg PO BEDTIME [facility] Last Admin: 06/17/22 20:29 Dose: 5 mg Omeprazole (Omeprazole 20 Mg Capsule.Dr) 20 mg PO BID@0630,1630 [facility] Last Admin: 06/18/22 05:49 Dose: 20 mg Ondansetron HCl (Ondansetron Odt 4 Mg Tab.Rapdis) 4 mg TRANSLINGU Q6H PRN PRN Reason: nausea Last Admin: 06/13/22 08:46 Dose: 4 mg Polyethylene Glycol (Polyethylene Glycol 3350 17 Gm Powd.Pack) 17 gm PO DAILY [facility] Last Admin: 06/18/22 08:57 Dose: Not Given Prochlorperazine Maleate (Prochlorperazine Maleate 5 Mg Tablet) 5 mg PO QID PRN PRN Reason: Nausea And Vomiting Tramadol HCl (Tramadol Hcl 50 Mg Tablet) 50 mg PO Q6H PRN PRN Reason: Pain, Moderate (Pain Scale 4-6 Last Admin: 06/12/22 06:00 Dose: 50 mg Trazodone HCl (Trazodone Hcl 50 Mg Tablet) 50 mg PO BEDTIME MRX1 PRN PRN Reason: Insomnia Last Admin: 06/17/22 20:29 Dose: 50 mg Valsartan (Valsartan 80 Mg Tablet) 80 mg PO DAILY [facility]; Protocol Last Admin: 06/18/22 08:56 Dose: 80 mg Allergies Allergies Allergy/AdvReac Type Severity Reaction Status Date / Time meperidine [From Demerol] AdvReac Unknown Unknown Verified 05/22/22 16:45 Assessment & Plan Assessment & Plan (1) Nausea & vomiting: Status: Acute Code(s): R11.2 - Nausea with vomiting, unspecified Assessment and Plan: She had undergone reduction of gastric volvulus, repair of paraesophageal hernia, G-tube placement last 05/24/2022. She had been doing well had been transferred to the geropsych unit. She had been tolerating diet but had 1 episode of vomiting after lunch today. Her abdominal exam is benign. She looks well and comfortable. I released her cap from the G-tube and there was not much output. I am going to check a chest x-ray as well as a KUB. She may have clear liquids for now and I will follow along. She otherwise appears to have a nonsurgical abdomen. (2) Bipolar 1 disorder, depressed: Status: Acute Code(s): F31.9 - Bipolar disorder, unspecified Plan The patient is an elderly female with a long history of bipolar disorder who was admitted for exacerbation of depression with suicidal ideation. Later on she was transferred to surgery due to nausea and vomiting and she had the surgical procedure to resolve her yet alert any a. Plan 1. Continue with same medications. 2. Surgery consult for management of the surgical wound. 3. Reassessment with results 4. Continue Remeron 45 mg p.o. q.h.s. to target depression. 5. Start Lamictal 25 mg p.o. b.i.d. on June 13. we will increase up to 50 mg p.o. b.i.d. in 3 days. Increase Lamictal 50 mg p.o. b.i.d. on June 18. 6. Occult blood now 7. Regular bloodwork for tomorrow AM. Reason for continued inpatient stay Substantial Risk for: inability to function, rapid decompensation and med/psych decompensation Time Spent With Patient Time: Total time managing care of this patient today _20___ minutes.
[2022-06-18 12:02] LABS: OBS Int Ctl Valid YES; OBS1 NEGATIVE (NEGATIVE)
[2022-06-18] MEDS: Loperamide HCl 2 MG CAPSULE PO (17:00)
[2022-06-18 18:00] VITALS: BP 144/68; PULSE 87; RESP 18; TEMP 36.4; O2SAT 100
[2022-06-18] MEDS: Magnesium Hydrox/Alum Hydrox 30 ML ORAL.SUSP PO (18:23)
[2022-06-18] MEDS: Mirtazapine 15 MG TABLET 45 MG PO (22:39)
[2022-06-18] MEDS: OLANZapine 5 MG TABLET PO (22:40)
[2022-06-18] MEDS: Atorvastatin Calcium 10 MG TABLET PO (22:40)
[2022-06-19] MEDS: traZODone HCL 50 MG TABLET PO (00:30)
[2022-06-19 08:12] LABS: MANUAL DIFF FLAG NO
[2022-06-19 08:19] LABS: Basophils Percent Auto 0.6 % (0-2); Eosinophils Absolute Auto 0.6 X10*3/uL (0.0-0.4); Eosinophils Percent Auto 15.3 % (0-4); Hematocrit 31.9 % (37.0-47.0); Hemoglobin 9.9 g/dl (12.0-16.0); Imm Gran Abs Auto 0.02 X10*3/uL (0.00-0.03); Imm Gran Pct Auto 0.6 % (0.0-0.4); Lymphocytes Absolute Auto 1.2 X10*3/uL (1.2-4.9); Lymphocytes Percent Auto 33.3 % (20-40); Mean Corpuscular Hemoglobin 33.2 pg (27.0-33.0); Mean Platelet Volume 12.3 fL (9.4-12.3); Monocytes Absolute Auto 0.3 X10*3/uL (0.1-1.2); Monocytes Percent Auto 9.4 % (2-11); Neutrophils Absolute Auto 1.5 x10*3/uL (2.0-8.3); Neutrophils Percent Auto 40.8 % (45-73); Platelet Count 239 X10*3/uL (160-400); Red Blood Count 2.98 X10*6/uL (4.20-5.50); Red Cell Distribution Width 15.9 % (11.0-16.0); White Blood Count 3.6 X10*3/uL (4.8-10.8)
[2022-06-19 08:42] LABS: Anion Gap 14 (12-20); Blood Urea Nitrogen 15 mg/dL (9-16); Calcium 9.3 mg/dL (8.4-10.2); Carbon Dioxide 24 mmol/L (22-29); Chloride 109 mmol/L (96-108); Creatinine Clr Calc Pharmacy 38.4; Estimated Glomerular Filt Rate 48; Glucose Random 123 mg/dL (60-115); Potassium 4.4 mmol/L (3.3-5.1); Sodium 143 mmol/L (135-145)
[2022-06-19 08:58] VITALS: BP 144/63; PULSE 75; RESP 18; TEMP 37.3; O2SAT 97
[2022-06-19] MEDS: Brexpiprazole 1 MG TABLET 0.5 MG PO (08:59)
[2022-06-19 09:00] LABS: Thyroid Stimulating Hormone 1.87 uIU/mL (0.32-4.0)
[2022-06-19] MEDS: Omeprazole 20 MG CAPSULE.DR PO ×2 (09:00→16:10)
[2022-06-19] MEDS: Ferrous Sulfate 324 MG TABLET.DR PO ×2 (09:00→21:53)
[2022-06-19] MEDS: Levothyroxine Sodium 25 MCG TABLET PO (09:00)
[2022-06-19] MEDS: Valsartan 80 MG TABLET PO (09:00)
[2022-06-19] MEDS: clonazePAM 0.5 MG TABLET PO ×3 (09:00→21:53)
[2022-06-19] MEDS: Folic Acid 1 MG TABLET PO (09:00)
[2022-06-19] MEDS: lamoTRIgine 25 MG TABLET 50 MG PO (09:00)
[2022-06-19] MEDS: Cyanocobalamin (Vitamin B-12) 100 MCG TABLET PO (09:00)
--- NOTE | 2022-06-19 12:12 | P.PNPSI_ITS ---
Subjective Subjective Date of Service: 06/19/22 Reason For Visit: mood disorder Subjective Notes: Conditional Voluntary Interim History: the nursing staff reported the patient took her medications social been quite most of the time in her room, she has declined to go to groups. Occult blood came back negative. The social insurance specialist reported that she is meeting with her daughter for discharge planning. Most likely she will go to a subacute rehab due to his several medical problems. On interview the patient reports some depression and anxiety is a very incre asing her Lamictal up to 100 mg p.o. b.i.d. today to target depression. Mental Status Exam Mental Status Exam Patient Appearance: Appropriate Patient Orientation: Person and Situation Level of Consciousness: Awake and Appropriate Patient Behavior: Cooperative and Passive Mood Description: Constricted Affect Description: Calm Patient Cognition Impaired: Yes Ability to Follow Directions: Good Speech Pattern: Clear Hallucinations: None Delusions: Not Present Thought Process: Evasive and Slowed Thinking Thought Content: positive for [place] and positive for Circumstantial Judgement: Fair Diagnostics Vital Signs (24Hr): Vital Signs - 24 hr 06/18/22 18:00 06/19/22 08:58 Temperature 97.5 F 99.2 F Pulse Rate 87 75 Respiratory Rate 18 18 Blood Pressure 144/68 H 144/63 H Pulse Oximetry 100 97 Oxygen Delivery Method Room Air Room Air BMI result Body Mass Index 30.2 Labs 06/19/22 08:08 06/19/22 08:08 Labs: Laboratory Results - last 48 hr 06/18/22 06/19/22 06/19/22 11:35 08:08 08:08 WBC 3.6 L RBC 2.98 L D Hgb 9.9 L Hct 31.9 L MCV 107.0 H MCH 33.2 H MCHC 31.0 RDW 15.9 Plt Count 239 MPV 12.3 Immature Gran % (Auto) 0.6 H Neut % (Auto) 40.8 L Lymph % (Auto) 33.3 Love % (Auto) 9.4 Eos % (Auto) 15.3 H Baso % (Auto) 0.6 Lymph # (Auto) 1.2 Love # (Auto) 0.3 Eos # (Auto) 0.6 H Baso # (Auto) 0.0 Abs Immat Gran (auto) 0.02 Absolute Neuts (auto) 1.5 L Absolute Nucleated RBC 0.000 Nucleated RBC % (auto) 0.0 Sodium 143 Potassium 4.4 Chloride 109 H Carbon Dioxide 24 Anion Gap 14 BUN 15 Creatinine 1.09 Estim Creat Clear Calc 38.4 Estimated GFR 48 Random Glucose 123 H Calcium 9.3 TSH 1.87 Stool Occult Blood NEGATIVE Imaging Radiology Impressions: ITS Impressions Chest X-Ray 06/01/22 14:47 IMPRESSION: Small left pleural effusion with superjacent hazy opacities suggesting atelectasis and/or infiltrates. KUB X-Ray 06/01/22 14:47 IMPRESSION: G-tube in the left upper quadrant with a small air bubble in the fundus. The bowel gas pattern is nonspecific. Medications Medications Current Medications Acetaminophen (Acetaminophen 325 Mg Tablet) 650 mg PO Q6H PRN PRN Reason: Headache/Pain Mild Scale (1-3) Last Admin: 06/18/22 00:49 Dose: 650 mg Al Hydroxide/Mg Hydroxide (Magnesium Hydrox/Alum Hydrox 30 Ml Oral.Susp) 30 ml PO Q6H PRN PRN Reason: Heartburn/Nausea Last Admin: 06/18/22 18:23 Dose: 30 ml Atorvastatin Calcium (Atorvastatin Calcium 10 Mg Tablet) 10 mg PO BEDTIME [facility] Last Admin: 06/18/22 22:40 Dose: 10 mg Brexpiprazole (Brexpiprazole 1 Mg Tablet) 0.5 mg PO DAILY [facility] Last Admin: 06/19/22 08:59 Dose: 0.5 mg Clonazepam (Clonazepam 0.5 Mg Tablet) 0.5 mg PO TID [facility] Last Admin: 06/19/22 09:00 Dose: 0.5 mg Cyanocobalamin (Cyanocobalamin (Vitamin B-12) 100 Mcg Tablet) 100 mcg PO DAILY [facility] Last Admin: 06/19/22 09:00 Dose: 100 mcg Docusate Sodium (Docusate Sodium 100 Mg Capsule) 100 mg PO BID PRN PRN Reason: Constipation Ferrous Sulfate (Ferrous Sulfate 324 Mg Tablet.Dr) 324 mg PO BID [facility] Last Admin: 06/19/22 09:00 Dose: 324 mg Folic Acid (Folic Acid 1 Mg Tablet) 1 mg PO DAILY [facility] Last Admin: 06/19/22 09:00 Dose: 1 mg Guaifenesin (Guaifenesin 100 Mg/5 Ml Liquid) 5 ml PO Q6H PRN PRN Reason: Cough Hydroxyzine HCl (Hydroxyzine Hcl 25 Mg Tablet) 25 mg PO Q6H PRN PRN Reason: Anxiety Last Admin: 06/18/22 02:00 Dose: 25 mg Lamotrigine (Lamotrigine 100 Mg Tablet) 100 mg PO BID [facility] Levothyroxine Sodium (Levothyroxine Sodium 25 Mcg Tablet) 25 mcg PO DAILY@0600 [facility] Last Admin: 06/19/22 09:00 Dose: 25 mcg Loperamide HCl (Loperamide Hcl 2 Mg Capsule) 2 mg PO Q6H PRN PRN Reason: Diarrhea Last Admin: 06/18/22 17:00 Dose: 2 mg Magnesium Hydroxide (Milk Of Magnesia 30 Ml Oral.Susp) 30 ml PO DAILY PRN PRN Reason: Constipation Mirtazapine (Mirtazapine 15 Mg Tablet) 45 mg PO BEDTIME [facility] Last Admin: 06/18/22 22:39 Dose: 45 mg Olanzapine (Olanzapine 5 Mg Tablet) 5 mg PO BEDTIME [facility] Last Admin: 06/18/22 22:40 Dose: 5 mg Omeprazole (Omeprazole 20 Mg Capsule.Dr) 20 mg PO BID@0630,1630 [facility] Last Admin: 06/19/22 09:00 Dose: 20 mg Ondansetron HCl (Ondansetron Odt 4 Mg Tab.Rapdis) 4 mg TRANSLINGU Q6H PRN PRN Reason: nausea Last Admin: 06/13/22 08:46 Dose: 4 mg Polyethylene Glycol (Polyethylene Glycol 3350 17 Gm Powd.Pack) 17 gm PO DAILY [facility] Last Admin: 06/19/22 09:17 Dose: Not Given Prochlorperazine Maleate (Prochlorperazine Maleate 5 Mg Tablet) 5 mg PO QID PRN PRN Reason: Nausea And Vomiting Tramadol HCl (Tramadol Hcl 50 Mg Tablet) 50 mg PO Q6H PRN PRN Reason: Pain, Severe (Pain Scale 7-10) Trazodone HCl (Trazodone Hcl 50 Mg Tablet) 50 mg PO BEDTIME MRX1 PRN PRN Reason: Insomnia Last Admin: 06/19/22 00:30 Dose: 50 mg Valsartan (Valsartan 80 Mg Tablet) 80 mg PO DAILY [facility]; Protocol Last Admin: 06/19/22 09:00 Dose: 80 mg Allergies Allergies Allergy/AdvReac Type Severity Reaction Status Date / Time meperidine [From Demerol] AdvReac Unknown Unknown Verified 05/22/22 16:45 Assessment & Plan Assessment & Plan (1) Nausea & vomiting: Status: Acute Code(s): R11.2 - Nausea with vomiting, unspecified Assessment and Plan: She had undergone reduction of gastric volvulus, repair of paraesophageal hernia, G-tube placement last 05/24/2022. She had been doing well had been transferred to the geropsych unit. She had been tolerating diet but had 1 epi sode of vomiting after lunch today. Her abdominal exam is benign. She looks well and comfortable. I released her cap from the G-tube and there was not much output. I am going to check a chest x-ray as well as a KUB. She may have clear liquids for now and I will follow along. She otherwise appears to have a nonsurgical abdomen. (2) Bipolar 1 disorder, depressed: Status: Acute Code(s): F31.9 - Bipolar disorder, unspecified Plan The patient is an elderly female with a long history of bipolar disorder who was admitted for exacerbation of depression with suicidal ideation. Later on she was transferred to surgery due to nausea and vomiting and she had the surgical procedure to resolve her yet alert any a. Plan 1. Continue with same medications. 2. Surgery consult for management of the surgical wound. According to the surgeon, she will need to have a follow-up in the clinic in 6 weeks after the procedure to clamp the GI tube. 3. Reassessment with results 4. Continue Remeron 45 mg p.o. q.h.s. to target depression. 5. Start Lamictal 25 mg p.o. b.i.d. on June 13. we will increase up to 50 mg p.o. b.i.d. in 3 days . Lamictal was increased up to 100 mg p.o. b.i.d. on June 19. Patient educated on: therapeutic strategies Reason for continued inpatient stay Substantial Risk for: inability to function, rapid decompensation and med/psych decompensation Time Spent With Patient Time: Total time managing care of this patient today _20___ minutes.
[2022-06-19 18:53] VITALS: BP 113/50; PULSE 79; RESP 16; TEMP 36.9; O2SAT 98
[2022-06-19] MEDS: OLANZapine 5 MG TABLET PO (21:53)
[2022-06-19] MEDS: Atorvastatin Calcium 10 MG TABLET PO (21:53)
[2022-06-19] MEDS: Mirtazapine 15 MG TABLET 45 MG PO (21:53)
[2022-06-19] MEDS: lamoTRIgine 100 MG TABLET PO (21:53)
[2022-06-19] MEDS: Acetaminophen 325 MG TABLET 650 MG PO (22:51)
[2022-06-19] MEDS: traMADoL HCL 50 MG TABLET PO (23:23)
[2022-06-20] VITALS (10 sets, daily range): BP systolic 100–145; BP diastolic 50–65; PULSE 38–78; RESP 14–22; TEMP 36.1–37.1; O2SAT 85–99
--- NOTE | 2022-06-20 | ECG_ITS ---
Test Reason : hypotension, irreg hr Blood Pressure : / mmHG Vent. Rate : 042 BPM Atrial Rate : 042 BPM P-R Int : 308 ms QRS Dur : 128 ms QT Int : 470 ms P-R-T Axes : 063 -24 -02 degrees QTc Int : 392 ms Marked sinus bradycardia with 1st degree A-V block with Right bundle branch block Cannot rule out Anterior infarct , age undetermined Abnormal ECG When compared with ECG of 24-MAY-2022 08:10, Vent. rate has decreased BY 39 BPM QT has shortened Referred By: Asael Walker Electronically Signed By:SHONDA RUSSELL
[2022-06-20] MEDS: Levothyroxine Sodium 25 MCG TABLET PO (05:40)
[2022-06-20] MEDS: Omeprazole 20 MG CAPSULE.DR PO ×2 (05:40→17:02)
[2022-06-20 08:38] LABS: Glucose, Whole Blood 105 mg/dL (60-115)
--- NOTE | 2022-06-20 08:57 | PC.NURSE ---
At 740 am I checked pt's vs and noted bradycardia: 42bpm on kezia map - confirmed with manual brachial HR check and noted irregular. Patient denies chest pain, lightheadedness, nausea, vomiting, diarrhea. She is drowsy but arousable. Due to issues with hernia and g tube I did not place pt in trendelenberg position. I tiger texted Dr Walker. Meds were held and VS rechecked as charted. O2 @ 2l VNC ordered and started due to o2 sat decreased to 85%. With O2 sat increased to 95%. CXR and labs ordered and completed. At 835 pt placed in head down, feet up position per MD and to pt tolerance. Yessenia was pleasant and cooperative with all procedures. at [address] Rodriguez O2 decreased to 1l vnc. Patient has not eaten, had fluids or urinated this shift. Dr Rodriguez informed.
[2022-06-20 09:27] LABS: Anion Gap 11 (12-20); Blood Urea Nitrogen 20 mg/dL (9-16); Calcium 8.5 mg/dL (8.4-10.2); Carbon Dioxide 25 mmol/L (22-29); Chloride 110 mmol/L (96-108); Creatinine Clr Calc Pharmacy 35.8; Estimated Glomerular Filt Rate 44; Glucose Random 108 mg/dL (60-115); Potassium 4.2 mmol/L (3.3-5.1); Sodium 142 mmol/L (135-145)
[2022-06-20 10:07] LABS: Basophils Percent Auto 0.5 % (0-2); Eosinophils Absolute Auto 0.5 X10*3/uL (0.0-0.4); Hematocrit 27.1 % (37.0-47.0); Hemoglobin 8.3 g/dl (12.0-16.0); Imm Gran Abs Auto 0.01 X10*3/uL (0.00-0.03); Imm Gran Pct Auto 0.3 % (0.0-0.4); Lymphocytes Absolute Auto 1.5 X10*3/uL (1.2-4.9); Lymphocytes Percent Auto 38.3 % (20-40); MANUAL DIFF FLAG SCAN; Mean Corpuscular HGB Conc 30.6 g/dl (31.0-35.0); Mean Corpuscular Hemoglobin 33.2 pg (27.0-33.0); Mean Corpuscular Volume 108.4 fL (80.0-98.0); Monocytes Absolute Auto 0.4 X10*3/uL (0.1-1.2); Monocytes Percent Auto 11.3 % (2-11); Neutrophils Absolute Auto 1.4 x10*3/uL (2.0-8.3); Neutrophils Percent Auto 35.6 % (45-73); PLT CLUMP 1; Red Cell Distribution Width 15.7 % (11.0-16.0); SCAN SMEAR FLAG 1
[2022-06-20 10:08] LABS: White Blood Count 3.8 X10*3/uL (4.8-10.8)
--- NOTE | 2022-06-20 10:15 | PM.IMCN ---
History of Present Illness Data of Consult Service Date: 06/20/22 Primary Care Provider: Unknown Physician HPI Reason for consult: Bradycardia, hypotension An 82-year-old female with history of bipolar disorder, depression with anxiety, hyperlipidemia, hypertension, hypothyroidism, history of colon cancer s/p right hemicolectomy, and vitamin-D deficiency noticed to have low BP and HR. The patient was laying comfortable in her bed, reports feeling weaker than usual but denies any chest pain, difficulties breathing, nausea, vomitng, change in bowel habit or urinary symptoms. She was started on new psych medications of Olanzapine and Brexpiprazole. Hospitalist team asked to evaluated the patient for bradycardia. Review of Systems Review of Systems: No fever, chills but reports generalized weakness No chest pain, palpitation No shortness of breath or coughing No abdominal pain, nausea or vomiting No urinary symptoms No any rash or wounds PMFSH Medical History Bipolar disorder Depression with anxiety HLD (hyperlipidemia) HTN (hypertension) Hypothyroidism Systolic ejection murmur Vitamin D deficiency Surgical History History of right hemicolectomy S/P hysterectomy Social History Household Members: None Housing: House Do you presently have visiting nurse or other home services: No (Daughters help) Patient Tobacco Use Status: Never used Tobacco Second Hand Smoke Exposure: No Advance Directives: No Advance Directives Information Provided: No service: No Current occupational status: retired and disabled Sexual orientation: Straight/Heterosexual Meds Allergies Allergy/AdvReac Type Severity Reaction Status Date / Time meperidine [From Demerol] AdvReac Unknown Unknown Verified 05/22/22 16:45 Active Medications: Current Medications Acetaminophen (Acetaminophen 325 Mg Tablet) 650 mg PO Q6H PRN PRN Reason: Headache/Pain Mild Scale (1-3) Last Admin: 06/19/22 22:51 Dose: 650 mg Al Hydroxide/Mg Hydroxide (Magnesium Hydrox/Alum Hydrox 30 Ml Oral.Susp) 30 ml PO Q6H PRN PRN Reason: Heartburn/Nausea Last Admin: 06/18/22 18:23 Dose: 30 ml Atorvastatin Calcium (Atorvastatin Calcium 10 Mg Tablet) 10 mg PO BEDTIME [facility] Last Admin: 06/19/22 21:53 Dose: 10 mg Brexpiprazole (Brexpiprazole 1 Mg Tablet) 0.5 mg PO DAILY [facility] Last Admin: 06/20/22 09:18 Dose: Not Given Clonazepam (Clonazepam 0.5 Mg Tablet) 0.5 mg PO TID [facility] Last Admin: 06/20/22 09:18 Dose: Not Given Cyanocobalamin (Cyanocobalamin (Vitamin B-12) 100 Mcg Tablet) 100 mcg PO DAILY [facility] Last Admin: 06/20/22 09:18 Dose: Not Given Docusate Sodium (Docusate Sodium 100 Mg Capsule) 100 mg PO BID PRN PRN Reason: Constipation Ferrous Sulfate (Ferrous Sulfate 324 Mg Tablet.) 324 mg PO BID [facility] Last Admin: 06/20/22 09:18 Dose: Not Given Folic Acid (Folic Acid 1 Mg Tablet) 1 mg PO DAILY [facility] Last Admin: 06/20/22 09:18 Dose: Not Given Guaifenesin (Guaifenesin 100 Mg/5 Ml Liquid) 5 ml PO Q6H PRN PRN Reason: Cough Hydroxyzine HCl (Hydroxyzine Hcl 25 Mg Tablet) 25 mg PO Q6H PRN PRN Reason: Anxiety Last Admin: 06/18/22 02:00 Dose: 25 mg Lamotrigine (Lamotrigine 100 Mg Tablet) 100 mg PO BID [facility] Last Admin: 06/20/22 09:19 Dose: Not Given Levothyroxine Sodium (Levothyroxine Sodium 25 Mcg Tablet) 25 mcg PO DAILY@0600 [facility] Last Admin: 06/20/22 05:40 Dose: 25 mcg Loperamide HCl (Loperamide Hcl 2 Mg Capsule) 2 mg PO Q6H PRN PRN Reason: Diarrhea Last Admin: 06/18/22 17:00 Dose: 2 mg Magnesium Hydroxide (Milk Of Magnesia 30 Ml Oral.Susp) 30 ml PO DAILY PRN PRN Reason: Constipation Mirtazapine (Mirtazapine 15 Mg Tablet) 45 mg PO BEDTIME [facility] Last Admin: 06/19/22 21:53 Dose: 45 mg Olanzapine (Olanzapine 5 Mg Tablet) 5 mg PO BEDTIME [facility] Last Admin: 06/19/22 21:53 Dose: 5 mg Omeprazole (Omeprazole 20 Mg Capsule.) 20 mg PO BID@0630,1630 [facility] Last Admin: 06/20/22 05:40 Dose: 20 mg Ondansetron HCl (Ondansetron Odt 4 Mg Tab.Rapdis) 4 mg TRANSLINGU Q6H PRN PRN Reason: nausea Last Admin: 06/13/22 08:46 Dose: 4 mg Polyethylene Glycol (Polyethylene Glycol 3350 17 Gm Powd.Pack) 17 gm PO DAILY [facility] Last Admin: 06/20/22 09:19 Dose: Not Given Prochlorperazine Maleate (Prochlorperazine Maleate 5 Mg Tablet) 5 mg PO QID PRN PRN Reason: Nausea And Vomiting Tramadol HCl (Tramadol Hcl 50 Mg Tablet) 50 mg PO Q6H PRN PRN Reason: Pain, Severe (Pain Scale 7-10) Last Admin: 06/19/22 23:23 Dose: 50 mg Trazodone HCl (Trazodone Hcl 50 Mg Tablet) 50 mg PO BEDTIME MRX1 PRN PRN Reason: Insomnia Last Admin: 06/19/22 00:30 Dose: 50 mg Valsartan (Valsartan 80 Mg Tablet) 80 mg PO DAILY [facility]; Protocol Last Admin: 06/20/22 09:19 Dose: Not Given Home Medications Medication Instructions Recorded Confirmed Last Taken Type folic acid 1 mg tablet 1 mg PO DAILY 05/22/22 05/24/22 05/23/22 History levothyroxine 25 mcg tablet 25 mcg PO DAILY@0600 05/22/22 05/24/22 05/23/22 History ferrous sulfate 324 mg (65 mg 324 mg PO BID 05/24/22 05/24/22 05/23/22 History iron) tablet,delayed release valsartan 80 mg tablet 80 mg PO DAILY 05/24/22 05/24/22 05/23/22 History Physical Exam Vital Signs and Narrative: Vital Signs: Last Vital Signs Temp 97.8 F 06/20/22 09:00 Pulse 40 L 06/20/22 09:00 Resp 18 06/20/22 09:00 BP 125/58 L 06/20/22 09:00 Pulse Ox 99 06/20/22 09:00 O2 Del Method Nasal Cannula 06/20/22 09:00 O2 Flow Rate 2 06/20/22 09:00 BMI result Body Mass Index 30.2 Const: Other: Constitutional : Awake with stimulation, closing eyes, not in distress Neck : Normal inspection, Supple Cardiovascular : RRR, no JVP, trace lower extremity edema, bradycardia Respiratory : good bilateral air entry, no crackles, wheezes or rhonchi Gastrointestinal: soft, lax, Normal bowel sounds, Non tender, G-tube in place with no surroudning erythema Skin : Warm, Dry Neurological : Alert & oriented x3, No focal deficit Results Labs 06/20/22 09:58 06/20/22 08:59 Labs: Laboratory Results - last 24 hr 06/20/22 06/20/22 06/20/22 08:33 08:59 08:59 MCV MCH MCHC RDW MPV Anion Gap 11 L Estim Creat Clear Calc 35.8 Estimated GFR 44 POC Glucose 105 Random Glucose 108 Calcium 8.5 D Total Creatine Kinase 27 Troponin I High Sens 6.0 06/20/22 09:58 MCV 108.4 H MCH 33.2 H MCHC 30.6 L RDW 15.7 MPV Not Reportable Anion Gap Estim Creat Clear Calc Estimated GFR POC Glucose Random Glucose Calcium Total Creatine Kinase Troponin I High Sens Imaging Radiologist's Impressions: Impressions Chest X-Ray 06/20/22 08:56 IMPRESSION: The persistent opacity at the left lung base is nonspecific but probably represents a combination of small pleural effusion and basilar atelectasis. This radiographic examination would not be able to exclude any left lower lobe pneumonia. However, there are no new pulmonary infiltrates compared to 06/01/2022. Assessment and Plan (1) Bradycardia: Status: Acute (2) Hypoxia: Status: Acute (3) Hypotension: Status: Acute Plan An 82-year-old female with history of bipolar disorder, depression with anxiety, hyperlipidemia, hypertension, hypothyroidism, history of colon cancer s/p right hemicolectomy, and vitamin-D deficiency noticed to have low BP and HR. Bradycardia EKG showing sinus eusebio with 1st degree block negative Trop I, no chest pain Normal TSH and lytes Not on steve blockers Could be 2/2 new psych meds, to hold Hypoxia O2 dropped to 88% on RA CXR showing chronic LLL infiltrates, no fever, leukocytosis or coughing elevated DDimer check CTA O2 supplement for now Hypotension related to BP meds and bradycardia hold BP meds Thanks for the consult will continue to follow the patient with you Time Spent With Patient Time: Total time managing care of this patient today ____ minutes.
[2022-06-20 10:54] LABS: Platelet Count 181 X10*3/uL (160-400); SLIDE REVIEW VERIFIED
[2022-06-20 11:34] LABS: D Dimer High Sensitivity 781 NG/ML
[2022-06-20] MEDS: iohexoL 350 MG/ML 100 ML INFUS..BTL IV (16:55)
--- NOTE | 2022-06-20 19:44 | PM.EVENT ---
Event Note Date of Service: 06/20/22 Event Note: Patient's CTA negative for pulmonary embolism, but did show moderate left and tiny right pleural effusions with segmental left lower lobe atelectasis. An additional dependent opacity along the left major fissure favors atelectasis however aspiration cannot be excluded. Patient will be made NPO and have aspiration precautions in place until evaluated by speech in the morning. Patient will be started on Unasyn for empiric treatment of potential aspiration pneumonia. Time Spent With Patient Time: Total time managing care of this patient today ____ minutes.
[2022-06-20] MEDS: Ferrous Sulfate 324 MG TABLET.DR PO (20:23)
[2022-06-20] MEDS: lamoTRIgine 100 MG TABLET PO (20:23)
[2022-06-20] MEDS: Mirtazapine 15 MG TABLET 45 MG PO (20:24)
[2022-06-20] MEDS: OLANZapine 5 MG TABLET PO (20:24)
[2022-06-20] MEDS: Atorvastatin Calcium 10 MG TABLET PO (20:24)
[2022-06-20] MEDS: Albuterol/Iprat 2.5/0.5MG 3 ML AMPUL.NEB INHALE (20:27)
[2022-06-20] MEDS: Ampicillin Sodium/Sulbactam Na 3 GM in 0.9 % Sodium Chloride 100 ML IV (22:17)
[2022-06-21] MEDS: Ampicillin Sodium/Sulbactam Na 3 GM in 0.9 % Sodium Chloride 100 ML IV (04:06)
[2022-06-21 04:33] VITALS: PULSE 56; RESP 16; O2SAT 93
[2022-06-21 06:00] VITALS: BP 133/60; PULSE 51; RESP 18; TEMP 36.9; O2SAT 93
[2022-06-21 07:00] VITALS: BMI 29.7
[2022-06-21] MEDS: lamoTRIgine 100 MG TABLET PO ×2 (09:40→21:27)
[2022-06-21] MEDS: Omeprazole 20 MG CAPSULE.DR PO ×2 (09:40→16:09)
[2022-06-21] MEDS: Ferrous Sulfate 324 MG TABLET.DR PO ×2 (09:40→21:27)
[2022-06-21] MEDS: Levothyroxine Sodium 25 MCG TABLET PO (09:40)
[2022-06-21] MEDS: polyethylene glycoL 3350 17 GM POWD.PACK PO (09:40)
[2022-06-21] MEDS: Folic Acid 1 MG TABLET PO (09:40)
[2022-06-21] MEDS: Cyanocobalamin (Vitamin B-12) 100 MCG TABLET PO (09:41)
[2022-06-21] MEDS: Albuterol/Iprat 2.5/0.5MG 3 ML AMPUL.NEB INHALE ×3 (10:52→20:42)
[2022-06-21] MEDS: Amoxicillin/Potassium Clav 500 MG TABLET PO ×2 (10:54→21:27)
[2022-06-21 11:10] VITALS: PULSE 71; RESP 18; O2SAT 94
--- NOTE | 2022-06-21 11:25 | MHC.SL.SWA ---
Speech Pathologist Impression: Risk of Aspiration Due to: Poor PO Intake Dysphasia Diet Status: Liquid Consistency and Strategies for Safe Swallow: Liquid Intake Recommendation: Thin Liquid Intake Strategies: Unrestricted Solid Food Consistency: Dietary Recommendations: Regular Additional Modifications to Solid Foods: Allow patient to select foods she feels motivated to eat. Patient reports feeling overwhelmed by the amount of food that comes with tray, and may need items removed if there are too many choices. Patient may need assistance cutting food into bite size pieces. Patient evidenced good judgment regarding types of foods she can manage without having dentures. Oral Medication Intake: Whole with Liquid Please contact the pharmacy regarding appropriate crushable or liquid drug formulations that are available whenever modified delivery is recommended. Compensatory Strategies and Precautions to be Taken for Safe Swallow: Sitting Upright (90 deg) Liquids from Cup Liquids from Straw Avoid Specific Foods Supervision While Eating and Drinking for Safe Swallow: None Needed Foods to Avoid: Tough to chew solids. Swallowing Recommended Treatments: Recommendation for Speech: NA:Typical Evaluation Comment: Patient presents with all aspects of oral motor function (with the exception of being edentulous) and all aspects of swallow WFL. No indication of aspiration or difficulty swallowing on this evaluation. Patient does have history of chronic nausea, may have had aspiration event on nausea, speculatively. Recommend UPGRADE diet to REGULAR with THIN LIQUIDS, Pills whole with liquid or puree, as preferred by patient. Encourage patient to select preferred food from menu. RN Advised of recommendation in person, , Psych, RD advised by secure text. As patient is on least restrictive diet and does not present with swallow concerns, will D/C speech at this time. 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
--- NOTE | 2022-06-21 13:31 | HO.PM.IMPN ---
Subjective Subjective Date of Service: 06/21/22 Interval History: Seen and evaluated feels much better HR and BP improved back to baseline No evidence of PE on CTA Review of Systems Review of Systems: Yes all other systems are reviewed and are negative Physical Exam Vital Signs: Vital Signs: Last Vital Signs Temp 98.5 F 06/20/22 18:00 Pulse 71 06/21/22 11:10 Resp 18 06/21/22 11:10 BP 133/58 L 06/20/22 18:00 Pulse Ox 93 06/21/22 04:33 O2 Del Method Room Air 06/21/22 04:33 O2 Flow Rate 1 06/20/22 12:38 BMI result Body Mass Index 30.2 Const: Other: Constitutional : alert, interactive, not in distress Neck : Normal inspection, Supple Cardiovascular : RRR, no JVP, trace lower extremity edema, bradycardia Respiratory : good bilateral air entry, no crackles, wheezes or rhonchi Gastrointestinal: soft, lax, Normal bowel sounds, Non tender, G-tube in place with no surroudning erythema Skin : Warm, Dry Neurological : Alert & oriented x3, No focal deficit Objective Data Active Medications Acetaminophen (Acetaminophen 325 Mg Tablet) 650 mg PO Q6H PRN PRN Reason: Headache/Pain Mild Scale (1-3) Last Admin: 06/19/22 22:51 Dose: 650 mg Documented By: DEBORAH Al Hydroxide/Mg Hydroxide (Magnesium Hydrox/Alum Hydrox 30 Ml Oral.Susp) 30 ml PO Q6H PRN PRN Reason: Heartburn/Nausea Last Admin: 06/18/22 18:23 Dose: 30 ml Documented By: MIKE Albuterol/Ipratropium (Albuterol/Iprat 2.5/0.5mg 3 Ml Ampul.Neb) 3 ml INHALE RQ6H WHILE AWAKE [facility] Last Admin: 06/21/22 10:52 Dose: 3 ml Documented By: MIC Amoxicillin/Clavulanate Potassium (Amoxicillin/Potassium Clav 500 Mg Tablet) 500 mg PO Q12H [facility] Stop: 06/26/22 07:44 Last Admin: 06/21/22 10:54 Dose: 500 mg Documented By: MIC Atorvastatin Calcium (Atorvastatin Calcium 10 Mg Tablet) 10 mg PO BEDTIME [facility] Last Admin: 06/20/22 20:24 Dose: 10 mg Documented By: VALERIY Clonazepam (Clonazepam 0.5 Mg Tablet) 0.5 mg PO TID [facility] Last Admin: 06/20/22 09:18 Dose: Not Given Documented By: ANNA Non-Admin Reason: Physician Held Med Cyanocobalamin (Cyanocobalamin (Vitamin B-12) 100 Mcg Tablet) 100 mcg PO DAILY [facility] Last Admin: 06/21/22 09:41 Dose: 100 mcg Documented By: MIC Docusate Sodium (Docusate Sodium 100 Mg Capsule) 100 mg PO BID PRN PRN Reason: Constipation Ferrous Sulfate (Ferrous Sulfate 324 Mg Tablet.Dr) 324 mg PO BID [facility] Last Admin: 06/21/22 09:40 Dose: 324 mg Documented By: MIC Folic Acid (Folic Acid 1 Mg Tablet) 1 mg PO DAILY [facility] Last Admin: 06/21/22 09:40 Dose: 1 mg Documented By: MIC Guaifenesin (Guaifenesin 100 Mg/5 Ml Liquid) 5 ml PO Q6H PRN PRN Reason: Cough Hydroxyzine HCl (Hydroxyzine Hcl 25 Mg Tablet) 25 mg PO Q6H PRN PRN Reason: Anxiety Last Admin: 06/18/22 02:00 Dose: 25 mg Documented By: BRIELLE Lamotrigine (Lamotrigine 100 Mg Tablet) 100 mg PO BID [facility] Last Admin: 06/21/22 09:40 Dose: 100 mg Documented By: MIC Levothyroxine Sodium (Levothyroxine Sodium 25 Mcg Tablet) 25 mcg PO DAILY@0600 [facility] Last Admin: 06/21/22 09:40 Dose: 25 mcg Documented By: MIC Loperamide HCl (Loperamide Hcl 2 Mg Capsule) 2 mg PO Q6H PRN PRN Reason: Diarrhea Last Admin: 06/18/22 17:00 Dose: 2 mg Documented By: MIKE Magnesium Hydroxide (Milk Of Magnesia 30 Ml Oral.Susp) 30 ml PO DAILY PRN PRN Reason: Constipation Mirtazapine (Mirtazapine 15 Mg Tablet) 45 mg PO BEDTIME [facility] Last Admin: 06/20/22 20:24 Dose: 45 mg Documented By: VALERIY Olanzapine (Olanzapine 5 Mg Tablet) 5 mg PO BEDTIME [facility] Last Admin: 06/20/22 20:24 Dose: 5 mg Documented By: VALERIY Omeprazole (Omeprazole 20 Mg Capsule.) 20 mg PO BID@0630,1630 [facility] Last Admin: 06/21/22 09:40 Dose: 20 mg Documented By: MIC Ondansetron HCl (Ondansetron Odt 4 Mg Tab.Rapdis) 4 mg TRANSLINGU Q6H PRN PRN Reason: nausea Last Admin: 06/13/22 08:46 Dose: 4 mg Documented By: ELIDA Polyethylene Glycol (Polyethylene Glycol 3350 17 Gm Powd.Pack) 17 gm PO DAILY [facility] Last Admin: 06/21/22 09:40 Dose: 17 gm Documented By: MIC Prochlorperazine Maleate (Prochlorperazine Maleate 5 Mg Tablet) 5 mg PO QID PRN PRN Reason: Nausea And Vomiting Tramadol HCl (Tramadol Hcl 50 Mg Tablet) 50 mg PO Q6H PRN PRN Reason: Pain, Severe (Pain Scale 7-10) Last Admin: 06/19/22 23:23 Dose: 50 mg Documented By: DEBORAH Trazodone HCl (Trazodone Hcl 50 Mg Tablet) 50 mg PO BEDTIME MRX1 PRN PRN Reason: Insomnia Last Admin: 06/19/22 00:30 Dose: 50 mg Documented By: GABRIELLA Valsartan (Valsartan 80 Mg Tablet) 80 mg PO DAILY [facility]; Protocol Last Admin: 06/20/22 09:19 Dose: Not Given Documented By: ANNA Non-Admin Reason: Physician Held Med Labs 06/20/22 09:58 06/20/22 08:59 Assessment and Plan (1) Hypotension: Status: Acute (2) Hypoxia: Status: Acute (3) Bradycardia: Status: Acute Plan An 82-year-old female with history of bipolar disorder, depression with anxiety, hyperlipidemia, hypertension, hypothyroidism, history of colon cancer s/p right hemicolectomy, and vitamin-D deficiency noticed to have low BP and HR. Bradycardia resolved EKG showed sinus eusebio with 1st degree block negative Trop I, no chest pain Normal TSH and lytes Resolved after holding new psych meds, Olanzapine and Brexipiprazole Hypoxia O2 dropped to 88% on RA CXR showing chronic LLL infiltrates, no fever, leukocytosis or coughing elevated DDimer negative CTA for PE but possible aspiration pneumonia Off O2 supplement now Start Augmentin modified diet MARINE SPECIALIST evaluation Hypotension resolved related to BP meds and bradycardia hold BP meds , restart as tolerated Thanks for the consult will continue to follow the patient with you as needed. please contact hospitalist team for any further question Time Spent With Patient Time: Total time managing care of this patient today ____ minutes. Quality Stroke Does the patient have a stroke diagnosis?: No VTE Prior VTE?: No VTE Risk Level:: Medical - moderate - high VTE Device Contraindication: Treatment Not Indicated VTE Drug Contraindication: Treatment Not Indicated
--- NOTE | 2022-06-21 14:10 | P.PNPSI_ITS ---
Subjective Subjective Date of Service: 06/21/22 Reason For Visit: mood disorder Subjective Notes: Conditional Voluntary Interim History: The nursing staff reported the patient had been anxious, with lack of energy. Yesterday her medications were held in the morning. The hospital start her on Augmentin and the workout for pulmonary embolism came back negative. Today we had a consult with Physical therapy and they recommended subacute rehab. On interview the patient denies new symptoms states that she is very tired. Mental Status Exam Mental Status Exam Patient Appearance: Well Grooomed and Appropriate Patient Orientation: Person and Situation Level of Consciousness: Awake and Appropriate Patient Behavior: Guarded and Passive Mood Description: Withdrawn and Constricted Affect Description: Constricted Patient Cognition Impaired: Yes Ability to Follow Directions: Good Speech Pattern: Clear Hallucinations: None Delusions: Not Present Thought Process: Distracted and Linear Thought Content: positive for [place] and positive for Circumstantial Judgement: Fair Diagnostics Vital Signs (24Hr): Vital Signs - 24 hr 06/20/22 17:00 06/20/22 18:00 06/20/22 20:32 Temperature 97 F 98.5 F Pulse Rate 50 49 L 78 Respiratory Rate 22 H 16 Blood Pressure 145/65 H 133/58 L Pulse Oximetry 95 99 94 Oxygen Delivery Method 06/20/22 20:32 06/21/22 04:33 06/21/22 11:10 Temperature Pulse Rate 78 56 71 Respiratory Rate 16 16 18 Blood Pressure Pulse Oximetry 93 Oxygen Delivery Method Room Air BMI result Body Mass Index 30.2 Labs 06/20/22 09:58 06/20/22 08:59 Labs: Laboratory Results - last 48 hr 06/20/22 06/20/22 06/20/22 08:33 08:59 08:59 WBC RBC Hgb Hct MCV MCH MCHC RDW Plt Count MPV Immature Gran % (Auto) Neut % (Auto) Lymph % (Auto) [place] % (Auto) Eos % (Auto) Baso % (Auto) Lymph # (Auto) [place] # (Auto) Eos # (Auto) Baso # (Auto) Abs Immat Gran (auto) Absolute Neuts (auto) Absolute Nucleated RBC Nucleated RBC % (auto) Smear Tech's Comments D-Dimer High Sensitivty Sodium 142 Potassium 4.2 Chloride 110 H Carbon Dioxide 25 Anion Gap 11 L BUN 20 H Creatinine 1.17 Estim Creat Clear Calc 35.8 Estimated GFR 44 POC Glucose 105 Random Glucose 108 Calcium 8.5 D Total Creatine Kinase 27 Troponin I High Sens 6.0 06/20/22 06/20/22 09:58 11:21 WBC 3.8 L RBC 2.50 L Hgb 8.3 L Hct 27.1 L MCV 108.4 H MCH 33.2 H MCHC 30.6 L RDW 15.7 Plt Count 181 MPV Not Reportable Immature Gran % (Auto) 0.3 Neut % (Auto) 35.6 L Lymph % (Auto) 38.3 Canadian % (Auto) 11.3 H Eos % (Auto) 14.0 H Baso % (Auto) 0.5 Lymph # (Auto) 1.5 Canadian # (Auto) 0.4 Eos # (Auto) 0.5 H Baso # (Auto) 0.0 Abs Immat Gran (auto) 0.01 Absolute Neuts (auto) 1.4 L Absolute Nucleated RBC 0.000 Nucleated RBC % (auto) 0.0 Smear Tech's Comments VERIFIED D-Dimer High Sensitivty 781 Sodium Potassium Chloride Carbon Dioxide Anion Gap BUN Creatinine Estim Creat Clear Calc Estimated GFR POC Glucose Random Glucose Calcium Total Creatine Kinase Troponin I High Sens Imaging Radiology Impressions: ITS Impressions Chest X-Ray 06/01/22 14:47 IMPRESSION: Small left pleural effusion with superjacent hazy opacities suggesting atelectasis and/or infiltrates. KUB X-Ray 06/01/22 14:47 IMPRESSION: G-tube in the left upper quadrant with a small air bubble in the fundus. The bowel gas pattern is nonspecific. Chest X-Ray 06/20/22 08:56 IMPRESSION: The persistent opacity at the left lung base is nonspecific but probably represents a combination of small pleural effusion and basilar atelectasis. This radiographic examination would not be able to exclude any left lower lobe pneumonia. However, there are no new pulmonary infiltrates compared to 06/01/2022. Chest CTA 06/20/22 17:08 IMPRESSION: 1. No pulmonary embolism. 2. Moderate left and tiny right pleural effusions. Segmental left lower lobe atelectasis. Additional dependent opacity along the left major fissure favors atelectasis, though aspiration not excluded. VTE: negative Medications Medications Current Medications Acetaminophen (Acetaminophen 325 Mg Tablet) 650 mg PO Q6H PRN PRN Reason: Headache/Pain Mild Scale (1-3) Last Admin: 06/19/22 22:51 Dose: 650 mg Al Hydroxide/Mg Hydroxide (Magnesium Hydrox/Alum Hydrox 30 Ml Oral.Susp) 30 ml PO Q6H PRN PRN Reason: Heartburn/Nausea Last Admin: 06/18/22 18:23 Dose: 30 ml Albuterol/Ipratropium (Albuterol/Iprat 2.5/0.5mg 3 Ml Ampul.Neb) 3 ml INHALE RQ6H WHILE AWAKE [facility] Last Admin: 06/21/22 10:52 Dose: 3 ml Amoxicillin/Clavulanate Potassium (Amoxicillin/Potassium Clav 500 Mg Tablet) 500 mg PO Q12H [facility] Stop: 06/26/22 07:44 Last Admin: 06/21/22 10:54 Dose: 500 mg Atorvastatin Calcium (Atorvastatin Calcium 10 Mg Tablet) 10 mg PO BEDTIME [facility] Last Admin: 06/20/22 20:24 Dose: 10 mg Clonazepam (Clonazepam 0.5 Mg Tablet) 0.5 mg PO TID [facility] Last Admin: 06/20/22 09:18 Dose: Not Given Cyanocobalamin (Cyanocobalamin (Vitamin B-12) 100 Mcg Tablet) 100 mcg PO DAILY [facility] Last Admin: 06/21/22 09:41 Dose: 100 mcg Docusate Sodium (Docusate Sodium 100 Mg Capsule) 100 mg PO BID PRN PRN Reason: Constipation Ferrous Sulfate (Ferrous Sulfate 324 Mg Tablet.Dr) 324 mg PO BID [facility] Last Admin: 06/21/22 09:40 Dose: 324 mg Folic Acid (Folic Acid 1 Mg Tablet) 1 mg PO DAILY [facility] Last Admin: 06/21/22 09:40 Dose: 1 mg Guaifenesin (Guaifenesin 100 Mg/5 Ml Liquid) 5 ml PO Q6H PRN PRN Reason: Cough Hydroxyzine HCl (Hydroxyzine Hcl 25 Mg Tablet) 25 mg PO Q6H PRN PRN Reason: Anxiety Last Admin: 06/18/22 02:00 Dose: 25 mg Lamotrigine (Lamotrigine 100 Mg Tablet) 100 mg PO BID [facility] Last Admin: 06/21/22 09:40 Dose: 100 mg Levothyroxine Sodium (Levothyroxine Sodium 25 Mcg Tablet) 25 mcg PO DAILY@0600 [facility] Last Admin: 06/21/22 09:40 Dose: 25 mcg Loperamide HCl (Loperamide Hcl 2 Mg Capsule) 2 mg PO Q6H PRN PRN Reason: Diarrhea Last Admin: 06/18/22 17:00 Dose: 2 mg Magnesium Hydroxide (Milk Of Magnesia 30 Ml Oral.Susp) 30 ml PO DAILY PRN PRN Reason: Constipation Mirtazapine (Mirtazapine 15 Mg Tablet) 45 mg PO BEDTIME [facility] Last Admin: 06/20/22 20:24 Dose: 45 mg Olanzapine (Olanzapine 5 Mg Tablet) 5 mg PO BEDTIME [facility] Last Admin: 06/20/22 20:24 Dose: 5 mg Omeprazole (Omeprazole 20 Mg Capsule.Dr) 20 mg PO BID@0630,1630 [facility] Last Admin: 06/21/22 09:40 Dose: 20 mg Ondansetron HCl (Ondansetron Odt 4 Mg Tab.Rapdis) 4 mg TRANSLINGU Q6H PRN PRN Reason: nausea Last Admin: 06/13/22 08:46 Dose: 4 mg Polyethylene Glycol (Polyethylene Glycol 3350 17 Gm Powd.Pack) 17 gm PO DAILY [facility] Last Admin: 06/21/22 09:40 Dose: 17 gm Prochlorperazine Maleate (Prochlorperazine Maleate 5 Mg Tablet) 5 mg PO QID PRN PRN Reason: Nausea And Vomiting Tramadol HCl (Tramadol Hcl 50 Mg Tablet) 50 mg PO Q6H PRN PRN Reason: Pain, Severe (Pain Scale 7-10) Last Admin: 06/19/22 23:23 Dose: 50 mg Trazodone HCl (Trazodone Hcl 50 Mg Tablet) 50 mg PO BEDTIME MRX1 PRN PRN Reason: Insomnia Last Admin: 06/19/22 00:30 Dose: 50 mg Valsartan (Valsartan 80 Mg Tablet) 80 mg PO DAILY [facility]; Protocol Last Admin: 06/20/22 09:19 Dose: Not Given Allergies Allergies Allergy/AdvReac Type Severity Reaction Status Date / Time meperidine [From Demerol] AdvReac Unknown Unknown Verified 05/22/22 16:45 Assessment & Plan Assessment & Plan (1) Hypotension: Status: Acute Code(s): I95.9 - Hypotension, unspecified (2) Hypoxia: Status: Acute Code(s): R09.02 - Hypoxemia (3) Bradycardia: Status: Acute Code(s): R00.1 - Bradycardia, unspecified Plan An 82-year-old female with history of bipolar disorder, depression with anxiety, hyperlipidemia, hypertension, hypothyroidism, history of colon cancer s/p right hemicolectomy, and vitamin-D deficiency noticed to have low BP and HR. 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 please contact hospitalist team for any further question Plan 1. Continue with same treatment. 2. Continue with Augmentin for infection. 3. Disposition to subacute rehab. Reason for continued inpatient stay Substantial Risk for: inability to function, rapid decompensation and med/psych decompensation Time Spent With Patient Time: Total time managing care of this patient today _20___ minutes.
[2022-06-21 15:44] VITALS: PULSE 78; RESP 18; O2SAT 95
[2022-06-21 20:39] VITALS: BP 118/57; PULSE 65; RESP 18; TEMP 37.5; O2SAT 96
[2022-06-21 20:43] VITALS: PULSE 65; RESP 18; O2SAT 96
[2022-06-21] MEDS: Mirtazapine 15 MG TABLET 45 MG PO (21:27)
[2022-06-21] MEDS: OLANZapine 5 MG TABLET PO (21:27)
[2022-06-21] MEDS: Atorvastatin Calcium 10 MG TABLET PO (21:27)
[2022-06-21] MEDS: traZODone HCL 50 MG TABLET PO (21:29)
[2022-06-22 06:00] VITALS: BP 140/60; PULSE 54; O2SAT 90
[2022-06-22] MEDS: Omeprazole 20 MG CAPSULE.DR PO ×2 (06:28→16:42)
[2022-06-22] MEDS: Levothyroxine Sodium 25 MCG TABLET PO (06:28)
[2022-06-22] MEDS: Ferrous Sulfate 324 MG TABLET.DR PO (09:10)
[2022-06-22] MEDS: Amoxicillin/Potassium Clav 500 MG TABLET PO ×2 (09:10→20:51)
[2022-06-22] MEDS: lamoTRIgine 100 MG TABLET PO (09:10)
[2022-06-22] MEDS: Cyanocobalamin (Vitamin B-12) 100 MCG TABLET PO (09:10)
[2022-06-22] MEDS: Folic Acid 1 MG TABLET PO (09:10)
[2022-06-22] MEDS: Ondansetron ODT 4 MG TAB.RAPDIS TRANSLINGU ×2 (09:25→17:17)
[2022-06-22] MEDS: Loperamide HCl 2 MG CAPSULE PO (09:26)
[2022-06-22] MEDS: hydrOXYzine HCL 25 MG TABLET PO (09:26)
[2022-06-22] MEDS: Albuterol/Iprat 2.5/0.5MG 3 ML AMPUL.NEB INHALE (13:09)
[2022-06-22 13:11] VITALS: PULSE 78; RESP 15; O2SAT 96
[2022-06-22 13:12] VITALS: PULSE 78; RESP 16; O2SAT 98
--- NOTE | 2022-06-22 15:19 | P.PNPSI_ITS ---
Subjective Subjective Date of Service: 06/22/22 Reason For Visit: mood disorder Subjective Notes: Conditional Voluntary Interim History: The nursing staff reported the patient had been compliant with treatment patient with documenting. Last night she ate 100% her emails but later on she threw up. The psychosocial rehabilitation counselor reported that we are applying for nursing facility or subacute rehab. The PT staff assessed her and she still to subacute rehab. On interview the patient denies new symptoms Mental Status Exam Mental Status Exam Patient Appearance: Well Grooomed and Appropriate Patient Orientation: Person and Situation Level of Consciousness: Awake and Appropriate Patient Behavior: Guarded and Passive Mood Description: Calm and Constricted Affect Description: Calm Patient Cognition Impaired: Yes Ability to Follow Directions: Good Speech Pattern: Clear Hallucinations: None Delusions: Not Present Thought Process: Linear Thought Content: positive for Circumstantial and positive for Goal Oriented Judgement: Fair Diagnostics Vital Signs (24Hr): Vital Signs - 24 hr 06/21/22 15:44 06/21/22 20:39 06/21/22 20:43 Temperature 99.5 F Pulse Rate 78 65 65 Respiratory Rate 18 18 18 Blood Pressure 118/57 L Pulse Oximetry 96 Oxygen Delivery Method Room Air 06/22/22 06:00 06/22/22 13:11 06/22/22 13:12 Temperature Pulse Rate 54 78 78 Respiratory Rate 15 16 Blood Pressure 140/60 H Pulse Oximetry 90 L 98 Oxygen Delivery Method Room Air BMI result Body Mass Index 29.7 Labs 06/20/22 09:58 06/20/22 08:59 Imaging Radiology Impressions: ITS Impressions Chest X-Ray 06/01/22 14:47 IMPRESSION: Small left pleural effusion with superjacent hazy opacities suggesting atelectasis and/or infiltrates. KUB X-Ray 06/01/22 14:47 IMPRESSION: G-tube in the left upper quadrant with a small air bubble in the fundus. The bowel gas pattern is nonspecific. Chest X-Ray 06/20/22 08:56 IMPRESSION: The persistent opacity at the left lung base is nonspecific but probably represents a combination of small pleural effusion and basilar atelectasis. This radiographic examination would not be able to exclude any left lower lobe pneumonia. However, there are no new pulmonary infiltrates compared to 06/01/2022. Chest CTA 06/20/22 17:08 IMPRESSION: 1. No pulmonary embolism. 2. Moderate left and tiny right pleural effusions. Segmental left lower lobe atelectasis. Additional dependent opacity along the left major fissure favors atelectasis, though aspiration not excluded. VTE: negative Medications Medications Current Medications Acetaminophen (Acetaminophen 325 Mg Tablet) 650 mg PO Q6H PRN PRN Reason: Headache/Pain Mild Scale (1-3) Last Admin: 06/19/22 22:51 Dose: 650 mg Al Hydroxide/Mg Hydroxide (Magnesium Hydrox/Alum Hydrox 30 Ml Oral.Susp) 30 ml PO Q6H PRN PRN Reason: Heartburn/Nausea Last Admin: 06/18/22 18:23 Dose: 30 ml Albuterol/Ipratropium (Albuterol/Iprat 2.5/0.5mg 3 Ml Ampul.Neb) 3 ml INHALE RQ6H WHILE AWAKE [facility] Last Admin: 06/22/22 13:09 Dose: 3 ml Amoxicillin/Clavulanate Potassium (Amoxicillin/Potassium Clav 500 Mg Tablet) 500 mg PO Q12H [facility] Stop: 06/26/22 07:44 Last Admin: 06/22/22 09:10 Dose: 500 mg Atorvastatin Calcium (Atorvastatin Calcium 10 Mg Tablet) 10 mg PO BEDTIME [facility] Last Admin: 06/21/22 21:27 Dose: 10 mg Clonazepam (Clonazepam 0.5 Mg Tablet) 0.5 mg PO TID [facility] Last Admin: 06/20/22 09:18 Dose: Not Given Cyanocobalamin (Cyanocobalamin (Vitamin B-12) 100 Mcg Tablet) 100 mcg PO DAILY [facility] Last Admin: 06/22/22 09:10 Dose: 100 mcg Docusate Sodium (Docusate Sodium 100 Mg Capsule) 100 mg PO BID PRN PRN Reason: Constipation Ferrous Sulfate (Ferrous Sulfate 324 Mg Tablet.Dr) 324 mg PO BID [facility] Last Admin: 06/22/22 09:10 Dose: 324 mg Folic Acid (Folic Acid 1 Mg Tablet) 1 mg PO DAILY [facility] Last Admin: 06/22/22 09:10 Dose: 1 mg Guaifenesin (Guaifenesin 100 Mg/5 Ml Liquid) 5 ml PO Q6H PRN PRN Reason: Cough Hydroxyzine HCl (Hydroxyzine Hcl 25 Mg Tablet) 25 mg PO Q6H PRN PRN Reason: Anxiety Last Admin: 06/22/22 09:26 Dose: 25 mg Lamotrigine (Lamotrigine 100 Mg Tablet) 100 mg PO BID [facility] Last Admin: 06/22/22 09:10 Dose: 100 mg Levothyroxine Sodium (Levothyroxine Sodium 25 Mcg Tablet) 25 mcg PO DAILY@0600 [facility] Last Admin: 06/22/22 06:28 Dose: 25 mcg Loperamide HCl (Loperamide Hcl 2 Mg Capsule) 2 mg PO Q6H PRN PRN Reason: Diarrhea Last Admin: 06/22/22 09:26 Dose: 2 mg Magnesium Hydroxide (Milk Of Magnesia 30 Ml Oral.Susp) 30 ml PO DAILY PRN PRN Reason: Constipation Mirtazapine (Mirtazapine 15 Mg Tablet) 45 mg PO BEDTIME [facility] Last Admin: 06/21/22 21:27 Dose: 45 mg Olanzapine (Olanzapine 5 Mg Tablet) 5 mg PO BEDTIME [facility] Last Admin: 06/21/22 21:27 Dose: 5 mg Omeprazole (Omeprazole 20 Mg Capsule.Dr) 20 mg PO BID@0630,1630 [facility] Last Admin: 06/22/22 06:28 Dose: 20 mg Ondansetron HCl (Ondansetron Odt 4 Mg Tab.Rapdis) 4 mg TRANSLINGU Q6H PRN PRN Reason: nausea Last Admin: 06/22/22 09:25 Dose: 4 mg Polyethylene Glycol (Polyethylene Glycol 3350 17 Gm Powd.Pack) 17 gm PO DAILY [facility] Last Admin: 06/22/22 09:12 Dose: Not Given Prochlorperazine Maleate (Prochlorperazine Maleate 5 Mg Tablet) 5 mg PO QID PRN PRN Reason: Nausea And Vomiting Tramadol HCl (Tramadol Hcl 50 Mg Tablet) 50 mg PO Q6H PRN PRN Reason: Pain, Severe (Pain Scale 7-10) Last Admin: 06/19/22 23:23 Dose: 50 mg Trazodone HCl (Trazodone Hcl 50 Mg Tablet) 50 mg PO BEDTIME MRX1 PRN PRN Reason: Insomnia Last Admin: 06/21/22 21:29 Dose: 50 mg Valsartan (Valsartan 80 Mg Tablet) 80 mg PO DAILY [facility]; Protocol Last Admin: 06/20/22 09:19 Dose: Not Given Allergies Allergies Allergy/AdvReac Type Severity Reaction Status Date / Time meperidine [From Demerol] AdvReac Unknown Unknown Verified 05/22/22 16:45 Assessment & Plan Assessment & Plan (1) Hypotension: Status: Acute Code(s): I95.9 - Hypotension, unspecified (2) Hypoxia: Status: Acute Code(s): R09.02 - Hypoxemia (3) Bradycardia: Status: Acute Code(s): R00.1 - Bradycardia, unspecified Plan An 82-year-old female with history of bipolar disorder, depression with anxiety, hyperlipidemia, hypertension, hypothyroidism, history of colon cancer s/p right hemicolectomy, and vitamin-D deficiency noticed to have low BP and HR. 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 please contact hospitalist team for any further question Plan 1. Continue with same treatment. 2. Continue with Augmentin for infection. 3. Disposition to subacute rehab. Reason for continued inpatient stay Substantial Risk for: inability to function, rapid decompensation and med/psych decompensation Time Spent With Patient Time: Total time managing care of this patient today __20__ minutes.
[2022-06-22 18:00] VITALS: BP 131/60; PULSE 58; RESP 18; TEMP 37.4; O2SAT 94
[2022-06-22] MEDS: OLANZapine 5 MG TABLET PO (20:56)
[2022-06-23] MEDS: Levothyroxine Sodium 25 MCG TABLET PO (06:13)
[2022-06-23] MEDS: Omeprazole 20 MG CAPSULE.DR PO ×2 (06:13→15:32)
[2022-06-23 09:11] VITALS: BP 139/60; PULSE 74; RESP 18; TEMP 37.2; O2SAT 97
[2022-06-23] MEDS: lamoTRIgine 100 MG TABLET PO ×2 (09:17→20:37)
[2022-06-23] MEDS: Cyanocobalamin (Vitamin B-12) 100 MCG TABLET PO (09:17)
[2022-06-23] MEDS: Ferrous Sulfate 324 MG TABLET.DR PO ×2 (09:17→20:36)
[2022-06-23] MEDS: Folic Acid 1 MG TABLET PO (09:17)
[2022-06-23] MEDS: Amoxicillin/Potassium Clav 500 MG TABLET PO ×2 (09:17→20:36)
--- NOTE | 2022-06-23 11:06 | HO.PSYCHPN ---
Subjective Subjective Date of Service: 06/23/22 Reason For Visit: mood disorder Subjective Notes: Conditional Voluntary Interim History: The nursing staff reported the patient had nausea but she has not vomited. She had eaten well last night and she slept most of the night. On interview the patient denies new symptoms Mental Status Exam Mental Status Exam Patient Appearance: Well Grooomed and Appropriate Patient Orientation: Person and Situation Level of Consciousness: Awake and Appropriate Patient Behavior: Guarded and Passive Mood Description: Withdrawn Affect Description: Constricted Patient Cognition Impaired: Yes Speech Pattern: Clear Hallucinations: None Delusions: Not Present Thought Process: Distracted and Evasive Thought Content: positive for [place] and positive for Circumstantial Judgement: Fair Diagnostics Vital Signs (24Hr): Vital Signs - 24 hr 06/22/22 13:11 06/22/22 13:12 06/22/22 18:00 Temperature 99.3 F Pulse Rate 78 78 58 Respiratory Rate 15 16 18 Blood Pressure 131/60 Pulse Oximetry 98 94 Oxygen Delivery Method Room Air 06/23/22 09:11 Temperature 98.9 F Pulse Rate 74 Respiratory Rate 18 Blood Pressure 139/60 Pulse Oximetry 97 Oxygen Delivery Method Room Air BMI result Body Mass Index 29.7 Labs 06/20/22 09:58 06/20/22 08:59 Imaging Radiology Impressions: ITS Impressions Chest X-Ray 06/01/22 14:47 IMPRESSION: Small left pleural effusion with superjacent hazy opacities suggesting atelectasis and/or infiltrates. KUB X-Ray 06/01/22 14:47 IMPRESSION: G-tube in the left upper quadrant with a small air bubble in the fundus. The bowel gas pattern is nonspecific. Chest X-Ray 06/20/22 08:56 IMPRESSION: The persistent opacity at the left lung base is nonspecific but probably represents a combination of small pleural effusion and basilar atelectasis. This radiographic examination would not be able to exclude any left lower lobe pneumonia. However, there are no new pulmonary infiltrates compared to 06/01/2022. Chest CTA 06/20/22 17:08 IMPRESSION: 1. No pulmonary embolism. 2. Moderate left and tiny right pleural effusions. Segmental left lower lobe atelectasis. Additional dependent opacity along the left major fissure favors atelectasis, though aspiration not excluded. VTE: negative Medications Medications Current Medications Acetaminophen (Acetaminophen 325 Mg Tablet) 650 mg PO Q6H PRN PRN Reason: Headache/Pain Mild Scale (1-3) Last Admin: 06/19/22 22:51 Dose: 650 mg Al Hydroxide/Mg Hydroxide (Magnesium Hydrox/Alum Hydrox 30 Ml Oral.Susp) 30 ml PO Q6H PRN PRN Reason: Heartburn/Nausea Last Admin: 06/18/22 18:23 Dose: 30 ml Albuterol/Ipratropium (Albuterol/Iprat 2.5/0.5mg 3 Ml Ampul.Neb) 3 ml INHALE RQ6H WHILE AWAKE [facility] Last Admin: 06/23/22 08:14 Dose: Not Given Amoxicillin/Clavulanate Potassium (Amoxicillin/Potassium Clav 500 Mg Tablet) 500 mg PO Q12H [facility] Stop: 06/26/22 07:44 Last Admin: 06/23/22 09:17 Dose: 500 mg Atorvastatin Calcium (Atorvastatin Calcium 10 Mg Tablet) 10 mg PO BEDTIME [facility] Last Admin: 06/22/22 20:58 Dose: Not Given Clonazepam (Clonazepam 0.5 Mg Tablet) 0.5 mg PO TID [facility] Last Admin: 06/20/22 09:18 Dose: Not Given Cyanocobalamin (Cyanocobalamin (Vitamin B-12) 100 Mcg Tablet) 100 mcg PO DAILY [facility] Last Admin: 06/23/22 09:17 Dose: 100 mcg Docusate Sodium (Docusate Sodium 100 Mg Capsule) 100 mg PO BID PRN PRN Reason: Constipation Ferrous Sulfate (Ferrous Sulfate 324 Mg Tablet.Dr) 324 mg PO BID [facility] Last Admin: 06/23/22 09:17 Dose: 324 mg Folic Acid (Folic Acid 1 Mg Tablet) 1 mg PO DAILY [facility] Last Admin: 06/23/22 09:17 Dose: 1 mg Guaifenesin (Guaifenesin 100 Mg/5 Ml Liquid) 5 ml PO Q6H PRN PRN Reason: Cough Hydroxyzine HCl (Hydroxyzine Hcl 25 Mg Tablet) 25 mg PO Q6H PRN PRN Reason: Anxiety Last Admin: 06/22/22 09:26 Dose: 25 mg Lamotrigine (Lamotrigine 100 Mg Tablet) 100 mg PO BID [facility] Last Admin: 06/23/22 09:17 Dose: 100 mg Levothyroxine Sodium (Levothyroxine Sodium 25 Mcg Tablet) 25 mcg PO DAILY@0600 [facility] Last Admin: 06/23/22 06:13 Dose: 25 mcg Loperamide HCl (Loperamide Hcl 2 Mg Capsule) 2 mg PO Q6H PRN PRN Reason: Diarrhea Last Admin: 06/22/22 09:26 Dose: 2 mg Magnesium Hydroxide (Milk Of Magnesia 30 Ml Oral.Susp) 30 ml PO DAILY PRN PRN Reason: Constipation Mirtazapine (Mirtazapine 15 Mg Tablet) 45 mg PO BEDTIME [facility] Last Admin: 06/22/22 20:59 Dose: Not Given Olanzapine (Olanzapine 5 Mg Tablet) 5 mg PO BEDTIME [facility] Last Admin: 06/22/22 20:56 Dose: 5 mg Omeprazole (Omeprazole 20 Mg Capsule.Dr) 20 mg PO BID@0630,1630 [facility] Last Admin: 06/23/22 06:13 Dose: 20 mg Ondansetron HCl (Ondansetron Odt 4 Mg Tab.Rapdis) 4 mg TRANSLINGU Q6H PRN PRN Reason: nausea Last Admin: 06/22/22 17:17 Dose: 4 mg Polyethylene Glycol (Polyethylene Glycol 3350 17 Gm Powd.Pack) 17 gm PO DAILY [facility] Last Admin: 06/23/22 09:52 Dose: Not Given Prochlorperazine Maleate (Prochlorperazine Maleate 5 Mg Tablet) 5 mg PO QID PRN PRN Reason: Nausea And Vomiting Tramadol HCl (Tramadol Hcl 50 Mg Tablet) 50 mg PO Q6H PRN PRN Reason: Pain, Severe (Pain Scale 7-10) Last Admin: 06/19/22 23:23 Dose: 50 mg Trazodone HCl (Trazodone Hcl 50 Mg Tablet) 50 mg PO BEDTIME MRX1 PRN PRN Reason: Insomnia Last Admin: 06/21/22 21:29 Dose: 50 mg Valsartan (Valsartan 80 Mg Tablet) 80 mg PO DAILY [facility]; Protocol Last Admin: 06/20/22 09:19 Dose: Not Given Allergies Allergies Allergy/AdvReac Type Severity Reaction Status Date / Time meperidine [From Demerol] AdvReac Unknown Unknown Verified 05/22/22 16:45 Assessment & Plan Assessment & Plan (1) Hypotension: Status: Acute Code(s): I95.9 - Hypotension, unspecified (2) Hypoxia: Status: Acute Code(s): R09.02 - Hypoxemia (3) Bradycardia: Status: Acute Code(s): R00.1 - Bradycardia, unspecified Plan An 82-year-old female with history of bipolar disorder, depression with anxiety, hyperlipidemia, hypertension, hypothyroidism, history of colon cancer s/p right hemicolectomy, and vitamin-D deficiency noticed to have low BP and HR. 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 please contact hospitalist team for any further question Plan 1. Continue with same treatment. 2. Continue with Augmentin for infection. 3. Disposition to subacute rehab. Reason for continued inpatient stay Substantial Risk for: inability to function, rapid decompensation and med/psych decompensation Time Spent With Patient Time: Total time managing care of this patient today __20__ minutes.
[2022-06-23] MEDS: clonazePAM 0.5 MG TABLET PO ×2 (15:25→20:36)
[2022-06-23 18:00] VITALS: BP 135/56; PULSE 98; RESP 18; TEMP 37.3; O2SAT 98
[2022-06-23] MEDS: Mirtazapine 15 MG TABLET 45 MG PO (20:36)
[2022-06-23] MEDS: OLANZapine 5 MG TABLET PO (20:36)
[2022-06-23] MEDS: Atorvastatin Calcium 10 MG TABLET PO (20:37)
[2022-06-23] MEDS: Albuterol/Iprat 2.5/0.5MG 3 ML AMPUL.NEB INHALE (20:40)
[2022-06-23 20:41] VITALS: PULSE 62; RESP 14; O2SAT 97
[2022-06-24] MEDS: Levothyroxine Sodium 25 MCG TABLET PO (05:01)
[2022-06-24] MEDS: Omeprazole 20 MG CAPSULE.DR PO ×2 (05:01→15:41)
[2022-06-24 08:47] VITALS: BP 132/59; PULSE 72; RESP 18; TEMP 37.1; O2SAT 96
[2022-06-24] MEDS: Amoxicillin/Potassium Clav 500 MG TABLET PO ×2 (08:48→19:58)
[2022-06-24] MEDS: Folic Acid 1 MG TABLET PO (08:49)
[2022-06-24] MEDS: Ferrous Sulfate 324 MG TABLET.DR PO ×2 (08:49→19:59)
[2022-06-24] MEDS: clonazePAM 0.5 MG TABLET PO ×3 (08:49→19:59)
[2022-06-24] MEDS: Cyanocobalamin (Vitamin B-12) 100 MCG TABLET PO (08:49)
[2022-06-24] MEDS: lamoTRIgine 100 MG TABLET PO ×2 (08:49→19:59)
--- NOTE | 2022-06-24 09:54 | P.PNPSI_ITS ---
Subjective Subjective Date of Service: 06/24/22 Reason For Visit: mood disorder Subjective Notes: Conditional Voluntary Interim History: The nursing staff reported the patient is looking better, her appetite became normal no nausea no need of p.r.n. Zofran. She slept well last night. On interview the patient denies new symptoms she feels a little tired. I spoke with her daughter also and they are pleased that some of her medical problmes are fixed. Mental Status Exam Mental Status Exam Patient Appearance: Appropriate Patient Orientation: Person and Situation Level of Consciousness: Awake and Appropriate Patient Behavior: Guarded and Passive Mood Description: Withdrawn Affect Description: Constricted Patient Cognition Impaired: Yes Ability to Follow Directions: Good Speech Pattern: Clear Hallucinations: None Delusions: Not Present Thought Process: Distracted and Linear Thought Content: positive for [place] and positive for Circumstantial Judgement: Fair Diagnostics Vital Signs (24Hr): Vital Signs - 24 hr 06/23/22 18:00 06/23/22 20:41 06/24/22 08:47 Temperature 99.1 F 98.7 F Pulse Rate 98 62 72 Respiratory Rate 18 14 18 Blood Pressure 135/56 L 132/59 L Pulse Oximetry 98 96 Oxygen Delivery Method Room Air Room Air BMI result Body Mass Index 29.7 Labs 06/20/22 09:58 06/20/22 08:59 Imaging Radiology Impressions: ITS Impressions Chest X-Ray 06/01/22 14:47 IMPRESSION: Small left pleural effusion with superjacent hazy opacities suggesting atelectasis and/or infiltrates. KUB X-Ray 06/01/22 14:47 IMPRESSION: G-tube in the left upper quadrant with a small air bubble in the fundus. The bowel gas pattern is nonspecific. Chest X-Ray 06/20/22 08:56 IMPRESSION: The persistent opacity at the left lung base is nonspecific but probably represents a combination of small pleural effusion and basilar atelectasis. This radiographic examination would not be able to exclude any left lower lobe pneumonia. However, there are no new pulmonary infiltrates compared to 06/01/2022. Chest CTA 06/20/22 17:08 IMPRESSION: 1. No pulmonary embolism. 2. Moderate left and tiny right pleural effusions. Segmental left lower lobe atelectasis. Additional dependent opacity along the left major fissure favors atelectasis, though aspiration not excluded. VTE: negative Medications Medications Current Medications Acetaminophen (Acetaminophen 325 Mg Tablet) 650 mg PO Q6H PRN PRN Reason: Headache/Pain Mild Scale (1-3) Last Admin: 06/19/22 22:51 Dose: 650 mg Al Hydroxide/Mg Hydroxide (Magnesium Hydrox/Alum Hydrox 30 Ml Oral.Susp) 30 ml PO Q6H PRN PRN Reason: Heartburn/Nausea Last Admin: 06/18/22 18:23 Dose: 30 ml Albuterol/Ipratropium (Albuterol/Iprat 2.5/0.5mg 3 Ml Ampul.Neb) 3 ml INHALE RQ6H WHILE AWAKE [facility] Last Admin: 06/24/22 08:18 Dose: Not Given Amoxicillin/Clavulanate Potassium (Amoxicillin/Potassium Clav 500 Mg Tablet) 500 mg PO Q12H [facility] Stop: 06/26/22 07:44 Last Admin: 06/24/22 08:48 Dose: 500 mg Atorvastatin Calcium (Atorvastatin Calcium 10 Mg Tablet) 10 mg PO BEDTIME [facility] Last Admin: 06/23/22 20:37 Dose: 10 mg Clonazepam (Clonazepam 0.5 Mg Tablet) 0.5 mg PO TID [facility] Last Admin: 06/24/22 08:49 Dose: 0.5 mg Cyanocobalamin (Cyanocobalamin (Vitamin B-12) 100 Mcg Tablet) 100 mcg PO DAILY [facility] Last Admin: 06/24/22 08:49 Dose: 100 mcg Docusate Sodium (Docusate Sodium 100 Mg Capsule) 100 mg PO BID PRN PRN Reason: Constipation Ferrous Sulfate (Ferrous Sulfate 324 Mg Tablet.Dr) 324 mg PO BID [facility] Last Admin: 06/24/22 08:49 Dose: 324 mg Folic Acid (Folic Acid 1 Mg Tablet) 1 mg PO DAILY [facility] Last Admin: 06/24/22 08:49 Dose: 1 mg Guaifenesin (Guaifenesin 100 Mg/5 Ml Liquid) 5 ml PO Q6H PRN PRN Reason: Cough Hydroxyzine HCl (Hydroxyzine Hcl 25 Mg Tablet) 25 mg PO Q6H PRN PRN Reason: Anxiety Last Admin: 06/22/22 09:26 Dose: 25 mg Lamotrigine (Lamotrigine 100 Mg Tablet) 100 mg PO BID [facility] Last Admin: 06/24/22 08:49 Dose: 100 mg Levothyroxine Sodium (Levothyroxine Sodium 25 Mcg Tablet) 25 mcg PO DAILY@0600 [facility] Last Admin: 06/24/22 05:01 Dose: 25 mcg Loperamide HCl (Loperamide Hcl 2 Mg Capsule) 2 mg PO Q6H PRN PRN Reason: Diarrhea Last Admin: 06/22/22 09:26 Dose: 2 mg Magnesium Hydroxide (Milk Of Magnesia 30 Ml Oral.Susp) 30 ml PO DAILY PRN PRN Reason: Constipation Mirtazapine (Mirtazapine 15 Mg Tablet) 45 mg PO BEDTIME [facility] Last Admin: 06/23/22 20:36 Dose: 45 mg Olanzapine (Olanzapine 5 Mg Tablet) 5 mg PO BEDTIME [facility] Last Admin: 06/23/22 20:36 Dose: 5 mg Omeprazole (Omeprazole 20 Mg Capsule.Dr) 20 mg PO BID@0630,1630 [facility] Last Admin: 06/24/22 05:01 Dose: 20 mg Ondansetron HCl (Ondansetron Odt 4 Mg Tab.Rapdis) 4 mg TRANSLINGU Q6H PRN PRN Reason: nausea Last Admin: 06/22/22 17:17 Dose: 4 mg Polyethylene Glycol (Polyethylene Glycol 3350 17 Gm Powd.Pack) 17 gm PO DAILY [facility] Last Admin: 06/24/22 08:51 Dose: Not Given Prochlorperazine Maleate (Prochlorperazine Maleate 5 Mg Tablet) 5 mg PO QID PRN PRN Reason: Nausea And Vomiting Trazodone HCl (Trazodone Hcl 50 Mg Tablet) 50 mg PO BEDTIME MRX1 PRN PRN Reason: Insomnia Last Admin: 06/21/22 21:29 Dose: 50 mg Valsartan (Valsartan 80 Mg Tablet) 80 mg PO DAILY [facility]; Protocol Last Admin: 06/20/22 09:19 Dose: Not Given Allergies Allergies Allergy/AdvReac Type Severity Reaction Status Date / Time meperidine [From Demerol] AdvReac Unknown Unknown Verified 05/22/22 16:45 Assessment & Plan Assessment & Plan (1) Hypotension: Status: Acute Code(s): I95.9 - Hypotension, unspecified (2) Hypoxia: Status: Acute Code(s): R09.02 - Hypoxemia (3) Bradycardia: Status: Acute Code(s): R00.1 - Bradycardia, unspecified Plan An 82-year-old female with history of bipolar disorder, depression with anxiety, hyperlipidemia, hypertension, hypothyroidism, history of colon cancer s/p right hemicolectomy, and vitamin-D deficiency noticed to have low BP and HR. 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 please contact hospitalist team for any further question Plan 1. Continue with same treatment. 2. Continue with Augmentin for infection. 3. Disposition to subacute rehab. Reason for continued inpatient stay Substantial Risk for: inability to function, rapid decompensation and med/psych decompensation Time Spent With Patient Time: Total time managing care of this patient today _20___ minutes.
[2022-06-24] MEDS: Loperamide HCl 2 MG CAPSULE PO (10:52)
[2022-06-24 18:00] VITALS: BP 120/59; PULSE 49; RESP 19; TEMP 37.6; O2SAT 90
[2022-06-24] MEDS: Mirtazapine 15 MG TABLET 45 MG PO (19:58)
[2022-06-24] MEDS: OLANZapine 5 MG TABLET PO (19:59)
[2022-06-24] MEDS: Atorvastatin Calcium 10 MG TABLET PO (19:59)
[2022-06-24 20:14] VITALS: PULSE 48; O2SAT 96
[2022-06-25] VITALS (7 sets, daily range): BP systolic 116–129; BP diastolic 62–66; PULSE 50–63; RESP 15–18; TEMP 36.7–37.4; O2SAT 94–98
[2022-06-25] MEDS: traZODone HCL 50 MG TABLET PO (02:27)
[2022-06-25] MEDS: Levothyroxine Sodium 25 MCG TABLET PO (06:00)
[2022-06-25] MEDS: Omeprazole 20 MG CAPSULE.DR PO ×2 (06:00→15:36)
[2022-06-25] MEDS: Amoxicillin/Potassium Clav 500 MG TABLET PO ×2 (08:21→20:30)
[2022-06-25] MEDS: Folic Acid 1 MG TABLET PO (08:22)
[2022-06-25] MEDS: lamoTRIgine 100 MG TABLET PO ×2 (08:22→20:30)
[2022-06-25] MEDS: Ferrous Sulfate 324 MG TABLET.DR PO ×2 (08:22→20:30)
[2022-06-25] MEDS: Cyanocobalamin (Vitamin B-12) 100 MCG TABLET PO (08:22)
[2022-06-25] MEDS: clonazePAM 0.5 MG TABLET PO ×3 (08:22→20:31)
[2022-06-25] MEDS: Albuterol/Iprat 2.5/0.5MG 3 ML AMPUL.NEB INHALE ×3 (09:51→21:24)
--- NOTE | 2022-06-25 14:05 | P.PNPSI_ITS ---
Subjective Subjective Date of Service: 06/25/22 Reason For Visit: mood disorder Subjective Notes: Conditional Voluntary Interim History: The nursing staff reported the patient had been fully compliant with treatment she has been independently trying to walk with her Merry Walker. She slept poorly but she feels better than last week. On interview denies new symptoms. She looks more animated with a brighter affect. Mental Status Exam Mental Status Exam Patient Appearance: Well Grooomed and Appropriate Patient Orientation: Person and Situation Level of Consciousness: Awake and Appropriate Patient Behavior: Guarded and Passive Mood Description: Withdrawn Affect Description: Constricted Patient Cognition Impaired: Yes Ability to Follow Directions: Good Speech Pattern: Clear and Slurred Hallucinations: None Delusions: Not Present Thought Process: Linear Thought Content: positive for [place] Judgement: Fair Diagnostics Vital Signs (24Hr): Vital Signs - 24 hr 06/24/22 20:14 06/24/22 18:00 06/25/22 02:31 Temperature 99.6 F 99.4 F Pulse Rate 48 L 49 L 63 Respiratory Rate 19 Blood Pressure 120/59 L Pulse Oximetry 96 90 L 94 Oxygen Delivery Method Room Air Room Air Room Air 06/25/22 09:53 06/25/22 09:55 06/25/22 08:10 Temperature 98.1 F Pulse Rate 58 58 51 Respiratory Rate 15 15 18 Blood Pressure 129/62 Pulse Oximetry 96 94 Oxygen Delivery Method Room Air BMI result Body Mass Index 29.7 Labs 06/20/22 09:58 06/20/22 08:59 Imaging Radiology Impressions: ITS Impressions Chest X-Ray 06/01/22 14:47 IMPRESSION: Small left pleural effusion with superjacent hazy opacities suggesting atelectasis and/or infiltrates. KUB X-Ray 06/01/22 14:47 IMPRESSION: G-tube in the left upper quadrant with a small air bubble in the fundus. The bowel gas pattern is nonspecific. Chest X-Ray 06/20/22 08:56 IMPRESSION: The persistent opacity at the left lung base is nonspecific but probably represents a combination of small pleural effusion and basilar atelectasis. This radiographic examination would not be able to exclude any left lower lobe pneumonia. However, there are no new pulmonary infiltrates compared to 06/01/2022. Chest CTA 06/20/22 17:08 IMPRESSION: 1. No pulmonary embolism. 2. Moderate left and tiny right pleural effusions. Segmental left lower lobe atelectasis. Additional dependent opacity along the left major fissure favors atelectasis, though aspiration not excluded. VTE: negative Medications Medications Current Medications Acetaminophen (Acetaminophen 325 Mg Tablet) 650 mg PO Q6H PRN PRN Reason: Headache/Pain Mild Scale (1-3) Last Admin: 06/19/22 22:51 Dose: 650 mg Al Hydroxide/Mg Hydroxide (Magnesium Hydrox/Alum Hydrox 30 Ml Oral.Susp) 30 ml PO Q6H PRN PRN Reason: Heartburn/Nausea Last Admin: 06/18/22 18:23 Dose: 30 ml Albuterol/Ipratropium (Albuterol/Iprat 2.5/0.5mg 3 Ml Ampul.Neb) 3 ml INHALE RQ6H WHILE AWAKE [facility] Last Admin: 06/25/22 09:51 Dose: 3 ml Amoxicillin/Clavulanate Potassium (Amoxicillin/Potassium Clav 500 Mg Tablet) 500 mg PO Q12H [facility] Stop: 06/26/22 07:44 Last Admin: 06/25/22 08:21 Dose: 500 mg Atorvastatin Calcium (Atorvastatin Calcium 10 Mg Tablet) 10 mg PO BEDTIME [facility] Last Admin: 06/24/22 19:59 Dose: 10 mg Clonazepam (Clonazepam 0.5 Mg Tablet) 0.5 mg PO TID [facility] Last Admin: 06/25/22 08:22 Dose: 0.5 mg Cyanocobalamin (Cyanocobalamin (Vitamin B-12) 100 Mcg Tablet) 100 mcg PO DAILY [facility] Last Admin: 06/25/22 08:22 Dose: 100 mcg Docusate Sodium (Docusate Sodium 100 Mg Capsule) 100 mg PO BID PRN PRN Reason: Constipation Ferrous Sulfate (Ferrous Sulfate 324 Mg Tablet.Dr) 324 mg PO BID [facility] Last Admin: 06/25/22 08:22 Dose: 324 mg Folic Acid (Folic Acid 1 Mg Tablet) 1 mg PO DAILY [facility] Last Admin: 06/25/22 08:22 Dose: 1 mg Guaifenesin (Guaifenesin 100 Mg/5 Ml Liquid) 5 ml PO Q6H PRN PRN Reason: Cough Hydroxyzine HCl (Hydroxyzine Hcl 25 Mg Tablet) 25 mg PO Q6H PRN PRN Reason: Anxiety Last Admin: 06/22/22 09:26 Dose: 25 mg Lamotrigine (Lamotrigine 100 Mg Tablet) 100 mg PO BID [facility] Last Admin: 06/25/22 08:22 Dose: 100 mg Levothyroxine Sodium (Levothyroxine Sodium 25 Mcg Tablet) 25 mcg PO DAILY@0600 [facility] Last Admin: 06/25/22 06:00 Dose: 25 mcg Loperamide HCl (Loperamide Hcl 2 Mg Capsule) 2 mg PO Q6H PRN PRN Reason: Diarrhea Last Admin: 06/24/22 10:52 Dose: 2 mg Magnesium Hydroxide (Milk Of Magnesia 30 Ml Oral.Susp) 30 ml PO DAILY PRN PRN Reason: Constipation Mirtazapine (Mirtazapine 15 Mg Tablet) 45 mg PO BEDTIME [facility] Last Admin: 06/24/22 19:58 Dose: 45 mg Olanzapine (Olanzapine 5 Mg Tablet) 5 mg PO BEDTIME [facility] Last Admin: 06/24/22 19:59 Dose: 5 mg Omeprazole (Omeprazole 20 Mg Capsule.Dr) 20 mg PO BID@0630,1630 [facility] Last Admin: 06/25/22 06:00 Dose: 20 mg Ondansetron HCl (Ondansetron Odt 4 Mg Tab.Rapdis) 4 mg TRANSLINGU Q6H PRN PRN Reason: nausea Last Admin: 06/22/22 17:17 Dose: 4 mg Polyethylene Glycol (Polyethylene Glycol 3350 17 Gm Powd.Pack) 17 gm PO DAILY [facility] Last Admin: 06/25/22 08:24 Dose: Not Given Prochlorperazine Maleate (Prochlorperazine Maleate 5 Mg Tablet) 5 mg PO QID PRN PRN Reason: Nausea And Vomiting Trazodone HCl (Trazodone Hcl 50 Mg Tablet) 50 mg PO BEDTIME MRX1 PRN PRN Reason: Insomnia Last Admin: 06/25/22 02:27 Dose: 50 mg Valsartan (Valsartan 80 Mg Tablet) 80 mg PO DAILY [facility]; Protocol Last Admin: 06/20/22 09:19 Dose: Not Given Allergies Allergies Allergy/AdvReac Type Severity Reaction Status Date / Time meperidine [From Demerol] AdvReac Unknown Unknown Verified 05/22/22 16:45 Assessment & Plan Assessment & Plan (1) Hypotension: Status: Acute Code(s): I95.9 - Hypotension, unspecified (2) Hypoxia: Status: Acute Code(s): R09.02 - Hypoxemia (3) Bradycardia: Status: Acute Code(s): R00.1 - Bradycardia, unspecified Plan An 82-year-old female with history of bipolar disorder, depression with anxiety, hyperlipidemia, hypertension, hypothyroidism, history of colon cancer s/p right hemicolectomy, and vitamin-D deficiency noticed to have low BP and HR. Bradycardia resolved EKG showed sinus eusebio with 1st degree block negative Trop I, no chest pain Normal TSH and lytes Resolved after holding new psych meds, Olanzapine and Brexipiprazole Hypoxia O2 dropped to 88% on RA CXR showing chronic LLL infiltrates, no fever, leukocytosis or coughing elevated DDimer negative CTA for PE but possible aspiration pneumonia Off O2 supplement now Start Augmentin modified diet MANAGER SECONDARY evaluation Hypotension resolved related to BP meds and bradycardia hold BP meds , restart as tolerated Thanks for the consult will continue to follow the patient with you as needed. please contact hospitalist team for any further question Plan 1. Continue with same treatment. 2. Continue with Augmentin for infection. 3. Disposition to subacute rehab. Reason for continued inpatient stay Substantial Risk for: inability to function, rapid decompensation and med/psych decompensation Time Spent With Patient Time: Total time managing care of this patient today __20__ minutes.
[2022-06-25] MEDS: Mirtazapine 15 MG TABLET 45 MG PO (20:29)
[2022-06-25] MEDS: Atorvastatin Calcium 10 MG TABLET PO (20:30)
[2022-06-25] MEDS: OLANZapine 5 MG TABLET PO (20:30)
[2022-06-26 06:00] VITALS: BP 132/61; PULSE 61; RESP 15; TEMP 36.1; O2SAT 93
[2022-06-26] MEDS: Levothyroxine Sodium 25 MCG TABLET PO (06:10)
[2022-06-26] MEDS: Omeprazole 20 MG CAPSULE.DR PO ×2 (06:10→15:56)
[2022-06-26] MEDS: Ferrous Sulfate 324 MG TABLET.DR PO ×2 (09:39→20:15)
[2022-06-26] MEDS: Folic Acid 1 MG TABLET PO (09:39)
[2022-06-26] MEDS: clonazePAM 0.5 MG TABLET PO ×3 (09:39→20:15)
[2022-06-26] MEDS: lamoTRIgine 100 MG TABLET PO ×2 (09:39→20:15)
[2022-06-26] MEDS: Cyanocobalamin (Vitamin B-12) 100 MCG TABLET PO (09:39)
[2022-06-26] MEDS: Albuterol/Iprat 2.5/0.5MG 3 ML AMPUL.NEB INHALE (12:17)
[2022-06-26 12:20] VITALS: PULSE 96; RESP 16; O2SAT 93
--- NOTE | 2022-06-26 15:22 | P.PNPSI_ITS ---
Subjective Subjective Date of Service: 06/26/22 Reason For Visit: mood disorder Subjective Notes: Conditional Voluntary Interim History: The nursing staff reported the patient was visible in the unit, she reports some depression and anxiety. She slept well last night. The social group worker reported that she was denied for 1 subacute rehab. On interview the patient denies new symptoms she complains with sporadic pain in her abdomen but so far no suicidal ideation. Mental Status Exam Mental Status Exam Patient Appearance: Well Grooomed and Appropriate Patient Orientation: Person and Situation Level of Consciousness: Awake and Appropriate Patient Behavior: Guarded and Passive Mood Description: Withdrawn Affect Description: Constricted Patient Cognition Impaired: Yes Ability to Follow Directions: Good Speech Pattern: Clear Hallucinations: None Delusions: Not Present Thought Process: Linear Thought Content: positive for [place] and positive for [place] of Content Judgement: Fair Diagnostics Vital Signs (24Hr): Vital Signs - 24 hr 06/25/22 21:24 06/25/22 21:32 06/26/22 06:00 Temperature 98.0 F 96.9 F Pulse Rate 50 56 61 Respiratory Rate 17 16 15 Blood Pressure 116/66 132/61 Pulse Oximetry 96 93 Oxygen Delivery Method Room Air Room Air 06/26/22 12:20 Temperature Pulse Rate 96 Respiratory Rate 16 Blood Pressure Pulse Oximetry Oxygen Delivery Method BMI result Body Mass Index 29.7 Labs 06/20/22 09:58 06/20/22 08:59 Imaging Radiology Impressions: ITS Impressions Chest X-Ray 06/01/22 14:47 IMPRESSION: Small left pleural effusion with superjacent hazy opacities suggesting atelectasis and/or infiltrates. KUB X-Ray 06/01/22 14:47 IMPRESSION: G-tube in the left upper quadrant with a small air bubble in the fundus. The bowel gas pattern is nonspecific. Chest X-Ray 06/20/22 08:56 IMPRESSION: The persistent opacity at the left lung base is nonspecific but probably represents a combination of small pleural effusion and basilar atelectasis. This radiographic examination would not be able to exclude any left lower lobe pneumonia. However, there are no new pulmonary infiltrates compared to 06/01/2022. Chest CTA 06/20/22 17:08 IMPRESSION: 1. No pulmonary embolism. 2. Moderate left and tiny right pleural effusions. Segmental left lower lobe atelectasis. Additional dependent opacity along the left major fissure favors atelectasis, though aspiration not excluded. VTE: negative Medications Medications Current Medications Acetaminophen (Acetaminophen 325 Mg Tablet) 650 mg PO Q6H PRN PRN Reason: Headache/Pain Mild Scale (1-3) Last Admin: 06/19/22 22:51 Dose: 650 mg Al Hydroxide/Mg Hydroxide (Magnesium Hydrox/Alum Hydrox 30 Ml Oral.Susp) 30 ml PO Q6H PRN PRN Reason: Heartburn/Nausea Last Admin: 06/18/22 18:23 Dose: 30 ml Albuterol/Ipratropium (Albuterol/Iprat 2.5/0.5mg 3 Ml Ampul.Neb) 3 ml INHALE RQ6H WHILE AWAKE [facility] Last Admin: 06/26/22 12:17 Dose: 3 ml Atorvastatin Calcium (Atorvastatin Calcium 10 Mg Tablet) 10 mg PO BEDTIME [facility] Last Admin: 06/25/22 20:30 Dose: 10 mg Clonazepam (Clonazepam 0.5 Mg Tablet) 0.5 mg PO TID [facility] Last Admin: 06/26/22 09:39 Dose: 0.5 mg Cyanocobalamin (Cyanocobalamin (Vitamin B-12) 100 Mcg Tablet) 100 mcg PO DAILY [facility] Last Admin: 06/26/22 09:39 Dose: 100 mcg Docusate Sodium (Docusate Sodium 100 Mg Capsule) 100 mg PO BID PRN PRN Reason: Constipation Ferrous Sulfate (Ferrous Sulfate 324 Mg Tablet.Dr) 324 mg PO BID [facility] Last Admin: 06/26/22 09:39 Dose: 324 mg Folic Acid (Folic Acid 1 Mg Tablet) 1 mg PO DAILY [facility] Last Admin: 06/26/22 09:39 Dose: 1 mg Guaifenesin (Guaifenesin 100 Mg/5 Ml Liquid) 5 ml PO Q6H PRN PRN Reason: Cough Hydroxyzine HCl (Hydroxyzine Hcl 25 Mg Tablet) 25 mg PO Q6H PRN PRN Reason: Anxiety Last Admin: 06/22/22 09:26 Dose: 25 mg Lamotrigine (Lamotrigine 100 Mg Tablet) 100 mg PO BID [facility] Last Admin: 06/26/22 09:39 Dose: 100 mg Levothyroxine Sodium (Levothyroxine Sodium 25 Mcg Tablet) 25 mcg PO DAILY@0600 [facility] Last Admin: 06/26/22 06:10 Dose: 25 mcg Loperamide HCl (Loperamide Hcl 2 Mg Capsule) 2 mg PO Q6H PRN PRN Reason: Diarrhea Last Admin: 06/24/22 10:52 Dose: 2 mg Magnesium Hydroxide (Milk Of Magnesia 30 Ml Oral.Susp) 30 ml PO DAILY PRN PRN Reason: Constipation Mirtazapine (Mirtazapine 15 Mg Tablet) 45 mg PO BEDTIME [facility] Last Admin: 06/25/22 20:29 Dose: 45 mg Olanzapine (Olanzapine 5 Mg Tablet) 5 mg PO BEDTIME [facility] Last Admin: 06/25/22 20:30 Dose: 5 mg Omeprazole (Omeprazole 20 Mg Capsule.Dr) 20 mg PO BID@0630,1630 [facility] Last Admin: 06/26/22 06:10 Dose: 20 mg Ondansetron HCl (Ondansetron Odt 4 Mg Tab.Rapdis) 4 mg TRANSLINGU Q6H PRN PRN Reason: nausea Last Admin: 06/22/22 17:17 Dose: 4 mg Polyethylene Glycol (Polyethylene Glycol 3350 17 Gm Powd.Pack) 17 gm PO DAILY [facility] Last Admin: 06/26/22 09:40 Dose: Not Given Prochlorperazine Maleate (Prochlorperazine Maleate 5 Mg Tablet) 5 mg PO QID PRN PRN Reason: Nausea And Vomiting Trazodone HCl (Trazodone Hcl 50 Mg Tablet) 50 mg PO BEDTIME MRX1 PRN PRN Reason: Insomnia Last Admin: 06/25/22 02:27 Dose: 50 mg Valsartan (Valsartan 80 Mg Tablet) 80 mg PO DAILY [facility]; Protocol Last Admin: 06/20/22 09:19 Dose: Not Given Allergies Allergies Allergy/AdvReac Type Severity Reaction Status Date / Time meperidine [From Demerol] AdvReac Unknown Unknown Verified 05/22/22 16:45 Assessment & Plan Assessment & Plan (1) Hypotension: Status: Acute Code(s): I95.9 - Hypotension, unspecified (2) Hypoxia: Status: Acute Code(s): R09.02 - Hypoxemia (3) Bradycardia: Status: Acute Code(s): R00.1 - Bradycardia, unspecified Plan An 82-year-old female with history of bipolar disorder, depression with anxiety, hyperlipidemia, hypertension, hypothyroidism, history of colon cancer s/p right hemicolectomy, and vitamin-D deficiency noticed to have low BP and HR. Bradycardia resolved EKG showed sinus eusebio with 1st degree block negative Trop I, no chest pain Normal TSH and lytes Resolved after holding new psych meds, Olanzapine and Brexipiprazole Hypoxia O2 dropped to 88% on RA CXR showing chronic LLL infiltrates, no fever, leukocytosis or coughing elevated DDimer negative CTA for PE but possible aspiration pneumonia Off O2 supplement now Start Augmentin modified diet [employer]ST evaluation Hypotension resolved related to BP meds and bradycardia hold BP meds , restart as tolerated Thanks for the consult will continue to follow the patient with you as needed. please contact hospitalist team for any further question Plan 1. Continue with same treatment. 2. Continue with Augmentin for infection. 3. Disposition to subacute rehab. Reason for continued inpatient stay Substantial Risk for: inability to function, rapid decompensation and med/psych decompensation Time Spent With Patient Time: Total time managing care of this patient today __20__ minutes.
[2022-06-26] MEDS: Atorvastatin Calcium 10 MG TABLET PO (20:15)
[2022-06-26] MEDS: Mirtazapine 15 MG TABLET 45 MG PO (20:15)
[2022-06-26] MEDS: OLANZapine 5 MG TABLET PO (20:15)
--- NOTE | 2022-06-26 20:19 | PC.RT ---
Pt C/O nausea. Declines respiratory treatm,ent. No distress noted. RN aware.
[2022-06-27] MEDS: Omeprazole 20 MG CAPSULE.DR PO ×2 (05:29→15:36)
[2022-06-27] MEDS: Levothyroxine Sodium 25 MCG TABLET PO (05:29)
[2022-06-27 08:05] VITALS: BP 143/72; PULSE 75; RESP 18; TEMP 37.1; O2SAT 95
[2022-06-27] MEDS: Folic Acid 1 MG TABLET PO (10:03)
[2022-06-27] MEDS: Ferrous Sulfate 324 MG TABLET.DR PO ×2 (10:03→20:51)
[2022-06-27] MEDS: Cyanocobalamin (Vitamin B-12) 100 MCG TABLET PO (10:03)
[2022-06-27] MEDS: lamoTRIgine 100 MG TABLET PO ×2 (10:03→20:51)
[2022-06-27] MEDS: clonazePAM 0.5 MG TABLET PO ×3 (10:03→20:51)
[2022-06-27] MEDS: Albuterol/Iprat 2.5/0.5MG 3 ML AMPUL.NEB INHALE (20:23)
[2022-06-27 20:28] VITALS: PULSE 75; RESP 18; O2SAT 96
[2022-06-27] MEDS: Mirtazapine 15 MG TABLET 45 MG PO (20:50)
[2022-06-27] MEDS: Atorvastatin Calcium 10 MG TABLET PO (20:51)
[2022-06-27] MEDS: OLANZapine 5 MG TABLET PO (20:51)
[2022-06-27] MEDS: Prochlorperazine Maleate 5 MG TABLET PO (20:51)
[2022-06-27 20:55] VITALS: BP 126/56; PULSE 64; TEMP 37.1; O2SAT 92
--- NOTE | 2022-06-27 22:23 | HO.PSYCHPN ---
Subjective Subjective Date of Service: 06/27/22 Reason For Visit: mood disorder Subjective Notes: Conditional Voluntary Interim History: Pt reports less abdominal pain after surgery. She denies vomiting or nausea. She reports feeling anxious about her medical conditions. She states she is not able to care for herself as she used to and hopeful to go to facility soon. No SI/HI. She slept through the night, no behavioral concern. Medication Compliance: Yes Review of Systems Review of Systems No fever, chills but reports generalized weakness No chest pain, palpitation No shortness of breath or coughing No abdominal pain, nausea or vomiting No urinary symptoms No any rash or wounds Yes all other systems are reviewed and are negative Constitutional: Denies chills and Denies fever(s) Cardiovascular: Denies chest pain Respiratory: Denies cough Gastrointestinal: Denies abdominal pain Psychiatric: Reports depression Mental Status Exam Mental Status Exam Patient Appearance: Well Grooomed and Appropriate Patient Orientation: Person and Situation Level of Consciousness: Awake and Appropriate Patient Behavior: Guarded and Passive Mood Description: Withdrawn Affect Description: Constricted Patient Cognition Impaired: Yes Ability to Follow Directions: Good Speech Pattern: Clear Diagnostics Vital Signs (24Hr): Vital Signs - 24 hr 06/27/22 08:05 06/27/22 20:28 06/27/22 20:55 Temperature 98.7 F 98.7 F Pulse Rate 75 75 64 Respiratory Rate 18 18 Blood Pressure 143/72 H 126/56 L Pulse Oximetry 95 92 Oxygen Delivery Method Room Air Room Air BMI result Body Mass Index 29.7 Labs 06/20/22 09:58 06/20/22 08:59 Imaging Radiology Impressions: ITS Impressions Chest X-Ray 06/01/22 14:47 IMPRESSION: Small left pleural effusion with superjacent hazy opacities suggesting atelectasis and/or infiltrates. KUB X-Ray 06/01/22 14:47 IMPRESSION: G-tube in the left upper quadrant with a small air bubble in the fundus. The bowel gas pattern is nonspecific. Chest X-Ray 06/20/22 08:56 IMPRESSION: The persistent opacity at the left lung base is nonspecific but probably represents a combination of small pleural effusion and basilar atelectasis. This radiographic examination would not be able to exclude any left lower lobe pneumonia. However, there are no new pulmonary infiltrates compared to 06/01/2022. Chest CTA 06/20/22 17:08 IMPRESSION: 1. No pulmonary embolism. 2. Moderate left and tiny right pleural effusions. Segmental left lower lobe atelectasis. Additional dependent opacity along the left major fissure favors atelectasis, though aspiration not excluded. VTE: negative Medications Medications Current Medications Acetaminophen (Acetaminophen 325 Mg Tablet) 650 mg PO Q6H PRN PRN Reason: Headache/Pain Mild Scale (1-3) Last Admin: 06/19/22 22:51 Dose: 650 mg Al Hydroxide/Mg Hydroxide (Magnesium Hydrox/Alum Hydrox 30 Ml Oral.Susp) 30 ml PO Q6H PRN PRN Reason: Heartburn/Nausea Last Admin: 06/18/22 18:23 Dose: 30 ml Albuterol/Ipratropium (Albuterol/Iprat 2.5/0.5mg 3 Ml Ampul.Neb) 3 ml INHALE RQ6H WHILE AWAKE [facility] Last Admin: 06/27/22 20:23 Dose: 3 ml Atorvastatin Calcium (Atorvastatin Calcium 10 Mg Tablet) 10 mg PO BEDTIME [facility] Last Admin: 06/27/22 20:51 Dose: 10 mg Clonazepam (Clonazepam 0.5 Mg Tablet) 0.5 mg PO TID [facility] Last Admin: 06/27/22 20:51 Dose: 0.5 mg Cyanocobalamin (Cyanocobalamin (Vitamin B-12) 100 Mcg Tablet) 100 mcg PO DAILY [facility] Last Admin: 06/27/22 10:03 Dose: 100 mcg Docusate Sodium (Docusate Sodium 100 Mg Capsule) 100 mg PO BID PRN PRN Reason: Constipation Ferrous Sulfate (Ferrous Sulfate 324 Mg Tablet.Dr) 324 mg PO BID [facility] Last Admin: 06/27/22 20:51 Dose: 324 mg Folic Acid (Folic Acid 1 Mg Tablet) 1 mg PO DAILY [facility] Last Admin: 06/27/22 10:03 Dose: 1 mg Guaifenesin (Guaifenesin 100 Mg/5 Ml Liquid) 5 ml PO Q6H PRN PRN Reason: Cough Hydroxyzine HCl (Hydroxyzine Hcl 25 Mg Tablet) 25 mg PO Q6H PRN PRN Reason: Anxiety Last Admin: 06/22/22 09:26 Dose: 25 mg Lamotrigine (Lamotrigine 100 Mg Tablet) 100 mg PO BID [facility] Last Admin: 06/27/22 20:51 Dose: 100 mg Levothyroxine Sodium (Levothyroxine Sodium 25 Mcg Tablet) 25 mcg PO DAILY@0600 [facility] Last Admin: 06/27/22 05:29 Dose: 25 mcg Loperamide HCl (Loperamide Hcl 2 Mg Capsule) 2 mg PO Q6H PRN PRN Reason: Diarrhea Last Admin: 06/24/22 10:52 Dose: 2 mg Magnesium Hydroxide (Milk Of Magnesia 30 Ml Oral.Susp) 30 ml PO DAILY PRN PRN Reason: Constipation Mirtazapine (Mirtazapine 15 Mg Tablet) 45 mg PO BEDTIME [facility] Last Admin: 06/27/22 20:50 Dose: 45 mg Olanzapine (Olanzapine 5 Mg Tablet) 5 mg PO BEDTIME [facility] Last Admin: 06/27/22 20:51 Dose: 5 mg Omeprazole (Omeprazole 20 Mg Capsule.Dr) 20 mg PO BID@0630,1630 [facility] Last Admin: 06/27/22 15:36 Dose: 20 mg Ondansetron HCl (Ondansetron Odt 4 Mg Tab.Rapdis) 4 mg TRANSLINGU Q6H PRN PRN Reason: nausea Last Admin: 06/22/22 17:17 Dose: 4 mg Polyethylene Glycol (Polyethylene Glycol 3350 17 Gm Powd.Pack) 17 gm PO DAILY [facility] Last Admin: 06/27/22 10:04 Dose: Not Given Prochlorperazine Maleate (Prochlorperazine Maleate 5 Mg Tablet) 5 mg PO QID PRN PRN Reason: Nausea And Vomiting Last Admin: 06/27/22 20:51 Dose: 5 mg Trazodone HCl (Trazodone Hcl 50 Mg Tablet) 50 mg PO BEDTIME MRX1 PRN PRN Reason: Insomnia Last Admin: 06/25/22 02:27 Dose: 50 mg Valsartan (Valsartan 80 Mg Tablet) 80 mg PO DAILY [facility]; Protocol Last Admin: 06/20/22 09:19 Dose: Not Given Allergies Allergies Allergy/AdvReac Type Severity Reaction Status Date / Time meperidine [From Demerol] AdvReac Unknown Unknown Verified 05/22/22 16:45 Assessment & Plan Assessment & Plan (1) Bipolar 1 disorder, depressed: Status: Acute Code(s): F31.9 - Bipolar disorder, unspecified Plan 06/27 continue tx. Reason for continued inpatient stay Substantial Risk for: inability to function Time Spent With Patient Time: Total time managing care of this patient today ____ minutes.
[2022-06-28] MEDS: Omeprazole 20 MG CAPSULE.DR PO (05:55)
[2022-06-28] MEDS: Levothyroxine Sodium 25 MCG TABLET PO (05:55)
[2022-06-28 09:04] VITALS: BP 127/60; PULSE 77; RESP 18; TEMP 36.8; O2SAT 97
[2022-06-28] MEDS: Folic Acid 1 MG TABLET PO (09:05)
[2022-06-28] MEDS: lamoTRIgine 100 MG TABLET PO ×2 (09:05→20:02)
[2022-06-28] MEDS: Cyanocobalamin (Vitamin B-12) 100 MCG TABLET PO (09:05)
[2022-06-28] MEDS: Ferrous Sulfate 324 MG TABLET.DR PO (09:05)
[2022-06-28] MEDS: clonazePAM 0.5 MG TABLET PO (09:05)
--- NOTE | 2022-06-28 14:30 | P.PNPSI_ITS ---
Subjective Subjective Date of Service: 06/28/22 Reason For Visit: mood disorder Subjective Notes: Conditional Voluntary Interim History: The nursing staff reported patient had been compliant with medications she had been confused and nauseous at times but not vomiting. The social service manager reported the nursing home facility has us for more information. On interview the patient denies new symptoms, no suicidal ideation. Mental Status Exam Mental Status Exam Patient Appearance: Appropriate Patient Orientation: Person and Situation Level of Consciousness: Awake and Appropriate Patient Behavior: Guarded and Passive Mood Description: Calm Affect Description: Constricted Patient Cognition Impaired: Yes Ability to Follow Directions: Good Speech Pattern: Clear Hallucinations: None Delusions: Not Present Thought Process: Slowed Thinking Thought Content: positive for [place] Judgement: Fair Diagnostics Vital Signs (24Hr): Vital Signs - 24 hr 06/27/22 20:28 06/27/22 20:55 06/28/22 09:04 Temperature 98.7 F 98.2 F Pulse Rate 75 64 77 Respiratory Rate 18 18 Blood Pressure 126/56 L 127/60 Pulse Oximetry 92 97 Oxygen Delivery Method Room Air Room Air BMI result Body Mass Index 29.7 Labs 06/20/22 09:58 06/20/22 08:59 Imaging Radiology Impressions: ITS Impressions Chest X-Ray 06/01/22 14:47 IMPRESSION: Small left pleural effusion with superjacent hazy opacities suggesting atelectasis and/or infiltrates. KUB X-Ray 06/01/22 14:47 IMPRESSION: G-tube in the left upper quadrant with a small air bubble in the fundus. The bowel gas pattern is nonspecific. Chest X-Ray 06/20/22 08:56 IMPRESSION: The persistent opacity at the left lung base is nonspecific but probably represents a combination of small pleural effusion and basilar atelectasis. This radiographic examination would not be able to exclude any left lower lobe pneumonia. However, there are no new pulmonary infiltrates compared to 06/01/2022. Chest CTA 06/20/22 17:08 IMPRESSION: 1. No pulmonary embolism. 2. Moderate left and tiny right pleural effusions. Segmental left lower lobe atelectasis. Additional dependent opacity along the left major fissure favors atelectasis, though aspiration not excluded. VTE: negative Medications Medications Current Medications Acetaminophen (Acetaminophen 325 Mg Tablet) 650 mg PO Q6H PRN PRN Reason: Headache/Pain Mild Scale (1-3) Last Admin: 06/19/22 22:51 Dose: 650 mg Al Hydroxide/Mg Hydroxide (Magnesium Hydrox/Alum Hydrox 30 Ml Oral.Susp) 30 ml PO Q6H PRN PRN Reason: Heartburn/Nausea Last Admin: 06/18/22 18:23 Dose: 30 ml Atorvastatin Calcium (Atorvastatin Calcium 10 Mg Tablet) 10 mg PO BEDTIME [facility] Last Admin: 06/27/22 20:51 Dose: 10 mg Cyanocobalamin (Cyanocobalamin (Vitamin B-12) 100 Mcg Tablet) 100 mcg PO DAILY [facility] Last Admin: 06/28/22 09:05 Dose: 100 mcg Docusate Sodium (Docusate Sodium 100 Mg Capsule) 100 mg PO BID PRN PRN Reason: Constipation Ferrous Sulfate (Ferrous Sulfate 324 Mg Tablet.) 324 mg PO BID [facility] Last Admin: 06/28/22 09:05 Dose: 324 mg Folic Acid (Folic Acid 1 Mg Tablet) 1 mg PO DAILY [facility] Last Admin: 06/28/22 09:05 Dose: 1 mg Guaifenesin (Guaifenesin 100 Mg/5 Ml Liquid) 5 ml PO Q6H PRN PRN Reason: Cough Hydroxyzine HCl (Hydroxyzine Hcl 25 Mg Tablet) 25 mg PO Q6H PRN PRN Reason: Anxiety Last Admin: 06/22/22 09:26 Dose: 25 mg Lamotrigine (Lamotrigine 100 Mg Tablet) 100 mg PO BID [facility] Last Admin: 06/28/22 09:05 Dose: 100 mg Levothyroxine Sodium (Levothyroxine Sodium 25 Mcg Tablet) 25 mcg PO DAILY@0600 [facility] Last Admin: 06/28/22 05:55 Dose: 25 mcg Loperamide HCl (Loperamide Hcl 2 Mg Capsule) 2 mg PO Q6H PRN PRN Reason: Diarrhea Last Admin: 06/24/22 10:52 Dose: 2 mg Magnesium Hydroxide (Milk Of Magnesia 30 Ml Oral.Susp) 30 ml PO DAILY PRN PRN Reason: Constipation Mirtazapine (Mirtazapine 15 Mg Tablet) 45 mg PO BEDTIME [facility] Last Admin: 06/27/22 20:50 Dose: 45 mg Olanzapine (Olanzapine 5 Mg Tablet) 5 mg PO BEDTIME [facility] Last Admin: 06/27/22 20:51 Dose: 5 mg Omeprazole (Omeprazole 20 Mg Capsule.) 20 mg PO BID@0630,1630 [facility] Last Admin: 06/28/22 05:55 Dose: 20 mg Ondansetron HCl (Ondansetron Odt 4 Mg Tab.Rapdis) 4 mg TRANSLINGU Q6H PRN PRN Reason: nausea Last Admin: 06/22/22 17:17 Dose: 4 mg Polyethylene Glycol (Polyethylene Glycol 3350 17 Gm Powd.Pack) 17 gm PO DAILY [facility] Last Admin: 06/28/22 09:06 Dose: Not Given Prochlorperazine Maleate (Prochlorperazine Maleate 5 Mg Tablet) 5 mg PO QID PRN PRN Reason: Nausea And Vomiting Last Admin: 06/27/22 20:51 Dose: 5 mg Trazodone HCl (Trazodone Hcl 50 Mg Tablet) 50 mg PO BEDTIME MRX1 PRN PRN Reason: Insomnia Last Admin: 06/25/22 02:27 Dose: 50 mg Valsartan (Valsartan 80 Mg Tablet) 80 mg PO DAILY [facility]; Protocol Last Admin: 06/20/22 09:19 Dose: Not Given Allergies Allergies Allergy/AdvReac Type Severity Reaction Status Date / Time meperidine [From Demerol] AdvReac Unknown Unknown Verified 05/22/22 16:45 Assessment & Plan Assessment & Plan (1) Bipolar 1 disorder, depressed: Status: Acute Code(s): F31.9 - Bipolar disorder, unspecified Plan Elderly female with a long history of several medical concerns such as recent status post surgery for severe yet all hernia, with a past history of bipolar disorder and dementia admitted for continuation of care. Plan 1. Gather collateral information. 2. Continue with same medications. 3. Waiting for placement and nursing home facility or subacute rehab. Reason for continued inpatient stay Substantial Risk for: inability to function, rapid decompensation and med/psych decompensation Time Spent With Patient Time: Total time managing care of this patient today __20__ minutes.
[2022-06-28 18:00] VITALS: BP 147/62; PULSE 66; RESP 18; TEMP 37.1; O2SAT 95
[2022-06-28] MEDS: OLANZapine 5 MG TABLET PO (20:02)
[2022-06-28] MEDS: Mirtazapine 15 MG TABLET 45 MG PO (20:02)
[2022-06-28] MEDS: Atorvastatin Calcium 10 MG TABLET PO (20:02)
[2022-06-29] MEDS: Levothyroxine Sodium 25 MCG TABLET PO (05:46)
[2022-06-29] MEDS: Omeprazole 20 MG CAPSULE.DR PO ×2 (05:46→17:58)
[2022-06-29 08:00] VITALS: BP 142/66; PULSE 71; RESP 18; TEMP 37.1; O2SAT 96
--- NOTE | 2022-06-29 09:24 | HO.PSYCHPN ---
Subjective Subjective Date of Service: 06/29/22 Reason For Visit: mood disorder Subjective Notes: Conditional Voluntary Interim History: The nursing staff reported the patient had a shower yesterday she ate well and she had been less anxious. She has not participating any groups as per occupational therapist report. The social and human services assistant reported that the images coming today for the screening for group home facility. On interview the patient denies new symptoms cooperative and pleasant. Mental Status Exam Mental Status Exam Patient Appearance: Appropriate Patient Orientation: Person and Situation Level of Consciousness: Awake and Appropriate Patient Behavior: Guarded and Passive Mood Description: Withdrawn and Constricted Affect Description: Calm Patient Cognition Impaired: Yes Ability to Follow Directions: Good Speech Pattern: Appropriate Hallucinations: None Delusions: Not Present Thought Process: Linear Thought Content: positive for Intact Judgement: Fair Diagnostics Vital Signs (24Hr): Vital Signs - 24 hr 06/28/22 18:00 06/29/22 08:00 Temperature 98.7 F 98.7 F Pulse Rate 66 71 Respiratory Rate 18 18 Blood Pressure 147/62 H 142/66 H Pulse Oximetry 95 96 Oxygen Delivery Method Room Air Room Air BMI result Body Mass Index 29.7 Labs 06/20/22 09:58 06/20/22 08:59 Imaging Radiology Impressions: ITS Impressions Chest X-Ray 06/01/22 14:47 IMPRESSION: Small left pleural effusion with superjacent hazy opacities suggesting atelectasis and/or infiltrates. KUB X-Ray 06/01/22 14:47 IMPRESSION: G-tube in the left upper quadrant with a small air bubble in the fundus. The bowel gas pattern is nonspecific. Chest X-Ray 06/20/22 08:56 IMPRESSION: The persistent opacity at the left lung base is nonspecific but probably represents a combination of small pleural effusion and basilar atelectasis. This radiographic examination would not be able to exclude any left lower lobe pneumonia. However, there are no new pulmonary infiltrates compared to 06/01/2022. Chest CTA 06/20/22 17:08 IMPRESSION: 1. No pulmonary embolism. 2. Moderate left and tiny right pleural effusions. Segmental left lower lobe atelectasis. Additional dependent opacity along the left major fissure favors atelectasis, though aspiration not excluded. VTE: negative Medications Medications Current Medications Acetaminophen (Acetaminophen 325 Mg Tablet) 650 mg PO Q6H PRN PRN Reason: Headache/Pain Mild Scale (1-3) Last Admin: 06/19/22 22:51 Dose: 650 mg Al Hydroxide/Mg Hydroxide (Magnesium Hydrox/Alum Hydrox 30 Ml Oral.Susp) 30 ml PO Q6H PRN PRN Reason: Heartburn/Nausea Last Admin: 06/18/22 18:23 Dose: 30 ml Atorvastatin Calcium (Atorvastatin Calcium 10 Mg Tablet) 10 mg PO BEDTIME [facility] Last Admin: 06/28/22 20:02 Dose: 10 mg Cyanocobalamin (Cyanocobalamin (Vitamin B-12) 100 Mcg Tablet) 100 mcg PO DAILY [facility] Last Admin: 06/28/22 09:05 Dose: 100 mcg Docusate Sodium (Docusate Sodium 100 Mg Capsule) 100 mg PO BID PRN PRN Reason: Constipation Ferrous Sulfate (Ferrous Sulfate 324 Mg Tablet.) 324 mg PO BID [facility] Last Admin: 06/28/22 20:03 Dose: Not Given Folic Acid (Folic Acid 1 Mg Tablet) 1 mg PO DAILY [facility] Last Admin: 06/28/22 09:05 Dose: 1 mg Guaifenesin (Guaifenesin 100 Mg/5 Ml Liquid) 5 ml PO Q6H PRN PRN Reason: Cough Hydroxyzine HCl (Hydroxyzine Hcl 25 Mg Tablet) 25 mg PO Q6H PRN PRN Reason: Anxiety Last Admin: 06/22/22 09:26 Dose: 25 mg Lamotrigine (Lamotrigine 100 Mg Tablet) 100 mg PO BID [facility] Last Admin: 06/28/22 20:02 Dose: 100 mg Levothyroxine Sodium (Levothyroxine Sodium 25 Mcg Tablet) 25 mcg PO DAILY@0600 [facility] Last Admin: 06/29/22 05:46 Dose: 25 mcg Loperamide HCl (Loperamide Hcl 2 Mg Capsule) 2 mg PO Q6H PRN PRN Reason: Diarrhea Last Admin: 06/24/22 10:52 Dose: 2 mg Magnesium Hydroxide (Milk Of Magnesia 30 Ml Oral.Susp) 30 ml PO DAILY PRN PRN Reason: Constipation Mirtazapine (Mirtazapine 15 Mg Tablet) 45 mg PO BEDTIME [facility] Last Admin: 06/28/22 20:02 Dose: 45 mg Olanzapine (Olanzapine 5 Mg Tablet) 5 mg PO BEDTIME [facility] Last Admin: 06/28/22 20:02 Dose: 5 mg Omeprazole (Omeprazole 20 Mg Capsule.) 20 mg PO BID@0630,1630 [facility] Last Admin: 06/29/22 05:46 Dose: 20 mg Ondansetron HCl (Ondansetron Odt 4 Mg Tab.Rapdis) 4 mg TRANSLINGU Q6H PRN PRN Reason: nausea Last Admin: 06/22/22 17:17 Dose: 4 mg Polyethylene Glycol (Polyethylene Glycol 3350 17 Gm Powd.Pack) 17 gm PO DAILY [facility] Last Admin: 06/28/22 09:06 Dose: Not Given Prochlorperazine Maleate (Prochlorperazine Maleate 5 Mg Tablet) 5 mg PO QID PRN PRN Reason: Nausea And Vomiting Last Admin: 06/27/22 20:51 Dose: 5 mg Trazodone HCl (Trazodone Hcl 50 Mg Tablet) 50 mg PO BEDTIME MRX1 PRN PRN Reason: Insomnia Last Admin: 06/25/22 02:27 Dose: 50 mg Valsartan (Valsartan 80 Mg Tablet) 80 mg PO DAILY [facility]; Protocol Last Admin: 06/20/22 09:19 Dose: Not Given Allergies Allergies Allergy/AdvReac Type Severity Reaction Status Date / Time meperidine [From Demerol] AdvReac Unknown Unknown Verified 05/22/22 16:45 Assessment & Plan Assessment & Plan (1) Bipolar 1 disorder, depressed: Status: Acute Code(s): F31.9 - Bipolar disorder, unspecified Plan Elderly female with a long history of several medical concerns such as recent status post surgery for severe yet all hernia, with a past history of bipolar disorder and dementia admitted for continuation of care. Plan 1. Gather collateral information. 2. Continue with same medications. 3. Waiting for placement to group home facility or subacute rehab. Reason for continued inpatient stay Substantial Risk for: inability to function, rapid decompensation and med/psych decompensation Time Spent With Patient Time: Total time managing care of this patient today _20___ minutes.
[2022-06-29] MEDS: Ferrous Sulfate 324 MG TABLET.DR PO ×2 (09:49→21:14)
[2022-06-29] MEDS: lamoTRIgine 100 MG TABLET PO ×2 (09:49→21:14)
[2022-06-29] MEDS: Cyanocobalamin (Vitamin B-12) 100 MCG TABLET PO (09:49)
[2022-06-29] MEDS: Folic Acid 1 MG TABLET PO (09:50)
[2022-06-29] MEDS: Loperamide HCl 2 MG CAPSULE PO (11:43)
[2022-06-29 18:00] VITALS: BP 120/88; PULSE 69; RESP 18; TEMP 36.4; O2SAT 96
[2022-06-29] MEDS: Atorvastatin Calcium 10 MG TABLET PO (21:13)
[2022-06-29] MEDS: Mirtazapine 15 MG TABLET 45 MG PO (21:13)
[2022-06-29] MEDS: OLANZapine 5 MG TABLET PO (21:14)
[2022-06-30] MEDS: Omeprazole 20 MG CAPSULE.DR PO ×2 (05:40→15:46)
[2022-06-30] MEDS: Levothyroxine Sodium 25 MCG TABLET PO (05:40)
[2022-06-30 06:00] VITALS: BP 141/65; PULSE 79; RESP 18; TEMP 36.9; O2SAT 96
[2022-06-30] MEDS: Ferrous Sulfate 324 MG TABLET.DR PO ×2 (08:26→20:33)
[2022-06-30] MEDS: Cyanocobalamin (Vitamin B-12) 100 MCG TABLET PO (08:26)
[2022-06-30] MEDS: lamoTRIgine 100 MG TABLET PO ×2 (08:26→20:33)
[2022-06-30] MEDS: Folic Acid 1 MG TABLET PO (08:26)
[2022-06-30] MEDS: clonazePAM 0.5 MG TABLET PO ×3 (11:47→20:33)
[2022-06-30 18:00] VITALS: BP 151/65; PULSE 60; RESP 16; TEMP 37.1; O2SAT 100
--- NOTE | 2022-06-30 19:43 | HO.PSYCHPN ---
Subjective Subjective Date of Service: 06/30/22 Reason For Visit: mood disorder Interim History: Patient seen and discussed with nursing. Patient reports she was having some nausea today. No vomiting. No pain. On medication review, patient's Clonazepam wasn't renewed yesterday. Done today. She reports she is trying to eat small meals as recommended. She is anxious today. Mostly isolating in her room.She is cooperative and pleasant and has had no outbursts or violence. Denies SI. Review of Systems Review of Systems No fever, chills but reports generalized weakness No chest pain, palpitation No shortness of breath or coughing No abdominal pain, nausea or vomiting No urinary symptoms No any rash or wounds Yes all other systems are reviewed and are negative Constitutional: Denies chills and Denies fever(s) Cardiovascular: Denies chest pain Respiratory: Denies cough Gastrointestinal: Denies abdominal pain Psychiatric: Reports depression Mental Status Exam Mental Status Exam Patient Appearance: Appropriate Patient Orientation: Person and Situation Level of Consciousness: Awake and Appropriate Patient Behavior: Guarded and Passive Mood Description: Withdrawn and Constricted Affect Description: Anxious Patient Cognition Impaired: Yes Ability to Follow Directions: Good Speech Pattern: Appropriate and Excessive Delusions: Not Present Thought Process: Intact Thought Content: positive for Perseveration Diagnostics Vital Signs (24Hr): Vital Signs - 24 hr 06/30/22 06:00 Temperature 98.5 F Pulse Rate 79 Respiratory Rate 18 Blood Pressure 141/65 H Pulse Oximetry 96 Oxygen Delivery Method Room Air BMI result Body Mass Index 29.7 Labs 06/20/22 09:58 06/20/22 08:59 Imaging Radiology Impressions: ITS Impressions Chest X-Ray 06/01/22 14:47 IMPRESSION: Small left pleural effusion with superjacent hazy opacities suggesting atelectasis and/or infiltrates. KUB X-Ray 06/01/22 14:47 IMPRESSION: G-tube in the left upper quadrant with a small air bubble in the fundus. The bowel gas pattern is nonspecific. Chest X-Ray 06/20/22 08:56 IMPRESSION: The persistent opacity at the left lung base is nonspecific but probably represents a combination of small pleural effusion and basilar atelectasis. This radiographic examination would not be able to exclude any left lower lobe pneumonia. However, there are no new pulmonary infiltrates compared to 06/01/2022. Chest CTA 06/20/22 17:08 IMPRESSION: 1. No pulmonary embolism. 2. Moderate left and tiny right pleural effusions. Segmental left lower lobe atelectasis. Additional dependent opacity along the left major fissure favors atelectasis, though aspiration not excluded. VTE: negative Medications Medications Current Medications Acetaminophen (Acetaminophen 325 Mg Tablet) 650 mg PO Q6H PRN PRN Reason: Headache/Pain Mild Scale (1-3) Last Admin: 06/19/22 22:51 Dose: 650 mg Al Hydroxide/Mg Hydroxide (Magnesium Hydrox/Alum Hydrox 30 Ml Oral.Susp) 30 ml PO Q6H PRN PRN Reason: Heartburn/Nausea Last Admin: 06/18/22 18:23 Dose: 30 ml Atorvastatin Calcium (Atorvastatin Calcium 10 Mg Tablet) 10 mg PO BEDTIME [facility] Last Admin: 06/29/22 21:13 Dose: 10 mg Clonazepam (Clonazepam 0.5 Mg Tablet) 0.5 mg PO TID [facility] Last Admin: 06/30/22 15:46 Dose: 0.5 mg Cyanocobalamin (Cyanocobalamin (Vitamin B-12) 100 Mcg Tablet) 100 mcg PO DAILY [facility] Last Admin: 06/30/22 08:26 Dose: 100 mcg Docusate Sodium (Docusate Sodium 100 Mg Capsule) 100 mg PO BID PRN PRN Reason: Constipation Ferrous Sulfate (Ferrous Sulfate 324 Mg Tablet.Dr) 324 mg PO BID [facility] Last Admin: 06/30/22 08:26 Dose: 324 mg Folic Acid (Folic Acid 1 Mg Tablet) 1 mg PO DAILY [facility] Last Admin: 06/30/22 08:26 Dose: 1 mg Guaifenesin (Guaifenesin 100 Mg/5 Ml Liquid) 5 ml PO Q6H PRN PRN Reason: Cough Hydroxyzine HCl (Hydroxyzine Hcl 25 Mg Tablet) 25 mg PO Q6H PRN PRN Reason: Anxiety Last Admin: 06/22/22 09:26 Dose: 25 mg Lamotrigine (Lamotrigine 100 Mg Tablet) 100 mg PO BID [facility] Last Admin: 06/30/22 08:26 Dose: 100 mg Levothyroxine Sodium (Levothyroxine Sodium 25 Mcg Tablet) 25 mcg PO DAILY@0600 [facility] Last Admin: 06/30/22 05:40 Dose: 25 mcg Loperamide HCl (Loperamide Hcl 2 Mg Capsule) 2 mg PO Q6H PRN PRN Reason: Diarrhea Last Admin: 06/29/22 11:43 Dose: 2 mg Magnesium Hydroxide (Milk Of Magnesia 30 Ml Oral.Susp) 30 ml PO DAILY PRN PRN Reason: Constipation Mirtazapine (Mirtazapine 15 Mg Tablet) 45 mg PO BEDTIME [facility] Last Admin: 06/29/22 21:13 Dose: 45 mg Olanzapine (Olanzapine 5 Mg Tablet) 5 mg PO BEDTIME [facility] Last Admin: 06/29/22 21:14 Dose: 5 mg Omeprazole (Omeprazole 20 Mg Capsule.Dr) 20 mg PO BID@0630,1630 [facility] Last Admin: 06/30/22 15:46 Dose: 20 mg Ondansetron HCl (Ondansetron Odt 4 Mg Tab.Rapdis) 4 mg TRANSLINGU Q6H PRN PRN Reason: nausea Last Admin: 06/22/22 17:17 Dose: 4 mg Polyethylene Glycol (Polyethylene Glycol 3350 17 Gm Powd.Pack) 17 gm PO DAILY [facility] Last Admin: 06/30/22 08:46 Dose: Not Given Prochlorperazine Maleate (Prochlorperazine Maleate 5 Mg Tablet) 5 mg PO QID PRN PRN Reason: Nausea And Vomiting Last Admin: 06/27/22 20:51 Dose: 5 mg Trazodone HCl (Trazodone Hcl 50 Mg Tablet) 50 mg PO BEDTIME MRX1 PRN PRN Reason: Insomnia Last Admin: 06/25/22 02:27 Dose: 50 mg Valsartan (Valsartan 80 Mg Tablet) 80 mg PO DAILY [facility]; Protocol Last Admin: 06/20/22 09:19 Dose: Not Given Allergies Allergies Allergy/AdvReac Type Severity Reaction Status Date / Time meperidine [From Demerol] AdvReac Unknown Unknown Verified 05/22/22 16:45 Assessment & Plan Assessment & Plan (1) Bipolar 1 disorder, depressed: Status: Acute Code(s): F31.9 - Bipolar disorder, unspecified Plan Elderly female with a long history of several medical concerns such as recent status post surgery for severe yet all hernia, with a past history of bipolar disorder and dementia admitted for continuation of care. Plan 1. Gather collateral information. 2. Continue with same medications. 3. Waiting for placement to long term facility or subacute rehab. 06/30: Continue current tx plan. Reason for continued inpatient stay Substantial Risk for: inability to function and rapid decompensation Time Spent With Patient Time: Total time managing care of this patient today ____ minutes.
[2022-06-30] MEDS: Mirtazapine 15 MG TABLET 45 MG PO (20:33)
[2022-06-30] MEDS: OLANZapine 5 MG TABLET PO (20:33)
[2022-06-30] MEDS: Atorvastatin Calcium 10 MG TABLET PO (20:33)
[2022-07-01] MEDS: Levothyroxine Sodium 25 MCG TABLET PO (06:39)
[2022-07-01] MEDS: Omeprazole 20 MG CAPSULE.DR PO ×2 (06:39→16:37)
[2022-07-01] MEDS: Ferrous Sulfate 324 MG TABLET.DR PO ×2 (07:57→21:54)
[2022-07-01] MEDS: Cyanocobalamin (Vitamin B-12) 100 MCG TABLET PO (07:58)
[2022-07-01] MEDS: lamoTRIgine 100 MG TABLET PO ×2 (07:58→21:54)
[2022-07-01] MEDS: clonazePAM 0.5 MG TABLET PO ×3 (07:58→21:54)
[2022-07-01] MEDS: Folic Acid 1 MG TABLET PO (07:58)
[2022-07-01 08:00] VITALS: BP 148/65; PULSE 55; RESP 17; TEMP 36.9; O2SAT 98
--- NOTE | 2022-07-01 09:33 | P.PNPSI_ITS ---
Subjective Subjective Date of Service: 07/01/22 Reason For Visit: mood disorder Interim History: Patient seen and discussed with nursing. She reports to feel depressed. Reports Venlafaxine was helpful in the past for her depression. She reports she tried TMS and it wasn't helpful. Discussed ECT. Patient reports she is apprehensive about this. No more nausea. Mostly isolating in her room.She is cooperative and pleasant and has had no outbursts or violence. Denies SI. Review of Systems Review of Systems No fever, chills but reports generalized weakness No chest pain, palpitation No shortness of breath or coughing No abdominal pain, nausea or vomiting No urinary symptoms No any rash or wounds Yes all other systems are reviewed and are negative Constitutional: Denies chills and Denies fever(s) Cardiovascular: Denies chest pain Respiratory: Denies cough Gastrointestinal: Denies abdominal pain Psychiatric: Reports depression Mental Status Exam Mental Status Exam Patient Appearance: Appropriate Patient Orientation: Person and Situation Level of Consciousness: Awake and Appropriate Patient Behavior: Guarded and Passive Mood Description: Withdrawn and Constricted Affect Description: Anxious Patient Cognition Impaired: Yes Ability to Follow Directions: Good Speech Pattern: Appropriate and Excessive Diagnostics Vital Signs (24Hr): Vital Signs - 24 hr 06/30/22 18:00 07/01/22 08:00 Temperature 98.7 F 98.4 F Pulse Rate 60 55 Respiratory Rate 16 17 Blood Pressure 151/65 H 148/65 H Pulse Oximetry 100 98 Oxygen Delivery Method Room Air Room Air BMI result Body Mass Index 29.7 Labs 06/20/22 09:58 06/20/22 08:59 Imaging Radiology Impressions: ITS Impressions Chest X-Ray 06/01/22 14:47 IMPRESSION: Small left pleural effusion with superjacent hazy opacities suggesting atelectasis and/or infiltrates. KUB X-Ray 06/01/22 14:47 IMPRESSION: G-tube in the left upper quadrant with a small air bubble in the fundus. The bowel gas pattern is nonspecific. Chest X-Ray 06/20/22 08:56 IMPRESSION: The persistent opacity at the left lung base is nonspecific but probably represents a combination of small pleural effusion and basilar atelectasis. This radiographic examination would not be able to exclude any left lower lobe pneumonia. However, there are no new pulmonary infiltrates compared to 06/01/2022. Chest CTA 06/20/22 17:08 IMPRESSION: 1. No pulmonary embolism. 2. Moderate left and tiny right pleural effusions. Segmental left lower lobe atelectasis. Additional dependent opacity along the left major fissure favors atelectasis, though aspiration not excluded. VTE: negative Medications Medications Current Medications Acetaminophen (Acetaminophen 325 Mg Tablet) 650 mg PO Q6H PRN PRN Reason: Headache/Pain Mild Scale (1-3) Last Admin: 06/19/22 22:51 Dose: 650 mg Al Hydroxide/Mg Hydroxide (Magnesium Hydrox/Alum Hydrox 30 Ml Oral.Susp) 30 ml PO Q6H PRN PRN Reason: Heartburn/Nausea Last Admin: 06/18/22 18:23 Dose: 30 ml Atorvastatin Calcium (Atorvastatin Calcium 10 Mg Tablet) 10 mg PO BEDTIME [facility] Last Admin: 06/30/22 20:33 Dose: 10 mg Clonazepam (Clonazepam 0.5 Mg Tablet) 0.5 mg PO TID [facility] Last Admin: 07/01/22 07:58 Dose: 0.5 mg Cyanocobalamin (Cyanocobalamin (Vitamin B-12) 100 Mcg Tablet) 100 mcg PO DAILY [facility] Last Admin: 07/01/22 07:58 Dose: 100 mcg Docusate Sodium (Docusate Sodium 100 Mg Capsule) 100 mg PO BID PRN PRN Reason: Constipation Ferrous Sulfate (Ferrous Sulfate 324 Mg Tablet.Dr) 324 mg PO BID [facility] Last Admin: 07/01/22 07:57 Dose: 324 mg Folic Acid (Folic Acid 1 Mg Tablet) 1 mg PO DAILY [facility] Last Admin: 07/01/22 07:58 Dose: 1 mg Guaifenesin (Guaifenesin 100 Mg/5 Ml Liquid) 5 ml PO Q6H PRN PRN Reason: Cough Hydroxyzine HCl (Hydroxyzine Hcl 25 Mg Tablet) 25 mg PO Q6H PRN PRN Reason: Anxiety Last Admin: 06/22/22 09:26 Dose: 25 mg Lamotrigine (Lamotrigine 100 Mg Tablet) 100 mg PO BID [facility] Last Admin: 07/01/22 07:58 Dose: 100 mg Levothyroxine Sodium (Levothyroxine Sodium 25 Mcg Tablet) 25 mcg PO DAILY@0600 [facility] Last Admin: 07/01/22 06:39 Dose: 25 mcg Loperamide HCl (Loperamide Hcl 2 Mg Capsule) 2 mg PO Q6H PRN PRN Reason: Diarrhea Last Admin: 06/29/22 11:43 Dose: 2 mg Magnesium Hydroxide (Milk Of Magnesia 30 Ml Oral.Susp) 30 ml PO DAILY PRN PRN Reason: Constipation Mirtazapine (Mirtazapine 15 Mg Tablet) 45 mg PO BEDTIME [facility] Last Admin: 06/30/22 20:33 Dose: 45 mg Olanzapine (Olanzapine 5 Mg Tablet) 5 mg PO BEDTIME [facility] Last Admin: 06/30/22 20:33 Dose: 5 mg Omeprazole (Omeprazole 20 Mg Capsule.Dr) 20 mg PO BID@0630,1630 [facility] Last Admin: 07/01/22 06:39 Dose: 20 mg Ondansetron HCl (Ondansetron Odt 4 Mg Tab.Rapdis) 4 mg TRANSLINGU Q6H PRN PRN Reason: nausea Last Admin: 06/22/22 17:17 Dose: 4 mg Polyethylene Glycol (Polyethylene Glycol 3350 17 Gm Powd.Pack) 17 gm PO DAILY [facility] Last Admin: 07/01/22 08:00 Dose: Not Given Prochlorperazine Maleate (Prochlorperazine Maleate 5 Mg Tablet) 5 mg PO QID PRN PRN Reason: Nausea And Vomiting Last Admin: 06/27/22 20:51 Dose: 5 mg Trazodone HCl (Trazodone Hcl 50 Mg Tablet) 50 mg PO BEDTIME MRX1 PRN PRN Reason: Insomnia Last Admin: 06/25/22 02:27 Dose: 50 mg Valsartan (Valsartan 80 Mg Tablet) 80 mg PO DAILY [facility]; Protocol Last Admin: 06/20/22 09:19 Dose: Not Given Allergies Allergies Allergy/AdvReac Type Severity Reaction Status Date / Time meperidine [From Demerol] AdvReac Unknown Unknown Verified 05/22/22 16:45 Assessment & Plan Assessment & Plan (1) Bipolar 1 disorder, depressed: Status: Acute Code(s): F31.9 - Bipolar disorder, unspecified Plan Elderly female with a long history of several medical concerns such as recent status post surgery for severe yet all hernia, with a past history of bipolar disorder and dementia admitted for continuation of care. Plan 1. Gather collateral information. 2. Continue with same medications. 3. Waiting for placement to [facility] facility or subacute rehab. 06/30: Continue current tx plan. 07/01: Consider VFX or ECT. Will defer to primary team. Reason for continued inpatient stay Substantial Risk for: inability to function and rapid decompensation Time Spent With Patient Time: Total time managing care of this patient today ____ minutes.
[2022-07-01 18:00] VITALS: BP 149/64; PULSE 70; RESP 18; TEMP 36.9; O2SAT 97
[2022-07-01] MEDS: Atorvastatin Calcium 10 MG TABLET PO (21:54)
[2022-07-01] MEDS: Mirtazapine 15 MG TABLET 45 MG PO (21:54)
[2022-07-01] MEDS: Acetaminophen 325 MG TABLET 650 MG PO (21:54)
[2022-07-01] MEDS: OLANZapine 5 MG TABLET PO (21:54)
[2022-07-02] MEDS: hydrOXYzine HCL 25 MG TABLET PO (01:04)
[2022-07-02 06:00] VITALS: BP 128/58; PULSE 47; RESP 16; TEMP 36.3; O2SAT 90
[2022-07-02] MEDS: Levothyroxine Sodium 25 MCG TABLET PO (06:02)
[2022-07-02] MEDS: Omeprazole 20 MG CAPSULE.DR PO ×2 (06:02→16:02)
[2022-07-02] MEDS: Acetaminophen 325 MG TABLET 650 MG PO (06:04)
[2022-07-02] MEDS: Ferrous Sulfate 324 MG TABLET.DR PO (08:13)
[2022-07-02] MEDS: lamoTRIgine 100 MG TABLET PO (08:13)
[2022-07-02] MEDS: Folic Acid 1 MG TABLET PO (08:13)
[2022-07-02] MEDS: Cyanocobalamin (Vitamin B-12) 100 MCG TABLET PO (08:13)
[2022-07-02] MEDS: clonazePAM 0.5 MG TABLET PO ×2 (08:13→14:14)
[2022-07-02] MEDS: Loperamide HCl 2 MG CAPSULE PO (11:48)
--- NOTE | 2022-07-02 13:54 | P.DS_ITS ---
DS: Providers Provider Date of Service: 07/02/22 Date of admission: 05/31/22 13:44 Date of discharge: 07/02/22 Primary care physician: Unknown Physician Consults: 06/01/22 10:58 Consult to Hospitalist Routine Comment: Consulting Provider: Hospitalist Reason For Exam: vomiting, recently transferred from medicine 06/01/22 13:49 Consult to General Surgery Routine Consulting Provider: [facility] [place] Reason for consultation: vomiting, recently transferred from surgery for gastric v Has provider been notified: Yes 06/03/22 16:42 Consult to Hospitalist Routine Comment: Consulting Provider: Hospitalist Reason For Exam: pain at site of GTube 06/12/22 17:01 Consult to General Surgery Routine Consulting Provider: [facility] [place] Sur[facility] Reason for consultation: F/U after surgery Has provider been notified: No 06/14/22 09:29 Consult to General Surgery Routine Consulting Provider: [facility] [place] Sur[facility] Reason for consultation: F/U, management of gastric tube Has provider been notified: No 06/20/22 08:30 Consult to Hospitalist Stat Comment: Consulting Provider: Hospitalist Reason For Exam: O2 desat, hypotension, bradycardia Attending physician on discharge: Asael Walker DS: Diagnosis Discharge Diagnosis (1) Bipolar 1 disorder, depressed: Status: Acute DS: Medications Discharge Medications Home Medications: Home Medications Medication Instructions Recorded Confirmed folic acid 1 mg tablet 1 mg PO DAILY 05/22/22 05/24/22 levothyroxine 25 mcg tablet 25 mcg PO DAILY@0600 05/22/22 05/24/22 ferrous sulfate 324 mg (65 mg 324 mg PO BID 05/24/22 05/24/22 iron) tablet,delayed release valsartan 80 mg tablet 80 mg PO DAILY 05/24/22 05/24/22 Previous Rx's Medication Instructions Recorded acetaminophen 325 mg tablet 650 mg PO Q6H PRN Headache/Pain 05/23/22 Mild Scale (1-3) 7 days #7 tabs aluminum-magnesium hydroxide 200 30 ml PO Q6H PRN Heartburn/Nausea 05/23/22 mg-200 mg/5 mL oral suspension #3,000 mL (MAG-AL) aripiprazole 2 mg tablet 2 mg PO DAILY 7 days #0 tabs 05/23/22 atorvastatin 10 mg tablet 10 mg PO BEDTIME 7 days #7 tabs 05/23/22 cyanocobalamin (vitamin B-12) 100 100 mcg PO DAILY #7 tabs 05/23/22 mcg tablet (Vitamin B-12) desvenlafaxine succinate 100 mg 100 mg PO DAILY 7 days #0 tabs 05/23/22 tablet,extended release 24 hr (Pristiq) famotidine 20 mg tablet 20 mg PO DAILY #7 tabs 05/23/22 hydroxyzine HCl 25 mg tablet 25 mg PO Q6H PRN Anxiety 7 days #7 05/23/22 tabs magnesium hydroxide 400 mg/5 mL 30 ml PO DAILY PRN Constipation 05/23/22 oral suspension (Milk of Magnesia) #355 mL mirtazapine 30 mg tablet 30 mg PO BEDTIME 7 days #7 tabs 05/23/22 omeprazole 20 mg capsule,delayed 20 mg PO BID@0630,1630 #14 caps 05/23/22 release ondansetron 4 mg disintegrating 4 mg translingual Q6H PRN nausea 05/23/22 tablet #7 tabs prochlorperazine maleate 5 mg 5 mg PO QID PRN Nausea And 05/23/22 tablet Vomiting #7 tabs trazodone 50 mg tablet 50 mg PO BEDTIME PRN Insomnia 7 05/23/22 days #7 tabs Mental Status Exam Mental Status Exam Patient Appearance: Well Grooomed and Appropriate Patient Orientation: Person and Situation Level of Consciousness: Awake and Appropriate Patient Behavior: Guarded and Passive Mood Description: Withdrawn Affect Description: Constricted Patient Cognition Impaired: Yes Ability to Follow Directions: Good Speech Pattern: Clear Hallucinations: None Delusions: Not Present Thought Process: Distracted and Evasive Thought Content: positive for [place] and positive for Circumstantial Judgement: Fair Data Imaging Diagnostic Imaging Impressions Chest X-Ray 06/01/22 14:47 IMPRESSION: Small left pleural effusion with superjacent hazy opacities suggesting atelectasis and/or infiltrates. KUB X-Ray 06/01/22 14:47 IMPRESSION: G-tube in the left upper quadrant with a small air bubble in the fundus. The bowel gas pattern is nonspecific. Chest X-Ray 06/20/22 08:56 IMPRESSION: The persistent opacity at the left lung base is nonspecific but probably represents a combination of small pleural effusion and basilar atelectasis. This radiographic examination would not be able to exclude any left lower lobe pneumonia. However, there are no new pulmonary infiltrates compared to 06/01/2022. Chest CTA 06/20/22 17:08 IMPRESSION: 1. No pulmonary embolism. 2. Moderate left and tiny right pleural effusions. Segmental left lower lobe atelectasis. Additional dependent opacity along the left major fissure favors atelectasis, though aspiration not excluded. VTE: negative DS: Summary Hospital Course Hospital Course: The patient is an 82-year-old female with a long history of bipolar disorder and other several medical comorbidities admitted for exacerbation of depression with neurovegetative symptoms. Please see the HPI of the admission note for further details. On admission, the patient decompensated and needed to be transferred to Medicine where she had a surgery, laparotomy to resolve as severe yet hernia. She with came back after the surgery and she was in pain. We restarted her medications, we care for Remeron and her mood improved. Later on, physical therapy assessed her and she was suitable for subacute rehab since the patient condition it Haldol out after the surgery. There is no evidence of psychotic symptoms, suicidal ideation or any other safety concerns, still dysphoric. But able to contract for safety. The plan was to transfer her to a subacute rehab Time spent discussing smoking cessation with patient: 3 to 10 minutes Status at Discharge Cognitive/behavioral status at discharge: Impaired at baseline Functional status at discharge: uses cane/walker Overall status at discharge: patient is back to baseline Time Spent with Patient Time attestation: Total time managing care of this patient today __30__ minutes. Time spent: Less than 30 minutes Discharge Plan Discharge Anticipated Discharge Date/Time: 07/02/22 16:00 Patient Disposition: Xfer Inpatient Rehab Fac Discharge Diagnosis: Bipolar disorder most recent episode depression. Status post surgery. Neuro cognitive impairment Referrals: Physician,Unknown J [Primary Care Provider] - 1 Week Discharge Medications: New acetaminophen 325 mg Tablet 650 mg PO Q6H PRN (Reason: Headache/Pain Mild Scale (1-3)) 30 Days Qty: 120 0RF clonazepam 0.5 mg Tablet 0.5 mg PO TID 30 Days Qty: 90 0RF hydroxyzine HCl 25 mg Tablet 25 mg PO Q6H PRN (Reason: Anxiety) Qty: 60 0RF mirtazapine 15 mg Tablet 45 mg PO BEDTIME 30 Days Qty: 90 0RF olanzapine 5 mg Tablet 5 mg PO BEDTIME Qty: 30 0RF lamotrigine 100 mg Tablet 100 mg PO BID 30 Days Qty: 60 0RF loperamide 2 mg Capsule 2 mg PO Q6H PRN (Reason: Diarrhea) 30 Days Qty: 60 0RF trazodone 50 mg Tablet 50 mg PO BEDTIME MRX1 PRN (Reason: Insomnia) 30 Days Qty: 60 0RF docusate sodium 100 mg Capsule 100 mg PO BID PRN (Reason: Constipation) 30 Days Qty: 60 0RF Continued prochlorperazine maleate 5 mg Tablet 5 mg PO QID PRN (Reason: Nausea And Vomiting) Qty: 7 0RF cyanocobalamin (vitamin B-12) [Vitamin B-12] 100 mcg Tablet 100 mcg PO DAILY 30 Days Qty: 30 0RF atorvastatin 10 mg Tablet 10 mg PO BEDTIME 30 Days Qty: 30 0RF valsartan 80 mg Tablet 80 mg PO DAILY 30 Days Qty: 30 0RF Rx Instructions: P&T interchange from irbesartan 150mg daily levothyroxine 25 mcg Tablet 25 mcg PO DAILY@0600 30 Days Qty: 30 0RF Rx Instructions: Last filled 04/03/22 #90 omeprazole 20 mg Capsule,Delayed Release(Dr/Ec) 20 mg PO BID@0630,1630 30 Days Qty: 60 0RF folic acid 1 mg Tablet 1 mg PO DAILY 30 Days Qty: 30 0RF Rx Instructions: Last filled 04/03/22 #90 ferrous sulfate 324 mg (65 mg iron) Tablet,Delayed Release (Dr/Ec) 324 mg PO BID 30 Days Qty: 60 0RF Discontinued acetaminophen 325 mg Tablet 650 mg PO Q6H PRN (Reason: Headache/Pain Mild Scale (1-3)) 7 Days Qty: 7 0RF hydroxyzine HCl 25 mg Tablet 25 mg PO Q6H PRN (Reason: Anxiety) 7 Days Qty: 7 0RF trazodone 50 mg Tablet 50 mg PO BEDTIME PRN (Reason: Insomnia) 7 Days Qty: 7 0RF famotidine 20 mg Tablet 20 mg PO DAILY Qty: 7 0RF magnesium hydroxide [Milk of Magnesia] 400 mg/5 mL Suspension 30 ml PO DAILY PRN (Reason: Constipation) Qty: 355 0RF mirtazapine 30 mg Tablet 30 mg PO BEDTIME 7 Days Qty: 7 0RF ondansetron 4 mg Tablet,Disintegrating 4 mg translingual Q6H PRN (Reason: nausea) Qty: 7 0RF MAG-AL 200-200 mg/5 mL Suspension 30 ml PO Q6H PRN (Reason: Heartburn/Nausea) Qty: 3000 0RF aripiprazole 2 mg Tablet 2 mg PO DAILY 7 Days Qty: 0 0RF Rx Instructions: for excessive thinking last filled 04/26/22 #30 desvenlafaxine succinate [Pristiq] 100 mg Tablet Extended Release 24 Hr 100 mg PO DAILY 7 Days Qty: 0 0RF Rx Instructions: Last filled 05/17/22 #30 Discharge Orders: Discharge Order (Routine); Ordered 05/31/22 Ordered By: Robbin Allen Diet: Advance to usual diet Activity on Discharge: As tolerated Stand Alone Forms: Patient Portal Discharge page Care Plan Goals: Care plan goals achieved in this admission Health Concerns: Surgery consult in 6 weeks after the surgery to remove the gastric tube. Continue with outpatient providers. Plan of Treatment: Continue medication management as an outpatient. Continue subacute treatment for the condition Assessment: Elderly female with a history of bipolar disorder admitted for exacerbation of depression in the context of several medical problems, she had a surgery and repared the severe hiatal hernia currently, not suicidal, able to continue treatment in subacute rehab
== END 2022-07-02 16:28 | DRG 885 ==
PROVIDERS: Student in an Organized Health Care Education/Training Program; Admitting Provider Psychiatry & Neurology Psychiatry; Visit Provider Psychiatry & Neurology Psychiatry
DX: F31.30 Bipolar disorder, current episode depressed, mild or moderate severity, unspecified (principal); R45.851 Suicidal ideations; J98.11 Atelectasis; G89.18 Other acute postprocedural pain; E78.5 Hyperlipidemia, unspecified; K91.0 Vomiting following gastrointestinal surgery; F41.8 Other specified anxiety disorders; I95.9 Hypotension, unspecified; I44.0 Atrioventricular block, first degree; R09.02 Hypoxemia; E03.9 Hypothyroidism, unspecified; Z93.1 Gastrostomy status; Z85.038 Personal history of other malignant neoplasm of large intestine; Z79.890 Hormone replacement therapy; Z79.899 Other long term (current) drug therapy
CPT/HCPCS: 36415; 71045; 71275; 74018; 80048; 80053; 80061; 80076; 82272; 82550; 82947; 83036; 84443; 84484; 85025; 85379; 92610; 93005; 94640; 97162; 97530; J0295; Q9967